=== PATIENT | female | born 1950 | race Caucasian/White ===

== ENCOUNTER 2016-10-23 14:55 | Outpatient (CLI) | payer MEDICARE, OTHER | END 2016-10-23 14:56 | disposition home or self-care (01) | LOC: LAB.F 14:55 | PROVIDERS: ATTEND Nurse Practitioner Psychiatric/Mental Health | DX: F31.81 Bipolar II disorder (principal) | CPT/HCPCS: 36415; 80164 ==

== ENCOUNTER 2017-12-13 14:19 | Emergency (ER) | payer MEDICARE, OTHER ==
--- NOTE | 2017-12-13 15:45 | XRAY Report ---
Procedure Date: 12/13/2017 Accession Number: [id number] / [id number] Procedure: XR - Chest 2 View X-Ray CPT Code: 00463 FULL RESULT: EXAM: CHEST RADIOGRAPHY EXAM DATE: 12/13/2017 03:14 PM. CLINICAL HISTORY: Shortness of breath. COMPARISON: 07/23/2014 TECHNIQUE: 2 views. FINDINGS: Lungs/Pleura: No focal opacities evident. No pleural effusion. No pneumothorax. Normal volumes. Mediastinum: Heart and mediastinal contours are unremarkable. Other: Mild degenerative change in the spine. IMPRESSION: Negative 2-view chest radiography for acute findings or significant change since 07/23/2014. RADIA
--- NOTE | 2017-12-13 17:07 | ED Physician Documentation ---
PD HPI DYSPNEA - Stated complaint Stated Complaint: SOA/TIGHTNESS OF CHEST - Chief complaint Chief Complaint: Resp - History obtained from History obtained from: Patient - History of Present Illness Timing - onset: How many days ago (has had dyspnea and worse asthma for months, but is worse the past week due to air quality.) Timing - onset during: Light activity Timing - duration: Days Timing - details: Gradual onset, Waxing and waning Inciting event(s): Exposure (ie smoke). No: Out of meds, URI Improved by: Inhaler/neb Associated symptoms: Cough, Wheezing. No: Fever, Palpitations, Bilateral edema , Anxiety Similar symptoms before: Diagnosis (asthma) Recently seen: Clinic (seen by Dental Laboratory Worker last week, who Rx Cromolyn for nebulizer but patient's insurance would not cover it.) Review of Systems Constitutional: reports: Myalgias. denies: Fever, Chills Nose: reports: Congestion. denies: Rhinorrhea / runny nose Throat: denies: Sore throat Cardiac: denies: Chest pain / pressure, Palpitations, Pedal edema, Calf pain Respiratory: reports: Dyspnea, Cough, Wheezing GI: reports: Nausea. denies: Abdominal Pain, Vomiting, Diarrhea, Bloody / black stool : denies: Dysuria, Frequency Musculoskeletal: denies: Extremity swelling Neurologic: reports: Generalized weakness. denies: Near syncope, Altered mental status PD PAST MEDICAL HISTORY - Past Medical History Cardiovascular: Hypertension Respiratory: Asthma Endocrine/Autoimmune: None, HyPOthyroidism GI: GERD HEATER TENDER: None : None HEENT: None Psych: Bipolar disorder Musculoskeletal: Osteoarthritis Derm: None - Past Surgical History Past Surgical History: Yes Ortho: Hip replacement, Knee replacement Derm: Skin cancer surgery - Present Medications Home Medications: Ambulatory Orders Medication Instructions Recorded Confirmed Diclofenac Sodium [Voltaren-Xr] 75 mg PO DAILY 01/15/13 05/01/14 Ipratropium [place] [Atrovent Hfa] 12.9 gm IH DAILY PRN 01/15/13 05/01/14 LORazepam [Ativan] 2 mg PO ONCE PRN 01/15/13 05/01/14 Losartan [Cozaar] 100 mg PO DAILY 01/15/13 05/01/14 Omeprazole [Prilosec] 40 mg PO DAILY 01/15/13 05/01/14 carBAMazepine [TEGretol] 200 mg PO QID 01/15/13 05/01/14 lamoTRIgine [LaMICtal] 200 mg PO DAILY 01/15/13 05/01/14 Albuterol Sulfate [Proair Hfa] 04/17/14 05/01/14 Fluticasone Propionate [Flovent 220 mcg IH DAILY 04/17/14 05/01/14 Diskus] Levothyroxine [Synthroid] 1 mcg PO DAILY 04/17/14 05/01/14 Tobramycin/Dexamethasone [Tobradex 1 drop OP DAILY 04/17/14 05/01/14 Eye Drops] Dexamethasone [Decadron] 4 mg PO DAILY #5 tablet 12/13/17 - Allergies Allergies/Adverse Reactions: Allergies Allergy/AdvReac Type Severity Reaction Status Date / Time codeine [Codeine] Allergy Emesis Verified 12/13/17 14:42 olanzapine [From Zyprexa] AdvReac weight gain Verified 12/13/17 14:42 sulfamethoxazole AdvReac Emesis Verified 12/13/17 14:42 [From Septra] trimethoprim [From Septra] AdvReac Emesis Verified 12/13/17 14:42 ziprasidone HCl * AdvReac dementia Verified 12/13/17 14:42 [From Geodon] ziprasidone mesylate * AdvReac dementia Verified 12/13/17 14:42 [From Geodon] - Social History Does the pt smoke?: No Smoking Status: Former smoker Does the pt drink ETOH?: Yes Does the pt have substance abuse?: No - Immunizations Immunizations are current?: Yes - POLST Patient has POLST: No PD ED PE NORMAL - Vitals Vital signs reviewed: Yes - General General: Alert and oriented X 3, No acute distress, Well developed/nourished - HEENT HEENT: Pharynx benign - Neck Neck: Supple, no meningeal sign, No adenopathy, No JVD - Cardiac Cardiac: RRR, No murmur - Respiratory Respiratory: No: Clear bilaterally (exp wheezing; no coarse sounds. ) - Abdomen Abdomen: Soft, Non tender - Female Female : Deferred - Rectal Rectal: Deferred - Back Back: No CVA TTP - Derm Derm: Normal color, Warm and dry, No rash - Extremities Extremities: No deformity, No tenderness to palpate, Normal ROM s pain, No edema , No calf tenderness / cord - Neuro Neuro: Alert and oriented X 3, No motor deficit, Normal speech Results - Vitals Vitals: Vital Signs - 24 hr 12/13/17 12/13/17 12/13/17 14:33 18:00 18:37 Temperature 36.4 C L Heart Rate 94 70 92 Respiratory 22 18 18 Rate Blood Pressure 180/96 H 163/108 H O2 Saturation 99 99 Oxygen O2 Source Room air - EKG (time done) 14:35 Rate: Rate (enter#) (91) Rhythm: NSR [place]: Normal Intervals: Normal AR QRS: Normal Ischemia: Normal ST segments. No: ST elevation c/w ischemia, ST depression - Rads (name of study) chest xray Radiology: Prelim report reviewed, EMP read contemporaneously (no infiltrates) PD MEDICAL DECISION MAKING - ED course Complexity details: reviewed results, re-evaluated patient, considered differential, d/w patient - Sepsis Event Vital Signs: Vital Signs - 24 hr 12/13/17 12/13/17 12/13/17 14:33 18:00 18:37 Temperature 36.4 C L Heart Rate 94 70 92 Respiratory 22 18 18 Rate Blood Pressure 180/96 H 163/108 H O2 Saturation 99 99 Oxygen O2 Source Room air Departure - Departure Disposition: 01 Home, Self Care Clinical Impression: Acute exacerbation of moderate persistent extrinsic asthma Condition: Stable Record reviewed to determine appropriate education?: Yes Follow-Up: Danyell Mayes MD [Primary Care Provider] - Prescriptions: Dexamethasone [Decadron] 4 mg PO DAILY #5 tablet Comments: Continue your current medications. Add Decadron steroid for the next 5 days. The hospital here does not stock the cromolyn so we could not do a nebulizer here. Follow-up with your primary care or Dental Laboratory Worker regarding preauthorization for the prescription you got from the dumper mold cleaner. Discharge Date/Time: 12/13/17 18:37
[2017-12-13] MEDS ORDERED: DEXAMETHASONE 10 MG/ML VIAL PO STA (17:48)
[2017-12-13] MEDS ORDERED: IPRATROPIUM/ALBUTEROL 3 ML NEB INH STA (17:48)
[2017-12-13] MEDS ORDERED: CHERRY SYRUP 10 ML UDC PO ONE (18:01)
[2017-12-13 18:38] VITALS: BP 163/108
== END 2017-12-13 18:37 | disposition home or self-care (01) ==
LOC: ED 14:19
DX: J45.31 Mild persistent asthma with (acute) exacerbation (principal); I10 Essential (primary) hypertension; E03.9 Hypothyroidism, unspecified
CPT/HCPCS: 71046; 93005; 94640; 99283; 99284; A9270

== ENCOUNTER 2018-03-15 19:07 | Outpatient (CLI) | payer MEDICARE, OTHER ==
--- NOTE | 2018-03-15 21:16 | Ultrasound Report ---
Reason: EDEMA Procedure Date: 03/15/2018 Accession Number: [id number] / [id number] Procedure: US - Duplex Ext Veins Right CPT Code: FULL RESULT: EXAM: RIGHT LOWER EXTREMITY VENOUS ULTRASOUND EXAM DATE: 03/15/2018 08:01 PM. CLINICAL HISTORY: EDEMA. COMPARISON: None. TECHNIQUE: Real-time sonographic vascular imaging was performed by the pharmacy assistant through the lower extremity utilizing both color-flow and Doppler spectral analysis. Multiple wireless sales representative static images were saved for review. FINDINGS: Common Femoral Vein (CFV): Normal. CFV-GSV Junction: Normal. Profunda Femoral Vein (PFV): Normal. Femoral Vein (FV) Prox: Normal. Femoral Vein (FV) Mid: Normal. Femoral Vein (FV) Dist: Normal. Popliteal Vein: Noncompressible clot. Posterior Tibial Veins: Normal. Peroneal Veins: Normal. Other: None. IMPRESSION: Positive for deep venous thrombosis in the right popliteal vein. RADIA The above findings were discussed with Danyell Mayes by Dr. Pablo Conway at 21:15 hrs on 03/15/18.
== END 2018-03-15 19:08 | disposition home or self-care (01) ==
LOC: DI 19:07
PROVIDERS: ATTEND Internal Medicine
DX: I82.431 Acute embolism and thrombosis of right popliteal vein (principal)

== ENCOUNTER 2018-03-15 23:10 | Emergency (ER) | payer MEDICARE, OTHER ==
[2018-03-15 23:15] VITALS: BP 150/108
--- NOTE | 2018-03-15 23:43 | ED Physician Documentation ---
History of Present Illness - Stated complaint Stated Complaint: R LEG PAIN - Chief complaint Chief Complaint: Ext Problem - History obtained from History obtained from: Patient - History of Present Illness Timing: How many days ago (3) - Additonal information Additional information: 67-year-old female with a history of allergic asthma has developed swelling in the right leg over the past 3 days. She states that her asthma has been under poor control this year and that she has spent more time sitting her chair than usual. She has noticed this swelling over the last 3 days and she is gone into see her doctor and was sent to the diagnostic imaging area for venous duplex. This demonstrated clot in the popliteal. The patient has come to the emergency department for treatment of DVT. She does not have any current risks for bleeding. Review of Systems Constitutional: reports: Chills. denies: Fever Eyes: denies: Decreased vision, Photophobia Ears: denies: Ear pain Nose: denies: Rhinorrhea / runny nose, Congestion Throat: denies: Sore throat Cardiac: denies: Chest pain / pressure, Palpitations Respiratory: reports: Wheezing. denies: Dyspnea, Cough GI: denies: Abdominal Pain, Nausea, Vomiting : denies: Dysuria, Frequency Skin: denies: Rash Musculoskeletal: reports: Extremity swelling. 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: None : None HEENT: None Psych: Bipolar disorder Musculoskeletal: Osteoarthritis Derm: None Other Past Medical History: CLL - Past Surgical History Past Surgical History: Yes Ortho: Hip replacement, Knee replacement Derm: Skin cancer surgery - Present Medications Home Medications: Ambulatory Orders Medication Instructions Recorded Confirmed Diclofenac Sodium [Voltaren-Xr] 75 mg PO DAILY 01/15/13 05/01/14 Ipratropium [place] [Atrovent Hfa] 12.9 gm IH DAILY PRN 01/15/13 05/01/14 LORazepam [Ativan] 2 mg PO ONCE PRN 01/15/13 05/01/14 Losartan [Cozaar] 100 mg PO DAILY 01/15/13 05/01/14 Omeprazole [Prilosec] 40 mg PO DAILY 01/15/13 05/01/14 carBAMazepine [TEGretol] 200 mg PO QID 01/15/13 05/01/14 lamoTRIgine [LaMICtal] 200 mg PO DAILY 01/15/13 05/01/14 Albuterol Sulfate [Proair Hfa] 04/17/14 05/01/14 Fluticasone Propionate [Flovent 220 mcg IH DAILY 04/17/14 05/01/14 Diskus] Levothyroxine [Synthroid] 1 mcg PO DAILY 04/17/14 05/01/14 Tobramycin/Dexamethasone [Tobradex 1 drop OP DAILY 04/17/14 05/01/14 Eye Drops] Dexamethasone [Decadron] 4 mg PO DAILY #5 tablet 12/13/17 Enoxaparin [Lovenox] 100 mg SUBQ Q12H #14 syringe 03/16/18 Warfarin [Coumadin] 5 mg PO DAILY #20 tablet 03/16/18 - Allergies Allergies/Adverse Reactions: Allergies Allergy/AdvReac Type Severity Reaction Status Date / Time codeine [Codeine] Allergy Emesis Verified 03/15/18 23:15 olanzapine [From Zyprexa] AdvReac weight gain Verified 03/15/18 23:15 sulfamethoxazole AdvReac Emesis Verified 03/15/18 23:15 [From Septra] trimethoprim [From Septra] AdvReac Emesis Verified 03/15/18 23:15 ziprasidone HCl * AdvReac dementia Verified 03/15/18 23:15 [From Geodon] ziprasidone mesylate * AdvReac dementia Verified 03/15/18 23:15 [From Geodon] - Social History Does the pt smoke?: No Smoking Status: Never smoker Does the pt drink ETOH?: Yes Does the pt have substance abuse?: No - Immunizations Immunizations are current?: Yes - POLST Patient has POLST: No PD ED PE NORMAL - Vitals Vital signs reviewed: Yes (hypertensive ) - General General: Alert and oriented X 3, No acute distress, Well developed/nourished - HEENT HEENT: Atraumatic, PERRL, EOMI - Neck Neck: Supple, no meningeal sign - Cardiac Cardiac: RRR, No murmur - Respiratory Respiratory: No respiratory distress, Clear bilaterally - Abdomen Abdomen: Soft, Non tender - Back Back: No CVA TTP, No spinal TTP - Derm Derm: Normal color, Warm and dry, No rash - Extremities Extremities: No deformity, Other (There is edema and swelling to the right lower calf without much tenderness or pain with dorsiflexion of the foot. ) - Neuro Neuro: Alert and oriented X 3, linux solaris administrator 2-12 intact, No motor deficit, No sensory deficit, Normal speech Eye Opening: Spontaneous Motor: Obeys Commands Verbal: Oriented GCS Score: 15 - Psych Psych: Normal mood, Normal affect Results - Vitals Vitals: Vital Signs - 24 hr 03/15/18 23:13 Temperature 36.6 C Heart Rate 96 Respiratory 18 Rate Blood Pressure 150/108 H O2 Saturation 100 Oxygen O2 Source Room air - Rads (name of study) duplex veins right Radiology: Prelim report reviewed (Impression: Positive for deep venous thrombosis in the right popliteal vein.), EMP read indepedently, See rad report PD MEDICAL DECISION MAKING - ED course Complexity details: reviewed results, considered differential, d/w patient ED course: 67-year-old female with a right popliteal DVT is administered Xarelto 15 mg orally. We will place her on 15 mg twice a day for 3 weeks and then onto 20 mg daily. I have asked her to follow-up with her primary care doctor Sugey for the prescription for after the 3-week period. Departure - Departure Disposition: 01 Home, Self Care Clinical Impression: DVT of axillary vein, acute Qualifiers: Laterality: right Qualified Code(s): I82.A11 - Acute embolism and thrombosis of right axillary vein Condition: Stable Instructions: ED DVT Follow-Up: Danyell Mayes MD [Primary Care Provider] - Prescriptions: Enoxaparin [Lovenox] 100 mg SUBQ Q12H #14 syringe Warfarin [Coumadin] 5 mg PO DAILY #20 tablet Comments: There is a drug interaction with your tegretol that precludes being able to use the xarelto. (it will be less effective). You will likely need to be on coumadin and this is a medication that requires close follow up with your primary care doctor and frequent blood draws. You will need to have your blood checked in 3 days and you will need to call Dr. Mayes tomorrow to arrange follow up. In addition while this medication is being adjusted you will need to take shots tw ice per day.
[2018-03-15] MEDS: RIVAROXABAN 15 MG TABLET PO STA (23:53)
[2018-03-16] MEDS: ENOXAPARIN 100 MG/ML SYRINGE SUBQ STA (00:23)
== END 2018-03-16 00:28 | disposition home or self-care (01) ==
LOC: ED 23:10
DX: I82.431 Acute embolism and thrombosis of right popliteal vein (principal); J45.909 Unspecified asthma, uncomplicated; I10 Essential (primary) hypertension
CPT/HCPCS: 96372; 99283; A9270; J1650

== ENCOUNTER 2018-03-21 14:27 | Outpatient (CLI) | payer MEDICARE, OTHER | END 2018-03-21 14:28 | disposition home or self-care (01) | LOC: LAB.F 14:27 | PROVIDERS: ATTEND Internal Medicine | DX: I82.401 Acute embolism and thrombosis of unspecified deep veins of right lower extremity (principal) | CPT/HCPCS: 85610 ==

== ENCOUNTER 2018-03-22 14:45 | Outpatient (CLI) | payer MEDICARE, OTHER | END 2018-03-22 14:46 | disposition EMS.NT | LOC: EMS 14:45 | PROVIDERS: ATTEND Surgery | DX: R20.2 Paresthesia of skin (principal); R00.0 Tachycardia, unspecified ==

== ENCOUNTER 2018-03-24 14:21 | Outpatient (CLI) | payer MEDICARE, OTHER | END 2018-03-24 14:22 | disposition home or self-care (01) | LOC: LAB.F 14:21 | PROVIDERS: ATTEND Internal Medicine | DX: I82.401 Acute embolism and thrombosis of unspecified deep veins of right lower extremity (principal) | CPT/HCPCS: 85610 ==

== ENCOUNTER 2018-03-28 14:52 | Outpatient (CLI) | payer MEDICARE, OTHER | END 2018-03-28 14:53 | disposition home or self-care (01) | LOC: LAB.F 14:52 | PROVIDERS: ATTEND Internal Medicine | DX: I82.401 Acute embolism and thrombosis of unspecified deep veins of right lower extremity (principal) | CPT/HCPCS: 85610 ==

== ENCOUNTER 2018-04-04 13:42 | Outpatient (CLI) | payer MEDICARE, OTHER | END 2018-04-04 13:43 | disposition home or self-care (01) | LOC: LAB.F 13:42 | PROVIDERS: ATTEND Internal Medicine | DX: I82.401 Acute embolism and thrombosis of unspecified deep veins of right lower extremity (principal) | CPT/HCPCS: 85610 ==

== ENCOUNTER 2018-04-11 14:23 | Outpatient (CLI) | payer MEDICARE, OTHER | END 2018-04-11 14:24 | disposition home or self-care (01) | LOC: LAB.F 14:23 | PROVIDERS: ATTEND Internal Medicine | DX: I82.401 Acute embolism and thrombosis of unspecified deep veins of right lower extremity (principal) | CPT/HCPCS: 85610 ==

== ENCOUNTER 2018-04-13 10:44 | Outpatient (CLI) | payer MEDICARE, OTHER | END 2018-04-13 10:45 | disposition home or self-care (01) | LOC: LAB.F 10:44 | PROVIDERS: ATTEND Internal Medicine | DX: I82.401 Acute embolism and thrombosis of unspecified deep veins of right lower extremity (principal) | CPT/HCPCS: 85610 ==

== ENCOUNTER 2018-04-20 11:26 | Outpatient (CLI) | payer MEDICARE, OTHER | END 2018-04-20 11:27 | disposition home or self-care (01) | LOC: LAB.F 11:26 | PROVIDERS: ATTEND Internal Medicine | DX: I82.401 Acute embolism and thrombosis of unspecified deep veins of right lower extremity (principal) | CPT/HCPCS: 85610 ==

== ENCOUNTER 2018-04-27 11:13 | Outpatient (CLI) | payer MEDICARE, OTHER | END 2018-04-27 11:14 | disposition home or self-care (01) | LOC: LAB.F 11:13 | PROVIDERS: ATTEND Internal Medicine | DX: I82.401 Acute embolism and thrombosis of unspecified deep veins of right lower extremity (principal) | CPT/HCPCS: 85610 ==

== ENCOUNTER 2018-05-02 14:17 | Outpatient (CLI) | payer MEDICARE, OTHER | END 2018-05-02 14:18 | disposition home or self-care (01) | LOC: LAB.F 14:17 | PROVIDERS: ATTEND Internal Medicine | DX: I82.401 Acute embolism and thrombosis of unspecified deep veins of right lower extremity (principal) | CPT/HCPCS: 85610 ==

== ENCOUNTER 2018-05-18 11:24 | Outpatient (CLI) | payer MEDICARE, OTHER | END 2018-05-18 11:25 | disposition home or self-care (01) | LOC: LAB.F 11:24 | PROVIDERS: ATTEND Internal Medicine | DX: I82.401 Acute embolism and thrombosis of unspecified deep veins of right lower extremity (principal) | CPT/HCPCS: 85610 ==

== ENCOUNTER 2018-05-25 14:43 | Outpatient (CLI) | payer MEDICARE, OTHER | END 2018-05-25 14:44 | disposition home or self-care (01) | LOC: LAB.F 14:43 | PROVIDERS: ATTEND Internal Medicine | DX: I82.401 Acute embolism and thrombosis of unspecified deep veins of right lower extremity (principal) | CPT/HCPCS: 85610 ==

== ENCOUNTER 2018-06-02 15:08 | Outpatient (CLI) | payer MEDICARE, OTHER | END 2018-06-02 15:09 | disposition home or self-care (01) | LOC: LAB.F 15:08 | PROVIDERS: ATTEND Internal Medicine | DX: I82.401 Acute embolism and thrombosis of unspecified deep veins of right lower extremity (principal) | CPT/HCPCS: 85610 ==

== ENCOUNTER 2018-06-10 11:40 | Outpatient (CLI) | payer MEDICARE, OTHER | END 2018-06-10 11:41 | disposition home or self-care (01) | LOC: LAB.F 11:40 | PROVIDERS: ATTEND Internal Medicine | DX: I82.401 Acute embolism and thrombosis of unspecified deep veins of right lower extremity (principal) | CPT/HCPCS: 85610 ==

== ENCOUNTER 2018-06-29 12:48 | Outpatient (CLI) | payer MEDICARE, OTHER | END 2018-06-29 12:49 | disposition home or self-care (01) | LOC: LAB.F 12:48 | PROVIDERS: ATTEND Internal Medicine | DX: E03.9 Hypothyroidism, unspecified (principal) | CPT/HCPCS: 36415; 84443 ==

== ENCOUNTER 2018-07-15 15:12 | Outpatient (CLI) | payer MEDICARE, OTHER ==
[2018-07-15 18:15] LABS: CREATININE 2.2 mg/dL (0.4-1.0)
[2018-07-15 18:27] LABS: THYROID STIMULATING HORMONE 5.63 uIU/mL (0.34-5.60)
== END 2018-07-15 15:13 | disposition home or self-care (01) ==
LOC: LAB.F 15:12
PROVIDERS: ATTEND Internal Medicine
DX: I82.401 Acute embolism and thrombosis of unspecified deep veins of right lower extremity (principal); E03.9 Hypothyroidism, unspecified; Z79.899 Other long term (current) drug therapy
CPT/HCPCS: 36415; 80048; 84439; 84443; 85610

== ENCOUNTER 2018-08-19 14:41 | Outpatient (CLI) | payer MEDICARE, OTHER | END 2018-08-19 14:42 | disposition home or self-care (01) | LOC: LAB.F 14:41 | PROVIDERS: ATTEND Internal Medicine | DX: Z00.00 Encounter for general adult medical examination without abnormal findings (principal); I82.401 Acute embolism and thrombosis of unspecified deep veins of right lower extremity; R53.83 Other fatigue | CPT/HCPCS: 36415; 84443; 85610 ==

== ENCOUNTER 2018-09-14 19:37 | Emergency (ER) | payer MEDICARE, OTHER ==
[2018-09-14 19:41] VITALS: BP 207/105
[2018-09-14] MEDS ORDERED: DEXAMETHASONE 10 MG/ML VIAL PO STA (20:03)
[2018-09-14] MEDS ORDERED: CHERRY SYRUP 10 ML UDC PO ONE (20:03)
--- NOTE | 2018-09-14 20:06 | ED Physician Documentation ---
PD HPI DYSPNEA - Stated complaint Stated Complaint: HX OF ASTHMA - Chief complaint Chief Complaint: Resp - History obtained from History obtained from: Patient - History of Present Illness Timing - onset: Other (67-year-old woman with history of asthma presents with an exacerbation due to environmental triggers. She was trying to fill a prescription for cromolyn inhaled but her insurance would not cover it it is prohibitively expensive. She denies productive cough, leg pain except for chronic arthritic pain, or chest pain. She does have a history of DVT and is on warfarin.) Review of Systems Constitutional: denies: Fever, Chills Cardiac: denies: Chest pain / pressure, Palpitations, Pedal edema, Calf pain Respiratory: denies: Hemoptysis, Wheezing PD PAST MEDICAL HISTORY - Past Medical History Cardiovascular: Hypertension Respiratory: Asthma Endocrine/Autoimmune: None, HyPOthyroidism GI: GERD QUAD STAYER: None : None HEENT: None Psych: Bipolar disorder Musculoskeletal: Osteoarthritis Derm: None - Past Surgical History Past Surgical History: Yes Ortho: Hip replacement, Knee replacement Derm: Skin cancer surgery - Present Medications Home Medications: Ambulatory Orders Medication Instructions Recorded Confirmed Diclofenac Sodium [Voltaren-Xr] 75 mg PO DAILY 01/15/13 05/01/14 Ipratropium [place] [Atrovent Hfa] 12.9 gm IH DAILY PRN 01/15/13 05/01/14 LORazepam [Ativan] 2 mg PO ONCE PRN 01/15/13 05/01/14 Losartan [Cozaar] 100 mg PO DAILY 01/15/13 05/01/14 Omeprazole [Prilosec] 40 mg PO DAILY 01/15/13 05/01/14 carBAMazepine [TEGretol] 200 mg PO QID 01/15/13 05/01/14 lamoTRIgine [LaMICtal] 200 mg PO DAILY 01/15/13 05/01/14 Albuterol Sulfate [Proair Hfa] 04/17/14 05/01/14 Fluticasone Propionate [Flovent 220 mcg IH DAILY 04/17/14 05/01/14 Diskus] Levothyroxine [Synthroid] 1 mcg PO DAILY 04/17/14 05/01/14 Tobramycin/Dexamethasone [Tobradex 1 drop OP DAILY 04/17/14 05/01/14 Eye Drops] dexAMETHasone [Decadron] 4 mg PO DAILY #5 tablet 12/13/17 Enoxaparin [Lovenox] 100 mg SUBQ Q12H #14 syringe 03/16/18 Warfarin [Coumadin] 5 mg PO DAILY #20 tablet 03/16/18 dexAMETHasone [Decadron] 4 mg PO DAILY #5 tablet 09/14/18 - Allergies Allergies/Adverse Reactions: Allergies Allergy/AdvReac Type Severity Reaction Status Date / Time codeine [Codeine] Allergy Emesis Verified 09/14/18 19:42 olanzapine [From Zyprexa] AdvReac weight gain Verified 09/14/18 19:42 sulfamethoxazole AdvReac Emesis Verified 09/14/18 19:42 [From Septra] trimethoprim [From Septra] AdvReac Emesis Verified 09/14/18 19:42 ziprasidone HCl * AdvReac dementia Verified 09/14/18 19:42 [From Geodon] ziprasidone mesylate * AdvReac dementia Verified 09/14/18 19:42 [From Geodon] - Social History Does the pt smoke?: No Smoking Status: Never smoker Does the pt drink ETOH?: Yes Does the pt have substance abuse?: No - Immunizations Immunizations are current?: Yes - POLST Patient has POLST: No PD ED PE NORMAL - Vitals Vital signs reviewed: Yes - General General: Alert and oriented X 3, No acute distress - Cardiac Cardiac: RRR, No murmur - Respiratory Respiratory: No respiratory distress, Other (Mildly wheezy and rhonchorous throughout, no focal findings) - Extremities Extremities: No edema, No calf tenderness / cord - Neuro Neuro: Alert and oriented X 3, Normal speech Results - Vitals Vitals: Vital Signs - 24 hr 09/14/18 19:40 Temperature 37.0 C Heart Rate 98 Respiratory 20 Rate Blood Pressure 207/105 H O2 Saturation 100 Oxygen O2 Source Room air PD MEDICAL DECISION MAKING - ED course ED course: She did not want any beta agonists, she says they do not work for her. We discussed may be montelukast, she is tried that without relief. She wants to do some steroids but had a low dose because of her glaucoma. Departure - Departure Disposition: 01 Home, Self Care Clinical Impression: Acute exacerbation of moderate persistent extrinsic asthma Condition: Good Record reviewed to determine appropriate education?: Yes Instructions: Asthma Dc Prescriptions: dexAMETHasone [Decadron] 4 mg PO DAILY #5 tablet Comments: Call your doctor to arrange a follow-up appointment, make the next available appointment. In the interim, return anytime if worse or if new symptoms develop.
== END 2018-09-14 20:12 | disposition home or self-care (01) ==
LOC: ED 19:37
DX: J45.41 Moderate persistent asthma with (acute) exacerbation (principal); I10 Essential (primary) hypertension; Z86.718 Personal history of other venous thrombosis and embolism; Z79.01 Long term (current) use of anticoagulants
CPT/HCPCS: 99283; A9270

== ENCOUNTER 2018-09-30 08:00 | Outpatient (CLI) | payer MEDICARE, OTHER | END 2018-09-30 23:59 | disposition home or self-care (01) | LOC: LAB.F 08:00 | PROVIDERS: ATTEND Internal Medicine | DX: I82.401 Acute embolism and thrombosis of unspecified deep veins of right lower extremity (principal) | CPT/HCPCS: 85610 ==

== ENCOUNTER 2018-12-13 16:18 | Outpatient (CLI) | payer MEDICARE, OTHER ==
--- NOTE | 2018-12-14 12:28 | Ultrasound Report ---
Reason: DVT R LE Procedure Date: 12/13/2018 Accession Number: [id number] / [id number] Procedure: US - Duplex Ext Veins Right CPT Code: FULL RESULT: EXAM: RIGHT LOWER EXTREMITY VENOUS ULTRASOUND EXAM DATE: 12/13/2018 05:15 PM. CLINICAL HISTORY: History of right lower extremity DVT. COMPARISON: 03/15/2018. TECHNIQUE: Real-time sonographic vascular imaging was performed by the centerless grinder through the lower extremity utilizing both color-flow and Doppler spectral analysis. Multiple district representative static images were saved for review. FINDINGS: Common Femoral Vein (CFV): Normal. CFV-GSV Junction: Normal. Profunda Femoral Vein (PFV): Normal. Femoral Vein (FV) Prox: Normal. Femoral Vein (FV) Mid: Normal. Femoral Vein (FV) Dist: Normal. Popliteal Vein: Incompletely compressible due to residual small amount nonocclusive thrombus. Posterior Tibial Veins: Normal. Peroneal Veins: Normal. Contralateral Side CFV: Normal. IMPRESSION: 1. Interval improvement, with small amount of residual nonocclusive thrombus in the popliteal vein. 2. No new DVT. RADIA
== END 2018-12-13 16:19 | disposition home or self-care (01) ==
LOC: DI 16:18
PROVIDERS: ATTEND Internal Medicine
DX: I82.431 Acute embolism and thrombosis of right popliteal vein (principal)

== ENCOUNTER 2018-12-13 17:11 | Emergency (ER) | payer MEDICARE, OTHER ==
[2018-12-13] MEDS ORDERED: BUFFERED LIDOCAINE 10 ML SYRINGE SUBQ STA (17:57)
[2018-12-13] MEDS ORDERED: TETANUS/DIPHTHERIA/PERTUSSIS 0.5 ML SYRINGE IM ONE (18:14)
--- NOTE | 2018-12-13 18:17 | ED Physician Documentation ---
PD HPI UPPER EXT INJURY - Stated complaint Stated Complaint: LT FING LAC - Chief complaint Chief Complaint: Laceration - History obtained from History obtained from: Patient - History of Present Illness Location: Left, Finger (index) Type of injury: Laceration Where injury occurred: Home Timing - onset: Today Timing - duration: Minutes Timing - details: Abrupt onset, Still present Improved by: Rest, Immobilization Worsened by: Moving, Palpating Associated symptoms: No: Weakness, Numbness, Tingling, Swelling Contributing factors: Anticoagulated Similar symptoms before: Diagnosis (laceration) Recently seen: Not recently seen - Additonal information Additional information: 67-year-old female with a history of asthma and DVT who is on Coumadin has lacerated her finger she has been able to control bleeding with direct pressure. 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: None : None HEENT: None Psych: Bipolar disorder Musculoskeletal: Osteoarthritis Derm: None - Past Surgical History Past Surgical History: Yes Ortho: Hip replacement, Knee replacement HEENT: Tonsil/Adenoidectomy Derm: Skin cancer surgery - Present Medications Home Medications: Ambulatory Orders Medication Instructions Recorded Confirmed Diclofenac Sodium [Voltaren-Xr] 75 mg PO DAILY 01/15/13 05/01/14 Ipratropium [place] [Atrovent Hfa] 12.9 gm IH DAILY PRN 01/15/13 05/01/14 LORazepam [Ativan] 2 mg PO ONCE PRN 01/15/13 05/01/14 Losartan [Cozaar] 100 mg PO DAILY 01/15/13 05/01/14 Omeprazole [Prilosec] 40 mg PO DAILY 01/15/13 05/01/14 carBAMazepine [TEGretol] 200 mg PO QID 01/15/13 05/01/14 lamoTRIgine [LaMICtal] 200 mg PO DAILY 01/15/13 05/01/14 Albuterol Sulfate [Proair Hfa] 04/17/14 05/01/14 Fluticasone Propionate [Flovent 220 mcg IH DAILY 04/17/14 05/01/14 Diskus] Levothyroxine [Synthroid] 1 mcg PO DAILY 12/23/14 01/06/15 Tobramycin/Dexamethasone [Tobradex 1 drop OP DAILY 04/17/14 05/01/14 Eye Drops] dexAMETHasone [Decadron] 4 mg PO DAILY #5 tablet 12/13/17 Enoxaparin [Lovenox] 100 mg SUBQ Q12H #14 syringe 03/16/18 Warfarin [Coumadin] 5 mg PO DAILY #20 tablet 03/16/18 dexAMETHasone [Decadron] 4 mg PO DAILY #5 tablet 09/14/18 - Allergies Allergies/Adverse Reactions: Allergies Allergy/AdvReac Type Severity Reaction Status Date / Time codeine [Codeine] Allergy Emesis Verified 09/14/18 19:42 olanzapine [From Zyprexa] AdvReac weight gain Verified 09/14/18 19:42 sulfamethoxazole AdvReac Emesis Verified 09/14/18 19:42 [From Septra] trimethoprim [From Septra] AdvReac Emesis Verified 09/14/18 19:42 ziprasidone HCl * AdvReac dementia Verified 09/14/18 19:42 [From Geodon] ziprasidone mesylate * AdvReac dementia Verified 09/14/18 19:42 [From Geodon] - Social History Does the pt smoke?: No Smoking Status: Never smoker Does the pt drink ETOH?: Yes Does the pt have substance abuse?: No - Immunizations Immunizations are current?: Yes - POLST Patient has POLST: No PD ED PE NORMAL - Vitals Vital signs reviewed: Yes (hypertensive ) - General General: Alert and oriented X 3, No acute distress, Well developed/nourished - HEENT HEENT: Atraumatic, PERRL, EOMI - Respiratory Respiratory: No respiratory distress - Derm Derm: Normal color, Warm and dry, No rash - Extremities Extremities: No deformity, No edema, Other (There is a 2cm laceration to the left index finger. There is no involvement of deeper structures. Distal n/v is intact. ) - Neuro Neuro: Alert and oriented X 3, institute scientist 2-12 intact, No motor deficit, No sensory deficit, Normal speech Eye Opening: Spontaneous Motor: Obeys Commands Verbal: Oriented GCS Score: 15 - Psych Psych: Normal mood, Normal affect Results - Vitals Vitals: Vital Signs - 24 hr 12/13/18 17:34 Temperature 36.5 C Heart Rate 92 Respiratory 14 Rate Blood Pressure 171/94 H O2 Saturation 98 Oxygen O2 Source Room air Procedures - Laceration (location) left index Length in cm: 2 Wound type: Linear, Clean Neurovascular status: Sensory intact, Motor intact, Vascular intact Anesthesia: Lidocaine 1%, With bicarb Wound Preparation: Hibiclens, Irrigated copiously NS, Wound explored, To the base Skin layer closure: Nylon, Interrupted, Size #-0 - enter number (4-0), Sutures - enter # (45) Other: Patient tolerated well, No complications, Dressing applied, Tetanus booster given Complexity: Simple PD MEDICAL DECISION MAKING - ED course Complexity details: considered differential, d/w patient, d/w family ED course: 67-year-old female with left index finger laceration has her finger sutured and tolerates this well. She does not have any excessive bleeding Departure - Departure Disposition: 01 Home, Self Care Clinical Impression: Finger laceration Qualifiers: Encounter type: initial encounter Finger: index finger Damage to nail status: without damage Foreign body presence: without foreign body Laterality: left Qualified Code(s): S61.211A - Laceration without foreign body of left index finger without damage to nail, initial encounter Condition: Stable Instructions: ED Laceration Hand Follow-Up: Danyell Mayes MD [Primary Care Provider] - Comments: Sutures should be removed in 7 to 10 days.
[2018-12-13 19:25] VITALS: BP 156/71
== END 2018-12-13 19:24 | disposition home or self-care (01) ==
LOC: ED 17:11
DX: S61.211A Laceration without foreign body of left index finger without damage to nail, initial encounter (principal); W26.0XXA Contact with knife, initial encounter; Y93.89 Activity, other specified; Y92.009 Unspecified place in unspecified non-institutional (private) residence as the place of occurrence of the external cause; I10 Essential (primary) hypertension; Z86.718 Personal history of other venous thrombosis and embolism; Z79.01 Long term (current) use of anticoagulants; I82.431 Acute embolism and thrombosis of right popliteal vein
CPT/HCPCS: 12001; 85610; 90471

== ENCOUNTER 2018-12-29 14:31 | Outpatient (CLI) | payer MEDICARE, OTHER ==
[2018-12-29 17:47] LABS: HGB - HEMOGLOBIN 11.9 g/dL (12.0-16.0); MEAN CORPUSCULAR HEMOGLOBIN 32.6 pg (27.0-31.0); MEAN CORPUSCULAR HGB CONC 31.2 g/dL (32.0-36.0); MEAN CORPUSCULAR VOLUME 104.7 fL (81.0-99.0); MEAN PLATELET VOLUME 10.6 fL (7.9-10.8); RED BLOOD COUNT 3.65 10^6/uL (4.20-5.40)
[2018-12-29 17:56] LABS: CALCIUM 9.4 mg/dL (8.5-10.3); CREATININE 2.3 mg/dL (0.4-1.0)
[2018-12-29 18:09] LABS: CREATININE,URINE 68.9 mg/dL; PROTEIN/CREATININE RATIO,URINE 0.2 (<=0.2)
== END 2018-12-29 14:32 | disposition home or self-care (01) ==
LOC: LAB.S 14:31
PROVIDERS: ATTEND Internal Medicine Nephrology
DX: N05.9 Unspecified nephritic syndrome with unspecified morphologic changes (principal); D70.9 Neutropenia, unspecified; D63.1 Anemia in chronic kidney disease; R80.9 Proteinuria, unspecified
CPT/HCPCS: 36415; 80048; 82570; 84156; 85027

== ENCOUNTER 2019-01-24 14:42 | Outpatient (CLI) | payer MEDICARE, OTHER ==
[2019-01-24 15:13] LABS: CALCIUM 8.9 mg/dL (8.5-10.3); CREATININE 2.4 mg/dL (0.4-1.0); PHOSPHORUS 3.1 mg/dL (2.5-4.6)
[2019-01-24 15:28] LABS: THYROID STIMULATING HORMONE 2.28 uIU/mL (0.34-5.60)
[2019-01-24 15:30] LABS: CREATININE,URINE 23.2 mg/dL; PROTEIN/CREATININE RATIO,URINE 0.3 (<=0.2)
== END 2019-01-24 14:43 | disposition home or self-care (01) ==
LOC: LAB 14:42
PROVIDERS: ATTEND Internal Medicine Nephrology
DX: I50.32 Chronic diastolic (congestive) heart failure (principal); E03.9 Hypothyroidism, unspecified; N05.9 Unspecified nephritic syndrome with unspecified morphologic changes; R80.9 Proteinuria, unspecified; E83.30 Disorder of phosphorus metabolism, unspecified; N25.81 Secondary hyperparathyroidism of renal origin
CPT/HCPCS: 36415; 80048; 82570; 83880; 83970; 84100; 84156; 84443

== ENCOUNTER 2019-01-26 14:39 | Outpatient (CLI) | payer MEDICARE, OTHER ==
--- NOTE | 2019-01-26 16:49 | Ultrasound Report ---
Reason: STAGE 4 KIDNEY DISEASE Procedure Date: 01/26/2019 Accession Number: [id number] / [id number] Procedure: US - Retroperitoneal CPT Code: FULL RESULT: EXAM: RENAL ULTRASOUND EXAM DATE: 01/26/2019 04:11 PM. CLINICAL HISTORY: Stage 4 kidney disease. COMPARISON: None. TECHNIQUE: Real-time scanning was performed with static images obtained. FINDINGS: Right Kidney: 10.8 x 5.7 x 6.2 cm. Diffusely echogenic renal parenchyma. No obvious mass or hydronephrosis on limited evaluation. Left Kidney: 11.0 x 5.5 x 5.7 cm. Diffusely echogenic renal parenchyma. No obvious mass or hydronephrosis on limited evaluation. Bladder: Bilateral jets seen. The prevoid bladder volume was 386 cc. The postvoid bladder volume was 39 cc. Other: None. IMPRESSION: 1. Diffusely echogenic renal parenchyma without significant atrophy. No obvious mass or ureteral obstruction. 2. Unremarkable bladder except for small postvoid residual urine volume. RADIA
== END 2019-01-26 14:40 | disposition home or self-care (01) ==
LOC: DI 14:39
PROVIDERS: ATTEND Internal Medicine Nephrology
DX: N18.4 Chronic kidney disease, stage 4 (severe) (principal)
CPT/HCPCS: 76770

== ENCOUNTER 2019-06-22 13:56 | Outpatient (CLI) | payer MEDICARE, OTHER ==
[2019-06-22 17:37] LABS: CALCIUM 9.3 mg/dL (8.5-10.3); CREATININE 2.2 mg/dL (0.4-1.0)
== END 2019-06-22 13:57 | disposition home or self-care (01) ==
LOC: LAB.S 13:56
PROVIDERS: ATTEND Internal Medicine Nephrology
DX: N05.9 Unspecified nephritic syndrome with unspecified morphologic changes (principal)
CPT/HCPCS: 36415; 80048

== ENCOUNTER 2019-12-29 15:25 | Outpatient (CLI) | payer MEDICARE, OTHER ==
[2019-12-29 19:49] LABS: HGB - HEMOGLOBIN 11.8 g/dL (12.0-16.0); MEAN CORPUSCULAR HEMOGLOBIN 32.3 pg (27.0-31.0); MEAN CORPUSCULAR HGB CONC 31.1 g/dL (32.0-36.0); MEAN CORPUSCULAR VOLUME 103.8 fL (81.0-99.0); RED BLOOD COUNT 3.65 10^6/uL (4.20-5.40); WHITE BLOOD COUNT 13.8 x10^3/uL (4.8-10.8)
[2019-12-29 19:55] LABS: CALCIUM 9.1 mg/dL (8.5-10.3); CREATININE 2.8 mg/dL (0.4-1.0)
== END 2019-12-29 15:26 | disposition home or self-care (01) ==
LOC: LAB.S 15:25
PROVIDERS: ATTEND Internal Medicine Nephrology
DX: N05.9 Unspecified nephritic syndrome with unspecified morphologic changes (principal); D70.9 Neutropenia, unspecified; D63.1 Anemia in chronic kidney disease; N18.9 Chronic kidney disease, unspecified
CPT/HCPCS: 36415; 80048; 85027

== ENCOUNTER 2020-01-26 08:00 | Outpatient (CLI) | payer MEDICARE, OTHER ==
--- NOTE | 2020-01-26 13:38 | XRAY Report ---
PROCEDURE: Ribs w/PA Chest LT INDICATIONS: FALL 2 DAYS AGO LEFT RIB PAIN TECHNIQUE: 3 views of the left ribs were acquired, along with a single view chest. COMPARISON: two-view chest 12/13/2017 FINDINGS: Surgical changes and devices: None. Bones and chest wall: No fractures or dislocations. No suspicious bony lesions. Overlying soft tis sues appear unremarkable. Lungs and pleura: No pleural effusions or pneumothorax. Lungs appear clear. Mediastinum: Mediastinal contours appear normal. Heart size is normal. IMPRESSION: No displaced rib fracture. No acute cardiopulmonary disease process. Reviewed by: Nancie Rodriguez MD, PhD on 01/26/2020 1:36 PM PDT Approved by: Nancie Rodriguez MD, PhD on 01/26/2020 1:36 PM PDT Station ID: [id number]
--- NOTE | 2020-01-26 13:39 | XRAY Report ---
PROCEDURE: Wrist 3 View LT INDICATIONS: FALL 2 WEEKS AGO, LEFT WRIST PAIN TECHNIQUE: 3 views of the wrist were acquired. COMPARISON: None FINDINGS: Bones: No fractures or dislocations. No suspicious bony lesions. Soft tissues: No suspicious soft tissue calcifications. IMPRESSION: No fracture. No osseous lesion. If there is continued clinical concern for pathology, then repeat angela in film radiographs (7-10 days) or advanced imaging (CT, MR, bone scan) should be considered for furt her evaluation. Reviewed by: Nancie Rodriguez MD, PhD on 01/26/2020 1:38 PM PDT Approved by: Nancie Rodriguez MD, PhD on 01/26/2020 1:38 PM PDT Station ID: [id number]
== END 2020-01-26 23:59 | disposition home or self-care (01) ==
LOC: DI.S 08:00
PROVIDERS: ATTEND Physician Assistant
DX: R07.81 Pleurodynia (principal); M25.532 Pain in left wrist

== ENCOUNTER 2020-01-29 08:00 | Outpatient (CLI) | payer MEDICARE, OTHER | END 2020-01-29 23:59 | disposition home or self-care (01) | LOC: LAB.R 08:00 | PROVIDERS: ATTEND Physician Assistant Medical | DX: B43.2 Subcutaneous pheomycotic abscess and cyst (principal) | CPT/HCPCS: 87070; 87205 ==

== ENCOUNTER 2020-02-02 07:00 | Outpatient (CLI) | payer MEDICARE, OTHER | END 2020-02-02 23:59 | disposition home or self-care (01) | LOC: LAB.R 07:00 | PROVIDERS: ATTEND Emergency Medicine | DX: L72.3 Sebaceous cyst (principal) | CPT/HCPCS: 87070; 87205 ==

== ENCOUNTER 2020-06-14 08:22 | Outpatient (CLI) | payer MEDICARE, OTHER ==
[2020-06-14 15:02] LABS: CALCIUM 9.1 mg/dL (8.5-10.3); CREATININE 2.9 mg/dL (0.4-1.0); PHOSPHORUS 4.1 mg/dL (2.5-4.6)
[2020-06-14 15:12] LABS: CREATININE,URINE 34.8 mg/dL; PROTEIN/CREATININE RATIO,URINE 0.5 (<=0.2)
== END 2020-06-14 08:23 | disposition home or self-care (01) ==
LOC: LAB.S 08:22
PROVIDERS: ATTEND Internal Medicine Nephrology
DX: N05.9 Unspecified nephritic syndrome with unspecified morphologic changes (principal); N25.81 Secondary hyperparathyroidism of renal origin; R80.9 Proteinuria, unspecified; E83.30 Disorder of phosphorus metabolism, unspecified
CPT/HCPCS: 36415; 80048; 82570; 83970; 84100; 84156

== ENCOUNTER 2020-06-30 07:01 | Emergency (ER) | payer MEDICARE, OTHER ==
--- NOTE | 2020-06-30 07:26 | ED Physician Documentation ---
PD HPI HEAD INJURY - Stated complaint Stated Complaint: HEAD INJ - Chief complaint Chief Complaint: General - History obtained from History obtained from: Patient - History of Present Illness Mechanism of head injury: Fell (2 days ago when getting up from commode, lost balance and struck head against a bolt/pin or such on the furniture.) Where head injury occurred: Home Timing - onset: How many days ago (2) Location of injury: Left, Back Quality of pain: Aching Associated symptoms: No: LOC, AMS, Nausea / vomiting Symptoms worsen with: Palpation, Movement Contributing factors: No: Anticoagulated Similar symptoms before: Has not had sx before Recently seen: Not recently seen Review of Systems Constitutional: denies: Fever, Chills Nose: denies: Rhinorrhea / runny nose, Congestion Throat: denies: Sore throat Respiratory: denies: Cough Neurologic: reports: Headache. 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 : None HEENT: None Psych: Bipolar disorder Musculoskeletal: Osteoarthritis Derm: None - Past Surgical History Past Surgical History: Yes Ortho: Hip replacement, Knee replacement HEENT: Tonsil/Adenoidectomy Derm: Skin cancer surgery - Present Medications Home Medications: Ambulatory Orders Medication Instructions Recorded Confirmed Ipratropium [place] [Atrovent Hfa] 12.9 gm IH DAILY PRN 01/15/13 06/30/20 LORazepam [Ativan] 2 mg PO ONCE PRN 01/15/13 06/30/20 carBAMazepine [TEGretol] 200 mg PO QID 01/15/13 06/30/20 lamoTRIgine [LaMICtal] 200 mg PO DAILY 01/15/13 06/30/20 Levothyroxine [Synthroid] 1 mcg PO DAILY 04/17/14 06/30/20 carvediloL [Coreg] 12.5 mg PO BID 06/30/20 06/30/20 - Allergies Allergies/Adverse Reactions: Allergies Allergy/AdvReac Type Severity Reaction Status Date / Time codeine [Codeine] Allergy Emesis Verified 06/30/20 07:12 olanzapine [From Zyprexa] AdvReac weight gain Verified 06/30/20 07:12 sulfamethoxazole AdvReac Emesis Verified 06/30/20 07:12 [From Septra] trimethoprim [From Decra] AdvReac Emesis Verified 06/30/20 07:12 ziprasidone HCl * AdvReac dementia Verified 06/30/20 07:12 [From [facility]] ziprasidone mesylate * AdvReac dementia Verified 06/30/20 07:12 [From [facility]] - Social History Does the pt smoke?: No Smoking Status: Never smoker Does the pt drink ETOH?: Yes Does the pt have substance abuse?: No - Immunizations Immunizations are current?: Yes - POLST Patient has POLST: No PD ED PE NORMAL - Vitals Vital signs reviewed: Yes - General General: Alert and oriented X 3, No acute distress, Well developed/nourished - HEENT HEENT: PERRL, EOMI, Other (left occipital scalp with local swelling, tenderness. No noted depression.) - Neck Neck: Supple, no meningeal sign, No bony TTP - Cardiac Cardiac: RRR, No murmur - Respiratory Respiratory: Clear bilaterally - Back Back: No spinal TTP - Derm Derm: Normal color, Warm and dry - Neuro Neuro: Alert and oriented X 3, No motor deficit, No sensory deficit, Normal speech Eye Opening: Spontaneous Motor: Obeys Commands Verbal: Oriented GCS Score: 15 - Psych Psych: Normal mood Results - Vitals Vitals: Vital Signs - 24 hr 06/30/20 06/30/20 06/30/20 07:05 07:25 08:45 Temperature 36.9 C 36.5 C Heart Rate 81 74 71 Respiratory 18 12 16 Rate Blood Pressure 137/83 H 149/83 H 156/84 H O2 Saturation 99 97 98 Oxygen O2 Source Room air - Rads (name of study) head CT Radiology: Prelim report reviewed (no ICH nor fractures), See rad report PD MEDICAL DECISION MAKING - ED course Complexity details: reviewed results (no fracture nor ICH. ), considered differential (scalp contusion. Not on blood thinners. But had point impact with local tenderness so will get CT to eval for fracture/bleeding. ), d/w patient Departure - Departure Disposition: 01 Home, Self Care Clinical Impression: Accidental fall Qualifiers: Encounter type: initial encounter Qualified Code(s): W19.XXXA - Unspecified fall, initial encounter Scalp contusion Qualifiers: Encounter type: initial encounter Qualified Code(s): S00.03XA - Contusion of scalp, initial encounter Condition: Stable Record reviewed to determine appropriate education?: Yes Instructions: ED Contusion Scalp Follow-Up: Danyell Mayes MD [Primary Care Provider] - Comments: Head CT is okay. Just soft tissue swelling. No fractures nor bleeding. Discharge Date/Time: 06/30/20 09:07
--- NOTE | 2020-06-30 08:17 | CT Report ---
PROCEDURE: HEAD WO INDICATIONS: fall struck head 2 days ago; NOLAN left side TECHNIQUE: Noncontrast 4.5 mm thick angled axial sections acquired from the foramen magnum to the vertex. For r adiation dose reduction, the following was used: automated exposure control, adjustment of mA and/or kV according to patient size. COMPARISON: None. FINDINGS: Image quality: Excellent. CSF spaces: Basal cisterns are patent. No extra-axial fluid collections. Ventricles are normal in size and shape. Brain: No midline shift. No intracranial masses or hemorrhage. Rivero-white matter interface is norm al. Age-related volume loss and mild small vessel ischemic change. Skull and face: Calvarium and visualized facial bones are intact, without suspicious lesions. Small high left parietal subgaleal hematoma. Sinuses: Visualized sinuses and mastoids are clear. IMPRESSION: 1. Age-related volume loss and mild small vessels ischemic change. 2. No evidence acute stroke, hemorrhage, or mass. 3. No evidence significant intracranial sequelae of acute trauma. Reviewed by: Willi Max MD on 06/30/2020 7:15 AM [facility] Approved by: Willi Max MD on 06/30/2020 7:15 AM [facility] Station ID: [id number]
[2020-06-30 08:46] VITALS: BP 156/84
== END 2020-06-30 09:07 | disposition home or self-care (01) ==
LOC: ED 07:01
DX: S00.03XA Contusion of scalp, initial encounter (principal); W18.12XA Fall from or off toilet with subsequent striking against object, initial encounter; Y92.002 Bathroom of unspecified non-institutional (private) residence as the place of occurrence of the external cause; I10 Essential (primary) hypertension
CPT/HCPCS: 99284

== ENCOUNTER 2020-08-02 12:31 | Outpatient (CLI) | payer MEDICARE, OTHER ==
[2020-08-02 15:18] LABS: CALCIUM 8.8 mg/dL (8.5-10.3); CREATININE 2.8 mg/dL (0.4-1.0); POTASSIUM 4.3 mmol/L (3.5-5.0)
[2020-08-02 15:22] LABS: BASOPHILS % (AUTO) 0.2 %; EOSINOPHILS % (AUTO) 1.5 %; HCT - HEMATOCRIT 35.9 % (37.0-47.0); HGB - HEMOGLOBIN 11.4 g/dL (12.0-16.0); LYMPHOCYTES % (AUTO) 59.8 %; MEAN CORPUSCULAR HEMOGLOBIN 32.8 pg (27.0-31.0); MEAN CORPUSCULAR HGB CONC 31.8 g/dL (32.0-36.0); MEAN CORPUSCULAR VOLUME 103.2 fL (81.0-99.0); MEAN PLATELET VOLUME 10.3 fL (7.9-10.8); MONOCYTES % (AUTO) 5.9 %; NEUTROPHILS % (AUTO) 32.3 %; PLT - PLATELET COUNT 225 10^3/uL (130-450); RED BLOOD COUNT 3.48 10^6/uL (4.20-5.40); RED CELL DISTRIBUTION WIDTH 13.4 % (12.0-15.0); WHITE BLOOD COUNT 12.8 x10^3/uL (4.8-10.8)
[2020-08-02 15:27] LABS: SLIDE REVIEW? Indicated
[2020-08-02 16:07] LABS: BAND NEUTROPHILS % (MANUAL) 0 %
[2020-08-02 16:08] LABS: ABNORMAL LYMPHS % (MANUAL) 12 %; DIFFERENTIAL COMMENT MANUAL DIFFERENTIAL; EOSINOPHILS # (MANUAL) 0.4 10^3/uL (0-0.7); LYMPHOCYTES % (MANUAL) 33 %; MONOCYTES # (MANUAL) 0.6 10^3/uL (0.0-1.0); NEUTROPHILS # (MANUAL) 5.8 10^3/uL (1.5-6.6); PLATELET ESTIMATE, MANUAL NORMAL (130-450,000) (NORMAL); PLATELET MORPHOLOGY NORMAL APPEARANCE (NORMAL); RBC MORPHOLOGY (MULTIPLE) NORMAL APPEARANCE (NORMAL); REACTIVE LYMPHS % (MANUAL) 2 %
== END 2020-08-02 12:32 | disposition home or self-care (01) ==
LOC: LAB.S 12:31
PROVIDERS: ATTEND Internal Medicine Nephrology
DX: N05.9 Unspecified nephritic syndrome with unspecified morphologic changes (principal); D70.9 Neutropenia, unspecified; D63.1 Anemia in chronic kidney disease
CPT/HCPCS: 36415; 80048; 85025

== ENCOUNTER 2020-08-20 17:45 | Outpatient (CLI) | payer MEDICARE, OTHER | END 2020-08-20 17:46 | disposition home or self-care (01) | LOC: LAB.S 17:45 | PROVIDERS: ATTEND Internal Medicine | DX: E07.9 Disorder of thyroid, unspecified (principal) | CPT/HCPCS: 36415; 84443 ==

== ENCOUNTER 2021-02-06 15:06 | Outpatient (CLI) | payer MEDICARE, OTHER ==
[2021-02-06 19:52] LABS: HCT - HEMATOCRIT 34.9 % (37.0-47.0); MEAN CORPUSCULAR HEMOGLOBIN 32.8 pg (27.0-31.0); MEAN CORPUSCULAR HGB CONC 31.5 g/dL (32.0-36.0); MEAN CORPUSCULAR VOLUME 104.2 fL (81.0-99.0); MEAN PLATELET VOLUME 10.6 fL (7.9-10.8); RED BLOOD COUNT 3.35 10^6/uL (4.20-5.40); RED CELL DISTRIBUTION WIDTH 12.9 % (12.0-15.0); WHITE BLOOD COUNT 11.4 x10^3/uL (4.8-10.8)
[2021-02-06 19:58] LABS: CALCIUM 8.9 mg/dL (8.5-10.3); CREATININE 3.2 mg/dL (0.4-1.0); PHOSPHORUS 4.1 mg/dL (2.5-4.6); POTASSIUM 5.1 mmol/L (3.5-5.0)
== END 2021-02-06 15:07 | disposition home or self-care (01) ==
LOC: LAB.S 15:06
PROVIDERS: ATTEND Internal Medicine Nephrology
DX: N05.9 Unspecified nephritic syndrome with unspecified morphologic changes (principal); D70.9 Neutropenia, unspecified; D63.1 Anemia in chronic kidney disease; E83.30 Disorder of phosphorus metabolism, unspecified; N25.81 Secondary hyperparathyroidism of renal origin
CPT/HCPCS: 36415; 80048; 83970; 84100; 85027

== ENCOUNTER 2021-04-03 14:56 | Outpatient (CLI) | payer MEDICARE, OTHER ==
[2021-04-03 19:57] LABS: CALCIUM 8.8 mg/dL (8.5-10.3)
[2021-04-03 21:53] LABS: HCT - HEMATOCRIT 35.5 % (37.0-47.0); HGB - HEMOGLOBIN 11.2 g/dL (12.0-16.0); MEAN CORPUSCULAR HEMOGLOBIN 32.9 pg (27.0-31.0); MEAN CORPUSCULAR HGB CONC 31.5 g/dL (32.0-36.0); MEAN CORPUSCULAR VOLUME 104.4 fL (81.0-99.0); MEAN PLATELET VOLUME 11.1 fL (7.9-10.8); RED BLOOD COUNT 3.4 10^6/uL (4.20-5.40); RED CELL DISTRIBUTION WIDTH 12.6 % (12.0-15.0)
== END 2021-04-03 14:57 | disposition home or self-care (01) ==
LOC: LAB.S 14:56
PROVIDERS: ATTEND Internal Medicine Nephrology
DX: N05.9 Unspecified nephritic syndrome with unspecified morphologic changes (principal); D70.9 Neutropenia, unspecified; D63.1 Anemia in chronic kidney disease
CPT/HCPCS: 36415; 80048; 85027

== ENCOUNTER 2021-06-13 15:21 | Outpatient (CLI) | payer MEDICARE, OTHER ==
[2021-06-13 19:43] LABS: HCT - HEMATOCRIT 35.4 % (37.0-47.0)
[2021-06-13 19:57] LABS: CALCIUM 8.4 mg/dL (8.5-10.3); CREATININE 2.8 mg/dL (0.4-1.0); POTASSIUM 4.6 mmol/L (3.5-5.0)
== END 2021-06-13 15:22 | disposition home or self-care (01) ==
LOC: LAB.S 15:21
PROVIDERS: ATTEND Internal Medicine Nephrology
DX: N05.9 Unspecified nephritic syndrome with unspecified morphologic changes (principal); D64.9 Anemia, unspecified
CPT/HCPCS: 36415; 80048; 85014; 85018

== ENCOUNTER 2021-07-10 08:00 | Outpatient (CLI) | payer MEDICARE, OTHER ==
[2021-07-10 16:20] LABS: BASOPHILS % (AUTO) 0.3 %; LYMPHOCYTES % (AUTO) 60.9 %; RED CELL DISTRIBUTION WIDTH 13.2 % (12.0-15.0)
[2021-07-10 16:33] LABS: ALBUMIN 4.1 g/dL (3.2-5.5); ALBUMIN/GLOBULIN RATIO 1.3 (1.0-2.2); ALKALINE PHOSPHATASE 104 IU/L (42-121); ALT ALANINE AMINOTRANSFERASE 16 IU/L (10-60); AST ASPARTATE AMINOTRANSFERASE 14 IU/L (10-42); BILIRUBIN,TOTAL 0.4 mg/dL (0.2-1.0); BUN - BLOOD UREA NITROGEN 50 mg/dL (6-20); CARBON DIOXIDE - CO2 23 mmol/L (21-32); CHLORIDE 107 mmol/L (101-111); CHOL/HDL RATIO 3.5 (<4.4); CHOLESTEROL 280 mg/dL; CREATININE 3.1 mg/dL (0.4-1.0); GFR - MDRD 15 (>89); GLUCOSE 98 mg/dL (70-100); HDL CHOLESTEROL 80 mg/dL; LDL CHOLESTEROL,CALCULATED 174 mg/dL; LDL/HDL RATIO 2.2 (<4.4); POTASSIUM 4.5 mmol/L (3.5-5.0); SODIUM 142 mmol/L (135-145); TOTAL PROTEIN 7.3 g/dL (6.7-8.2); TRIGLYCERIDES 128 mg/dL; VLDL CHOLESTEROL 26 mg/dL
[2021-07-10 16:38] LABS: EOSINOPHILS % (AUTO) 1.8 %; HCT - HEMATOCRIT 36.7 % (37.0-47.0); HGB - HEMOGLOBIN 11.3 g/dL (12.0-16.0); MEAN CORPUSCULAR HEMOGLOBIN 32.5 pg (27.0-31.0); MEAN CORPUSCULAR HGB CONC 30.8 g/dL (32.0-36.0); MEAN CORPUSCULAR VOLUME 105.5 fL (81.0-99.0); MONOCYTES % (AUTO) 5.2 %; NEUTROPHILS % (AUTO) 31.5 %; PLT - PLATELET COUNT 222 10^3/uL (130-450); RED BLOOD COUNT 3.48 10^6/uL (4.20-5.40); WHITE BLOOD COUNT 14.1 x10^3/uL (4.8-10.8)
[2021-07-10 16:47] LABS: SLIDE REVIEW? Indicated
[2021-07-10 16:48] LABS: BAND NEUTROPHILS % (MANUAL) 0 %
[2021-07-10 17:16] LABS: ABNORMAL LYMPHS % (MANUAL) 6 %; EOSINOPHILS # (MANUAL) 0.1 10^3/uL (0-0.7); LYMPHOCYTES # (MANUAL) 9.2 10^3/uL (1.5-3.5); LYMPHOCYTES % (MANUAL) 47 %; MONOCYTES # (MANUAL) 0.7 10^3/uL (0.0-1.0); NEUTROPHILS # (MANUAL) 4.1 10^3/uL (1.5-6.6); REACTIVE LYMPHS % (MANUAL) 12 %
[2021-07-10 17:17] LABS: DIFFERENTIAL COMMENT MANUAL DIFFERENTIAL; PLATELET ESTIMATE, MANUAL NORMAL (130-450,000) (NORMAL); PLATELET MORPHOLOGY NORMAL APPEARANCE (NORMAL); RBC MORPHOLOGY (MULTIPLE) 1+ MACROCYTOSIS (NORMAL)
== END 2021-07-10 23:59 ==
LOC: LAB.R 08:00
PROVIDERS: ATTEND Internal Medicine
DX: Z00.00 Encounter for general adult medical examination without abnormal findings (principal); C91.10 Chronic lymphocytic leukemia of B-cell type not having achieved remission; E03.9 Hypothyroidism, unspecified; F31.9 Bipolar disorder, unspecified; N18.9 Chronic kidney disease, unspecified; H40.9 Unspecified glaucoma; I12.9 Hypertensive chronic kidney disease with stage 1 through stage 4 chronic kidney disease, or unspecified chronic kidney disease; J45.909 Unspecified asthma, uncomplicated; M19.90 Unspecified osteoarthritis, unspecified site
CPT/HCPCS: 80053; 80061; 83721; 84443; 85025

== ENCOUNTER 2021-08-08 14:00 | Outpatient (CLI) | payer MEDICARE, OTHER ==
--- NOTE | 2021-08-08 14:39 | XRAY Report ---
PROCEDURE: Chest 2 View X-Ray INDICATIONS: DYSPNEA TECHNIQUE: 2 view(s) of the chest. COMPARISON: January 26, 2020 FINDINGS: SUPPORT DEVICES: None. LUNGS/PLEURA: Coarsened interstitial markings. No focal consolidation, pleural effusion or space-occu pying pneumothorax. 4.6 mm nodular density in the left lower lung zone, which is nonspecific. MEDIASTINUM: The cardiomediastinal silhouette is within normal limits. BONES/SOFT TISSUES: No acute abnormality. IMPRESSION: 1.No acute cardiopulmonary abnormality. 2.4.6 mm nodular density left lower lung zone, which is nonspecific. Consider CT imaging based on the patient's risk factors for further evaluation. Reviewed by: Jamie Camilo MD on 08/08/2021 2:37 PM PDT Approved by: Jamie Camilo MD on 08/08/2021 2:37 PM PDT Station ID: [id number]
== END 2021-08-08 14:01 | disposition home or self-care (01) ==
LOC: DI 14:00
PROVIDERS: ATTEND Internal Medicine
DX: R06.00 Dyspnea, unspecified (principal); R91.1 Solitary pulmonary nodule

== ENCOUNTER 2021-08-22 08:00 | Outpatient (CLI) | payer MEDICARE, OTHER ==
[2021-08-22 17:28] LABS: BASOPHILS % (AUTO) 0.3 %; HCT - HEMATOCRIT 32.6 % (37.0-47.0); HGB - HEMOGLOBIN 10.3 g/dL (12.0-16.0); LYMPHOCYTES % (AUTO) 58.8 %; MEAN CORPUSCULAR HEMOGLOBIN 33.1 pg (27.0-31.0); MEAN CORPUSCULAR HGB CONC 31.6 g/dL (32.0-36.0); MEAN CORPUSCULAR VOLUME 104.8 fL (81.0-99.0); MEAN PLATELET VOLUME 10.8 fL (7.9-10.8); MONOCYTES % (AUTO) 5.3 %; NEUTROPHILS % (AUTO) 33.1 %; PLT - PLATELET COUNT 193 10^3/uL (130-450); RED BLOOD COUNT 3.11 10^6/uL (4.20-5.40); RED CELL DISTRIBUTION WIDTH 13.3 % (12.0-15.0); WHITE BLOOD COUNT 13.2 x10^3/uL (4.8-10.8)
[2021-08-22 17:33] LABS: ABNORMAL LYMPHS % (MANUAL) 0 %
[2021-08-22 17:34] LABS: CALCIUM 8.5 mg/dL (8.5-10.3); CREATININE 3.2 mg/dL (0.4-1.0)
[2021-08-22 18:57] LABS: BAND NEUTROPHILS % (MANUAL) 1 %; DIFFERENTIAL COMMENT MANUAL DIFFERENTIAL; EOSINOPHILS # (MANUAL) 0.4 10^3/uL (0-0.7); LYMPHOCYTES # (MANUAL) 8.2 10^3/uL (1.5-3.5); LYMPHOCYTES % (MANUAL) 56 %; MONOCYTES # (MANUAL) 1.1 10^3/uL (0.0-1.0); NEUTROPHILS # (MANUAL) 3.6 10^3/uL (1.5-6.6); PLATELET ESTIMATE, MANUAL NORMAL (130-450,000) (NORMAL); PLATELET MORPHOLOGY NORMAL APPEARANCE (NORMAL); RBC MORPHOLOGY (MULTIPLE) NORMAL APPEARANCE (NORMAL); REACTIVE LYMPHS % (MANUAL) 6 %
== END 2021-08-22 08:01 | disposition home or self-care (01) ==
LOC: LAB.R 08:00
PROVIDERS: ATTEND Internal Medicine
DX: N05.9 Unspecified nephritic syndrome with unspecified morphologic changes (principal); D63.1 Anemia in chronic kidney disease; D70.9 Neutropenia, unspecified
CPT/HCPCS: 80048; 85025

== ENCOUNTER 2021-10-03 08:00 | Outpatient (CLI) | payer MEDICARE, OTHER ==
[2021-10-03 11:55] LABS: HCT - HEMATOCRIT 33.4 % (37.0-47.0); HGB - HEMOGLOBIN 10.7 g/dL (12.0-16.0); MEAN CORPUSCULAR HEMOGLOBIN 32.8 pg (27.0-31.0); MEAN CORPUSCULAR VOLUME 102.5 fL (81.0-99.0); MEAN PLATELET VOLUME 9.7 fL (7.9-10.8); RED BLOOD COUNT 3.26 10^6/uL (4.20-5.40); WHITE BLOOD COUNT 11.7 x10^3/uL (4.8-10.8)
[2021-10-03 12:04] LABS: CALCIUM 8.8 mg/dL (8.5-10.3); CREATININE 3.7 mg/dL (0.4-1.0); POTASSIUM 4.9 mmol/L (3.5-5.0)
== END 2021-10-03 23:59 | disposition home or self-care (01) ==
LOC: LAB 08:00
PROVIDERS: ATTEND Internal Medicine Nephrology
DX: N05.9 Unspecified nephritic syndrome with unspecified morphologic changes (principal); D70.9 Neutropenia, unspecified
CPT/HCPCS: 36415; 80048; 85027

== ENCOUNTER 2022-12-14 08:00 | Outpatient (CLI) | payer MEDICARE, OTHER ==
--- NOTE | 2022-12-14 16:43 | XRAY Report ---
PROCEDURE: Ankle 3 View RT INDICATIONS: RIGHT ANKLE PAIN TECHNIQUE: 3 views of the ankle were acquired. COMPARISON: None. FINDINGS: Bones: No fractures or dislocations. Ankle mortise is normally aligned. No suspicious bony lesions . Soft tissues: Soft tissue swelling about lateral malleolus. No tibiotalar joint effusion. Achilles tendon appears normal. IMPRESSION: Soft tissue swelling at the lateral malleolus without radiographic evidence of acute osseous abnormal ity. If there is high concern for internal derangement, further consider further evaluation with CT o r MRI. Reviewed by: Marissa Arce MD on 12/14/2022 4:42 PM PDT Approved by: Marissa Arce MD on 12/14/2022 4:42 PM PDT Station ID: [id number]
== END 2022-12-14 23:59 | disposition home or self-care (01) ==
LOC: DI.S 08:00
PROVIDERS: ATTEND Physician Assistant
DX: M25.571 Pain in right ankle and joints of right foot (principal); R93.6 Abnormal findings on diagnostic imaging of limbs; R93.89 Abnormal findings on diagnostic imaging of other specified body structures

== ENCOUNTER 2023-02-18 19:52 | Outpatient (CLI) | payer MEDICARE, OTHER | END 2023-02-18 23:59 | disposition short-term general hospital (02) | LOC: EMS 19:52 | DX: R94.31 Abnormal electrocardiogram [ECG] [EKG] (principal); R42 Dizziness and giddiness; R26.81 Unsteadiness on feet; R11.0 Nausea | CPT/HCPCS: A0425; A0427 ==

== ENCOUNTER 2023-05-14 12:31 | Outpatient (CLI) | payer MEDICARE, OTHER | END 2023-05-14 12:32 | disposition home or self-care (01) | LOC: DI 12:31 | PROVIDERS: ATTEND Internal Medicine | DX: R29.6 Repeated falls (principal); R42 Dizziness and giddiness; R01.1 Cardiac murmur, unspecified; N39.0 Urinary tract infection, site not specified; I35.0 Nonrheumatic aortic (valve) stenosis | CPT/HCPCS: 93307 ==

== ENCOUNTER 2023-05-24 11:07 | Outpatient (CLI) | payer MEDICARE, OTHER | END 2023-05-24 23:59 | disposition critical access hospital (66) | LOC: EMS 11:07 | DX: R06.02 Shortness of breath (principal); R42 Dizziness and giddiness; R53.1 Weakness | CPT/HCPCS: A0425; A0427 ==

== ENCOUNTER 2023-05-24 11:37 | Emergency (ER) | payer MEDICARE, OTHER ==
[2023-05-24 11:52] VITALS: O2SAT 100
--- NOTE | 2023-05-24 12:32 | ED Physician Documentation ---
History of Present Illness - Stated complaint Stated Complaint: SOA/WEAKNESS - Chief complaint Chief Complaint: Resp - History obtained from History obtained from: Patient - History of Present Illness Timing: How many days ago (4) Pain level max: 2 Pain level now: 1 - Additonal information Additional information: 72-year-old female presents to the emergency department with shortness of breath ongoing for the past 3 to 4 days. Has a history of asthma. Also has a history of moderate aortic stenosis on echocardiogram 10 days ago. She received a breathing treatment with EMS and states that she feels much better. She states she normally only uses 1 nebulizer treatment daily but has been using 3-4 over the past few days. No fevers. No cough. No congestion. She states she has very mild chest tightness. Nonradiating. No significant swelling in the legs. No headache. No nausea or vomiting. 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 : None HEENT: None Psych: Bipolar disorder Musculoskeletal: Osteoarthritis Derm: None - Past Surgical History Past Surgical History: Yes Ortho: Hip replacement, Knee replacement HEENT: Tonsil/Adenoidectomy Derm: Skin cancer surgery - Present Medications Home Medications: Ambulatory Orders Medication Instructions Recorded Confirmed LORazepam [Ativan] 2 mg PO ONCE PRN 01/15/13 05/24/23 carBAMazepine [TEGretol] 200 mg PO QID 01/15/13 05/24/23 lamoTRIgine [LaMICtal] 200 mg PO DAILY 01/15/13 05/24/23 Levothyroxine [Synthroid] 150 mcg PO DAILY 04/17/14 05/24/23 carvediloL [Coreg] 12.5 mg PO BID 06/30/20 05/24/23 Amlodipine Besylate [Norvasc] 1 tab PO DAILY 05/24/23 05/24/23 Azithromycin [Zithromax] 250 mg PO DAILY #4 tablet 05/24/23 Cefpodoxime Proxetil [Vantin] 100 mg PO DAILY #7 tablet 05/24/23 Ipratropium/Albuterol [Duoneb] 1 neb IH DAILY 05/24/23 05/24/23 - Allergies Allergies/Adverse Reactions: Allergies Allergy/AdvReac Type Severity Reaction Status Date / Time codeine [Codeine] Allergy Emesis Verified 05/24/23 11:51 olanzapine [From Zyprexa] AdvReac weight gain Verified 05/24/23 11:51 sulfamethoxazole AdvReac Emesis Verified 05/24/23 11:51 [From Septra] trimethoprim [From Septra] AdvReac Emesis Verified 05/24/23 11:51 ziprasidone HCl * AdvReac dementia Verified 05/24/23 11:51 [From Geodon] ziprasidone mesylate * AdvReac dementia Verified 05/24/23 11:51 [From Geodon] - Social History Does the pt smoke?: No Smoking Status: Never smoker Does the pt drink ETOH?: Yes Does the pt have substance abuse?: No - Immunizations Immunizations are current?: Yes - POLST Patient has POLST: No PD ED PE NORMAL - Vitals Vital signs reviewed: Yes - General General: Alert and oriented X 3, No acute distress - HEENT HEENT: PERRL, Moist mucous membranes - Neck Neck: Supple, no meningeal sign - Cardiac Cardiac: RRR, Strong equal pulses, Other (harsh systolic murmur) - Respiratory Respiratory: No respiratory distress, Clear bilaterally - Abdomen Abdomen: Soft, Non tender, Non distended - Derm Derm: Warm and dry, No rash - Extremities Extremities: No edema, No calf tenderness / cord - Neuro Neuro: Alert and oriented X 3 - Psych Psych: Normal mood, Normal affect Results - Vitals Vitals: Vital Signs - 24 hr 05/24/23 05/24/23 05/24/23 11:45 13:51 15:11 Temperature 36.9 C Heart Rate 67 69 72 Respiratory 24 18 18 Rate Blood Pressure 144/75 H 170/90 H 169/77 H O2 Saturation 100 99 100 Oxygen O2 Source Room air - EKG (time done) 1153 EKG releavant findings:: EKG personally interpreted by author of this note. Relevant findings are: Rate: Rate (enter#) (69) Rhythm: NSR [place]: Normal Intervals: Normal GA QRS: Normal Ischemia: Normal ST segments, Q waves (III, aVF) - Labs Labs: Laboratory Tests 05/24/23 05/24/23 05/24/23 12:38 12:38 13:22 WBC 11.3 H RBC 2.79 L Hgb 8.8 L Hct 28.7 L MCV 102.9 H MCH 31.5 H MCHC 30.7 L RDW 14.0 Plt Count 198 MPV 9.7 Neut # (Auto) 4.1 Lymph # (Auto) 6.2 H [place] # (Auto) 0.7 Eos # (Auto) 0.3 Baso # (Auto) 0.0 Absolute Nucleated RBC 0.00 Band Neuts % (Manual) Not Reportable Abnorm Lymph % (Manual) Not Reportable Nucleated RBC % 0.0 Neutrophils # (Manual) Not Reportable Lymphocytes # (Manual) Not Reportable Monocytes # (Manual) Not Reportable Eosinophils # (Manual) Not Reportable Basophils # (Manual) Not Reportable Differential Comment MANUAL=AUTO DIFF RBC Morph Micro Appear 1+ HYPOCHROMASIA Sodium 138 Potassium 5.3 H Chloride 110 Carbon Dioxide 20 L Anion Gap 8.0 BUN 69 H Creatinine 4.4 H Estimated GFR (MDRD) 10 L Glucose 109 H Calcium 9.1 Total Bilirubin 0.3 AST 11 ALT 14 Alkaline Phosphatase 130 H Troponin I High Sens 6.5 Total Protein 6.7 Albumin 3.9 Globulin 2.8 Albumin/Globulin Ratio 1.4 Lipase 77 Urine Color YELLOW Urine Clarity HAZY Urine pH 6.0 Ur Specific [place] <=1.005 Urine Protein NEGATIVE Urine Glucose (UA) NEGATIVE Urine Ketones NEGATIVE Urine Occult Blood NEGATIVE Urine Nitrite POSITIVE H Urine Bilirubin NEGATIVE Urine Urobilinogen 0.2 (NORMAL) Ur Leukocyte Esterase LARGE H Urine RBC 0-5 Urine WBC 11-25 H Ur Squamous Epith Cells RARE Squamous Urine Bacteria Moderate H Ur Microscopic Review INDICATED Urine Culture Comments INDICATED - Rads (name of study) cxr Relevant Findings:: Final report received, See rad report PD Medical Decision Making - ED course Complexity details: reviewed results, re-evaluated patient, considered differential, d/w patient ED course: 72-year-old female with what appears to be a possible mild early atypical pneumonia on chest x-ray, does have a UTI as well. Mildly elevated white blood cell count. Chronic anemia. Chronic kidney disease. Patient states she does not ever want to go onto dialysis. Was given Rocephin and azithromycin here. No evidence of sepsis. And abdomen is soft, nontender nondistended on serial exam. Lungs clear to auscultation bilaterally. No hypoxia. No respiratory distress. Ambulating without any difficulty with her cane in the emergency department. No exertional dyspnea here. No hypoxia with exertion. Patient counseled regarding signs and symptoms for which I believe and urgent re- evaluation would be necessary. Patient with good understanding of and agreement to plan and is comfortable going home at this time This document was made in part using voice recognition software. While efforts are made to proofread this document, sound alike and grammatical errors may occur. Departure - Departure Disposition: Home, Self Care Clinical Impression: Asthma Qualifiers: Asthma severity: unspecified severity Asthma persistence: unspecified Asthma complication type: unspecified Qualified Code(s): J45.909 - Unspecified asthma, uncomplicated Anemia Qualifiers: Anemia type: unspecified type Qualified Code(s): D64.9 - Anemia, unspecified Chronic kidney disease Qualifiers: Chronic kidney disease stage: unspecified stage Qualified Code(s): N18.9 - Chronic kidney disease, unspecified UTI (urinary tract infection) Qualifiers: Urinary tract infection type: site unspecified Hematuria presence: without hematuria Qualified Code(s): N39.0 - Urinary tract infection, site not specified Pneumonia Qualifiers: Pneumonia type: due to unspecified organism Laterality: unspecified laterality Lung location: unspecified part of lung Qualified Code(s): J18.9 - Pneumonia, unspecified organism Condition: Good Instructions: ED Reactive Airway Disease Follow-Up: your,doctor in 1 week [Other] Danyell Mayes MD [Provider Admit Priv/Credential] - Danyell Mayes MD [Provider Admit Priv/Credential] - Prescriptions: Cefpodoxime Proxetil [Vantin] 100 mg PO DAILY #7 tablet Azithromycin [Zithromax] 250 mg PO DAILY #4 tablet Comments: Please follow-up with your doctor for further care. Please return if you worsen. Your hemoglobin is 8.8 today. Unclear if this is chronic for you, but I suspect it is given your chronic kidney disease. Your doctor may want to discuss medications such as erythropoietin which can help to stimulate your red blood cell production. You should continue to use your inhaler at home as well. Your laboratory testing and markers of heart attacks are negative today. Your x-ray shows a possible mild early pneumonia. We have given you Rocephin and azithromycin today. You also have a bladder infection for which we have started you on the Rocephin. We will send antibiotics to the pharmacy for you Your prescriptions were sent to [facility] in [place]. Forms: PCP List Discharge Date/Time: 05/24/23 15:11
--- NOTE | 2023-05-24 12:41 | XRAY Report ---
PROCEDURE: Chest 1V INDICATIONS: Chest Pain TECHNIQUE: One view of the chest was acquired. COMPARISON: None. FINDINGS: Surgical changes and devices: None. Lungs and pleura: No pleural effusions or pneumothorax. Mild diffuse reticulonodular pulmonary opaci ty. Mediastinum: Mediastinal contours appear normal. Heart size is normal. Bones and chest wall: No suspicious bony lesions. Overlying soft tissues appear unremarkable. IMPRESSION: Mild atypical pneumonia. Reviewed by: Alondra Alonzo MD on 05/24/2023 12:40 PM [facility] Approved by: Alondra Alonzo MD on 05/24/2023 12:40 PM [facility] Station ID: [id number]
[2023-05-24 12:45] LABS: BASOPHILS % (AUTO) 0.4 %; EOSINOPHILS # (AUTO) 0.3 10^3/uL (0.0-0.7); EOSINOPHILS % (AUTO) 2.3 %; HCT - HEMATOCRIT 28.7 % (37.0-47.0); HGB - HEMOGLOBIN 8.8 g/dL (12.0-16.0); LYMPHOCYTES # (AUTO) 6.2 10^3/uL (1.5-3.5); LYMPHOCYTES % (AUTO) 54.9 %; MEAN CORPUSCULAR HEMOGLOBIN 31.5 pg (27.0-31.0); MEAN CORPUSCULAR HGB CONC 30.7 g/dL (32.0-36.0); MEAN CORPUSCULAR VOLUME 102.9 fL (81.0-99.0); MEAN PLATELET VOLUME 9.7 fL (7.9-10.8); MONOCYTES # (AUTO) 0.7 10^3/uL (0.0-1.0); MONOCYTES % (AUTO) 6.1 %; NEUTROPHILS # (AUTO) 4.1 10^3/uL (1.5-6.6); NEUTROPHILS % (AUTO) 35.9 %; PLT - PLATELET COUNT 198 10^3/uL (130-450); RED BLOOD COUNT 2.79 10^6/uL (4.20-5.40); WHITE BLOOD COUNT 11.3 x10^3/uL (4.8-10.8)
[2023-05-24 13:04] LABS: TROPONIN I HIGH SENSITIVITY 6.5 ng/L (2.3-14.8)
[2023-05-24 13:09] LABS: ALBUMIN 3.9 g/dL (3.2-5.5); ALBUMIN/GLOBULIN RATIO 1.4 (1.0-2.2); BILIRUBIN,TOTAL 0.3 mg/dL (0.2-1.0); CALCIUM 9.1 mg/dL (8.5-10.3); CREATININE 4.4 mg/dL (0.6-1.3); POTASSIUM 5.3 mmol/L (3.5-4.5); TOTAL PROTEIN 6.7 g/dL (6.4-8.9)
[2023-05-24 13:11] LABS: DIFFERENTIAL COMMENT MANUAL=AUTO DIFF
[2023-05-24 13:28] LABS: BILIRUBIN,URINE NEGATIVE (NEGATIVE); GLUCOSE, URINE (UA) NEGATIVE (NEGATIVE); KETONES,URINE (UA) NEGATIVE (NEGATIVE); LEUKOCYTE ESTERASE, URINE LARGE (NEGATIVE); NITRITE,URINE POSITIVE (NEGATIVE); OCCULT BLOOD,URINE NEGATIVE (NEGATIVE); PROTEIN,URINE NEGATIVE (NEGATIVE); UROBILINOGEN,URINE 0.2 (NORMAL) E.U./dL (NORMAL)
[2023-05-24 13:30] LABS: CLARITY,URINE HAZY (CLEAR)
[2023-05-24 13:32] LABS: BACTERIA,URINE Moderate /HPF (None Seen); RBC,URINE 0-5 /HPF (0-5); SQUAMOUS EPITHELIAL CELL,UR RARE Squamous (<= Few)
[2023-05-24] MEDS ORDERED: cefTRIAXone 1 GM VIAL IVP STA (13:34)
[2023-05-24] MEDS: IPRATROPIUM/ALBUTEROL 3 ML NEB INH STA ×2 (14:33→15:02)
[2023-05-24] MEDS ORDERED: AZITHROMYCIN 250 MG TABLET PO STA (14:46)
[2023-05-24 15:19] VITALS: BP 169/77
== END 2023-05-24 15:11 | disposition home or self-care (01) ==
LOC: EDUNIT# → ED 11:37
DX: J45.909 Unspecified asthma, uncomplicated (principal); J18.9 Pneumonia, unspecified organism; D64.9 Anemia, unspecified; I12.9 Hypertensive chronic kidney disease with stage 1 through stage 4 chronic kidney disease, or unspecified chronic kidney disease; N18.9 Chronic kidney disease, unspecified; N39.0 Urinary tract infection, site not specified
CPT/HCPCS: 36415; 71045; 80053; 81001; 83690; 84484; 85025; 87077; 87086; 87181; 93005; 96374; 99284; A9270; 81003

== ENCOUNTER 2023-06-11 07:00 | Outpatient (CLI) | payer MEDICARE, OTHER | END 2023-06-11 23:59 | disposition home or self-care (01) | LOC: LAB.S 07:00 | PROVIDERS: ATTEND Registered Nurse | DX: R30.0 Dysuria (principal) | CPT/HCPCS: 87077; 87086; 87181 ==

== ENCOUNTER 2023-06-29 14:18 | Outpatient (CLI) | payer MEDICARE, OTHER ==
[2023-06-29 14:43] LABS: ABSOLUTE RETICS # AUTO 0.057 10^6/uL (0.020-0.110); BASOPHILS % (AUTO) 0.2 %; EOSINOPHILS # (AUTO) 0.3 10^3/uL (0.0-0.7); EOSINOPHILS % (AUTO) 2.2 %; HCT - HEMATOCRIT 30.5 % (37.0-47.0); HGB - HEMOGLOBIN 9.3 g/dL (12.0-16.0); LYMPHOCYTES # (AUTO) 6.8 10^3/uL (1.5-3.5); LYMPHOCYTES % (AUTO) 58.5 %; MEAN CORPUSCULAR HEMOGLOBIN 31.7 pg (27.0-31.0); MEAN CORPUSCULAR HGB CONC 30.5 g/dL (32.0-36.0); MEAN CORPUSCULAR VOLUME 104.1 fL (81.0-99.0); MEAN PLATELET VOLUME 9.7 fL (7.9-10.8); MONOCYTES # (AUTO) 0.8 10^3/uL (0.0-1.0); MONOCYTES % (AUTO) 6.6 %; NEUTROPHILS # (AUTO) 3.8 10^3/uL (1.5-6.6); NEUTROPHILS % (AUTO) 32.2 %; PLT - PLATELET COUNT 215 10^3/uL (130-450); RED BLOOD COUNT 2.93 10^6/uL (4.20-5.40); RETICULOCYTE COUNT % (AUTO) 1.93 % (0.5-2.3); WHITE BLOOD COUNT 11.6 x10^3/uL (4.8-10.8)
[2023-06-29 14:47] LABS: SLIDE REVIEW? Indicated
[2023-06-29 15:51] LABS: PLATELET ESTIMATE, MANUAL NORMAL (130-450,000) (NORMAL); PLATELET MORPHOLOGY NORMAL APPEARANCE (NORMAL); RBC MORPHOLOGY (MULTIPLE) 1+ MACROCYTOSIS (NORMAL); WBC MORPHOLOGY (MULTIPLE) NORMAL APPEARANCE (NORMAL)
[2023-06-29 15:52] LABS: DIFFERENTIAL COMMENT MANUAL=AUTO DIFF
[2023-06-29 16:07] LABS: FERRITIN 45.9 ng/mL (11.0-306.8)
== END 2023-06-29 14:19 | disposition home or self-care (01) ==
LOC: LAB 14:18
PROVIDERS: ATTEND Internal Medicine
DX: N18.9 Chronic kidney disease, unspecified (principal); D64.9 Anemia, unspecified
CPT/HCPCS: 36415; 82607; 82668; 82728; 82746; 83540; 84466; 85025; 85045

== ENCOUNTER 2023-10-10 05:12 | Outpatient (CLI) | payer MEDICARE, OTHER | END 2023-10-10 23:59 | disposition critical access hospital (66) | LOC: EMS 05:12 | DX: R53.1 Weakness (principal) | CPT/HCPCS: A0425; A0429 ==

== ENCOUNTER 2023-10-10 05:41 | Inpatient (IN) | payer MEDICARE, OTHER ==
--- NOTE | 2023-10-10 05:52 | ED Physician Documentation ---
History of Present Illness - Stated complaint Stated Complaint: GEN WEAKNESS - Additonal information Additional information: 72-year-old female presents to the emergency department brought in via EMS with generalized weakness. Increased generalized weakness for the last few days. 2 days ago had a controlled fall which she lowered herself to the ground and found that she could not get up. She has been on the ground for the last 2 days. Reports that she crawled to an outlet and was able to charge her phone and call for help this morning. Review of Systems Constitutional: reports: Fatigue. denies: Fever Eyes: denies: Loss of vision Ears: denies: Loss of hearing Nose: denies: Rhinorrhea / runny nose Throat: denies: Dental pain / toothache Cardiac: denies: Chest pain / pressure Respiratory: denies: Dyspnea GI: denies: Abdominal Pain : denies: Dysuria Skin: denies: Rash Musculoskeletal: denies: Neck pain Neurologic: reports: Generalized weakness PD PAST MEDICAL HISTORY - Past Medical History Cardiovascular: Hypertension Respiratory: Asthma Neuro: None Endocrine/Autoimmune: None, HyPOthyroidism GI: GERD OPERATIONS LOGISTICS ANALYST: None : None HEENT: None Psych: Bipolar disorder Musculoskeletal: Osteoarthritis Derm: None - Past Surgical History Past Surgical History: Yes Ortho: Hip replacement, Knee replacement HEENT: Tonsil/Adenoidectomy Derm: Skin cancer surgery - Present Medications Home Medications: Ambulatory Orders Medication Instructions Recorded Confirmed LORazepam [Ativan] 2 mg PO ONCE PRN 01/15/13 10/10/23 carBAMazepine [TEGretol] 200 mg PO QID 01/15/13 10/10/23 lamoTRIgine [LaMICtal] 200 mg PO DAILY 01/15/13 05/24/23 Levothyroxine [Synthroid] 150 mcg PO DAILY 04/17/14 10/10/23 carvediloL [Coreg] 12.5 mg PO BID 06/30/20 10/10/23 Amlodipine Besylate [Norvasc] 1 tab PO DAILY 05/24/23 10/10/23 Ipratropium/Albuterol [Duoneb] 1 neb IH DAILY 05/24/23 10/10/23 - Allergies Allergies/Adverse Reactions: Allergies Allergy/AdvReac Type Severity Reaction Status Date / Time codeine [Codeine] Allergy Emesis Verified 05/24/23 11:51 olanzapine [From Zyprexa] AdvReac weight gain Verified 05/24/23 11:51 sulfamethoxazole AdvReac Emesis Verified 05/24/23 11:51 [From Decra] trimethoprim [From ] AdvReac Emesis Verified 05/24/23 11:51 ziprasidone HCl * AdvReac dementia Verified 05/24/23 11:51 [From [facility]] ziprasidone mesylate * AdvReac dementia Verified 05/24/23 11:51 [From [facility]] - Social History Does the pt smoke?: No Smoking Status: Never smoker Does the pt drink ETOH?: Yes Does the pt have substance abuse?: No - Immunizations Immunizations are current?: Yes - POLST Patient has POLST: No PD ED PE NORMAL - Vitals Vital signs reviewed: Yes - General General: Alert and oriented X 3, No acute distress - HEENT HEENT: Atraumatic, PERRL, EOMI, Ears normal, Moist mucous membranes, Pharynx benign, Dentition benign - Neck Neck: Supple, no meningeal sign, No bony TTP, No adenopathy, Thyroid normal, No JVD, No bruit, C-Spine cleared by NEXUS criteria - Cardiac Cardiac: RRR, No murmur, No gallop, No rub, Strong equal pulses - Respiratory Respiratory: No respiratory distress, Clear bilaterally - Abdomen Abdomen: Normal bowel sounds, Soft, Non tender, No organomegaly - Female Female : Deferred - Rectal Rectal: Deferred - Derm Derm: Normal color - Extremities Extremities: No deformity - Neuro Neuro: Alert and oriented X 3, sports reporter 2-12 intact, No motor deficit, No sensory deficit, Normal speech Results - Vitals Vitals: Vital Signs - 24 hr 10/10/23 10/10/23 10/10/23 06:40 07:44 08:55 Temperature 37 C Heart Rate 76 78 79 Respiratory 11 L 17 18 Rate Blood Pressure 151/80 H 165/76 H 169/71 H O2 Saturation 100 100 99 10/10/23 10/10/23 10:31 12:02 Temperature 36.6 C Heart Rate 79 79 Respiratory 20 17 Rate Blood Pressure 179/72 H 153/96 H O2 Saturation 98 100 Oxygen O2 Source Room air - EKG (time done) 0550 EKG releavant findings:: EKG personally interpreted by author of this note. Relevant findings are: Sinus rhythm with rate 70 bpm. Normal axis. MI interval shortened at 71 ms. Normal QRS and QTc intervals. No ST segment elevations or T wave inversions. - Labs Labs: Laboratory Tests 10/10/23 10/10/23 10/10/23 06:08 06:08 10:23 WBC 9.9 RBC 2.96 L Hgb 9.3 L Hct 29.9 L MCV 101.0 H MCH 31.4 H MCHC 31.1 L RDW 13.6 Plt Count 179 MPV 9.7 Neut # (Auto) 4.4 Lymph # (Auto) 4.3 H Bowie # (Auto) 1.1 H Eos # (Auto) 0.1 Baso # (Auto) 0.0 Absolute Nucleated RBC 0.00 Nucleated RBC % 0.0 Sodium 139 Potassium 5.0 H Chloride 108 Carbon Dioxide 18 L Anion Gap 13.0 BUN 79 H Creatinine 5.7 H Estimated GFR (MDRD) 7 L Glucose 110 H Calcium 8.4 L Total Bilirubin 0.4 AST 30 ALT 26 Alkaline Phosphatase 99 Total Creatine Kinase 742 H Total Protein 6.3 L Albumin 3.8 Globulin 2.5 Albumin/Globulin Ratio 1.5 Lipase 278 H Urine Color LIGHT YELLOW Urine Clarity HAZY Urine pH 6.0 Ur Specific [place] 1.010 Urine Protein TRACE Urine Glucose (UA) NEGATIVE Urine Ketones NEGATIVE Urine Occult Blood MODERATE H Urine Nitrite NEGATIVE Urine Bilirubin NEGATIVE Urine Urobilinogen 0.2 (NORMAL) Ur Leukocyte Esterase LARGE H Urine RBC 0-5 Urine WBC >25 H Ur Squamous Epith Cells FEW Squamous Urine Bacteria Moderate H Ur Microscopic Review INDICATED Urine Culture Comments INDICATED 10/10/23 10:47 WBC RBC Hgb Hct MCV MCH MCHC RDW Plt Count MPV Neut # (Auto) Lymph # (Auto) Bowie # (Auto) Eos # (Auto) Baso # (Auto) Absolute Nucleated RBC Nucleated RBC % Sodium 139 Potassium 4.7 H Chloride 111 Carbon Dioxide 18 L Anion Gap 10.0 BUN 75 H Creatinine 5.4 H Estimated GFR (MDRD) 8 L Glucose 177 H Calcium 7.6 L Total Bilirubin AST ALT Alkaline Phosphatase Total Creatine Kinase Total Protein Albumin Globulin Albumin/Globulin Ratio Lipase Urine Color Urine Clarity Urine pH Ur Specific [place] Urine Protein Urine Glucose (UA) Urine Ketones Urine Occult Blood Urine Nitrite Urine Bilirubin Urine Urobilinogen Ur Leukocyte Esterase Urine RBC Urine WBC Ur Squamous Epith Cells Urine Bacteria Ur Microscopic Review Urine Culture Comments PD Medical Decision Making - ED course ED course: 72-year-old female presents to the emergency department generalized weakness after being down on the ground for 2 days at home unable to ambulate. Afebrile, he medically stable on arrival to the emergency department. I have initiated this patient's workup but will be signing out to the oncoming physician, please see their documentation for further detail. Departure - Departure Disposition: ED Place in Observation Clinical Impression: Dehydration Acute on chronic kidney failure Qualifiers: Acute renal failure type: unspecified Chronic kidney disease stage: stage 5, not on chronic dialysis Qualified Code(s): N17.9 - Acute kidney failure, uns pecified UTI (urinary tract infection) Qualifiers: Urinary tract infection type: acute cystitis Hematuria presence: without hematuria Qualified Code(s): N30.00 - Acute cystitis without hematuria Condition: Serious Discharge Date/Time: 10/10/23 14:05
[2023-10-10] MEDS: SODIUM CHLORIDE 0.9% 1,000 ML IV STA ×3 (06:07→09:18)
[2023-10-10 06:22] LABS: BASOPHILS % (AUTO) 0.1 %; EOSINOPHILS # (AUTO) 0.1 10^3/uL (0.0-0.7); EOSINOPHILS % (AUTO) 0.5 %; HCT - HEMATOCRIT 29.9 % (37.0-47.0); HGB - HEMOGLOBIN 9.3 g/dL (12.0-16.0); LYMPHOCYTES # (AUTO) 4.3 10^3/uL (1.5-3.5); LYMPHOCYTES % (AUTO) 43.2 %; MEAN CORPUSCULAR HEMOGLOBIN 31.4 pg (27.0-31.0); MEAN CORPUSCULAR HGB CONC 31.1 g/dL (32.0-36.0); MEAN PLATELET VOLUME 9.7 fL (7.9-10.8); MONOCYTES # (AUTO) 1.1 10^3/uL (0.0-1.0); MONOCYTES % (AUTO) 11.1 %; NEUTROPHILS # (AUTO) 4.4 10^3/uL (1.5-6.6); NEUTROPHILS % (AUTO) 44.8 %; PLT - PLATELET COUNT 179 10^3/uL (130-450); RED BLOOD COUNT 2.96 10^6/uL (4.20-5.40); RED CELL DISTRIBUTION WIDTH 13.6 % (12.0-15.0); WHITE BLOOD COUNT 9.9 x10^3/uL (4.8-10.8)
--- NOTE | 2023-10-10 07:02 | CT Report ---
PROCEDURE: Head WO INDICATIONS: fall, gen weak TECHNIQUE: Noncontrast 4.5 mm thick angled axial sections acquired from the foramen magnum to the vertex. For r adiation dose reduction, the following was used: automated exposure control, adjustment of mA and/or kV according to patient size. COMPARISON: 06/30/2020 FINDINGS: Image quality: Excellent. CSF spaces: Basal cisterns are patent. No extra-axial fluid collections. Ventricles are normal in size and shape. Brain: No midline shift. No intracranial masses or hemorrhage. River[place]-white matter interface is norm al. Expected cerebral cortical volume loss, appropriate for age. Moderate intracranial vascular calc ification. Skull and face: Calvarium and visualized facial bones are intact, without suspicious lesions. Sinuses: Visualized sinuses and mastoids are clear. IMPRESSION: No CT evidence of acute intracranial trauma. Final interpretation concordant with preliminary report. Reviewed by: Leeann Anthony MD on 10/10/2023 7:01 AM PDT Approved by: Leeann Anthony MD on 10/10/2023 7:01 AM PDT Station ID: [id number]
[2023-10-10 07:53] LABS: ALBUMIN 3.8 g/dL (3.2-5.5); ALBUMIN/GLOBULIN RATIO 1.5 (1.0-2.2); BILIRUBIN,TOTAL 0.4 mg/dL (0.2-1.0); CALCIUM 8.4 mg/dL (8.5-10.3); CREATININE 5.7 mg/dL (0.6-1.3); TOTAL PROTEIN 6.3 g/dL (6.4-8.9)
--- NOTE | 2023-10-10 08:04 | XRAY Report ---
PROCEDURE: Chest 1V INDICATIONS: chest pain TECHNIQUE: One view of the chest was acquired. COMPARISON: 05/24/2023 FINDINGS: Surgical changes and devices: None. Lungs and pleura: Chronically prominent interstitial markings. Minor strandy opacity in the left lat eral mid and lower lung. No dense consolidations or pleural effusions. Mediastinum: Stable, mild cardiomegaly without significant central venous congestion. Normal aortic contour. Bones and chest wall: No suspicious bony lesions. Overlying soft tissues appear unremarkable. IMPRESSION: No radiographic evidence of acute chest trauma. Chronic interstitial prominence with minor superimposed subtle opacity in the left infrahilar region, most likely atelectasis given history of trauma. Stable mild cardiomegaly. Findings are concordant with preliminary interpretation provided by [facility]. Reviewed by: Leeann Anthony MD on 10/10/2023 8:02 AM PDT Approved by: Leeann Anthony MD on 10/10/2023 8:02 AM PDT Station ID: [id number]
[2023-10-10] MEDS: INSULIN REGULAR, HUMAN 300 UNIT/3 ML PEN IVP STA (10:34)
[2023-10-10] MEDS: SODIUM BICARBONATE ABBOJECT 50 MEQ/50 ML SYRINGE IVP STA (10:35)
[2023-10-10] MEDS: DEXTROSE 50% ABBOJECT 25 GM/50 ML SYRINGE IVP STA (10:35)
[2023-10-10 10:37] LABS: BILIRUBIN,URINE NEGATIVE (NEGATIVE); GLUCOSE, URINE (UA) NEGATIVE (NEGATIVE); KETONES,URINE (UA) NEGATIVE (NEGATIVE); LEUKOCYTE ESTERASE, URINE LARGE (NEGATIVE); NITRITE,URINE NEGATIVE (NEGATIVE); OCCULT BLOOD,URINE MODERATE (NEGATIVE); PROTEIN,URINE TRACE mg/dL (NEGATIVE); UROBILINOGEN,URINE 0.2 (NORMAL) E.U./dL (NORMAL)
[2023-10-10 10:38] LABS: CLARITY,URINE HAZY (CLEAR)
[2023-10-10 10:44] LABS: BACTERIA,URINE Moderate /HPF (None Seen); RBC,URINE 0-5 /HPF (0-5); SQUAMOUS EPITHELIAL CELL,UR FEW Squamous (<= Few); WBC,URINE >25 /HPF (0-5)
[2023-10-10] MEDS: cefTRIAXone 2 GM in SODIUM CHLORIDE 0.9% MINIBAG 100 ML IV STA (11:06)
[2023-10-10 11:10] LABS: CALCIUM 7.6 mg/dL (8.5-10.3); CREATININE 5.4 mg/dL (0.6-1.3); POTASSIUM 4.7 mmol/L (3.5-4.5)
--- NOTE | 2023-10-10 12:05 | ED Physician Documentation ---
ED Addendum - Addendum Addendum: 10/10/23 11:37 The patient was signed out to me by Dr. Diamond at change of shift, pending remainder of workup after presenting to the emergency department having fallen a day or 2 ago and been unable to get herself up. Please see Dr. Diamond's note for a full description of the patient's initial presentation. I did go and speak with the patient, who reported that she thought she had been on the floor couple of days but is hard to tell exactly. She reported that she had urinated quite a bit well down but was able to clean herself up and after charging her phone, finally called EMS to come and help her. She denied hitting her head or injuring herself in any other way. The patient stated that she just has these episodes of weakness from time to time where her legs feel weak and she just collapses. Patient denies syncopal episode. She states that she is just felt generally weak. She has a history of anemia for which she states she has not been given iron because she has been told it is not "an iron problem". She does take vitamins B12 and folate for her anemia. She denies being a drinker of alcohol, though she does have chronically elevated MCV's. Patient was found to have worsening renal function since her last comparison labs which were in April of this year, with a creatinine up to 5.7 today from 4.4 in April. Her GFR was down to 7 from 10 previously. The patient had received a liter of fluid prior to my assumption of care and I did order another one for her. Patient still had not urinated so 1/3 L was ordered. The patient shortly thereafter did urinate and was found to have a UTI. She was started on Rocephin from this. She was also found to have a potassium of 5.0 and was given insulin and glucose and bicarb for this. I discussed the case with Dr. Weaver who is on hospitalist call and he requested a repeat BMP just to see which direction the patient's renal failure was going. This did show slight improvement of both the GFR and the creatinine. I had already discussed with the patient her renal history and she had stated that she used to see Dr. López, but that she "fired him". When I asked why, the patient stated that he had told her she would probably need to go on dialysis at some point in the future and she stated she did not want to do this and would rather just "let things go their natural way". I clarified with the patient that should she need dialysis from the current worsening of her renal function, would she consider dialysis or if she adamant that she does not want it and the patient stated that she is adamant that she does not want it and would rather just go on hospice. I discussed all of these things with Dr. Meg ansari and ultimately, it was felt the patient could be admitted here for her acute on chronic renal failure, UTI, and dehydration. The patient is agreeable to this plan. Final impression 1. Dehydration 2. Acute on chronic kidney failure 3. Urinary tract infection 4. Generalized weakness Disposition: Admit for observation in serious condition.
[2023-10-10] MEDS ORDERED: oxyCODONE 5 MG TABLET PO PRN (12:30)
[2023-10-10] MEDS ORDERED: ACETAMINOPHEN 325 MG TABLET PO PRN (12:30)
[2023-10-10] MEDS ORDERED: SODIUM CHLORIDE FLUSH 0.9% 10 ML SYRINGE IVP PRN (12:30)
[2023-10-10] MEDS ORDERED: HYDROcod/ACETAM 5/325 MG TABLET PO PRN (12:30)
--- NOTE | 2023-10-10 13:05 | HISTORY & PHYSICAL EXAMINATION ---
Chief Complaint - Chief Complaint Chief Complaint: Fall, dehydration History of Present Illness - Admitted From Admitted From:: Emergency department - History Obtained From Records Reviewed: Emergency department History obtained from: Patient, ED attending Exam Limitations: None - History of Present Illness HPI Comment/Other: Patient is a 72-year-old female with a PMH of stage V CKD not on HD, bipolar disorder, Hypothyroid,HTN who presented to the ED after having sustained a fall at home on 10/08/2023, or 2 days prior to admission. Patient states that she had been in her usual state of health, but she had an episode of momentary weakness, which she states is a chronically intermittent problem for her, and she fell to the ground. She lives alone and was alone at the time. She was unable to contact help because the battery on her phone was . She was able to reach a single water bottle on the floor, but otherwise had no oral intake the entire time. Eventually after mobilizing on the ground she was able to get her phone back onto the winding inspector and tester and eventually called paramedics when she was brought to the ER in the senior maintenance machinist hours of 10/10/2023. She denies any major injury associated with the fall and denies any antecedent symptoms such as lightheadedness, or syncope.At the time of admission she reports feeling quite good, denies any chest pain, head pain, difficulty breathing, nausea and feels like her weakness is improving. Of note, she also had a skin cancer procedure on Wednesday prior to admission, 7 days ago, and has a large linear incision measuring approximately 4 cm that is clean, closed with sutures, and had recommendations for suture removal after 7 days. ED course In the ED she was assessed and found to have relatively normal vital signs, and CBC showing anemia of chronic disease labs consistent with her baseline. Metabolic panel however revealed a creatinine of 5.7, which is increased compared to the most recent one from April 2023 which was 4.4. She was given 2 L of normal saline at which point hospital admission was discussed with the ED attending, Dr. Hamilton. She was then given 1 more liter of IV fluids and BMP was repeated to ensure that the patient was not having worsening labs despite IV fluid hydration. This repeat blood test showed some improvement in the creatinine from 5.7-5.4. Of note, the patient has been offered dialysis by her public services librarian Dr. Pineda and she is adamant that she does not want dialysis under any circumstances. She has explicitly verbalized that she would rather go on hospice then start dialysis treatment. For this reason, Transfer to hospital with nephrology services was not felt to be necessary given that she would decline dialysis treatment. Patient is excepted for observation in [facility]. History - Past Medical History Cardiovascular: reports: Hypertension Respiratory: reports: Asthma Neuro: reports: None Endocrine/Autoimmune: reports: None, HyPOthyroidism GI: reports: GERD INSOLE DOUBLER: reports: None : reports: None HEENT: reports: None Psych: reports: Bipolar disorder Musculoskeletal: reports: Osteoarthritis Derm: reports: None MRSA Hx?: No - Past Surgical History Ortho: reports: Hip replacement, Knee replacement HEENT: reports: Tonsil/Adenoidectomy Derm: reports: Skin cancer surgery - Family & Social History Family History: Mother: , Father: Living arrangement: At home Living Situation: Alone - Substance History Use: Uses substance without health or social issues: NONE Abuse: Recurrent use of substance despite neg consequences: NONE Dependence: Experiences withdrawal or developed tolerances: NONE - POLST Patient has POLST: No Meds/Allgy - Home Medications Home Medications: Ambulatory Orders Medication Instructions Recorded Confirmed LORazepam [Ativan] 2 mg PO ONCE PRN 01/15/13 10/10/23 carBAMazepine [TEGretol] 200 mg PO QID 01/15/13 10/10/23 lamoTRIgine [LaMICtal] 200 mg PO DAILY 01/15/13 05/24/23 Levothyroxine [Synthroid] 150 mcg PO DAILY 04/17/14 10/10/23 carvediloL [Coreg] 12.5 mg PO BID 06/30/20 10/10/23 Amlodipine Besylate [Norvasc] 1 tab PO DAILY 05/24/23 10/10/23 Ipratropium/Albuterol [Duoneb] 1 neb IH DAILY 05/24/23 10/10/23 - Allergies Allergies/Adverse Reactions: Allergies Allergy/AdvReac Type Severity Reaction Status Date / Time codeine [Codeine] Allergy Emesis Verified 05/24/23 11:51 olanzapine [From Zyprexa] AdvReac weight gain Verified 05/24/23 11:51 sulfamethoxazole AdvReac Emesis Verified 05/24/23 11:51 [From Septra] trimethoprim [From Septra] AdvReac Emesis Verified 05/24/23 11:51 ziprasidone HCl * AdvReac dementia Verified 05/24/23 11:51 [From [facility]] ziprasidone mesylate * AdvReac dementia Verified 05/24/23 11:51 [From [facility]] Review of Systems - Constitutional Constitutional: reports: Malaise, Weakness. denies: Fever, Poor appetite - Cardiovascular Cariovascular: denies: Chest pain, Lightheadedness - Respiratory Respiratory: denies: SOB at rest - Gastrointestinal Gastrointestinal: denies: Abdominal pain, Diarrhea, Change in bowel habits - Genitourinary Genitourinary: denies: Dysuria - Neurological Neurological: reports: General weakness. denies: Focal weakness, Headache, Numbness - Hematologic/Lymphatic Hematologic/Lymphatic: reports: Anemia Prior Level of Functionality: She lives independently and is typically able to function quite well on her own and even goes to the local gym for her water aerobics classes.She does admit however that she does occasionally have moments of weakness similar to the one that led to her fall. Exam - Vital Signs Reviewed Vital Signs: Yes Vital Signs: Vital Signs x48h Temp Pulse Resp BP Pulse Ox 10/10/23 12:02 36.6 C 79 17 153/96 H 100 10/10/23 10:31 79 20 179/72 H 98 10/10/23 08:55 79 18 169/71 H 99 10/10/23 07:44 37 C 78 17 165/76 H 100 10/10/23 06:40 76 11 L 151/80 H 100 10/10/23 05:48 36.1 C L 81 18 154/90 H 97 - Physical Exam General Appearance: positive: No acute distress Eyes Bilateral: positive: Normal inspection ENT: positive: ENT inspection nml Neck: positive: Nml inspection Respiratory: positive: Chest non-tender, No respiratory distress, Breath sounds nml Cardiovascular: positive: Regular rate & rhythm, No murmur, No gallop Abdomen: positive: Non-tender, No organomegaly, Nml bowel sounds Skin: positive: Other (Patient has a closed vertical incision on the right lateral aspect of her face measuring approximately 4 cm closed with simple int errupted sutures, wound appears to be clean dry and intact.) Extremities: positive: Non-tender, Nml appearance, No pedal edema Neurologic/Psychiatric: positive: Oriented x3, CN's nml (2-12), Motor nml Sepsis Event Note (H) - Evaluation Current Stage of Sepsis: Ruled out Conclusion/Plan - Problem List (1) Acute on chronic kidney failure Conclusion/Plan: Patient with a known history of stage V CKD who has refused dialysis presented with creatinine level above last known baseline. Most recent labs in April 2023 show creatinine of4.4. Today creatinine level on arrival was 5.7 with a GFR of 7. Repeat labs after 2 L of IV fluids showed a creatinine of 5.4 This is likely secondary to the patient's fall and subsequent dehydration however without more recent labs 6 uncertain exactly how far from her baseline her current labs are. She apparently does still produce urine and as stated has refused dialysis in the past and states she would rather be on hospice then start dialysis. As such, we will avoid transfer for nephrology consultation at this point given that she is not acutely acidotic and her electrolytes are reasonably within normal limits. Will place patient in observation, IV hydration with normal saline, avoid nephrotoxic agents, and repeat labs in the morning. Qualifiers: Acute renal failure type: unspecified Chronic kidney disease stage: stage 5, not on chronic dialysis Qualified Code(s): N17.9 - Acute kidney failure, unspecified; N18.5 - Chronic kidney disease, stage 5 (2) Skin cancer of face Conclusion/Plan: Patient had a skin cancer, unknown categorization, possibly melanoma as it appears that she may have had a Mohs procedure on the right side of her face. She knows it was skin cancer but is not exactly sure which type. In any case, sutures will need to come out within the next 1 to 2 days. (3) Dehydration Conclusion/Plan: Secondary to ground-level fall and being on the ground for 2 days. As above, IV fluid hydration and repeat labs. (4) UTI (urinary tract infection) Conclusion/Plan: UA suggestive of UTI which is likely a consequence of being on the ground for 2 hours. Patient received Rocephin IV x 1 in the ED. Will continue IV Rocephin pending urine cultures and narrow antibiotics accordingly when able. Qualifiers: Urinary tract infection type: acute cystitis Hematuria presence: without hematuria Qualified Code(s): N30.00 - Acute cystitis without hematuria (5) Fall at home Conclusion/Plan: Patient fell for what sounds like transient focal weakness. Patient feels like it has improved however ambulation trial has not been done. As above, continue IV fluid hydration, have requested PT OT nury. Will trial patient up and out of bed shortly after admission when she is in the inpatient unit in her room. (6) Episode of generalized weakness Conclusion/Plan: As above Underlying etiology is likely combination of factors including her CKD with underlying anemia of chronic disease, and possibly UTI although the UTI today may have been subsequent to the fall rather than the cause of the fall. (7) Anemia in chronic kidney disease Conclusion/Plan: Patient with known history of anemia with CKD. Labs today are consistent with baseline. Will continue to monitor. Qualifiers: Chronic kidney disease stage: stage 5, not on chronic dialysis Qualified Code(s): N18.5 - Chronic kidney disease, stage 5; D63.1 - Anemia in chronic kidney disease - Lab Results Fish Bones: 10/10/23 06:08 10/10/23 10:47 - EKG Results EKG Interpreted Independently: Yes EKG Comparison: Unchanged from prior EKG Core Measures - Anticipated LOS I expect patient to be DC'd or transferred within 96 hours.: Yes - DVT/VTE - Prophylaxis VTE/DVT Device ordered at admit?: Yes
[2023-10-10] MEDS: SODIUM CHLORIDE 0.9% 1,000 ML IV SCH (15:30)
[2023-10-10] MEDS: carBAMazepine 200 MG TABLET PO SCH (15:54)
[2023-10-10] MEDS ORDERED: clonazePAM 0.5 MG TABLET PO PRN (16:44)
[2023-10-10] MEDS: SODIUM CHLORIDE FLUSH 0.9% 10 ML SYRINGE IVP SCH (20:25)
[2023-10-10] MEDS: LORATADINE 10 MG TABLET PO SCH (20:27)
[2023-10-10] MEDS: carvediloL 12.5 MG TABLET PO SCH (20:27)
[2023-10-10] MEDS: traZODone 50 MG TABLET PO SCH (22:51)
[2023-10-11 05:33] LABS: MEAN CORPUSCULAR HEMOGLOBIN 31.3 pg (27.0-31.0); MEAN CORPUSCULAR HGB CONC 30.4 g/dL (32.0-36.0); MEAN CORPUSCULAR VOLUME 102.7 fL (81.0-99.0); MEAN PLATELET VOLUME 10.1 fL (7.9-10.8); RED BLOOD COUNT 2.24 10^6/uL (4.20-5.40); RED CELL DISTRIBUTION WIDTH 13.8 % (12.0-15.0)
[2023-10-11 05:46] LABS: CALCIUM 7.2 mg/dL (8.5-10.3); CREATININE 5.1 mg/dL (0.6-1.3); POTASSIUM 4.2 mmol/L (3.5-4.5)
--- NOTE | 2023-10-11 06:09 | PROVIDER PROGRESS NOTE ---
Strip Deburrer Note - Strip Deburrer Note Strip Deburrer Note: Called by RN stating "Patient admitted for acute on chronic kidney failure. Patient has a Critical hemoglobin of 7.0 this am. Please input any new orders. by serviceuser , [email or web address] at Oct 11, 2023, 5:55:45 AM" Patient briefly discussed with MANINDER Thomas, no new intervention at this itme patietn admitted with CKD stage 4, had been dehdyrated on admission, getting fluids would recommend repeat hb will defer to am team also would recommend checking iron levels and possible need for erythropoetin, to be deferreed to primary team
[2023-10-11] MEDS: cefTRIAXone 1 GM in SODIUM CHLORIDE 0.9% MINIBAG 100 ML IV SCH (08:41)
[2023-10-11] MEDS: LEVOTHYROXINE 75 MCG TABLET PO SCH (08:42)
[2023-10-11] MEDS: amLODIPine 5 MG TABLET PO SCH (08:43)
[2023-10-11] MEDS: lamoTRIgine 100 MG TABLET PO SCH (08:43)
[2023-10-11 10:01] LABS: HCT - HEMATOCRIT 25.7 % (37.0-47.0); HGB - HEMOGLOBIN 7.7 g/dL (12.0-16.0)
[2023-10-11] MEDS: LACTOBACILLUS RHAMNOSUS GG CAPSULE PO SCH (11:32)
--- NOTE | 2023-10-11 15:24 | PHARMACY PROGRESS NOTE ---
- Best Possible Medication History Admit Date and Time: 10/10/23 1230 Processed by: Pharmacy Medications reviewed in ED?: Yes Medication History completed: Yes Patient Interview: Completed Secondary Source(s): Physician records, Insurance records Patient seemed slightly confused about some of her medications and their indications. Carbamazepine dispense amount does not match patient's reported dose or the last confirmed dose in She. As the person ultimately responsible for medication therapy, providers are able to order a medication from an existing home medication list in [facility] via the "Reconcile Routine" prior to Confirmation of that medication by operator command support systems. Such practice is discouraged except when the physician, in their clinical judgment, deems that a medical need exists for a medication without regard to previous use.
--- NOTE | 2023-10-11 15:30 | PROVIDER PROGRESS NOTE ---
Assessment/Plan - Problem List (1) Acute on chronic kidney failure Qualifiers: Acute renal failure type: unspecified Chronic kidney disease stage: stage 5, not on chronic dialysis Qualified Code(s): N17.9 - Acute kidney failure, unspecified; N18.5 - Chronic kidney disease, stage 5 Assessment/Plan: Patient with a known history of stage V CKD who has refused dialysis presented with creatinine level above last known baseline. Most recent labs in April 2023 show creatinine of4.4. Today creatinine level on arrival was 5.7 with a GFR of 7. Repeat labs after 2 L of IV fluids showed a creatinine of 5.4 This is likely secondary to the patient's fall and subsequent dehydration however without more recent labs 6 uncertain exactly how far from her baseline her current labs are. She does still produce urine and as stated has refused dialysis in the past and states she would rather be on hospice then start dialysis. As such, we will avoid transfer for nephrology consultation at this point given that she is not acutely acidotic and her electrolytes are reasonably within normal limits. Patient was initially placed in observation however she continues to have creatinine level significantly above baseline. Will continue IV fluid, decreasing NS from 125 to 100 mL/h. Monitor urine output. Pending clinical course, she may be able to discharge home tomorrow as it is unlikely if her renal function has not improved by then not able improve at all. (2) Skin cancer of face Assessment/Plan: Status post Mohs procedure postop day 7 Removed sutures, simple continuous Removed from right side of face (3) Dehydration Assessment/Plan: Secondary to ground-level fall and being on the ground for 2 days. As above, IV fluid hydration and repeat labs. (4) UTI (urinary tract infection) Qualifiers: Urinary tract infection type: acute cystitis Hematuria presence: without hematuria Qualified Code(s): N30.00 - Acute cystitis without hematuria Assessment/Plan: UA somewhat equivocal however patient started on antibiotics on admission. Will continue Rocephin x 3 days. (5) Fall at home Assessment/Plan: UA suggestive of UTI which is likely a consequence of being on the ground for 2 hours. Patient received Rocephin IV x 1 in the ED. Will continue IV Rocephin pending urine cultures and narrow antibiotics accordingly when able. Qualifiers: (6) Episode of generalized weakness Assessment/Plan: Underlying etiology is likely combination of factors including her CKD with underlying anemia of chronic disease, and possibly UTI although the UTI today may have been subsequent to the fall rather than the cause of the fall. (7) Anemia in chronic kidney disease Qualifiers: Chronic kidney disease stage: stage 5, not on chronic dialysis Qualified Code(s): N18.5 - Chronic kidney disease, stage 5; D63.1 - Anemia in chronic kidney disease Assessment/Plan: Patient with known history of anemia with CKD. Labs today are consistent with baseline. Will continue to monitor. (8) Megaloblastic anemia due to B12 deficiency Assessment/Plan: Stable MCV 102 Cont B12, Folate - Current Meds Current Meds: Current Medications Generic Name Dose Route Start Last Admin Trade Name Freq PRN Reason Stop Dose Admin Amlodipine Besylate 10 mg 10/11/23 09:00 10/11/23 08:43 Amlodipine 5 Mg Tablet PO 10 mg DAILY ROGER Administration Carbamazepine 200 mg 10/10/23 13:00 10/11/23 12:55 Carbamazepine 200 Mg Tablet PO 200 mg QID ROGER Administration Carvedilol 12.5 mg 10/10/23 21:00 10/11/23 08:43 Carvedilol 12.5 Mg Tablet PO 12.5 mg BID ROGER Administration Ceftriaxone Sodium 1 gm/ 100 mls @ 200 mls/hr 10/11/23 09:00 10/11/23 09:25 Sodium Chloride IV Infused DAILY ROGER Infusion Lactobacillus Rhamnosus 1 cap 10/11/23 11:00 10/11/23 11:32 Lactobacillus Rhamnosus Gg Capsule PO 1 cap DAILY ROGER Administration Lamotrigine 200 mg 10/11/23 09:00 10/11/23 08:43 Lamotrigine 100 Mg Tablet PO 200 mg DAILY ROGER Administration Levothyroxine Sodium 150 mcg 10/11/23 09:00 10/11/23 08:42 Levothyroxine 75 Mcg Tablet PO 150 mcg DAILY ROGER Administration Loratadine 10 mg 10/10/23 17:15 10/11/23 10:07 Loratadine 10 Mg Tablet PO Not Given DAILY ROGER Sodium Chloride 10 ml 10/10/23 17:00 10/11/23 08:43 Sodium Chloride Flush 0.9% 10 Ml Syringe IVP 10 ml 0100,0900,1700 ROGER Administration Trazodone HCl 50 mg 10/10/23 21:00 10/10/23 22:51 Trazodone 50 Mg Tablet PO Not Given QPM ROGER - Lab Result Fish Bone Diagrams: 10/11/23 09:55 10/11/23 05:11 - Additional Planning Condition/Complexity: Stable My Orders: My Active Orders 10/10/23 16:44 clonazePAM [KlonoPIN] 0.5 mg PO QPM PRN 10/10/23 17:00 Sodium Chloride Flush 0.9% [Normal Saline Flush 0.9%] 10 ml IVP 0100,0900,1700 10/10/23 17:15 Loratadine [Claritin] 10 mg PO DAILY 10/10/23 21:00 carvediloL [Coreg] 12.5 mg PO BID traZODone [Desyrel] 50 mg PO QPM 10/11/23 Breakfast Regular Diet [DIET] 10/11/23 09:00 Levothyroxine [Synthroid] 150 mcg PO DAILY amLODIPine [Norvasc] 10 mg PO DAILY cefTRIAXone [Rocephin] 1 gm Sodium Chloride 0.9% Minibag [Normal Saline 0.9% Minibag] 100 ml IV DAILY lamoTRIgine [LaMICtal] 200 mg PO DAILY 10/11/23 11:00 Lactobacillus Rhamnosus GG [Culturelle] 1 cap PO DAILY 10/11/23 16:00 Sodium Chloride 0.9% [Normal Saline 0.9%] 1,000 ml IV 100 mls/hr 10/12/23 05:00 BMP - BASIC METABOLIC PANEL [CHEM] DAILYLAB CBC W/O DIFF (HEMOGRAM) [HEME] DAILYLAB 10/13/23 05:00 BMP - BASIC METABOLIC PANEL [CHEM] DAILYLAB CBC W/O DIFF (HEMOGRAM) [HEME] DAILYLAB Subjective - Subjective Patient Reports: Diarrhea (Patient had 2 episodes of what she considers to be diarrhea this morning however it has since resolved as of 3:30 in the afternoon), Other Nursing Reports: No Complaints Objective Vital Signs: Vital Signs - 24 hr 10/10/23 10/10/23 10/11/23 15:36 20:22 00:16 Temperature 36.7 C 36.8 C 37.0 C Heart Rate [ 83 81 79 Brachial] Respiratory 18 18 18 Rate Blood Pressure 158/73 H 151/79 H 123/71 [Right Brachial artery] O2 Saturation 96 96 98 10/11/23 10/11/23 10/11/23 04:36 05:00 08:02 Temperature 38.2 C H 36.9 C 36.5 C Heart Rate [ 78 76 Brachial] Respiratory 18 20 Rate Blood Pressure 130/67 135/74 H [Right Brachial artery] O2 Saturation 94 95 10/11/23 12:56 Temperature 36.9 C Heart Rate [ 71 Brachial] Respiratory 16 Rate Blood Pressure 116/66 [Right Brachial artery] O2 Saturation 96 Oxygen O2 Source Room air I&O (Last 24 Hrs): Intake and Output Totals x24h 10/09/23 10/10/23 10/11/23 23:59 23:59 23:59 Intake Total 4898.75 2020 Output Total 451 Balance 4898.75 1569 General: Alert, Oriented x3 Cardiovascular: Regular rate, Normal S1, Normal S2 Respiratory: Chest non-tender, No respiratory distress, Breath sounds nml Abdomen: Normal bowel sounds, Soft Extremities: No edema Comments/Notes: Healing vertical surgical incisional wound on the right side of the face, sutures removed - Results Results: Laboratory Results WBC 7.0 x10^3/uL (4.8-10.8) 10/11/23 05:11 RBC 2.24 10^6/uL (4.20-5.40) L 10/11/23 05:11 Hgb 7.7 g/dL (12.0-16.0) L 10/11/23 09:55 Hct 25.7 % (37.0-47.0) L 10/11/23 09:55 MCV 102.7 fL (81.0-99.0) H 10/11/23 05:11 MCH 31.3 pg (27.0-31.0) H 10/11/23 05:11 MCHC 30.4 g/dL (32.0-36.0) L 10/11/23 05:11 RDW 13.8 % (12.0-15.0) 10/11/23 05:11 Plt Count 124 10^3/uL (130-450) L 10/11/23 05:11 MPV 10.1 fL (7.9-10.8) 10/11/23 05:11 Neut # (Auto) 4.4 10^3/uL (1.5-6.6) 10/10/23 06:08 Lymph # (Auto) 4.3 10^3/uL (1.5-3.5) H 10/10/23 06:08 [place]cock # (Auto) 1.1 10^3/uL (0.0-1.0) H 10/10/23 06:08 Eos # (Auto) 0.1 10^3/uL (0.0-0.7) 10/10/23 06:08 Baso # (Auto) 0.0 10^3/uL (0.0-0.1) 10/10/23 06:08 Absolute Nucleated RBC 0.00 x10^3/uL 10/10/23 06:08 Nucleated RBC % 0.0 /100WBC 10/10/23 06:08 Sodium 140 mmol/L (135-145) 10/11/23 05:11 Potassium 4.2 mmol/L (3.5-4.5) 10/11/23 05:11 Chloride 116 mmol/L (101-111) H 10/11/23 05:11 Carbon Dioxide 16 mmol/L (21-32) L 10/11/23 05:11 Anion Gap 8.0 (6-13) 10/11/23 05:11 BUN 67 mg/dL (6-20) H 10/11/23 05:11 Creatinine 5.1 mg/dL (0.6-1.3) H 10/11/23 05:11 Estimated GFR (MDRD) 8 (>89) L 10/11/23 05:11 Glucose 140 mg/dL (74-104) H 10/11/23 05:11 Calcium 7.2 mg/dL (8.5-10.3) L 10/11/23 05:11 Phosphorus 5.0 mg/dL (2.5-5.0) 10/11/23 05:11 Total Bilirubin 0.4 mg/dL (0.2-1.0) 10/10/23 06:08 AST 30 IU/L (10-42) 10/10/23 06:08 ALT 26 IU/L (10-60) 10/10/23 06:08 Alkaline Phosphatase 99 IU/L (42-121) 10/10/23 06:08 Total Creatine Kinase 742 IU/L (30-223) H 10/10/23 06:08 Total Protein 6.3 g/dL (6.4-8.9) L 10/10/23 06:08 Albumin 3.8 g/dL (3.2-5.5) 10/10/23 06:08 Globulin 2.5 g/dL (2.1-4.2) 10/10/23 06:08 Albumin/Globulin Ratio 1.5 (1.0-2.2) 10/10/23 06:08 Lipase 278 U/L (11-82) H 10/10/23 06:08 Urine Color LIGHT YELLOW 10/10/23 10:23 Urine Clarity HAZY (CLEAR) 10/10/23 10:23 Urine pH 6.0 PH (5.0-7.5) 10/10/23 10:23 Ur Specific [place] 1.010 (1.002-1.030) 10/10/23 10:23 Urine Protein TRACE mg/dL (NEGATIVE) 10/10/23 10:23 Urine Glucose (UA) NEGATIVE mg/dL (NEGATIVE) 10/10/23 10:23 Urine Ketones NEGATIVE mg/dL (NEGATIVE) 10/10/23 10:23 Urine Occult Blood MODERATE (NEGATIVE) H 10/10/23 10:23 Urine Nitrite NEGATIVE (NEGATIVE) 10/10/23 10:23 Urine Bilirubin NEGATIVE (NEGATIVE) 10/10/23 10:23 Urine Urobilinogen 0.2 (NORMAL) E.U./dL (NORMAL) 10/10/23 10:23 Ur Leukocyte Esterase LARGE (NEGATIVE) H 10/10/23 10:23 Urine RBC 0-5 /HPF (0-5) 10/10/23 10:23 Urine WBC >25 /HPF (0-5) H 10/10/23 10:23 Ur Squamous Epith Cells FEW Squamous (<= Few) 10/10/23 10:23 Urine Bacteria Moderate /HPF (None Seen) H 10/10/23 10:23 Ur Microscopic Review INDICATED 10/10/23 10:23 Urine Culture Comments INDICATED 10/10/23 10:23 - Procedures Procedures: Suture removal Sepsis Event Note (H) - Evaluation Current Stage of Sepsis: Ruled out ABX Reporting Has patient been on IV antibiotics over the past 48 hours?: No Current Medications - Current Medications Current Medications: Active Medications Acetaminophen (Acetaminophen 325 Mg Tablet) 650 mg PO Q4HR PRN PRN Reason: Pain 1 to 4, or Fever Hydrocodone Bitart/Acetaminophen (Hydrocod/Acetam 5/325 Mg Tablet) 1 tab PO Q4HR PRN PRN Reason: Pain 5 to 7 Amlodipine Besylate (Amlodipine 5 Mg Tablet) 10 mg PO DAILY COUNTS INCLUDE 234 BEDS AT THE [facility] Last Admin: 10/11/23 08:43 Dose: 10 mg Carbamazepine (Carbamazepine 200 Mg Tablet) 200 mg PO QID COUNTS INCLUDE 234 BEDS AT THE [facility] Last Admin: 10/11/23 12:55 Dose: 200 mg Carvedilol (Carvedilol 12.5 Mg Tablet) 12.5 mg PO BID COUNTS INCLUDE 234 BEDS AT THE [facility] Last Admin: 10/11/23 08:43 Dose: 12.5 mg Clonazepam (Clonazepam 0.5 Mg Tablet) 0.5 mg PO QPM PRN PRN Reason: Insomnia Ceftriaxone Sodium 1 gm/ (Sodium Chloride) 100 mls @ 200 mls/hr IV DAILY COUNTS INCLUDE 234 BEDS AT THE [facility] Last Infusion: 10/11/23 09:25 Dose: Infused Sodium Chloride (Normal Saline 0.9%) 1,000 mls @ 100 mls/hr IV .Q10H COUNTS INCLUDE 234 BEDS AT THE [facility] Lactobacillus Rhamnosus (Lactobacillus Rhamnosus Gg Capsule) 1 cap PO DAILY COUNTS INCLUDE 234 BEDS AT THE [facility] Last Admin: 10/11/23 11:32 Dose: 1 cap Lamotrigine (Lamotrigine 100 Mg Tablet) 200 mg PO DAILY COUNTS INCLUDE 234 BEDS AT THE [facility] Last Admin: 10/11/23 08:43 Dose: 200 mg Levothyroxine Sodium (Levothyroxine 75 Mcg Tablet) 150 mcg PO DAILY COUNTS INCLUDE 234 BEDS AT THE [facility] Last Admin: 10/11/23 08:42 Dose: 150 mcg Loratadine (Loratadine 10 Mg Tablet) 10 mg PO DAILY COUNTS INCLUDE 234 BEDS AT THE [facility] Last Admin: 10/11/23 10:07 Dose: Not Given Ondansetron HCl (Ondansetron Odt 4 Mg Tablet) 4 mg TL Q6HR PRN PRN Reason: Nausea / Vomiting Oxycodone HCl (Oxycodone 5 Mg Tablet) 10 mg PO Q4HR PRN PRN Reason: Pain 8 to 10 Sodium Chloride (Sodium Chloride Flush 0.9% 10 Ml Syringe) 10 ml IVP PRN PRN PRN Reason: NEEDED PER PROVIDER ORDERS Sodium Chloride (Sodium Chloride Flush 0.9% 10 Ml Syringe) 10 ml IVP 0100,0900,1700 COUNTS INCLUDE 234 BEDS AT THE [facility] Last Admin: 10/11/23 08:43 Dose: 10 ml Trazodone HCl (Trazodone 50 Mg Tablet) 50 mg PO QPM ROGER Last Admin: 10/10/23 22:51 Dose: Not Given lamoTRIgine [LaMICtal] 200 mg PO QPM 01/15/13 carvediloL [Coreg] 12.5 mg PO BIDWM 06/30/20 Amlodipine Besylate [Norvasc] 10 mg PO QPM 05/24/23 Ipratropium/Albuterol [Duoneb] 1 neb IH DAILY 05/24/23 Cbd Oil 1 applic TOP PRN PRN 10/11/23 Cyanocobalamin (Vitamin B-12) [Vitamin B-12] 1 cap PO DAILY 10/11/23 Fexofenadine HCl 180 mg PO DAILY 10/11/23 Fluticasone [Flonase] 2 spray HAKAN DAILY 10/11/23 Folic Acid 1 tab PO DAILY 10/11/23 LORazepam [Ativan] 2 mg PO QPM PRN 10/11/23 Levothyroxine Sodium [Synthroid] 150 mcg PO QDAC 10/11/23 Vitamin D3 Liquid 1,000 units PO DAILY 10/11/23 carBAMazepine [Carbamazepine ER] 200 mg PO BID 10/11/23 hydrOXYzine HCL [Hydroxyzine HCl] 100 mg PO QPM 10/11/23
[2023-10-11] MEDS: SODIUM CHLORIDE 0.9% 1,000 ML IV SCH (16:22)
[2023-10-11] MEDS: BENZOCAINE/MENTHOL LOZENGE MM PRN (21:32)
[2023-10-12 05:08] LABS: HCT - HEMATOCRIT 25.2 % (37.0-47.0); HGB - HEMOGLOBIN 7.3 g/dL (12.0-16.0); MEAN CORPUSCULAR HEMOGLOBIN 30.8 pg (27.0-31.0); MEAN CORPUSCULAR VOLUME 106.3 fL (81.0-99.0); MEAN PLATELET VOLUME 9.7 fL (7.9-10.8); RED BLOOD COUNT 2.37 10^6/uL (4.20-5.40); RED CELL DISTRIBUTION WIDTH 14.1 % (12.0-15.0); WHITE BLOOD COUNT 7.2 x10^3/uL (4.8-10.8)
[2023-10-12 05:23] LABS: CALCIUM 7.4 mg/dL (8.5-10.3); CREATININE 4.9 mg/dL (0.6-1.3); POTASSIUM 4.5 mmol/L (3.5-4.5)
[2023-10-12] MEDS: ONDANSETRON ODT 4 MG TABLET TL PRN (08:21)
[2023-10-12] MEDS: CYANOCOBALAMIN 500 MCG TABLET PO SCH (08:45)
[2023-10-12] MEDS: FOLIC ACID 1 MG TABLET PO SCH (08:45)
[2023-10-12 15:50] VITALS: BP 152/80; O2SAT 97
[2023-10-12] MEDS ORDERED: CALCIUM CARBONATE CHEW 500 MG TABLET PO PRN (15:51)
--- NOTE | 2023-10-12 15:53 | DISCHARGE SUMMARY ---
Discharge Summary Admit Date: 10/10/23 Discharge Date: 10/12/23 Discharging Provider: Fuentes Brock MD Primary Care Provider: Danyell Mayes MD Code Status: Do Not Attempt Resuscitation Condition at Discharge: Stable Discharge Disposition: 01 Home, Self Care Discharge Facility [facility]: [facility] - DIAGNOSES Admission Diagnoses: (1) Acute on chronic kidney failure (2) Skin cancer of face (3) Dehydration (4) UTI (urinary tract infection) (5) Fall at home (6) Episode of generalized weakness (7) Anemia in chronic kidney disease Discharge Diagnoses with Status of Each Condition: (1) Acute on chronic kidney failure (2) Skin cancer of face (3) Dehydration (4) UTI (urinary tract infection) (5) Fall at home (6) Episode of generalized weakness (7) Anemia in chronic kidney disease (8) Megaloblastic anemia due to B12 deficiency - HPI History of Present Illness: Patient is a 72-year-old female with a PMH of stage V CKD not on HD, bipolar disorder, Hypothyroid,HTN who presented to the ED after having sustained a fall at home on 10/08/2023, or 2 days prior to admission. Patient states that she had been in her usual state of health, but she had an episode of momentary weakness, which she states is a chronically intermittent problem for her, and she fell to the ground. She lives alone and was alone at the time. She was unable to contact help because the battery on her phone was . She was able to reach a single water bottle on the floor, but otherwise had no oral intake the entire time. 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 She denies any major injury associated with the fall and denies any antecedent symptoms such as lightheadedness, or syncope.At the time of admission she reports feeling quite good, denies any chest pain, head pain, difficulty breathing, nausea and feels like her weakness is improving. Of note, she also had a skin cancer procedure on Wednesday prior to admission, 7 days ago, and has a large linear incision measuring approximately 4 cm that is clean, closed with sutures, and had recommendations for suture removal after 7 days. ED course In the ED she was assessed and found to have relatively normal vital signs, and CBC showing anemia of chronic disease labs consistent with her baseline. Metabolic panel however revealed a creatinine of 5.7, which is increased compar ed to the most recent one from April 2023 which was 4.4. She was given 2 L of normal saline at which point hospital admission was discussed with the ED attending, Dr. Hamilton. She was then given 1 more liter of IV fluids and BMP was repeated to ensure that the patient was not having worsening labs despite IV fluid hydration. This repeat blood test showed some improvement in the creatinine from 5.7-5.4. Of note, the patient has been offered dialysis by her medical record assistant Dr. Pineda and she is adamant that she does not want dialysis under any circumstances. She has explicitly verbalized that she would rather go on hospice then start dialysis treatment. For this reason, Transfer to hospital with nephrology services was not felt to be necessary given that she would decline dialysis treatment. Patient is excepted for observation in [facility]. - HOSPITAL COURSE Hospital Course: Ciarra Ballard was admitted to the hospital under observation status. During her hospitalization she was treated with IV fluids and her creatinine improved to 4.9. Her baseline creatinine appears to be in the 4.4 range. She was evaluated by physical therapy/Occupational Therapy and it was their impression she can be discharged to home using a walker at all times. The above was discussed with the patient. Urinalysis performed during her hospitalization was consistent with a urinary tract infection and treatment was initiated with ceftriaxone 1 g intravenously daily. Urine culture grew out greater than 100,000 colony-forming units of Enterobacter Cloacae complex. Treatment continued as an outpatient with levofloxacin 250 mg every other day x 3 doses. Prior to discharge, patient completed a POLST form and she is DO NOT RESUSCITATE. Prior to discharge, we also discussed the option of initiating hospice care versus initiation of dialysis and patient would like to explore further the possibility of initiating dialysis. She was encouraged to discuss this with her primary care provider Dr. Mayes. We also discussed continuing care with her current medical record assistant versus seeking a second opinion. Patient will also discuss this with Dr. Mayes. - ALLERGIES Allergies/Adverse Reactions: Allergies Allergy/AdvReac Type Severity Reaction Status Date / Time codeine [Codeine] Allergy Emesis Verified 05/24/23 11:51 olanzapine [From Zyprexa] AdvReac weight gain Verified 05/24/23 11:51 sulfamethoxazole AdvReac Emesis Verified 05/24/23 11:51 [From Septra] trimethoprim [From Decra] AdvReac Emesis Verified 05/24/23 11:51 ziprasidone HCl * AdvReac dementia Verified 05/24/23 11:51 [From [facility] [place]] ziprasidone mesylate * AdvReac dementia Verified 05/24/23 11:51 [From [facility] [place]] - MEDICATIONS Home Medications: Ambulatory Orders Medication Instructions Recorded Confirmed lamoTRIgine [LaMICtal] 200 mg PO QPM 01/15/13 10/11/23 carvediloL [Coreg] 12.5 mg PO BIDWM 06/30/20 10/11/23 Amlodipine Besylate [Norvasc] 10 mg PO QPM 05/24/23 10/11/23 Ipratropium/Albuterol [Duoneb] 1 neb IH DAILY 05/24/23 10/10/23 Cbd Oil 1 applic TOP PRN PRN 10/11/23 10/11/23 Cyanocobalamin (Vitamin B-12) 1 cap PO DAILY 10/11/23 10/11/23 [Vitamin B-12] Fluticasone [Flonase] 2 spray HAKAN DAILY 10/11/23 10/11/23 Folic Acid 1 tab PO DAILY 10/11/23 10/11/23 LORazepam [Ativan] 2 mg PO QPM PRN 10/11/23 10/11/23 Levothyroxine Sodium [Synthroid] 150 mcg PO QDAC 10/11/23 10/11/23 Vitamin D3 Liquid 1,000 units PO DAILY 10/11/23 10/11/23 carBAMazepine [Carbamazepine ER] 200 mg PO BID 10/11/23 10/11/23 Cyanocobalamin [Vitamin B-12] 500 mcg PO DAILY #30 tab 10/12/23 Folic Acid 1 mg PO DAILY #30 tab 10/12/23 Loratadine [Claritin] 10 mg PO QOD PRN #30 tab 10/12/23 levoFLOXacin [Levaquin] 250 mg PO Q48H #3 tablet 10/12/23 - PHYSICAL EXAM AT DISCHARGE General Appearance: positive: No acute distress, Alert Eyes Bilateral: positive: No lid inflammation, Conjunctivae nml Neck: positive: Thyroid nml, No JVD, Trachea midline Respiratory: positive: Chest non-tender, No respiratory distress, Breath sounds nml Cardiovascular: positive: Regular rate & rhythm, No murmur, No gallop Abdomen: positive: Other (Soft nontender nondistended positive bowel sounds) Skin: positive: No rash Extremities: positive: Non-tender, Nml appearance Neurologic/Psychiatric: positive: Oriented x3, Motor nml - LABS Result Diagrams: 10/12/23 04:52 10/12/23 04:52 - SEPSIS Current Stage of Sepsis: Ruled out - QUALITY (Female Hip Fx Only) Was patient sent home on osteoporosis medication?: No - FOLLOW UP Follow Up: Follow-up with Dr. Danyell Mayes. - TIME SPENT Time Spent in Discharge (Minutes): 32 (Time spent on discharge included coorination of discharge and discussion of goals of care with regard to initiation of dialysis versus comfort care. POLST form also completed. )
--- NOTE | 2023-10-12 15:53 | Discharge Plan ---
Discharge Plan Problem Reviewed?: Yes Disposition: Home, Self Care Condition: Stable Prescriptions: Loratadine [Claritin] 10 mg PO QOD PRN #30 tab PRN Reason: Nasal Congestion Folic Acid 1 mg PO DAILY #30 tab levoFLOXacin [Levaquin] 250 mg PO Q48H #3 tablet Cyanocobalamin [Vitamin B-12] 500 mcg PO DAILY #30 tab Diet: Regular (Renal Diet) Activity Restrictions: Activity as Tolerated Shower Restrictions: No Driving Restrictions: No Assistance Devices: Walker Weight Bearing: Full Weight Instruction Topics: Kidney Disease Chronic Dc Health Concerns: History of Present Illness per Dr. Dr. Waever admission note: Patient is a 72-year-old female with a PMH of stage V CKD not on HD, bipolar disorder, Hypothyroid,HTN who presented to the ED after having sustained a fall at home on 10/08/2023, or 2 days prior to admission. Patient states that she had been in her usual state of health, but she had an episode of momentary weakness, which she states is a chronically intermittent problem for her, and she fell to the ground. She lives alone and was alone at the time. She was unable to contact help because the battery on her phone was . She was able to reach a single water bottle on the floor, but otherwise had no oral intake the entire time. Eventually after mobilizing on the ground she was able to get her phone back onto the mica paster and eventually called paramedics when she was brought to the ER in the sea captain hours of 10/10/2023. She denies any major injury associated with the fall and denies any antecedent symptoms such as lightheadedness, or syncope.At the time of admission she reports feeling quite good, denies any chest pain, head pain, difficulty breathing, nausea and feels like her weakness is improving. Of note, she also had a skin cancer procedure on Wednesday prior to admission, 7 days ago, and has a large linear incision measuring approximately 4 cm that is clean, closed with sutures, and had recommendations for suture removal after 7 days. ED course In the ED she was assessed and found to have relatively normal vital signs, and CBC showing anemia of chronic disease labs consistent with her baseline. Metabolic panel however revealed a creatinine of 5.7, which is increased compared to the most recent one from April 2023 which was 4.4. She was given 2 L of normal saline at which point hospital admission was discussed with the ED attending, Dr. Hamilton. She was then given 1 more liter of IV fluids and BMP was repeated to ensure that the patient was not having worsening labs despite IV fluid hydration. This repeat blood test showed some improvement in the creatinine from 5.7-5.4. Of note, the patient has been offered dialysis by her lift manager Dr. Pineda and she is adamant that she does not want dialysis under any circumstances. She has explicitly verbalized that she would rather go on hospice then start dialysis treatment. For this reason, Transfer to hospital with nephrology services was not felt to be necessary given that she would decline dialysis treatment. Patient is excepted for observation in [facility]. Hospital Course: Ciarra Ballard was admitted to the hospital under observation status. During her hospitalization she was treated with IV fluids and her creatinine improved to 4.9. Her baseline creatinine appears to be in the 4.4 range. She was evaluated by physical therapy/Occupational Therapy and it was their impression she can be discharged to home using a walker at all times. The above was discussed with the patient. Urinalysis performed during her hospitalization was consistent with a urinary tract infection and treatment was initiated with ceftriaxone 1 g intravenously daily. Urine culture grew out greater than 100,000 colony-forming units of Enterobacter Cloacae complex. Treatment continued as an outpatient with levofloxacin 250 mg every other day x 3 doses. Prior to discharge, patient completed a POLST form and she is DO NOT RESUSCITATE. Prior to discharge, we also discussed the option of initiating hospice care versus initiation of dialysis and patient would like to explore further the possibility of initiating dialysis. She was encouraged to discuss this with her primary care provider Dr. Mayes. We also discussed continuing care with her current lift manager versus seeking a second opinion. Patient will also discuss this with Dr. Mayes. Plan of Treatment: 1. Continue all medications as prescribed. 2. Please discuss the option of dialysis with Dr. Mayes and consider initiating dialysis versus considering initiating hospice if your condition worsens. Please also discuss a second opinion from a new lift manager. 3. Please follow with Dr. Danyell Mayes in 2 to 4 weeks. Care Goals: Goal of care is to improve overall quality of life with initiation of dialysis or if condition worsens consider initiation of hospice. Assessment: (1) Acute on chronic kidney failure Qualifiers: Acute renal failure type: unspecified Chronic kidney disease stage: stage 5, not on chronic dialysis Qualified Code(s): N17.9 - Acute kidney failure, unspecified; N18.5 - Chronic kidney disease, stage 5 Assessment/Plan: Patient with a known history of stage V CKD who has refused dialysis presented with creatinine level above last known baseline. BUN/creatinine has improved with IV fluids and feel patient is safe to discharge home at this time. Initially patient reported she did not want to initiate dialysis but now wishes to consider treatment with dialysis and wishes to discuss further with her primary care provider and lift manager. Patient is contemplating a second opinion from nephrology. Alternatively, if patient's clinical condition worsens, she could consider initiation of hospice if she decides on not initiating dialysis. (2) Skin cancer of face Assessment/Plan: Status post Mohs procedure postop day 7 Removed sutures, simple continuous Removed from right side of face (3) Dehydration Assessment/Plan: Secondary to ground-level fall and being on the ground for 2 days. Treated with IV fluids during her hospitalization (4) UTI (urinary tract infection) Qualifiers: Urinary tract infection type: acute cystitis Hematuria presence: without hematuria Qualified Code(s): N30.00 - Acute cystitis without hematuria Assessment/Plan: Urine culture grew out greater than 100,000 CFU of Enterobacter Cloacae Completx. Complete course of antibiotic treatment with levofloxacin. (5) Fall at home Assessment/Plan: UA consistent with UTI which may have contributed to fall. Complete course of antibiotics. (6) Episode of generalized weakness Assessment/Plan: Underlying etiology is likely combination of factors including her CKD with underlying anemia of chronic disease, and possibly UTI although the UTI today may have been subsequent to the fall rather than the cause of the fall. (7) Anemia in chronic kidney disease Qualifiers: Chronic kidney disease stage: stage 5, not on chronic dialysis Qualified Code(s): N18.5 - Chronic kidney disease, stage 5; D63.1 - Anemia in chronic kidney disease Assessment/Plan: Patient with known history of anemia with CKD. Continue to monitor as outpatient. (8) Megaloblastic anemia due to B12 deficiency Assessment/Plan: Stable MCV 102 Cont B12, Folate Additional Instructions or Follow Up instructions: Please follow-up with Dr. Cervantes in 2-4 weeks. No Smoking: If you smoke, Please STOP! Call for help. Follow-up with: Danyell Mayes MD [Primary Care Provider] -
[2023-10-13] MEDS ORDERED: LORATADINE 10 MG TABLET PO SCH (09:00)
== END 2023-10-12 17:20 | disposition home or self-care (01) | DRG 683 ==
LOC: EDUNIT# → ED 05:41 → MS2 12:30 → OBSVTOIN 10-11 15:28
PROVIDERS: ADMIT Family Medicine Sports Medicine; ATTEND Internal Medicine
DX: N17.9 Acute kidney failure, unspecified (principal); I12.0 Hypertensive chronic kidney disease with stage 5 chronic kidney disease or end stage renal disease; N30.00 Acute cystitis without hematuria; N18.5 Chronic kidney disease, stage 5; C44.300 Unspecified malignant neoplasm of skin of unspecified part of face; E86.0 Dehydration; R53.1 Weakness; C44.90 Unspecified malignant neoplasm of skin, unspecified; Z91.81 History of falling; D63.1 Anemia in chronic kidney disease; F31.9 Bipolar disorder, unspecified; D52.0 Dietary folate deficiency anemia; E03.9 Hypothyroidism, unspecified; Z60.2 Problems related to living alone; Z66 Do not resuscitate; Z98.890 Other specified postprocedural states
CPT/HCPCS: 36415; 70450; 71045; 80048; 80053; 81001; 82550; 83690; 84100; 85014; 85018; 85025; 85027; 87077; 87086; 87181; 93005; 96361; 96365; 96375; 97161; 97166; 97530; 99285; A9270; G0378; Q0162; 81003

== ENCOUNTER 2023-10-15 17:47 | Outpatient (CLI) | payer MEDICARE, OTHER | END 2023-10-15 23:59 | disposition critical access hospital (66) | LOC: EMS 17:47 | DX: R53.1 Weakness (principal); R06.02 Shortness of breath | CPT/HCPCS: A0425; A0427 ==

== ENCOUNTER 2023-10-15 18:14 | Inpatient (IN) | payer MEDICARE, OTHER ==
[2023-10-15 19:01] LABS: BASOPHILS % (AUTO) 0.1 %; EOSINOPHILS % (AUTO) 1.5 %; HCT - HEMATOCRIT 28.4 % (37.0-47.0); HGB - HEMOGLOBIN 8.1 g/dL (12.0-16.0); LYMPHOCYTES % (AUTO) 32.5 %; MEAN CORPUSCULAR HEMOGLOBIN 31.5 pg (27.0-31.0); MEAN CORPUSCULAR HGB CONC 28.5 g/dL (32.0-36.0); MEAN CORPUSCULAR VOLUME 110.5 fL (81.0-99.0); MEAN PLATELET VOLUME 10.5 fL (7.9-10.8); MONOCYTES % (AUTO) 7.1 %; NEUTROPHILS % (AUTO) 58.1 %; PLT - PLATELET COUNT 188 10^3/uL (130-450); RED BLOOD COUNT 2.57 10^6/uL (4.20-5.40); RED CELL DISTRIBUTION WIDTH 13.9 % (12.0-15.0); WHITE BLOOD COUNT 15.5 x10^3/uL (4.8-10.8)
[2023-10-15 19:05] LABS: ABNORMAL LYMPHS % (MANUAL) 0 %; BAND NEUTROPHILS % (MANUAL) 0 %
--- NOTE | 2023-10-15 19:05 | ED Physician Documentation ---
History of Present Illness - Stated complaint Stated Complaint: SOA, BLE WEAKNESS, UTI - Chief complaint Chief Complaint: Abd Pain - Additonal information Additional information: 72-year-old female with history of hypertension, asthma, hypothyroidism, GERD, bipolar disorder presents to the emergency department for increased generalized weakness. patient told medics originally that she was having some shortness of breath but after receiving DuoNebs she is no longer feeling any shortness of breath she also endorses an increased bilateral leg swelling which is new for her. Patient was recently hospitalized here she was discharged on 10/10 home she was admitted here for acute on chronic kidney failure. She was also found to have UTI with significant dehydration. She was started on Levaquin to go home and she said given the severity of her diarrhea since she has been home she has not been able to take any Levaquin she has not been able to eat or drink anything. 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 : None HEENT: None Psych: Bipolar disorder Musculoskeletal: Osteoarthritis Derm: None - Past Surgical History Past Surgical History: Yes Ortho: Hip replacement, Knee replacement HEENT: Tonsil/Adenoidectomy Derm: Skin cancer surgery - Present Medications Home Medications: Ambulatory Orders Medication Instructions Recorded Confirmed lamoTRIgine [LaMICtal] 200 mg PO QPM 01/15/13 10/11/23 carvediloL [Coreg] 12.5 mg PO BIDWM 06/30/20 10/11/23 Amlodipine Besylate [Norvasc] 10 mg PO QPM 05/24/23 10/11/23 Ipratropium/Albuterol [Duoneb] 1 neb IH DAILY 05/24/23 10/10/23 Cbd Oil 1 applic TOP PRN PRN 10/11/23 10/11/23 Cyanocobalamin (Vitamin B-12) 1 cap PO DAILY 10/11/23 10/11/23 [Vitamin B-12] Fluticasone [Flonase] 2 spray HAKAN DAILY 10/11/23 10/11/23 Folic Acid 1 tab PO DAILY 10/11/23 10/11/23 LORazepam [Ativan] 2 mg PO QPM PRN 10/11/23 10/11/23 Levothyroxine Sodium [Synthroid] 150 mcg PO QDAC 10/11/23 10/11/23 Vitamin D3 Liquid 1,000 units PO DAILY 10/11/23 10/11/23 carBAMazepine [Carbamazepine ER] 200 mg PO BID 10/11/23 10/11/23 Cyanocobalamin [Vitamin B-12] 500 mcg PO DAILY #30 tab 10/12/23 Folic Acid 1 mg PO DAILY #30 tab 10/12/23 Loratadine [Claritin] 10 mg PO QOD PRN #30 tab 10/12/23 levoFLOXacin [Levaquin] 250 mg PO Q48H #3 tablet 10/12/23 - Allergies Allergies/Adverse Reactions: Allergies Allergy/AdvReac Type Severity Reaction Status Date / Time codeine [Codeine] Allergy Emesis Verified 10/15/23 18:30 olanzapine [From Zyprexa] AdvReac weight gain Verified 10/15/23 18:30 sulfamethoxazole AdvReac Emesis Verified 10/15/23 18:30 [From Septra] trimethoprim [From Septra] AdvReac Emesis Verified 10/15/23 18:30 ziprasidone HCl * AdvReac dementia Verified 10/15/23 18:30 [From Geodon] ziprasidone mesylate * AdvReac dementia Verified 10/15/23 18:30 [From Geodon] - Social History Does the pt smoke?: No Smoking Status: Never smoker Does the pt drink ETOH?: Yes Does the pt have substance abuse?: No - Immunizations Immunizations are current?: Yes - POLST Patient has POLST: No PD ED PE NORMAL - Vitals Vital signs reviewed: Yes - General General: Alert and oriented X 3, No acute distress, Well developed/nourished, Other (Ill-appearing) - Cardiac Cardiac: RRR - Respiratory Respiratory: No respiratory distress, Clear bilaterally - Abdomen Abdomen: Normal bowel sounds, Soft, Other (Suprapubic tenderness) - Back Back: Other (Bilateral CVA tenderness) Results - Vitals Vitals: Vital Signs - 24 hr 10/15/23 10/15/23 18:27 20:29 Temperature 37.2 C Heart Rate 91 85 Respiratory 18 18 Rate Blood Pressure 132/75 H 154/83 H O2 Saturation 95 100 Oxygen O2 Source Room air - Labs Labs: Laboratory Tests 10/15/23 10/15/23 10/15/23 18:50 18:50 20:00 WBC 15.5 H RBC 2.57 L Hgb 8.1 L Hct 28.4 L MCV 110.5 H MCH 31.5 H MCHC 28.5 L RDW 13.9 Plt Count 188 MPV 10.5 Neut # (Auto) Not Reportable Lymph # (Auto) Not Reportable [place] # (Auto) Not Reportable Eos # (Auto) Not Reportable Baso # (Auto) Not Reportable Absolute Nucleated RBC Not Reportable Total Counted 100 Band Neuts % (Manual) 0 Abnorm Lymph % (Manual) 0 Nucleated RBC % Not Reportable Neutrophils # (Manual) 8.2 H Lymphocytes # (Manual) 5.9 H Monocytes # (Manual) 1.2 H Eosinophils # (Manual) 0.2 Basophils # (Manual) 0.0 Differential Comment MANUAL DIFFERENTIAL Platelet Estimate NORMAL (130-450,000) Platelet Morphology NORMAL APPEARANCE RBC Morph Micro Appear 1+ POLYCHROMASIA Sodium 140 Potassium 4.0 Chloride 113 H Carbon Dioxide 17 L Anion Gap 10.0 BUN 42 H Creatinine 4.0 H Estimated GFR (MDRD) 11 L Glucose 137 H Calcium 8.4 L Magnesium 1.5 L Total Bilirubin 0.3 AST 16 ALT 20 Alkaline Phosphatase 90 Total Protein 6.3 L Albumin 3.7 Globulin 2.6 Albumin/Globulin Ratio 1.4 Lipase 41 Urine Color YELLOW Urine Clarity CLEAR Urine pH 6.5 Ur Specific [place] <=1.005 Urine Protein TRACE Urine Glucose (UA) NEGATIVE Urine Ketones NEGATIVE Urine Occult Blood SMALL H Urine Nitrite NEGATIVE Urine Bilirubin NEGATIVE Urine Urobilinogen 0.2 (NORMAL) Ur Leukocyte Esterase SMALL H Urine RBC 0-5 Urine WBC 4-5 Ur Epithelial Cells FEW Transitional Ur Squamous Epith Cells MOD Squamous H Urine Bacteria Rare Ur Microscopic Review INDICATED Urine Culture Comments NOT INDICATED PD Medical Decision Making - ED course ED course: 72-year-old female presents emergency department for increased generalized weakness. Patient says that she is been having severe diarrhea since she has returned home from the hospital and has been unable to properly take her Levaquin and properly clean herself due to how ill and weak she has been feeling. Labs are complete for further evaluation white count is 15.5 which is up quite a bit since her last visit which was on 10/11 it was found to be 7.2. Mild anemia hemoglobin 8.1 and this appears to be patient's baseline. She has significant acute kidney injury on chronic kidney disease BUN 42, GFR 11 creatinine 4.0. Magnesium slightly suppressed at 1.5. Urinalysis shows a small amount of leukocytes but given the fact that she has previously been on antibiotics I do not trust these UA results. Urine sent for cultures of blood also sent for cultures she does complain of mild bilateral CVA tenderness. She is given a liter of IV fluids here in the ER and started on IV Rocephin I called telehospitalist to give report on the patient to see if they be willing to accept and they have graciously agreed to accept the patient for further hospitalization IV antibiotics and stool cultures are pending for possible C. difficile given how severe her diarrhea has been. Dr. Alfonso accepts the patient to hospitalist services. Patient is agreeable to stay and relieved. Departure - Departure Disposition: [facility] DC/[place] Clinical Impression: UTI (urinary tract infection), Diarrhea, Pyelonephritis, Leukocytosis, [id number] kidney injury Discharge Date/Time: 10/15/23 21:48
[2023-10-15 19:13] LABS: ALBUMIN 3.7 g/dL (3.2-5.5); ALBUMIN/GLOBULIN RATIO 1.4 (1.0-2.2); BILIRUBIN,TOTAL 0.3 mg/dL (0.2-1.0); CALCIUM 8.4 mg/dL (8.5-10.3); MAGNESIUM 1.5 mg/dL (1.7-2.3); TOTAL PROTEIN 6.3 g/dL (6.4-8.9)
[2023-10-15 19:41] LABS: EOSINOPHILS # (MANUAL) 0.2 10^3/uL (0-0.7); LYMPHOCYTES # (MANUAL) 5.9 10^3/uL (1.5-3.5); LYMPHOCYTES % (MANUAL) 38 %; MONOCYTES # (MANUAL) 1.2 10^3/uL (0.0-1.0); NEUTROPHILS # (MANUAL) 8.2 10^3/uL (1.5-6.6)
[2023-10-15 19:42] LABS: DIFFERENTIAL COMMENT MANUAL DIFFERENTIAL; PLATELET ESTIMATE, MANUAL NORMAL (130-450,000) (NORMAL); PLATELET MORPHOLOGY NORMAL APPEARANCE (NORMAL)
[2023-10-15] MEDS: SODIUM CHLORIDE 0.9% 1,000 ML IV ONE (20:03)
[2023-10-15 20:22] LABS: BILIRUBIN,URINE NEGATIVE (NEGATIVE); GLUCOSE, URINE (UA) NEGATIVE (NEGATIVE); KETONES,URINE (UA) NEGATIVE (NEGATIVE); LEUKOCYTE ESTERASE, URINE SMALL (NEGATIVE); NITRITE,URINE NEGATIVE (NEGATIVE); OCCULT BLOOD,URINE SMALL (NEGATIVE); PH,URINE 6.5 PH (5.0-7.5); PROTEIN,URINE TRACE mg/dL (NEGATIVE); UROBILINOGEN,URINE 0.2 (NORMAL) E.U./dL (NORMAL)
[2023-10-15 20:25] LABS: CLARITY,URINE CLEAR (CLEAR)
[2023-10-15 20:34] LABS: BACTERIA,URINE Rare /HPF (None Seen); EPITHELIAL CELLS,UR FEW Transitional /HPF (<= Few); RBC,URINE 0-5 /HPF (0-5); SQUAMOUS EPITHELIAL CELL,UR MOD Squamous (<= Few)
[2023-10-15] MEDS ORDERED: cefTRIAXone 1 GM VIAL ONE (20:57)
[2023-10-15] MEDS: cefTRIAXone 1 GM in SODIUM CHLORIDE 0.9% MINIBAG 100 ML IV STA (20:59)
[2023-10-15] MEDS ORDERED: ACETAMINOPHEN 325 MG TABLET PO PRN (21:04)
[2023-10-15] MEDS ORDERED: LORATADINE 10 MG TABLET PO PRN (21:17)
[2023-10-15] MEDS ORDERED: LORazepam 1 MG TABLET PO PRN (21:17)
--- NOTE | 2023-10-15 21:27 | HISTORY & PHYSICAL EXAMINATION ---
Chief Complaint - Chief Complaint Chief Complaint: Diarrhea and generalized weakness History of Present Illness - Admitted From Admitted From:: ED - History Obtained From Records Reviewed: EMR History obtained from: ED staff and Patient and EMR Exam Limitations: tele medicine - History of Present Illness HPI Comment/Other: 72YOF c CKD stage 5, bipolar disorder, hypothyroidism, HTN, insomnia who was recently hospitalized with pyelonephritis and discharged on Levofloxacin who returns to the ED reporting profuse diarrhea since discharge. Patient was treated with Rocephin 10/09-10/11 and transitioned to oral Levaquin on discharge 10/11. Patient profuse watery diarrhea. No bleed. No abdominal pain. Positive nausea. No vomiting. Sxs no better or worse with food. No fever. No dysuria. No bleed. She mentions allergy to ciprofloxacin of unclear sx. In the ED, patient noted for elevated WBC. No fever. No tachycardia. No tachypnea. ED staff concerned about patient's diarrhea and reached out to hospitalist team for medical management. 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 : reports: None HEENT: reports: None Psych: reports: Bipolar disorder Musculoskeletal: reports: Osteoarthritis Derm: reports: None MRSA Hx?: No - Past Surgical History Ortho: reports: Hip replacement, Knee replacement HEENT: reports: Tonsil/Adenoidectomy Derm: reports: Skin cancer surgery - Family & Social History Family History: Mother: , Father: Living Situation: Alone - Substance History Use: Uses substance without health or social issues: NONE - POLST Patient has POLST: No Meds/Allgy - Home Medications Home Medications: Ambulatory Orders Medication Instructions Recorded Confirmed lamoTRIgine [LaMICtal] 200 mg PO QPM 01/15/13 10/11/23 carvediloL [Coreg] 12.5 mg PO BIDWM 06/30/20 10/11/23 Amlodipine Besylate [Norvasc] 10 mg PO QPM 05/24/23 10/11/23 Ipratropium/Albuterol [Duoneb] 1 neb IH DAILY 05/24/23 10/10/23 Cbd Oil 1 applic TOP PRN PRN 10/11/23 10/11/23 Cyanocobalamin (Vitamin B-12) 1 cap PO DAILY 10/11/23 10/11/23 [Vitamin B-12] Fluticasone [Flonase] 2 spray HAKAN DAILY 10/11/23 10/11/23 Folic Acid 1 tab PO DAILY 10/11/23 10/11/23 LORazepam [Ativan] 2 mg PO QPM PRN 10/11/23 10/11/23 Levothyroxine Sodium [Synthroid] 150 mcg PO QDAC 10/11/23 10/11/23 Vitamin D3 Liquid 1,000 units PO DAILY 10/11/23 10/11/23 carBAMazepine [Carbamazepine ER] 200 mg PO BID 10/11/23 10/11/23 Cyanocobalamin [Vitamin B-12] 500 mcg PO DAILY #30 tab 10/12/23 Folic Acid 1 mg PO DAILY #30 tab 10/12/23 Loratadine [Claritin] 10 mg PO QOD PRN #30 tab 10/12/23 levoFLOXacin [Levaquin] 250 mg PO Q48H #3 tablet 10/12/23 - Allergies Allergies/Adverse Reactions: Allergies Allergy/AdvReac Type Severity Reaction Status Date / Time codeine [Codeine] Allergy Emesis Verified 10/15/23 18:30 olanzapine [From Zyprexa] AdvReac weight gain Verified 10/15/23 18:30 sulfamethoxazole AdvReac Emesis Verified 10/15/23 18:30 [From Septra] trimethoprim [From Septra] AdvReac Emesis Verified 10/15/23 18:30 ziprasidone HCl * AdvReac dementia Verified 10/15/23 18:30 [From Geodon] ziprasidone mesylate * AdvReac dementia Verified 10/15/23 18:30 [From Geodon] Review of Systems - Other Findings Other Findings: negative unless mentioned differently Exam - Vital Signs Reviewed Vital Signs: Yes Vital Signs: Vital Signs x48h Temp Pulse Resp BP Pulse Ox 10/15/23 18:27 37.2 C 91 18 132/75 H 95 - Physical Exam General Appearance: positive: No acute distress Eyes Bilateral: positive: Normal inspection ENT: positive: ENT inspection nml Neck: positive: Nml inspection Back: positive: Nml inspection Skin: positive: Color nml, No rash Extremities: positive: Full ROM, Nml appearance Neurologic/Psychiatric: positive: Oriented x3, CN's nml (2-12) Conclusion/Plan - Problem List (1) Diarrhea Conclusion/Plan: ominous in setting of levofloxacin. r/o c diff. empiric oral vancomycin. stop if c diff negative. followup stool cx. iv fluid support. (2) Bipolar 1 disorder Conclusion/Plan: stable. no exacerbation. continue home meds. (3) Hypothyroidism Conclusion/Plan: managed. continue levothyroxine. (4) HTN (hypertension) Conclusion/Plan: controlled. continue Coreg. Hold amlodipine 2/2 diarrhea. monitor blood pres sure with repeat vital checks. (5) UTI (urinary tract infection) Conclusion/Plan: recent hospitalization for pyelo. has had at least 5 days abx in setting of CKD stage 5. no longer need abx UTI however will consider starting abx for bacterial colitis/enteritis. - Lab Results Lab results reviewed: Yes Jose E Bones: 10/15/23 18:50 10/15/23 18:50 Core Measures - Issues Hospital Issues and Management Plan: The patient consented to receive this telemedicine service, which I performed via live two-way audiovisual equipment. The patient is at ([facility]) and I am physically in [facility]. A nurse assisted me in the visit. DNR/DNI Friend SCDs, Heparin Inpatient Colleen Alfonso DO Internal Medicine [facility] Tele Channel Development Manager - DVT/VTE - Prophylaxis VTE/DVT Device ordered at admit?: Yes Telemedicine Consult Details - Provider Location & Consult Time Telemedicine consultation conducted via videoconferencing?: Yes List names and roles of persons who participated in consult:: ED and patient Telemedicine provider location:: [facility] Time Telemedicine consult began:: 20:59 Time Telemedicine consult completed:: 21:49
[2023-10-15] MEDS ORDERED: SODIUM CHLORIDE 0.9% 1,000 ML IV SCH (22:00)
[2023-10-15] MEDS: VANCOMYCIN 125 MG CAPSULE PO SCH (22:29)
[2023-10-15] MEDS: metroNIDAZOLE 500 MG/100 ML 500 MG/100 ML BAG IV SCH (22:29)
[2023-10-15] MEDS: SODIUM CHLORIDE FLUSH 0.9% 10 ML SYRINGE IVP SCH (23:34)
[2023-10-16 05:06] LABS: BASOPHILS % (AUTO) 0.2 %; EOSINOPHILS # (AUTO) 0.2 10^3/uL (0.0-0.7); EOSINOPHILS % (AUTO) 1.5 %; HCT - HEMATOCRIT 22.6 % (37.0-47.0); LYMPHOCYTES # (AUTO) 4.4 10^3/uL (1.5-3.5); LYMPHOCYTES % (AUTO) 32.9 %; MEAN CORPUSCULAR HEMOGLOBIN 31.2 pg (27.0-31.0); MEAN CORPUSCULAR HGB CONC 30.1 g/dL (32.0-36.0); MEAN CORPUSCULAR VOLUME 103.7 fL (81.0-99.0); MEAN PLATELET VOLUME 9.8 fL (7.9-10.8); MONOCYTES # (AUTO) 1.3 10^3/uL (0.0-1.0); MONOCYTES % (AUTO) 9.6 %; NEUTROPHILS # (AUTO) 7.3 10^3/uL (1.5-6.6); NEUTROPHILS % (AUTO) 54.7 %; PLT - PLATELET COUNT 182 10^3/uL (130-450); RED BLOOD COUNT 2.18 10^6/uL (4.20-5.40); RED CELL DISTRIBUTION WIDTH 13.7 % (12.0-15.0); WHITE BLOOD COUNT 13.2 x10^3/uL (4.8-10.8)
[2023-10-16 05:22] LABS: CALCIUM 7.8 mg/dL (8.5-10.3); MAGNESIUM 1.4 mg/dL (1.7-2.3); PHOSPHORUS 2.8 mg/dL (2.5-5.0); POTASSIUM 3.9 mmol/L (3.5-4.5)
[2023-10-16 05:46] LABS: HGB - HEMOGLOBIN 6.8 g/dL (12.0-16.0)
[2023-10-16 05:50] LABS: PROCALCITONIN 0.3 ng/mL (<0.5)
[2023-10-16] MEDS: LEVOTHYROXINE 75 MCG TABLET PO SCH (06:29)
[2023-10-16] MEDS: SODIUM CHLORIDE FLUSH 0.9% 10 ML SYRINGE IVP PRN (06:29)
[2023-10-16] MEDS: carBAMazepine ER 200 MG TABLET PO SCH (08:23)
[2023-10-16] MEDS: FLUTICASONE NASAL SPRAY NAS SCH (08:23)
[2023-10-16] MEDS: carvediloL 12.5 MG TABLET PO SCH (08:23)
[2023-10-16] MEDS: FOLIC ACID 1 MG TABLET PO SCH (08:23)
[2023-10-16] MEDS: HEPARIN 5,000 UNIT/ML VIAL SUBQ SCH (08:26)
--- NOTE | 2023-10-16 08:44 | PROVIDER PROGRESS NOTE ---
Assessment/Plan - Problem List (1) CVA (cerebral vascular accident) Assessment/Plan: Patient with waxing and waning symptoms of right facial droop and right-sided paralysis that began at approximately 2 PM. She had a workup to include a CT scan of the head that was normal, EKG there revealed sinus rhythm with no ischemic changes, laboratory workup that revealed a chronic anemia with no significant change, and no significant change in her BMP. Coagulation panel is normal. Patient meets criteria for thrombolytic therapy. She was consented in the presence of her nurse. [facility] and he was in agreement with administering thrombolytics. Plan: Order written to initiate treatment with thrombolytics. Patient transferred to the intensive care unit for close hemodynamic monitoring. MRI/MRA status post administration of thrombolytics. (2) C. difficile colitis Assessment/Plan: Patient recently admitted for urinary tract infection and treated with ceftriaxone during her hospitalization. Upon discharge she was prescribed levofloxacin. 2 days after her return to home she developed frequent loose stools every presented to the emergency room. She has a moderate leukocytosis of 15.5 K upon presentation to the emergency room. C. difficile PCR was positive. Treatment has been initiated with vancomycin by mouth. Vancomycin p.o. has been discontinued given her recent stroke symptoms. Treatment will be and reinitiated with metronidazole 500 mg every 6 hours intravenously until patient able to take p.o. once again. (3) Diarrhea Assessment/Plan: Diarrhea is most likely related to her C. difficile colitis. Continue to monitor. (4) CKD (chronic kidney disease) stage 5, GFR less than 15 ml/min Assessment/Plan: Chronic kidney disease appears to be stable.Continue to monitor. Critical care time: 60 minutes of critical care time was spent examining the patient and interviewing her at the bedside, discussing her case with telemedicine neurology (Dr. Gerard Craig) and writing orders. - Current Meds Current Meds: Current Medications Generic Name Dose Route Start Last Admin Trade Name Freq PRN Reason Stop Dose Admin Carbamazepine 200 mg 10/16/23 09:00 10/16/23 08:23 Carbamazepine Er 200 Mg Tablet PO 200 mg BID ROGER Administration Carvedilol 12.5 mg 10/16/23 08:00 10/16/23 08:23 Carvedilol 12.5 Mg Tablet PO 12.5 mg BIDWM ROGER Administration Fluticasone Propionate 1 sprays 10/16/23 09:00 10/16/23 08:23 Fluticasone Nasal [place] HAKAN 1 sprays DAILY ROGER Administration Folic Acid 1 mg 10/16/23 09:00 10/16/23 08:23 Folic Acid 1 Mg Tablet PO 1 mg DAILY ROGER Administration Heparin Sodium (Porcine) 5,000 unit 10/16/23 09:00 10/16/23 08:26 Heparin 5,000 Unit/Ml Vial SUBQ 5,000 unit BID ROGER Administration Metronidazole 500 mg in 100 mls @ 100 mls/hr 10/15/23 22:00 10/16/23 06:27 Flagyl 500 Mg/100 Ml IV 100 mls/hr Q8H ROGER Administration Levothyroxine Sodium 150 mcg 10/16/23 07:00 10/16/23 06:29 Levothyroxine 75 Mcg Tablet PO 150 mcg QDAC ROGER Administration Sodium Chloride 10 ml 10/15/23 21:04 10/16/23 06:29 Sodium Chloride Flush 0.9% 10 Ml Syringe IVP 10 ml PRN PRN Administration NEEDED PER PROVIDER ORDERS Sodium Chloride 10 ml 10/16/23 01:00 10/15/23 23:34 Sodium Chloride Flush 0.9% 10 Ml Syringe IVP 10 ml 0100,0900,1700 ROGER Administration Vancomycin HCl 125 mg 10/15/23 22:00 10/16/23 08:23 Vancomycin 125 Mg Capsule PO 125 mg QID ROGER Administration - Lab Result Fish Bone Diagrams: 10/16/23 14:18 10/16/23 14:18 Subjective - Subjective Patient Reports: Other (Called to patient's bedside for acute onset of right- sided weakness. Upon arrival at patient's bedside, she is slurring her words and has right facial droop, she cannot raise her right arm or right leg against gravity. She cannot plantarflex/dorsiflex right facial droop her foot) Objective Vital Signs: Vital Signs - 24 hr 10/15/23 10/15/23 10/15/23 18:27 20:29 21:57 Temperature 37.2 C 37.2 C Heart Rate 91 85 Heart Rate [ 84 Brachial] Respiratory 18 18 20 Rate Blood Pressure 132/75 H 154/83 H Blood Pressure 139/88 H [Right Brachial artery] O2 Saturation 95 100 97 10/15/23 10/15/23 10/16/23 23:37 23:53 05:02 Temperature 37.0 C 37.1 C Heart Rate Heart Rate [ 88 92 Brachial] Respiratory 20 20 Rate Blood Pressure Blood Pressure 175/86 H 153/84 H 148/78 H [Right Brachial artery] O2 Saturation 97 95 10/16/23 07:47 Temperature 38.3 C H Heart Rate Heart Rate [ 89 Brachial] Respiratory 16 Rate Blood Pressure Blood Pressure 145/81 H [Right Brachial artery] O2 Saturation 96 Oxygen O2 Source Room air I&O (Last 24 Hrs): Intake and Output Totals x24h 10/14/23 10/15/23 10/16/23 23:59 23:59 23:59 Intake Total 1200 680 Output Total 800 Balance 1200 -120 General: Alert, Mild distress HEENT: Atraumatic, PERRLA Neck: No JVD Neuro: Other (Right facial droop. Muscle strength in right upper extremity 0/5, left upper extremity 5/5, left lower extremity 5/5 right lower extremity 0/5.) Cardiovascular: Other (Positive S1-S2 no extra heart sounds.) Respiratory: Other (Good air exchange in all lung wilson no wheezing or crackles.) Abdomen: Other (Soft nontender nondistended positive bowel sounds.) Extremities: No clubbing, No cyanosis Skin: No rashes - Results Results: Laboratory Results WBC 13.2 x10^3/uL (4.8-10.8) H 10/16/23 04:54 RBC 2.18 10^6/uL (4.20-5.40) L 10/16/23 04:54 Hgb 6.8 g/dL (12.0-16.0) L* 10/16/23 04:54 Hct 22.6 % (37.0-47.0) L 10/16/23 04:54 MCV 103.7 fL (81.0-99.0) H 10/16/23 04:54 MCH 31.2 pg (27.0-31.0) H 10/16/23 04:54 MCHC 30.1 g/dL (32.0-36.0) L 10/16/23 04:54 RDW 13.7 % (12.0-15.0) 10/16/23 04:54 Plt Count 182 10^3/uL (130-450) 10/16/23 04:54 MPV 9.8 fL (7.9-10.8) 10/16/23 04:54 Neut # (Auto) 7.3 10^3/uL (1.5-6.6) H 10/16/23 04:54 Lymph # (Auto) 4.4 10^3/uL (1.5-3.5) H 10/16/23 04:54 [place] # (Auto) 1.3 10^3/uL (0.0-1.0) H 10/16/23 04:54 Eos # (Auto) 0.2 10^3/uL (0.0-0.7) 10/16/23 04:54 Baso # (Auto) 0.0 10^3/uL (0.0-0.1) 10/16/23 04:54 Absolute Nucleated RBC 0.00 x10^3/uL 10/16/23 04:54 Total Counted 100 10/15/23 18:50 Band Neuts % (Manual) 0 % (0-10) 10/15/23 18:50 Abnorm Lymph % (Manual) 0 % 10/15/23 18:50 Nucleated RBC % 0.0 /100WBC 10/16/23 04:54 Neutrophils # (Manual) 8.2 10^3/uL (1.5-6.6) H 10/15/23 18:50 Lymphocytes # (Manual) 5.9 10^3/uL (1.5-3.5) H 10/15/23 18:50 Monocytes # (Manual) 1.2 10^3/uL (0.0-1.0) H 10/15/23 18:50 Eosinophils # (Manual) 0.2 10^3/uL (0-0.7) 10/15/23 18:50 Basophils # (Manual) 0.0 10^3/uL (0-0.1) 10/15/23 18:50 Differential Comment MANUAL DIFFERENTIAL 10/15/23 18:50 Platelet Estimate NORMAL (130-450,000) (NORMAL) 10/15/23 18:50 Platelet Morphology NORMAL APPEARANCE (NORMAL) 10/15/23 18:50 RBC Morph Micro Appear 3+ MACROCYTOSIS (NORMAL) 1+ POLYCHROMASIA (NORMAL) 10/15/23 18:50 RBC Morph Micro Appear 3+ MACROCYTOSIS (NORMAL) 1+ POLYCHROMASIA (NORMAL) 10/15/23 18:50 Sodium 139 mmol/L (135-145) 10/16/23 04:54 Potassium 3.9 mmol/L (3.5-4.5) 10/16/23 04:54 Chloride 114 mmol/L (101-111) H 10/16/23 04:54 Carbon Dioxide 17 mmol/L (21-32) L 10/16/23 04:54 Anion Gap 8.0 (6-13) 10/16/23 04:54 BUN 39 mg/dL (6-20) H 10/16/23 04:54 Creatinine 4.0 mg/dL (0.6-1.3) H 10/16/23 04:54 Estimated GFR (MDRD) 11 (>89) L 10/16/23 04:54 Glucose 143 mg/dL (74-104) H 10/16/23 04:54 Lactic Acid 1.6 mmol/L (0.5-2.2) 10/16/23 04:54 Calcium 7.8 mg/dL (8.5-10.3) L 10/16/23 04:54 Phosphorus 2.8 mg/dL (2.5-5.0) 10/16/23 04:54 Magnesium 1.4 mg/dL (1.7-2.3) L 10/16/23 04:54 Total Bilirubin 0.3 mg/dL (0.2-1.0) 10/15/23 18:50 AST 16 IU/L (10-42) 10/15/23 18:50 ALT 20 IU/L (10-60) 10/15/23 18:50 Alkaline Phosphatase 90 IU/L (42-121) 10/15/23 18:50 Total Protein 6.3 g/dL (6.4-8.9) L 10/15/23 18:50 Albumin 3.7 g/dL (3.2-5.5) 10/15/23 18:50 Globulin 2.6 g/dL (2.1-4.2) 10/15/23 18:50 Albumin/Globulin Ratio 1.4 (1.0-2.2) 10/15/23 18:50 Lipase 41 U/L (11-82) 10/15/23 18:50 Procalcitonin Immunoas 0.30 ng/mL (<0.5) 10/16/23 04:54 Urine Color YELLOW 10/15/23 20:00 Urine Clarity CLEAR (CLEAR) 10/15/23 20:00 Urine pH 6.5 PH (5.0-7.5) 10/15/23 20:00 Ur Specific [place] <=1.005 (1.002-1.030) 10/15/23 20:00 Urine Protein TRACE mg/dL (NEGATIVE) 10/15/23 20:00 Urine Glucose (UA) NEGATIVE mg/dL (NEGATIVE) 10/15/23 20:00 Urine Ketones NEGATIVE mg/dL (NEGATIVE) 10/15/23 20:00 Urine Occult Blood SMALL (NEGATIVE) H 10/15/23 20:00 Urine Nitrite NEGATIVE (NEGATIVE) 10/15/23 20:00 Urine Bilirubin NEGATIVE (NEGATIVE) 10/15/23 20:00 Urine Urobilinogen 0.2 (NORMAL) E.U./dL (NORMAL) 10/15/23 20:00 Ur Leukocyte Esterase SMALL (NEGATIVE) H 10/15/23 20:00 Urine RBC 0-5 /HPF (0-5) 10/15/23 20:00 Urine WBC 4-5 /HPF (0-5) 10/15/23 20:00 Ur Epithelial Cells FEW Transitional /HPF (<= Few) 10/15/23 20:00 Ur Squamous Epith Cells MOD Squamous (<= Few) H 10/15/23 20:00 Urine Bacteria Rare /HPF (None Seen) 10/15/23 20:00 Ur Microscopic Review INDICATED 10/15/23 20:00 Urine Culture Comments NOT INDICATED 10/15/23 20:00 Stl C. diff Tox B Gene POSITIVE (NEGATIVE) A* 10/16/23 01:15 Blood Type B NEGATIVE 10/16/23 06:27 Blood Type Recheck B NEGATIVE 10/16/23 04:54 Antibody Screen NEGATIVE 10/16/23 06:27 Crossmatch IS Only See Detail 10/16/23 06:27
--- NOTE | 2023-10-16 10:16 | PHARMACY PROGRESS NOTE ---
- Best Possible Medication History Admit Date and Time: 10/15/232103 Processed by: Pharmacy Medications reviewed in ED?: No Medication History completed: Yes Patient Interview: Pt unable to participate Secondary Source(s): Pharmacy records, Insurance records, Previous admit records As the person ultimately responsible for medication therapy, providers are able to order a medication from an existing home medication list in [facility] via the "Reconcile Routine" prior to Confirmation of that medication by academic support coordinator. Such practice is discouraged except when the physician, in their clinical judgment, deems that a medical need exists for a medication without regard to previous use.
[2023-10-16] MEDS: IPRATROPIUM/ALBUTEROL 3 ML NEB INH PRN (10:19)
[2023-10-16 14:32] LABS: HCT - HEMATOCRIT 24.1 % (37.0-47.0); HGB - HEMOGLOBIN 7.1 g/dL (12.0-16.0); MEAN CORPUSCULAR HEMOGLOBIN 30.5 pg (27.0-31.0); MEAN CORPUSCULAR HGB CONC 29.5 g/dL (32.0-36.0); MEAN CORPUSCULAR VOLUME 103.4 fL (81.0-99.0); MEAN PLATELET VOLUME 10.3 fL (7.9-10.8); RED BLOOD COUNT 2.33 10^6/uL (4.20-5.40); RED CELL DISTRIBUTION WIDTH 13.8 % (12.0-15.0); WHITE BLOOD COUNT 12.8 x10^3/uL (4.8-10.8)
[2023-10-16 14:44] LABS: CALCIUM 7.9 mg/dL (8.5-10.3); CREATININE 3.9 mg/dL (0.6-1.3); POTASSIUM 3.8 mmol/L (3.5-4.5)
[2023-10-16 14:45] LABS: PARTIAL THROMBOPLASTIN TIME 23.7 secs (24.9-33.3)
[2023-10-16 14:51] LABS: INR 1.3 (0.8-1.2); PT - PROTHROMBIN TIME 13.9 secs (9.9-12.6)
[2023-10-16 14:52] LABS: TROPONIN I HIGH SENSITIVITY 32.7 ng/L (2.3-14.8)
--- NOTE | 2023-10-16 15:13 | CT Report ---
PROCEDURE: Head W/O Stroke Protocol INDICATIONS: Acute right sided weakness TECHNIQUE: Noncontrast 4.5 mm thick angled axial sections acquired from the foramen magnum to the vertex, with c oronal reformats. For radiation dose reduction, the following was used: automated exposure control, adjustment of mA and/or kV according to patient size. COMPARISON: Noncontrast CT head 10/10/2023. FINDINGS: Image quality: Diagnostic. CSF spaces: Basal cisterns are patent. No extra-axial fluid collections. Ventricles are normal in size and shape. Brain: No midline shift. No intracranial masses or hemorrhage. Mild diffuse cerebral volume loss. Periventricular and subcortical white matter hypodensities are nonspecific, most consistent with epic beacon analyst pati microvascular ischemic change. [place]-white matter interface is normal. Skull and face: Calvarium and visualized facial bones are intact, without suspicious lesions. Sinuses: Visualized sinuses and mastoids are clear. IMPRESSION: No acute intracranial pathology Findings were discussed with ordering provider on 10/16/2023 at 3:05 PM PST. This study fulfills neurological imaging criteria for inclusion or exclusion of acute stroke therapie s based on available published neurological imaging guidelines. Reviewed by: Marissa Arce MD, PhD on 10/16/2023 2:12 PM AKDT Approved by: Marissa Arce MD, PhD on 10/16/2023 2:12 PM AKDT Station ID: [id number]
[2023-10-16] MEDS: MAGNESIUM OXIDE 400 MG TABLET PO SCH (15:30)
[2023-10-16] MEDS: ONDANSETRON 4 MG/2 ML VIAL IVP PRN (15:52)
[2023-10-16] MEDS: TENECTEPLASE 50 MG/10 ML VIAL IVP STA (17:04)
[2023-10-16] MEDS ORDERED: SODIUM CHLORIDE FLUSH 0.9% 10 ML SYRINGE IVP PRN (17:29)
[2023-10-16] MEDS: LORazepam 2 MG/ML VIAL IVP PRN (17:49)
--- NOTE | 2023-10-16 19:04 | MRI Report ---
PROCEDURE: Brain WO INDICATIONS: Acute Stroke TECHNIQUE: Noncontrast axial T1 spin echo, axial T2 fast spin echo, sagittal and axial FLAIR, coronal T2 fast sp in echo, axial gradient echo, axial diffusion and ADC through the brain. COMPARISON: CT head 10/16/2023, 10/10/2023, 06/30/2020 FINDINGS: Image quality: Patient motion artifact. CSF Spaces: Basal cisterns are patent. No extra-axial fluid collections. Ventricles are normal in size and shape. Brain: No intracranial masses or hemorrhage. [place]/white matter interface is normal. Brainstem appe ars normal. Diffusion-weighted images demonstrate no acute ischemic insult. Periventricular and sub acute FLAIR/T2 hyperintensities likely reflect chronic microvascular ischemic changes. Normal intrava scular flow voids are present. Skull and face: Calvarium has normal marrow signal. Orbits appear normal. Sinuses: Sinuses and mastoids are clear. IMPRESSION: No acute intracranial abnormality. Reviewed by: Marissa Arce MD, PhD on 10/16/2023 6:03 PM SARAH Approved by: Marissa Arce MD, PhD on 10/16/2023 6:03 PM SARAH Station ID: [id number]
--- NOTE | 2023-10-16 19:07 | MRI Report ---
PROCEDURE: Angio Head WO INDICATIONS: Acute Stroke TECHNIQUE: Noncontrast axial 3-D [id number] MR angiogram, with 3-dimensional maximum intensity projection (M IP) reformats of the internal carotid arteries and posterior circulation then performed. COMPARISON: Brain MRI 10/16/2023, CT head 10/16/2023, 10/10/2023, 06/30/2020. FINDINGS: Image quality: Diagnostic. Anterior circulation: Intracranial internal carotid arteries demonstrate normal size and intralumina l flow signal. The flow within the paired anterior cerebral arteries is normal and symmetric. The f low within the middle cerebral arteries is normal and symmetric. The anterior communicating artery i s seen. No stenoses, occlusions, or aneurysms. Posterior circulation: Visualized portions of the vertebral arteries demonstrate normal caliber, and join to form a normal appearing basilar artery. The flow within the posterior cerebral arteries is normal and symmetric. No stenoses, occlusions, or aneurysms. IMPRESSION: No significant intracranial arterial abnormality is seen. Reviewed by: Marissa Arce MD, PhD on 10/16/2023 6:06 PM SARAH Approved by: Marissa Arce MD, PhD on 10/16/2023 6:06 PM SARAH Station ID: [id number]
[2023-10-16] MEDS ORDERED: cefTRIAXone 1 GM in SODIUM CHLORIDE 0.9% MINIBAG 100 ML IV SCH (21:00)
[2023-10-16] MEDS ORDERED: lamoTRIgine 100 MG TABLET PO SCH (21:00)
[2023-10-16] MEDS: metroNIDAZOLE 500 MG/100 ML 500 MG/100 ML BAG IV SCH (21:13)
[2023-10-16] MEDS: LABETALOL 20 MG/4 ML SYRINGE IVP SCH (22:17)
[2023-10-16] MEDS ORDERED: LABETALOL 20 MG/4 ML SYRINGE IVP PRN (22:20)
[2023-10-17] MEDS: SODIUM CHLORIDE FLUSH 0.9% 10 ML SYRINGE IVP SCH (00:22)
[2023-10-17] MEDS ORDERED: MAGNESIUM SULFATE 1 GM/2 ML VIAL ONE (00:42)
[2023-10-17] MEDS: MAGNESIUM SULFATE 1 GM in SODIUM CHLORIDE 0.9% 50 ML IV ONE (00:56)
[2023-10-17 05:20] LABS: BASOPHILS % (AUTO) 0.2 %; EOSINOPHILS # (AUTO) 0.3 10^3/uL (0.0-0.7); HCT - HEMATOCRIT 26.1 % (37.0-47.0); HGB - HEMOGLOBIN 7.7 g/dL (12.0-16.0); LYMPHOCYTES # (AUTO) 4.5 10^3/uL (1.5-3.5); LYMPHOCYTES % (AUTO) 36.9 %; MEAN CORPUSCULAR HEMOGLOBIN 30.1 pg (27.0-31.0); MEAN CORPUSCULAR HGB CONC 29.5 g/dL (32.0-36.0); MEAN PLATELET VOLUME 10.1 fL (7.9-10.8); MONOCYTES # (AUTO) 1.3 10^3/uL (0.0-1.0); MONOCYTES % (AUTO) 10.7 %; NEUTROPHILS % (AUTO) 49.1 %; PLT - PLATELET COUNT 202 10^3/uL (130-450); RED BLOOD COUNT 2.56 10^6/uL (4.20-5.40); RED CELL DISTRIBUTION WIDTH 16.6 % (12.0-15.0); WHITE BLOOD COUNT 12.2 x10^3/uL (4.8-10.8)
[2023-10-17 05:35] LABS: CALCIUM, IONIZED 1.12 mmol/L (1.15-1.33); VBG PH 7.276 (7.31-7.41)
[2023-10-17 05:43] LABS: CALCIUM 8.1 mg/dL (8.5-10.3); CREATININE 4.1 mg/dL (0.6-1.3); MAGNESIUM 1.8 mg/dL (1.7-2.3); PHOSPHORUS 4.2 mg/dL (2.5-5.0)
[2023-10-17 07:07] LABS: ADENOVIRUS F 40/41 Not Detected (Not Detected); ASTROVIRUS Not Detected (Not Detected); C DIFFICILE TOXIN A/B Detected (Not Detected); CAMPYLOBACTER Not Detected (Not Detected); CRYPTOSPORIDIUM Not Detected (Not Detected); CYCLOSPORA CAYETANENSIS Not Detected (Not Detected); ENTAMOEBA HISTOLYTICA Not Detected (Not Detected); ENTEROAGGREGATIVE E COLI Not Detected (Not Detected); ENTEROPATHOGENIC E COLI Not Detected (Not Detected); ENTEROTOXIGENIC E COLI Not Detected (Not Detected); GIARDIA LAMBLIA Not Detected (Not Detected); NOROVIRUS GI/GII Not Detected (Not Detected); PLESIOMONAS SHIGELLOIDES Not Detected (Not Detected); ROTAVIRUS A Not Detected (Not Detected); SALMONELLA Not Detected (Not Detected); SAPOVIRUS Not Detected (Not Detected); SHIGA-TOXIN-PRODUCING E COLI Not Detected (Not Detected); SHIGELLA/ENTEROINVASIVE E COLI Not Detected (Not Detected); VIBRIO Not Detected (Not Detected); VIBRIO CHOLERAE Not Detected (Not Detected); YERSINIA ENTEROCOLITICA Not Detected (Not Detected)
[2023-10-17] MEDS ORDERED: LORATADINE 10 MG TABLET PO PRN (12:21)
[2023-10-17] MEDS: VANCOMYCIN 125 MG CAPSULE PO SCH (12:36)
--- NOTE | 2023-10-17 15:46 | PROVIDER PROGRESS NOTE ---
Assessment/Plan - Problem List (1) CVA (cerebral vascular accident) Assessment/Plan: Patient with waxing and waning symptoms of right facial droop and right-sided paralysis that began at approximately 2 PM. She had a workup to include a CT scan of the head that was normal, EKG there revealed sinus rhythm with no ischemic changes, laboratory workup that revealed a chronic anemia with no significant change, and no significant change in her BMP. Coagulation panel is normal. She received thrombolytic therapy yesterday and her stroke symptoms have mostly resolved. She continues to have some right facial droop and some dysarthria. Weakness in her right upper extremity and right lower extremity have completely resolved. MRI of the brain performed October 16, 2023 revealed no evidence of stroke. MRA revealed no significant intracranial arterial abnormality. CT scan of the head performed today to evaluate for possible hemorrhage is negative for hemorrhage. Plan: Start treatment with aspirin ant atorvastin (2) C. difficile colitis Assessment/Plan: Patient recently admitted for urinary tract infection and treated with ceftriaxone during her hospitalization. Upon discharge she was prescribed levofloxacin. 2 days after her return to home she developed frequent loose stools every presented to the emergency room. She has a moderate leukocytosis of 15.5 K upon presentation to the emergency room. C. difficile PCR was positive. Treatment has been initiated with vancomycin by mouth. Plan: Restart vancomyin 125 mg 4 times each day. (3) Diarrhea Assessment/Plan: Diarrhea is most likely related to her C. difficile colitis. Continue to monitor. (4) CKD (chronic kidney disease) stage 5, GFR less than 15 ml/min Assessment/Plan: Chronic kidney disease appears to be stable.Continue to monitor. - Current Meds Current Meds: Current Medications Generic Name Dose Route Start Last Admin Trade Name Freq PRN Reason Stop Dose Admin Albuterol/Ipratropium 3 ml 10/16/23 09:20 10/16/23 10:19 Ipratropium/Albuterol 3 Ml Neb INH 3 ml Q4HR PRN Administration Wheezing Fluticasone Propionate 1 sprays 10/16/23 09:00 10/17/23 08:21 Fluticasone Nasal Labelle HAKAN 1 sprays DAILY ROGER Administration Lorazepam 1 mg 10/16/23 17:41 10/16/23 17:49 Lorazepam 2 Mg/Ml Vial IVP 1 mg Q30M PRN Administration Anxiety Ondansetron HCl 4 mg 10/15/23 21:04 10/16/23 15:52 Ondansetron 4 Mg/2 Ml Vial IVP 4 mg Q6HR PRN Administration Nausea / Vomiting Sodium Chloride 10 ml 10/15/23 21:04 10/16/23 06:29 Sodium Chloride Flush 0.9% 10 Ml Syringe IVP 10 ml PRN PRN Administration NEEDED PER PROVIDER ORDERS Sodium Chloride 10 ml 10/16/23 01:00 10/17/23 08:21 Sodium Chloride Flush 0.9% 10 Ml Syringe IVP 10 ml 0100,0900,1700 ROGER Administration Sodium Chloride 10 ml 10/17/23 01:00 10/17/23 08:21 Sodium Chloride Flush 0.9% 10 Ml Syringe IVP 10 ml 0100,0900,1700 ROGER Administration Vancomycin HCl 125 mg 10/17/23 13:00 10/17/23 12:36 Vancomycin 125 Mg Capsule PO 125 mg QID ROGER Administration - Lab Result Fish Bone Diagrams: 10/17/23 04:50 10/17/23 04:50 - Additional Planning My Orders: My Active Orders 10/16/23 17:28 RN MRI Screening [RC] .ONCE 10/16/23 17:29 Activity Orders (ICU) [RC] Q2HR Daily Weight [RC] 0600 IO [RC] Q1HR Initiate Bowel Care Protocol [RC] QSHIFT Initiate ICU Electrolyte Prot. [RC] .protocol Initiate Line Care Protocol [RC] .protocol Initiate Personal Care Protoco [RC] .protocol Initiate Progressive Mobility Protocol [RC] 0800,2000 Vital Signs [RC] Q1H Sodium Chloride Flush 0.9% [Normal Saline Flush 0.9%] 10 ml IVP PRN PRN Code Status [OTHERS] Routine Condition of Patient [OTHERS] Routine DVT Prophylaxis [OTHERS] Routine 10/16/23 17:30 NPO [DIET] 10/16/23 17:40 Miscellaenous Nursing Order [RC] QSHIFT 10/16/23 17:41 LORazepam INJ [Ativan Inj (Vial)] 1 mg IVP Q30M PRN 10/16/23 18:24 Notify Provider - Specific Ins [RC] PRN 10/16/23 19:07 Neuro Check [RC] Q4HR 10/16/23 22:20 Labetalol Syringe [Trandate Syringe] 10 mg IVP Q10M PRN 10/17/23 Evaluate and Treat OT [OT] Routine Evaluate and Treat PT [PT] Routine 10/17/23 01:00 Sodium Chloride Flush 0.9% [Normal Saline Flush 0.9%] 10 ml IVP 0100,0900,1700 10/17/23 12:21 Loratadine [Claritin] 10 mg PO DAILY PRN 10/17/23 13:00 Vancomycin [Vancocin] 125 mg PO QID 10/17/23 Dinner Hepatic/Renal Diet [DIET] 10/17/23 21:00 carBAMazepine ER [TEGretol XR] 200 mg PO BID lamoTRIgine [LaMICtal] 200 mg PO QPM 10/18/23 09:00 Folic Acid 1 mg PO DAILY Subjective - Subjective Patient Reports: Other (Alert. Continues to have mild right facial droop and dysarthria. She denies chest pain, dyspnea and abdominal pain.) Objective Vital Signs: Vital Signs - 24 hr 10/16/23 10/16/23 10/16/23 15:59 16:35 16:55 Temperature 37.0 C 36.9 C 37.3 C Heart Rate [ 84 86 Brachial] Heart Rate [ 79 Monitoring electrodes] Respiratory 20 22 20 Rate Blood Pressure 135/74 H [Left Brachial artery] Blood Pressure 138/72 H 157/76 H [Right Brachial artery] O2 Saturation 95 95 96 If not protocol : Oxygen Flow, liters/minute 10/16/23 10/16/23 10/16/23 17:21 19:00 19:15 Temperature 36.7 C Heart Rate [ Brachial] Heart Rate [ 85 81 Monitoring electrodes] Respiratory 20 22 Rate Blood Pressure [Left Brachial artery] Blood Pressure 142/71 H 160/74 H [Right Brachial artery] O2 Saturation 94 98 If not protocol 3 : Oxygen Flow, liters/minute 10/16/23 10/16/23 10/16/23 19:30 19:45 20:00 Temperature 36.7 C Heart Rate [ Brachial] Heart Rate [ 85 83 82 Monitoring electrodes] Respiratory 22 22 23 Rate Blood Pressure [Left Brachial artery] Blood Pressure 135/80 H 157/80 H 159/76 H [Right Brachial artery] O2 Saturation 94 99 100 If not protocol 3 3 3 : Oxygen Flow, liters/minute 10/16/23 10/16/23 10/16/23 20:16 20:25 20:30 Temperature 36.7 C Heart Rate [ Brachial] Heart Rate [ 87 84 86 Monitoring electrodes] Respiratory 24 18 19 Rate Blood Pressure [Left Brachial artery] Blood Pressure 146/76 H 146/76 H 165/74 H [Right Brachial artery] O2 Saturation 100 98 98 If not protocol 3 3 3 : Oxygen Flow, liters/minute 10/16/23 10/16/23 10/16/23 20:45 21:00 21:16 Temperature Heart Rate [ Brachial] Heart Rate [ 85 84 86 Monitoring electrodes] Respiratory 20 23 20 Rate Blood Pressure [Left Brachial artery] Blood Pressure 155/82 H 162/79 H 152/79 H [Right Brachial artery] O2 Saturation 98 100 100 If not protocol 3 3 3 : Oxygen Flow, liters/minute 10/16/23 10/16/23 10/16/23 21:30 22:00 22:30 Temperature Heart Rate [ Brachial] Heart Rate [ 82 82 85 Monitoring electrodes] Respiratory 20 20 20 Rate Blood Pressure [Left Brachial artery] Blood Pressure 150/95 H 162/71 H 137/97 H [Right Brachial artery] O2 Saturation 100 98 98 If not protocol 3 3 3 : Oxygen Flow, liters/minute 10/16/23 10/16/23 10/17/23 23:00 23:30 00:00 Temperature 36.8 C Heart Rate [ Brachial] Heart Rate [ 86 86 86 Monitoring electrodes] Respiratory 17 18 29 H Rate Blood Pressure [Left Brachial artery] Blood Pressure 151/81 H 146/78 H 145/68 H [Right Brachial artery] O2 Saturation 97 98 97 If not protocol 3 3 3 : Oxygen Flow, liters/minute 10/17/23 10/17/23 10/17/23 00:30 01:00 01:30 Temperature Heart Rate [ Brachial] Heart Rate [ 86 86 84 Monitoring electrodes] Respiratory 18 21 21 Rate Blood Pressure [Left Brachial artery] Blood Pressure 135/72 H 150/73 H 154/82 H [Right Brachial artery] O2 Saturation 96 98 94 If not protocol 3 3 3 : Oxygen Flow, liters/minute 10/17/23 10/17/23 10/17/23 02:00 03:00 03:30 Temperature Heart Rate [ Brachial] Heart Rate [ 86 91 88 Monitoring electrodes] Respiratory 17 19 23 Rate Blood Pressure [Left Brachial artery] Blood Pressure 158/77 H 150/69 H 152/86 H [Right Brachial artery] O2 Saturation 87 L 96 97 If not protocol 3 3 3 : Oxygen Flow, liters/minute 10/17/23 10/17/23 10/17/23 04:00 05:00 06:00 Temperature 37.5 C 36.4 C L Heart Rate [ Brachial] Heart Rate [ 84 84 91 Monitoring electrodes] Respiratory 17 26 H 26 H Rate Blood Pressure [Left Brachial artery] Blood Pressure 156/76 H 146/79 H 156/72 H [Right Brachial artery] O2 Saturation 98 96 97 If not protocol 3 3 3 : Oxygen Flow, liters/minute 10/17/23 10/17/23 10/17/23 07:00 08:00 09:00 Temperature Heart Rate [ Brachial] Heart Rate [ 78 79 82 Monitoring electrodes] Respiratory 16 16 19 Rate Blood Pressure [Left Brachial artery] Blood Pressure 146/92 H 144/69 H 134/68 H [Right Brachial artery] O2 Saturation 98 97 97 If not protocol 3 3 2 : Oxygen Flow, liters/minute 10/17/23 10/17/23 10/17/23 10:00 11:00 12:00 Temperature 36.5 C Heart Rate [ Brachial] Heart Rate [ 80 79 85 Monitoring electrodes] Respiratory 19 15 18 Rate Blood Pressure [Left Brachial artery] Blood Pressure 151/73 H 149/92 H 167/79 H [Right Brachial artery] O2 Saturation 95 98 100 If not protocol 2 : Oxygen Flow, liters/minute 10/17/23 10/17/23 10/17/23 13:00 14:00 15:00 Temperature Heart Rate [ Brachial] Heart Rate [ 82 81 84 Monitoring electrodes] Respiratory 20 14 15 Rate Blood Pressure [Left Brachial artery] Blood Pressure 145/77 H 151/81 H 143/75 H [Right Brachial artery] O2 Saturation 99 98 98 If not protocol : Oxygen Flow, liters/minute Oxygen O2 Source Room air I&O (Last 24 Hrs): Intake and Output Totals x24h 10/15/23 10/16/23 10/17/23 23:59 23:59 23:59 Intake Total 1200 2520 1160 Output Total 1250 700 Balance 1200 1270 460 General: Alert, Oriented x3, No acute distress HEENT: Atraumatic Neck: No JVD Neuro: Alert, Non Focal Cardiovascular: Other Respiratory: Other Abdomen: Other Extremities: No cyanosis, No edema Skin: No rashes - Results Results: Laboratory Results WBC 12.2 x10^3/uL (4.8-10.8) H 10/17/23 04:50 RBC 2.56 10^6/uL (4.20-5.40) L 10/17/23 04:50 Hgb 7.7 g/dL (12.0-16.0) L 10/17/23 04:50 Hct 26.1 % (37.0-47.0) L 10/17/23 04:50 MCV 102.0 fL (81.0-99.0) H 10/17/23 04:50 MCH 30.1 pg (27.0-31.0) 10/17/23 04:50 MCHC 29.5 g/dL (32.0-36.0) L 10/17/23 04:50 RDW 16.6 % (12.0-15.0) H 10/17/23 04:50 Plt Count 202 10^3/uL (130-450) 10/17/23 04:50 MPV 10.1 fL (7.9-10.8) 10/17/23 04:50 Neut # (Auto) 6.0 10^3/uL (1.5-6.6) 10/17/23 04:50 Lymph # (Auto) 4.5 10^3/uL (1.5-3.5) H 10/17/23 04:50 Cotton # (Auto) 1.3 10^3/uL (0.0-1.0) H 10/17/23 04:50 Eos # (Auto) 0.3 10^3/uL (0.0-0.7) 10/17/23 04:50 Baso # (Auto) 0.0 10^3/uL (0.0-0.1) 10/17/23 04:50 Absolute Nucleated RBC 0.00 x10^3/uL 10/17/23 04:50 Total Counted 100 10/15/23 18:50 Band Neuts % (Manual) 0 % (0-10) 10/15/23 18:50 Abnorm Lymph % (Manual) 0 % 10/15/23 18:50 Nucleated RBC % 0.0 /100WBC 10/17/23 04:50 Neutrophils # (Manual) 8.2 10^3/uL (1.5-6.6) H 10/15/23 18:50 Lymphocytes # (Manual) 5.9 10^3/uL (1.5-3.5) H 10/15/23 18:50 Monocytes # (Manual) 1.2 10^3/uL (0.0-1.0) H 10/15/23 18:50 Eosinophils # (Manual) 0.2 10^3/uL (0-0.7) 10/15/23 18:50 Basophils # (Manual) 0.0 10^3/uL (0-0.1) 10/15/23 18:50 Differential Comment MANUAL DIFFERENTIAL 10/15/23 18:50 Platelet Estimate NORMAL (130-450,000) (NORMAL) 10/15/23 18:50 Platelet Morphology NORMAL APPEARANCE (NORMAL) 10/15/23 18:50 RBC Morph Micro Appear 3+ MACROCYTOSIS (NORMAL) 1+ POLYCHROMASIA (NORMAL) 10/15/23 18:50 RBC Morph Micro Appear 3+ MACROCYTOSIS (NORMAL) 1+ POLYCHROMASIA (NORMAL) 10/15/23 18:50 PT 13.9 secs (9.9-12.6) H 10/16/23 14:18 INR 1.3 (0.8-1.2) H 10/16/23 14:18 APTT 23.7 secs (24.9-33.3) L 10/16/23 14:18 VBG pH 7.276 (7.31-7.41) L 10/17/23 04:50 Ionized Calcium 1.12 mmol/L (1.15-1.33) L 10/17/23 04:50 Sodium 142 mmol/L (135-145) 10/17/23 04:50 Potassium 4.0 mmol/L (3.5-4.5) 10/17/23 04:50 Chloride 117 mmol/L (101-111) H 10/17/23 04:50 Carbon Dioxide 17 mmol/L (21-32) L 10/17/23 04:50 Anion Gap 8.0 (6-13) 10/17/23 04:50 BUN 36 mg/dL (6-20) H 10/17/23 04:50 Creatinine 4.1 mg/dL (0.6-1.3) H 10/17/23 04:50 Estimated GFR (MDRD) 11 (>89) L 10/17/23 04:50 Glucose 102 mg/dL (74-104) 10/17/23 04:50 POC Whole Bld Glucose 99 mg/dL (70 - 100) 10/17/23 06:10 Lactic Acid 1.6 mmol/L (0.5-2.2) 10/16/23 04:54 Calcium 8.1 mg/dL (8.5-10.3) L 10/17/23 04:50 Phosphorus 4.2 mg/dL (2.5-5.0) 10/17/23 04:50 Magnesium 1.8 mg/dL (1.7-2.3) 10/17/23 04:50 Total Bilirubin 0.3 mg/dL (0.2-1.0) 10/15/23 18:50 AST 16 IU/L (10-42) 10/15/23 18:50 ALT 20 IU/L (10-60) 10/15/23 18:50 Alkaline Phosphatase 90 IU/L (42-121) 10/15/23 18:50 Troponin I High Sens 35.6 ng/L (2.3-14.8) H* 10/16/23 18:55 Total Protein 6.3 g/dL (6.4-8.9) L 10/15/23 18:50 Albumin 3.7 g/dL (3.2-5.5) 10/15/23 18:50 Globulin 2.6 g/dL (2.1-4.2) 10/15/23 18:50 Albumin/Globulin Ratio 1.4 (1.0-2.2) 10/15/23 18:50 Lipase 41 U/L (11-82) 10/15/23 18:50 Procalcitonin Immunoas 0.30 ng/mL (<0.5) 10/16/23 04:54 Urine Color YELLOW 10/15/23 20:00 Urine Clarity CLEAR (CLEAR) 10/15/23 20:00 Urine pH 6.5 PH (5.0-7.5) 10/15/23 20:00 Ur Specific [place] <=1.005 (1.002-1.030) 10/15/23 20:00 Urine Protein TRACE mg/dL (NEGATIVE) 10/15/23 20:00 Urine Glucose (UA) NEGATIVE mg/dL (NEGATIVE) 10/15/23 20:00 Urine Ketones NEGATIVE mg/dL (NEGATIVE) 10/15/23 20:00 Urine Occult Blood SMALL (NEGATIVE) H 10/15/23 20:00 Urine Nitrite NEGATIVE (NEGATIVE) 10/15/23 20:00 Urine Bilirubin NEGATIVE (NEGATIVE) 10/15/23 20:00 Urine Urobilinogen 0.2 (NORMAL) E.U./dL (NORMAL) 10/15/23 20:00 Ur Leukocyte Esterase SMALL (NEGATIVE) H 10/15/23 20:00 Urine RBC 0-5 /HPF (0-5) 10/15/23 20:00 Urine WBC 4-5 /HPF (0-5) 10/15/23 20:00 Ur Epithelial Cells FEW Transitional /HPF (<= Few) 10/15/23 20:00 Ur Squamous Epith Cells MOD Squamous (<= Few) H 10/15/23 20:00 Urine Bacteria Rare /HPF (None Seen) 10/15/23 20:00 Ur Microscopic Review INDICATED 10/15/23 20:00 Urine Culture Comments NOT INDICATED 10/15/23 20:00 Nasal Screen MRSA (PCR) NEGATIVE (NEGATIVE) 10/16/23 17:05 Stl C. cayetanensis PCR Not Detected (Not Detected) 10/16/23 01:15 Stool Rotavirus A PCR Not Detected (Not Detected) 10/16/23 01:15 Stl Adenov F 40/41 PCR Not Detected (Not Detected) 10/16/23 01:15 Stool Astrovirus (PCR) Not Detected (Not Detected) 10/16/23 01:15 Stool Campylobacter PCR Not Detected (Not Detected) 10/16/23 01:15 Stl C. diff Tox B Gene POSITIVE (NEGATIVE) A* 10/16/23 01:15 Stl C. diff Tox A/B PCR Detected (Not Detected) A 10/16/23 01:15 Stool Cryptosporidium PCR Not Detected (Not Detected) 10/16/23 01:15 Stl Sh Tox Pr E STEC PCR Not Detected (Not Detected) 10/16/23 01:15 Stool E coli O157 PCR Not applicable (Not Detected) 10/16/23 01:15 Stl Enterotoxigenic E PCR Not Detected (Not Detected) 10/16/23 01:15 Stool EPEC (PCR) Not Detected (Not Detected) 10/16/23 01:15 Stl E. histolytica PCR Not Detected (Not Detected) 10/16/23 01:15 Stool Giardia Lamblia PCR Not Detected (Not Detected) 10/16/23 01:15 Stl P. shigelloides PCR Not Detected (Not Detected) 10/16/23 01:15 Stool Salmonella PCR Not Detected (Not Detected) 10/16/23 01:15 Stool Sapovirus (PCR) Not Detected (Not Detected) 10/16/23 01:15 Stl Shigella/EIEC PCR Not Detected (Not Detected) 10/16/23 01:15 St Y.enterocolitica PCR Not Detected (Not Detected) 10/16/23 01:15 Stool Vibrio (PCR) Not Detected (Not Detected) 10/16/23 01:15 Stl Vibrio cholerae PCR Not Detected (Not Detected) 10/16/23 01:15 Stl Enteroaggr Ecoli PCR Not Detected (Not Detected) 10/16/23 01:15 Stl Norovirus GI/GII PCR Not Detected (Not Detected) 10/16/23 01:15 Blood Type B NEGATIVE 10/16/23 06:27 Blood Type Recheck B NEGATIVE 10/16/23 04:54 Antibody Screen NEGATIVE 10/16/23 06:27 Crossmatch IS Only See Detail 10/16/23 06:27
[2023-10-17] MEDS: ASPIRIN 325 MG TABLET PO SCH (17:06)
--- NOTE | 2023-10-17 17:18 | CT Report ---
PROCEDURE: Head WO INDICATIONS: Stroke symptoms status post thromboysis. TECHNIQUE: Noncontrast 4.5 mm thick angled axial sections acquired from the foramen magnum to the vertex. For r adiation dose reduction, the following was used: automated exposure control, adjustment of mA and/or kV according to patient size. COMPARISON: None. FINDINGS: Image quality: Excellent. CSF spaces: Basal cisterns are patent. No extra-axial fluid collections. Ventricles are normal in size and shape. Brain: No midline shift. No intracranial masses or hemorrhage. [place]-white matter interface is norm al. Skull and face: Calvarium and visualized facial bones are intact, without suspicious lesions. Sinuses: Mucoperiosteal thickening is present in the bilateral sphenoid sinuses. Visualized sinuses and mastoids are otherwise clear. IMPRESSION: No acute intracranial pathology. Chronic sinusitis changes in the bilateral sphenoid sinuses. Reviewed by: Socorro Montilla MD on 10/17/2023 5:17 PM PDT Approved by: Socorro Montilla MD on 10/17/2023 5:17 PM PDT Station ID: [id number]
[2023-10-17] MEDS: lamoTRIgine 100 MG TABLET PO SCH (21:07)
[2023-10-17] MEDS: carBAMazepine ER 200 MG TABLET PO SCH (21:07)
[2023-10-17] MEDS: ATORVASTATIN 40 MG TABLET PO SCH (21:07)
[2023-10-17] MEDS: HEPARIN 5,000 UNIT/ML VIAL SUBQ SCH (21:07)
[2023-10-18] MEDS: carvediloL 3.125 MG TABLET PO SCH (09:20)
[2023-10-18] MEDS: FOLIC ACID 1 MG TABLET PO SCH (09:20)
[2023-10-18] MEDS: CYANOCOBALAMIN 500 MCG TABLET PO SCH (11:22)
[2023-10-18] MEDS: SACCHAROMYCES BOULARDII 250 MG CAPSULE PO SCH (11:22)
--- NOTE | 2023-10-18 12:34 | PROVIDER PROGRESS NOTE ---
Assessment/Plan - Problem List (1) TIA (transient ischemic attack) Assessment/Plan: Patient with waxing and waning symptoms of right facial droop and right-sided paralysis that began at approximately 2 PM on October 16, 2023. She had a workup to include a CT scan of the head that was normal, EKG there revealed sinus rhythm with no ischemic changes, laboratory workup that revealed a chronic anemia with no significant change, and no significant change in her BMP. Coagulation panel is normal. She received thrombolytic therapy October 16, 2023 and her stroke symptoms have mostly resolved. Using a tissue bassed definition of transient ischemic attack, patient had a transcient ischemic attack. She feels she is at her baseline from a neurologic standpoint. MRI of the brain performed October 16, 2023 revealed no evidence of stroke therefore patient most likely had a transient ischemic attack MRA revealed no significant intracranial arterial abnormality. CT scan of the head performed today to evaluate for possible hemorrhage is negative for hemorrhage. Plan: Start treatment with aspirin and atorvastatin. Patient to receive at least 21 days of treatment with plavix 75 mg daily. Plan: 1. Continue aspirin 81 mg daily. 2. Continue Plavix 75 mg daily for 21 days. 3. Patient to undergo carotid ultrasound today and echocardiogram. 4. Awaiting PT/OT evaluation. Once above completed she most likely will be ready for discharge. (2) C. difficile colitis Assessment/Plan: Patient recently admitted for urinary tract infection and treated with c eftriaxone during her hospitalization. Upon discharge she was prescribed levofloxacin. 2 days after her return to home she developed frequent loose stools every presented to the emergency room. She has a moderate leukocytosis of 15.5 K upon presentation to the emergency room. C. difficile PCR was positive. Treatment has been initiated with vancomycin by mouth. Plan: Restart vancomyin 125 mg 4 times each day and complete course of 10 days. (3) Diarrhea Assessment/Plan: Diarrhea is most likely related to her C. difficile colitis. It appears to be resolving. Continue to monitor. (4) CKD (chronic kidney disease) stage 5, GFR less than 15 ml/min Assessment/Plan: Chronic kidney disease appears to be stable.Continue to monitor. In the past, patient has expressed that she did not want to undergo dialysis, however, she has decided to seek a second opinion from another certified registered nurse anesthetist and is considering initiating dialysis. (5) Hypertension Assessment/Plan: Restart antihypertensives for BP control. Avoid low blood pressures due to recent stroke symptoms. Amlodipine withheld carvediol initiated at 6.25 mg twice daily. (6) Hypothyroidism Assessment/Plan: Continue levothyroxine 150 mg daily. (7) Bipolar Disorder Assessment/Plan: Continue Lamotrigine and carbamazepine - Current Meds Current Meds: Current Medications Generic Name Dose Route Start Last Admin Trade Name Freq PRN Reason Stop Dose Admin Albuterol/Ipratropium 3 ml 10/16/23 09:20 10/16/23 10:19 Ipratropium/Albuterol 3 Ml Neb INH 3 ml Q4HR PRN Administration Wheezing Atorvastatin Calcium 40 mg 10/17/23 21:00 10/17/23 21:07 Atorvastatin 40 Mg Tablet PO 40 mg QPM ROGER Administration Carbamazepine 200 mg 10/17/23 21:00 10/18/23 09:20 Carbamazepine Er 200 Mg Tablet PO 200 mg BID ROGER Administration Carvedilol 6.25 mg 10/18/23 09:00 10/18/23 09:20 Carvedilol 3.125 Mg Tablet PO 6.25 mg BID ROGER Administration Cyanocobalamin 500 mcg 10/18/23 11:00 10/18/23 11:22 Cyanocobalamin 500 Mcg Tablet PO 500 mcg DAILY ROGER Administration Fluticasone Propionate 1 sprays 10/16/23 09:00 10/18/23 09:19 Fluticasone Nasal Aragon HAKAN 1 sprays DAILY ROGER Administration Folic Acid 1 mg 10/18/23 09:00 10/18/23 09:20 Folic Acid 1 Mg Tablet PO 1 mg DAILY ROGER Administration Heparin Sodium (Porcine) 5,000 unit 10/17/23 21:00 10/18/23 09:21 Heparin 5,000 Unit/Ml Vial SUBQ 5,000 unit BID ROGER Administration Lamotrigine 200 mg 10/17/23 21:00 10/17/23 21:07 Lamotrigine 100 Mg Tablet PO 200 mg QPM ROGER Administration Lorazepam 1 mg 10/16/23 17:41 10/16/23 17:49 Lorazepam 2 Mg/Ml Vial IVP 1 mg Q30M PRN Administration Anxiety Ondansetron HCl 4 mg 10/15/23 21:04 10/16/23 15:52 Ondansetron 4 Mg/2 Ml Vial IVP 4 mg Q6HR PRN Administration Nausea / Vomiting Saccharomyces Boulardii 500 mg 10/18/23 09:30 10/18/23 11:22 Saccharomyces Boulardii 250 Mg Capsule PO 500 mg BIDWM ROGER Administration Sodium Chloride 10 ml 10/15/23 21:04 10/17/23 21:08 Sodium Chloride Flush 0.9% 10 Ml Syringe IVP 10 ml PRN PRN Administration NEEDED PER PROVIDER ORDERS Sodium Chloride 10 ml 10/16/23 01:00 10/18/23 09:20 Sodium Chloride Flush 0.9% 10 Ml Syringe IVP 10 ml 0100,0900,1700 ROGER Administration Sodium Chloride 10 ml 10/17/23 01:00 10/18/23 09:21 Sodium Chloride Flush 0.9% 10 Ml Syringe IVP 10 ml 0100,0900,1700 ROGER Administration Vancomycin HCl 125 mg 10/17/23 13:00 10/18/23 09:20 Vancomycin 125 Mg Capsule PO 125 mg QID ROGER Administration - Lab Result Fish Bone Diagrams: 10/17/23 04:50 10/17/23 04:50 - Additional Planning My Orders: My Active Orders 10/17/23 12:21 Loratadine [Claritin] 10 mg PO DAILY PRN 10/17/23 13:00 Vancomycin [Vancocin] 125 mg PO QID 10/17/23 16:37 Carotid Doppler Complete [US] Routine 10/17/23 21:00 Atorvastatin [Lipitor] 40 mg PO QPM Heparin [Heparin Sodium (Porcine)] 5,000 unit SUBQ BID carBAMazepine ER [TEGretol XR] 200 mg PO BID lamoTRIgine [LaMICtal] 200 mg PO QPM 10/18/23 09:00 Folic Acid 1 mg PO DAILY carvediloL [Coreg] 6.25 mg PO BID 10/18/23 09:30 Saccharomyces Boulardii [Florastor] 500 mg PO BIDWM 10/18/23 11:00 Cyanocobalamin [Vitamin B-12] 500 mcg PO DAILY 10/18/23 Lunch Hepatic/Renal Diet [DIET] 10/18/23 13:00 Clopidogrel [Plavix] 75 mg PO DAILY 10/19/23 09:00 Aspirin EC [Ecotrin] 81 mg PO DAILY Subjective - Subjective Patient Reports: Other (Alert. Denies chest pain, shortness of breath and abdominal pain. No other complaints at this time.) Objective Vital Signs: Vital Signs - 24 hr 10/17/23 10/17/23 10/17/23 13:00 14:00 15:00 Temperature Heart Rate [ 82 81 84 Monitoring electrodes] Respiratory 20 14 15 Rate Blood Pressure [Left Brachial artery] Blood Pressure 145/77 H 151/81 H 143/75 H [Right Brachial artery] O2 Saturation 99 98 98 10/17/23 10/17/23 10/17/23 16:00 17:00 18:00 Temperature 37.1 C Heart Rate [ 81 82 80 Monitoring electrodes] Respiratory 20 14 17 Rate Blood Pressure [Left Brachial artery] Blood Pressure 142/77 H 133/72 H 144/68 H [Right Brachial artery] O2 Saturation 100 99 100 10/17/23 10/17/23 10/17/23 19:00 20:00 21:00 Temperature 37.1 C Heart Rate [ 84 84 80 Monitoring electrodes] Respiratory 18 23 17 Rate Blood Pressure 141/77 H [Left Brachial artery] Blood Pressure 135/82 H 155/82 H [Right Brachial artery] O2 Saturation 99 99 98 10/18/23 10/18/23 10/18/23 01:00 05:00 06:39 Temperature 37.2 C Heart Rate [ 81 76 Monitoring electrodes] Respiratory 17 27 H Rate Blood Pressure [Left Brachial artery] Blood Pressure 146/70 H 134/74 H [Right Brachial artery] O2 Saturation 96 10/18/23 08:08 Temperature 36.6 C Heart Rate [ 67 Monitoring electrodes] Respiratory 18 Rate Blood Pressure [Left Brachial artery] Blood Pressure 158/88 H [Right Brachial artery] O2 Saturation 97 Oxygen O2 Source Room air I&O (Last 24 Hrs): Intake and Output Totals x24h 10/16/23 10/17/23 10/18/23 23:59 23:59 23:59 Intake Total 2520 1690 1460 Output Total 1250 700 Balance 4366 726 0341 General: Alert, No acute distress HEENT: Atraumatic Neck: No JVD, No thyromegaly Lymphatic: no adenopathy Neuro: Alert, Non Focal Cardiovascular: Other (Positive S1-S2 no extra heart sounds.) Respiratory: Other (Good air exchange in all lung wilson no wheezing or crackles.) Abdomen: Other (Soft nontender nondistended positive bowel sounds) Extremities: No cyanosis, No edema Skin: No rashes - Results Results: Laboratory Results WBC 12.2 x10^3/uL (4.8-10.8) H 10/17/23 04:50 RBC 2.56 10^6/uL (4.20-5.40) L 10/17/23 04:50 Hgb 7.7 g/dL (12.0-16.0) L 10/17/23 04:50 Hct 26.1 % (37.0-47.0) L 10/17/23 04:50 MCV 102.0 fL (81.0-99.0) H 10/17/23 04:50 MCH 30.1 pg (27.0-31.0) 10/17/23 04:50 MCHC 29.5 g/dL (32.0-36.0) L 10/17/23 04:50 RDW 16.6 % (12.0-15.0) H 10/17/23 04:50 Plt Count 202 10^3/uL (130-450) 10/17/23 04:50 MPV 10.1 fL (7.9-10.8) 10/17/23 04:50 Neut # (Auto) 6.0 10^3/uL (1.5-6.6) 10/17/23 04:50 Lymph # (Auto) 4.5 10^3/uL (1.5-3.5) H 10/17/23 04:50 [place] # (Auto) 1.3 10^3/uL (0.0-1.0) H 10/17/23 04:50 Eos # (Auto) 0.3 10^3/uL (0.0-0.7) 10/17/23 04:50 Baso # (Auto) 0.0 10^3/uL (0.0-0.1) 10/17/23 04:50 Absolute Nucleated RBC 0.00 x10^3/uL 10/17/23 04:50 Total Counted 100 10/15/23 18:50 Band Neuts % (Manual) 0 % (0-10) 10/15/23 18:50 Abnorm Lymph % (Manual) 0 % 10/15/23 18:50 Nucleated RBC % 0.0 /100WBC 10/17/23 04:50 Neutrophils # (Manual) 8.2 10^3/uL (1.5-6.6) H 10/15/23 18:50 Lymphocytes # (Manual) 5.9 10^3/uL (1.5-3.5) H 10/15/23 18:50 Monocytes # (Manual) 1.2 10^3/uL (0.0-1.0) H 10/15/23 18:50 Eosinophils # (Manual) 0.2 10^3/uL (0-0.7) 10/15/23 18:50 Basophils # (Manual) 0.0 10^3/uL (0-0.1) 10/15/23 18:50 Differential Comment MANUAL DIFFERENTIAL 10/15/23 18:50 Platelet Estimate NORMAL (130-450,000) (NORMAL) 10/15/23 18:50 Platelet Morphology NORMAL APPEARANCE (NORMAL) 10/15/23 18:50 RBC Morph Micro Appear 3+ MACROCYTOSIS (NORMAL) 1+ POLYCHROMASIA (NORMAL) 10/15/23 18:50 RBC Morph Micro Appear 3+ MACROCYTOSIS (NORMAL) 1+ POLYCHROMASIA (NORMAL) 10/15/23 18:50 PT 13.9 secs (9.9-12.6) H 10/16/23 14:18 INR 1.3 (0.8-1.2) H 10/16/23 14:18 APTT 23.7 secs (24.9-33.3) L 10/16/23 14:18 VBG pH 7.276 (7.31-7.41) L 10/17/23 04:50 Ionized Calcium 1.12 mmol/L (1.15-1.33) L 10/17/23 04:50 Sodium 142 mmol/L (135-145) 10/17/23 04:50 Potassium 4.0 mmol/L (3.5-4.5) 10/17/23 04:50 Chloride 117 mmol/L (101-111) H 10/17/23 04:50 Carbon Dioxide 17 mmol/L (21-32) L 10/17/23 04:50 Anion Gap 8.0 (6-13) 10/17/23 04:50 BUN 36 mg/dL (6-20) H 10/17/23 04:50 Creatinine 4.1 mg/dL (0.6-1.3) H 10/17/23 04:50 Estimated GFR (MDRD) 11 (>89) L 10/17/23 04:50 Glucose 102 mg/dL (74-104) 10/17/23 04:50 POC Whole Bld Glucose 99 mg/dL (70 - 100) 10/17/23 06:10 Lactic Acid 1.6 mmol/L (0.5-2.2) 10/16/23 04:54 Calcium 8.1 mg/dL (8.5-10.3) L 10/17/23 04:50 Phosphorus 4.2 mg/dL (2.5-5.0) 10/17/23 04:50 Magnesium 1.8 mg/dL (1.7-2.3) 10/17/23 04:50 Total Bilirubin 0.3 mg/dL (0.2-1.0) 10/15/23 18:50 AST 16 IU/L (10-42) 10/15/23 18:50 ALT 20 IU/L (10-60) 10/15/23 18:50 Alkaline Phosphatase 90 IU/L (42-121) 10/15/23 18:50 Troponin I High Sens 35.6 ng/L (2.3-14.8) H* 10/16/23 18:55 Total Protein 6.3 g/dL (6.4-8.9) L 10/15/23 18:50 Albumin 3.7 g/dL (3.2-5.5) 10/15/23 18:50 Globulin 2.6 g/dL (2.1-4.2) 10/15/23 18:50 Albumin/Globulin Ratio 1.4 (1.0-2.2) 10/15/23 18:50 Lipase 41 U/L (11-82) 10/15/23 18:50 Procalcitonin Immunoas 0.30 ng/mL (<0.5) 10/16/23 04:54 Urine Color YELLOW 10/15/23 20:00 Urine Clarity CLEAR (CLEAR) 10/15/23 20:00 Urine pH 6.5 PH (5.0-7.5) 10/15/23 20:00 Ur Specific [place] <=1.005 (1.002-1.030) 10/15/23 20:00 Urine Protein TRACE mg/dL (NEGATIVE) 10/15/23 20:00 Urine Glucose (UA) NEGATIVE mg/dL (NEGATIVE) 10/15/23 20:00 Urine Ketones NEGATIVE mg/dL (NEGATIVE) 10/15/23 20:00 Urine Occult Blood SMALL (NEGATIVE) H 10/15/23 20:00 Urine Nitrite NEGATIVE (NEGATIVE) 10/15/23 20:00 Urine Bilirubin NEGATIVE (NEGATIVE) 10/15/23 20:00 Urine Urobilinogen 0.2 (NORMAL) E.U./dL (NORMAL) 10/15/23 20:00 Ur Leukocyte Esterase SMALL (NEGATIVE) H 10/15/23 20:00 Urine RBC 0-5 /HPF (0-5) 10/15/23 20:00 Urine WBC 4-5 /HPF (0-5) 10/15/23 20:00 Ur Epithelial Cells FEW Transitional /HPF (<= Few) 10/15/23 20:00 Ur Squamous Epith Cells MOD Squamous (<= Few) H 10/15/23 20:00 Urine Bacteria Rare /HPF (None Seen) 10/15/23 20:00 Ur Microscopic Review INDICATED 10/15/23 20:00 Urine Culture Comments NOT INDICATED 10/15/23 20:00 Nasal Screen MRSA (PCR) NEGATIVE (NEGATIVE) 10/16/23 17:05 Stl C. cayetanensis PCR Not Detected (Not Detected) 10/16/23 01:15 Stool Rotavirus A PCR Not Detected (Not Detected) 10/16/23 01:15 Stl Adenov F 40/41 PCR Not Detected (Not Detected) 10/16/23 01:15 Stool Astrovirus (PCR) Not Detected (Not Detected) 10/16/23 01:15 Stool Campylobacter PCR Not Detected (Not Detected) 10/16/23 01:15 Stl C. diff Tox B Gene POSITIVE (NEGATIVE) A* 10/16/23 01:15 Stl C. diff Tox A/B PCR Detected (Not Detected) A 10/16/23 01:15 Stool Cryptosporidium PCR Not Detected (Not Detected) 10/16/23 01:15 Stl Sh Tox Pr E STEC PCR Not Detected (Not Detected) 10/16/23 01:15 Stool E coli O157 PCR Not applicable (Not Detected) 10/16/23 01:15 Stl Enterotoxigenic E PCR Not Detected (Not Detected) 10/16/23 01:15 Stool EPEC (PCR) Not Detected (Not Detected) 10/16/23 01:15 Stl E. histolytica PCR Not Detected (Not Detected) 10/16/23 01:15 Stool Giardia Lamblia PCR Not Detected (Not Detected) 10/16/23 01:15 Stl P. shigelloides PCR Not Detected (Not Detected) 10/16/23 01:15 Stool Salmonella PCR Not Detected (Not Detected) 10/16/23 01:15 Stool Sapovirus (PCR) Not Detected (Not Detected) 10/16/23 01:15 Stl Shigella/EIEC PCR Not Detected (Not Detected) 10/16/23 01:15 St Y.enterocolitica PCR Not Detected (Not Detected) 10/16/23 01:15 Stool Vibrio (PCR) Not Detected (Not Detected) 10/16/23 01:15 Stl Vibrio cholerae PCR Not Detected (Not Detected) 10/16/23 01:15 Stl Enteroaggr Ecoli PCR Not Detected (Not Detected) 10/16/23 01:15 Stl Norovirus GI/GII PCR Not Detected (Not Detected) 10/16/23 01:15 Blood Type B NEGATIVE 10/16/23 06:27 Blood Type Recheck B NEGATIVE 10/16/23 04:54 Antibody Screen NEGATIVE 10/16/23 06:27 Crossmatch IS Only See Detail 10/16/23 06:27
[2023-10-18] MEDS: CLOPIDOGREL 75 MG TABLET PO SCH (13:24)
[2023-10-18] MEDS: TEMAZEPAM 15 MG CAPSULE PO PRN (21:08)
--- NOTE | 2023-10-19 00:53 | Ultrasound Report ---
PROCEDURE: Carotid Doppler Complete INDICATIONS: s/p stroke TECHNIQUE: Color and pulse Doppler interrogation was performed of both carotid systems, with image documentation and velocity measurements. COMPARISON: None. FINDINGS: Right side: Brachial blood pressure: 157/83 mm Hg. Common carotid artery peak systolic velocity: 81.2 cm/sec. Internal carotid artery peak systolic velocity: 86.5 cm/sec. Internal carotid artery end diastolic velocity: 32.2 cm/sec. External carotid artery peak systolic velocity: 102.0 cm/sec. ICA/CCA peak systolic ratio: 1.1 . Rivero scale imaging description: Mild atherosclerotic plaque. Percent internal carotid artery stenosis: Less than 50 percent stenosis. Vertebral artery: Flow direction is antegrade. Left side: Brachial blood pressure: 152/88 mm Hg. Common carotid artery peak systolic velocity: 69.9 cm/sec. Internal carotid artery peak systolic velocity: 105.4 cm/sec. Internal carotid artery end diastolic velocity: 25.5 cm/sec. External carotid artery peak systolic velocity: 74.2 cm/sec. ICA/CCA peak systolic ratio: 1.5 . Rivero scale imaging description: Mild to moderate atherosclerotic plaque. Percent internal carotid artery stenosis: Less than 50 percent stenosis. Vertebral artery: Flow direction is antegrade. IMPRESSION: 1. In the right internal carotid artery, there is less than 50 percent stenosis based on peak systoli c velocity criteria. 2. In the left internal carotid artery, there is less than 50 percent stenosis based on peak systolic velocity criteria. 3. Antegrade blood flow within the right vertebral artery. 4. Antegrade blood flow within the left vertebral artery. The estimate of stenosis included in the report of the imaging study was calculated using the [facility]-end orsed standards of carotid artery stenosis. Reviewed by: Trey Chapman MD on 10/19/2023 12:52 AM PDT Approved by: Trey Chapman MD on 10/19/2023 12:52 AM PDT Station ID: [id number]
[2023-10-19 05:49] LABS: CALCIUM 8.3 mg/dL (8.5-10.3); CREATININE 4.1 mg/dL (0.6-1.3); MAGNESIUM 1.7 mg/dL (1.7-2.3); PHOSPHORUS 4.3 mg/dL (2.5-5.0)
[2023-10-19] MEDS: ASPIRIN EC 81 MG TABLET PO SCH (08:12)
--- NOTE | 2023-10-19 11:07 | PROVIDER PROGRESS NOTE ---
Assessment/Plan - Problem List (1) CVA (cerebral vascular accident) Assessment/Plan: (1) TIA (transient ischemic attack) Assessment/Plan: Patient with waxing and waning symptoms of right facial droop and right-sided paralysis that began at approximately 2 PM on October 16, 2023. She had a workup to include a CT scan of the head that was normal, EKG there revealed sinus rhythm with no ischemic changes, laboratory workup that revealed a chronic anemia with no significant change, and no significant change in her BMP. Coagulation panel is normal. She received thrombolytic therapy October 16, 2023 and her stroke symptoms have mostly resolved. Using a tissue bassed definition of transient ischemic attack, patient had a transcient ischemic attack. She feels she is at her baseline from a neurologic standpoint. MRI of the brain performed October 16, 2023 revealed no evidence of stroke therefore patient most likely had a transient ischemic attack MRA revealed no significant intracranial arterial abnormality. CT scan of the head performed today to evaluate for possible hemorrhage is negative for hemorrhage. Plan: Start treatment with aspirin and atorvastatin. Patient to receive at least 21 days of treatment with plavix 75 mg daily. Plan: 1. Continue aspirin 81 mg daily. 2. Continue Plavix 75 mg daily for 21 days. 3. Carotid US and TTE complete. 4. Awaiting PT/OT evaluation. (2) C. difficile colitis Assessment/Plan: Patient recently admitted for urinary tract infection and treated with ceftriaxone during her hospitalization. Upon discharge she was prescribed levofloxacin. 2 days after her return to home she developed frequent loose stools every presented to the emergency room. She has a moderate leukocytosis of 15.5 K upon presentation to the emergency room. C. difficile PCR was positive. Treatment has been initiated with vancomycin by mouth. Plan: Restart vancomyin 125 mg 4 times each day and complete course of 10 days. (3) Diarrhea Assessment/Plan: Diarrhea is most likely related to her C. difficile colitis. It appears to be resolving. Continue to monitor. (4) CKD (chronic kidney disease) stage 5, GFR less than 15 ml/min Assessment/Plan: Chronic kidney disease appears to be stable.Continue to monitor. In the past, patient has expressed that she did not want to undergo dialysis, however, she has decided to seek a second opinion from another button sewer hand and is considering initiating dialysis. (5) Hypertension Assessment/Plan: Restart antihypertensives for BP control. Avoid low blood pressures due to recent stroke symptoms. Amlodipine withheld carvediol initiated at 6.25 mg twice daily. (6) Hypothyroidism Assessment/Plan: Continue levothyroxine 150 mg daily. (7) Bipolar Disorder Assessment/Plan: Continue Lamotrigine and carbamazepine Dispo: Anticipate discharge to SNF in next 24-48 hours. - Current Meds Current Meds: Current Medications Generic Name Dose Route Start Last Admin Trade Name Freq PRN Reason Stop Dose Admin Albuterol/Ipratropium 3 ml 10/16/23 09:20 10/16/23 10:19 Ipratropium/Albuterol 3 Ml Neb INH 3 ml Q4HR PRN Administration Wheezing Aspirin 81 mg 10/19/23 09:00 10/19/23 08:12 Aspirin Ec 81 Mg Tablet PO 81 mg DAILY ROGER Administration Atorvastatin Calcium 40 mg 10/17/23 21:00 10/18/23 21:09 Atorvastatin 40 Mg Tablet PO 40 mg QPM ROGER Administration Carbamazepine 200 mg 10/17/23 21:00 10/19/23 08:13 Carbamazepine Er 200 Mg Tablet PO 200 mg BID ROGER Administration Carvedilol 6.25 mg 10/18/23 09:00 10/19/23 08:13 Carvedilol 3.125 Mg Tablet PO 6.25 mg BID ROGER Administration Clopidogrel Bisulfate 75 mg 10/18/23 13:00 10/19/23 08:12 Clopidogrel 75 Mg Tablet PO 75 mg DAILY ROGER Administration Cyanocobalamin 500 mcg 10/18/23 11:00 10/19/23 08:13 Cyanocobalamin 500 Mcg Tablet PO 500 mcg DAILY ROGER Administration Fluticasone Propionate 1 sprays 10/16/23 09:00 10/19/23 08:12 Fluticasone Nasal [place] HAKAN 1 sprays DAILY ROGER Administration Folic Acid 1 mg 10/18/23 09:00 10/19/23 08:13 Folic Acid 1 Mg Tablet PO 1 mg DAILY ROGER Administration Heparin Sodium (Porcine) 5,000 unit 10/17/23 21:00 10/19/23 08:01 Heparin 5,000 Unit/Ml Vial SUBQ 5,000 unit BID ROGER Administration Lamotrigine 200 mg 10/17/23 21:00 10/18/23 21:09 Lamotrigine 100 Mg Tablet PO 200 mg QPM ROGER Administration Lorazepam 1 mg 10/16/23 17:41 10/16/23 17:49 Lorazepam 2 Mg/Ml Vial IVP 1 mg Q30M PRN Administration Anxiety Ondansetron HCl 4 mg 10/15/23 21:04 10/16/23 15:52 Ondansetron 4 Mg/2 Ml Vial IVP 4 mg Q6HR PRN Administration Nausea / Vomiting Saccharomyces Boulardii 500 mg 10/18/23 09:30 10/19/23 08:00 Saccharomyces Boulardii 250 Mg Capsule PO 500 mg BIDWM ROGER Administration Sodium Chloride 10 ml 10/15/23 21:04 10/17/23 21:08 Sodium Chloride Flush 0.9% 10 Ml Syringe IVP 10 ml PRN PRN Administration NEEDED PER PROVIDER ORDERS Sodium Chloride 10 ml 10/16/23 01:00 10/19/23 08:05 Sodium Chloride Flush 0.9% 10 Ml Syringe IVP 10 ml 0100,[id number],1700 ROGER Administration Sodium Chloride 10 ml 10/17/23 01:00 10/19/23 09:00 Sodium Chloride Flush 0.9% 10 Ml Syringe IVP 10 ml 0100,0900,1700 ROGER Administration Temazepam 15 mg 10/18/23 19:48 10/18/23 21:08 Temazepam 15 Mg Capsule PO 15 mg QPM PRN Administration Insomnia Vancomycin HCl 125 mg 10/17/23 13:00 10/19/23 08:13 Vancomycin 125 Mg Capsule PO 125 mg QID ROGER Administration - Lab Result Fish Bone Diagrams: 10/17/23 04:50 10/19/23 05:04 - Additional Planning My Orders: My Active Orders 10/19/23 21:00 amLODIPine [Norvasc] 10 mg PO HS 10/20/23 05:00 CBC [CBC - COMP BLD CT W/AUTO DIFF] [HEME] DAILYLAB 10/21/23 05:00 CBC [CBC - COMP BLD CT W/AUTO DIFF] [HEME] DAILYLAB 10/22/23 05:00 CBC [CBC - COMP BLD CT W/AUTO DIFF] [HEME] DAILYLAB 10/23/23 05:00 CBC [CBC - COMP BLD CT W/AUTO DIFF] [HEME] DAILYLAB 10/24/23 05:00 CBC [CBC - COMP BLD CT W/AUTO DIFF] [HEME] DAILYLAB Subjective - Subjective Patient Reports: Feeling Better, Resting Comfortably, No Complaints Objective Vital Signs: Vital Signs - 24 hr 10/18/23 10/18/23 10/19/23 14:29 22:12 05:17 Temperature 36.8 C 36.5 C Heart Rate [ 82 Activity] Heart Rate [ 84 82 Brachial] Heart Rate [ 83 Sitting] Heart Rate [ 85 Standing] Heart Rate [ 83 Supine] Respiratory 16 16 Rate Blood Pressure 144/86 H [Activity] Blood Pressure 165/89 H 167/87 H [Right Brachial artery] Blood Pressure 171/89 H [Sitting] Blood Pressure 159/83 H [Standing] Blood Pressure 153/85 H [Supine] O2 Saturation 98 98 10/19/23 08:19 Temperature 36.3 C L Heart Rate [ Activity] Heart Rate [ 87 Brachial] Heart Rate [ Sitting] Heart Rate [ Standing] Heart Rate [ Supine] Respiratory 18 Rate Blood Pressure [Activity] Blood Pressure 164/93 H [Right Brachial artery] Blood Pressure [Sitting] Blood Pressure [Standing] Blood Pressure [Supine] O2 Saturation 99 Oxygen O2 Source Room air I&O (Last 24 Hrs): Intake and Output Totals x24h 10/17/23 10/18/23 10/19/23 23:59 23:59 23:59 Intake Total 1690 2180 1200 Output Total 700 840 Balance 990 2180 360 General: Alert, Oriented x3 Cardiovascular: Regular rate, Normal S1, Normal S2 Respiratory: Chest non-tender, No respiratory distress, Breath sounds nml Abdomen: Normal bowel sounds, Soft, No tenderness, No hepatospenomegaly, No masses - Results Results: Laboratory Results WBC 12.2 x10^3/uL (4.8-10.8) H 10/17/23 04:50 RBC 2.56 10^6/uL (4.20-5.40) L 10/17/23 04:50 Hgb 7.7 g/dL (12.0-16.0) L 10/17/23 04:50 Hct 26.1 % (37.0-47.0) L 10/17/23 04:50 MCV 102.0 fL (81.0-99.0) H 10/17/23 04:50 MCH 30.1 pg (27.0-31.0) 10/17/23 04:50 MCHC 29.5 g/dL (32.0-36.0) L 10/17/23 04:50 RDW 16.6 % (12.0-15.0) H 10/17/23 04:50 Plt Count 202 10^3/uL (130-450) 10/17/23 04:50 MPV 10.1 fL (7.9-10.8) 10/17/23 04:50 Neut # (Auto) 6.0 10^3/uL (1.5-6.6) 10/17/23 04:50 Lymph # (Auto) 4.5 10^3/uL (1.5-3.5) H 10/17/23 04:50 [place] # (Auto) 1.3 10^3/uL (0.0-1.0) H 10/17/23 04:50 Eos # (Auto) 0.3 10^3/uL (0.0-0.7) 10/17/23 04:50 Baso # (Auto) 0.0 10^3/uL (0.0-0.1) 10/17/23 04:50 Absolute Nucleated RBC 0.00 x10^3/uL 10/17/23 04:50 Total Counted 100 10/15/23 18:50 Band Neuts % (Manual) 0 % (0-10) 10/15/23 18:50 Abnorm Lymph % (Manual) 0 % 10/15/23 18:50 Nucleated RBC % 0.0 /100WBC 10/17/23 04:50 Neutrophils # (Manual) 8.2 10^3/uL (1.5-6.6) H 10/15/23 18:50 Lymphocytes # (Manual) 5.9 10^3/uL (1.5-3.5) H 10/15/23 18:50 Monocytes # (Manual) 1.2 10^3/uL (0.0-1.0) H 10/15/23 18:50 Eosinophils # (Manual) 0.2 10^3/uL (0-0.7) 10/15/23 18:50 Basophils # (Manual) 0.0 10^3/uL (0-0.1) 10/15/23 18:50 Differential Comment MANUAL DIFFERENTIAL 10/15/23 18:50 Platelet Estimate NORMAL (130-450,000) (NORMAL) 10/15/23 18:50 Platelet Morphology NORMAL APPEARANCE (NORMAL) 10/15/23 18:50 RBC Morph Micro Appear 3+ MACROCYTOSIS (NORMAL) 1+ POLYCHROMASIA (NORMAL) 0 10/15/23 18:50 RBC Morph Micro Appear 3+ MACROCYTOSIS (NORMAL) 1+ POLYCHROMASIA (NORMAL) 10/15/23 18:50 PT 13.9 secs (9.9-12.6) H 10/16/23 14:18 INR 1.3 (0.8-1.2) H 10/16/23 14:18 APTT 23.7 secs (24.9-33.3) L 10/16/23 14:18 VBG pH 7.276 (7.31-7.41) L 10/17/23 04:50 Ionized Calcium 1.12 mmol/L (1.15-1.33) L 10/17/23 04:50 Sodium 138 mmol/L (135-145) 10/19/23 05:04 Potassium 4.0 mmol/L (3.5-4.5) 10/19/23 05:04 Chloride 113 mmol/L (101-111) H 10/19/23 05:04 Carbon Dioxide 17 mmol/L (21-32) L 10/19/23 05:04 Anion Gap 8.0 (6-13) 10/19/23 05:04 BUN 42 mg/dL (6-20) H 10/19/23 05:04 Creatinine 4.1 mg/dL (0.6-1.3) H 10/19/23 05:04 Estimated GFR (MDRD) 11 (>89) L 10/19/23 05:04 Glucose 97 mg/dL (74-104) 10/19/23 05:04 POC Whole Bld Glucose 99 mg/dL (70 - 100) 10/17/23 06:10 Lactic Acid 1.6 mmol/L (0.5-2.2) 10/16/23 04:54 Calcium 8.3 mg/dL (8.5-10.3) L 10/19/23 05:04 Phosphorus 4.3 mg/dL (2.5-5.0) 10/19/23 05:04 Magnesium 1.7 mg/dL (1.7-2.3) 10/19/23 05:04 Total Bilirubin 0.3 mg/dL (0.2-1.0) 10/15/23 18:50 AST 16 IU/L (10-42) 10/15/23 18:50 ALT 20 IU/L (10-60) 10/15/23 18:50 Alkaline Phosphatase 90 IU/L (42-121) 10/15/23 18:50 Troponin I High Sens 35.6 ng/L (2.3-14.8) H* 10/16/23 18:55 Total Protein 6.3 g/dL (6.4-8.9) L 10/15/23 18:50 Albumin 3.7 g/dL (3.2-5.5) 10/15/23 18:50 Globulin 2.6 g/dL (2.1-4.2) 10/15/23 18:50 Albumin/Globulin Ratio 1.4 (1.0-2.2) 10/15/23 18:50 Lipase 41 U/L (11-82) 10/15/23 18:50 Procalcitonin Immunoas 0.30 ng/mL (<0.5) 10/16/23 04:54 Urine Color YELLOW 10/15/23 20:00 Urine Clarity CLEAR (CLEAR) 10/15/23 20:00 Urine pH 6.5 PH (5.0-7.5) 10/15/23 20:00 Ur Specific [place] <=1.005 (1.002-1.030) 10/15/23 20:00 Urine Protein TRACE mg/dL (NEGATIVE) 10/15/23 20:00 Urine Glucose (UA) NEGATIVE mg/dL (NEGATIVE) 10/15/23 20:00 Urine Ketones NEGATIVE mg/dL (NEGATIVE) 10/15/23 20:00 Urine Occult Blood SMALL (NEGATIVE) H 10/15/23 20:00 Urine Nitrite NEGATIVE (NEGATIVE) 10/15/23 20:00 Urine Bilirubin NEGATIVE (NEGATIVE) 10/15/23 20:00 Urine Urobilinogen 0.2 (NORMAL) E.U./dL (NORMAL) 10/15/23 20:00 Ur Leukocyte Esterase SMALL (NEGATIVE) H 10/15/23 20:00 Urine RBC 0-5 /HPF (0-5) 10/15/23 20:00 Urine WBC 4-5 /HPF (0-5) 10/15/23 20:00 Ur Epithelial Cells FEW Transitional /HPF (<= Few) 10/15/23 20:00 Ur Squamous Epith Cells MOD Squamous (<= Few) H 10/15/23 20:00 Urine Bacteria Rare /HPF (None Seen) 10/15/23 20:00 Ur Microscopic Review INDICATED 10/15/23 20:00 Urine Culture Comments NOT INDICATED 10/15/23 20:00 Nasal Screen MRSA (PCR) NEGATIVE (NEGATIVE) 10/16/23 17:05 Stl C. cayetanensis PCR Not Detected (Not Detected) 10/16/23 01:15 Stool Rotavirus A PCR Not Detected (Not Detected) 10/16/23 01:15 Stl Adenov F 40/41 PCR Not Detected (Not Detected) 10/16/23 01:15 Stool Astrovirus (PCR) Not Detected (Not Detected) 10/16/23 01:15 Stool Campylobacter PCR Not Detected (Not Detected) 10/16/23 01:15 Stl C. diff Tox B Gene POSITIVE (NEGATIVE) A* 10/16/23 01:15 Stl C. diff Tox A/B PCR Detected (Not Detected) A 10/16/23 01:15 Stool Cryptosporidium PCR Not Detected (Not Detected) 10/16/23 01:15 Stl Sh Tox Pr E STEC PCR Not Detected (Not Detected) 10/16/23 01:15 Stool E coli O157 PCR Not applicable (Not Detected) 10/16/23 01:15 Stl Enterotoxigenic E PCR Not Detected (Not Detected) 10/16/23 01:15 Stool EPEC (PCR) Not Detected (Not Detected) 10/16/23 01:15 Stl E. histolytica PCR Not Detected (Not Detected) 10/16/23 01:15 Stool Giardia Lamblia PCR Not Detected (Not Detected) 10/16/23 01:15 Stl P. shigelloides PCR Not Detected (Not Detected) 10/16/23 01:15 Stool Salmonella PCR Not Detected (Not Detected) 10/16/23 01:15 Stool Sapovirus (PCR) Not Detected (Not Detected) 10/16/23 01:15 Stl Shigella/EIEC PCR Not Detected (Not Detected) 10/16/23 01:15 St Y.enterocolitica PCR Not Detected (Not Detected) 10/16/23 01:15 Stool Vibrio (PCR) Not Detected (Not Detected) 10/16/23 01:15 Stl Vibrio cholerae PCR Not Detected (Not Detected) 10/16/23 01:15 Stl Enteroaggr Ecoli PCR Not Detected (Not Detected) 10/16/23 01:15 Stl Norovirus GI/GII PCR Not Detected (Not Detected) 10/16/23 01:15 Blood Type B NEGATIVE 10/16/23 06:27 Blood Type Recheck B NEGATIVE 10/16/23 04:54 Antibody Screen NEGATIVE 10/16/23 06:27 Crossmatch IS Only See Detail 10/16/23 06:27
[2023-10-19] MEDS ORDERED: NON FORMULARY MED (Amlodipine Besylate [Norvasc] 10 MG Tablet) PO SCH (21:00)
[2023-10-19] MEDS: amLODIPine 5 MG TABLET PO SCH (22:10)
[2023-10-20 00:30] VITALS: O2SAT 98
[2023-10-20 06:11] LABS: BASOPHILS % (AUTO) 0.2 %; EOSINOPHILS # (AUTO) 0.2 10^3/uL (0.0-0.7); EOSINOPHILS % (AUTO) 2.4 %; HCT - HEMATOCRIT 27.2 % (37.0-47.0); LYMPHOCYTES # (AUTO) 4.5 10^3/uL (1.5-3.5); LYMPHOCYTES % (AUTO) 54.2 %; MEAN CORPUSCULAR HEMOGLOBIN 30.2 pg (27.0-31.0); MEAN CORPUSCULAR HGB CONC 29.4 g/dL (32.0-36.0); MEAN CORPUSCULAR VOLUME 102.6 fL (81.0-99.0); MEAN PLATELET VOLUME 9.3 fL (7.9-10.8); MONOCYTES # (AUTO) 0.7 10^3/uL (0.0-1.0); MONOCYTES % (AUTO) 8.1 %; NEUTROPHILS # (AUTO) 2.8 10^3/uL (1.5-6.6); NEUTROPHILS % (AUTO) 33.9 %; PLT - PLATELET COUNT 208 10^3/uL (130-450); RED BLOOD COUNT 2.65 10^6/uL (4.20-5.40); RED CELL DISTRIBUTION WIDTH 15.9 % (12.0-15.0); WHITE BLOOD COUNT 8.4 x10^3/uL (4.8-10.8)
[2023-10-20 09:05] VITALS: BP 149/78
--- NOTE | 2023-10-20 13:01 | Discharge Plan ---
"Discharge Plan for SNF / SANDIP - Discharge Plan And Transition Orders Problem Reviewed?: Yes Disposition: 03 SNF DC/Xfer Condition: Good Allergies and Adverse Reactions: Allergies Allergy/AdvReac Type Severity Reaction Status Date / Time codeine [Codeine] Allergy Emesis Verified 10/15/23 18:30 olanzapine [From Zyprexa] AdvReac weight gain Verified 10/15/23 18:30 sulfamethoxazole AdvReac Emesis Verified 10/15/23 18:30 [From Septra] trimethoprim [From Septra] AdvReac Emesis Verified 10/15/23 18:30 ziprasidone HCl * AdvReac dementia Verified 10/15/23 18:30 [From Geodon] ziprasidone mesylate * AdvReac dementia Verified 10/15/23 18:30 [From Geodon] - SNF / SANDIP Transition Orders Admit to (Facility): [facility] Medicare Certification Statement: I certify that [facility] is medically necessary on a continuing basis for any of the conditions for which she/he is receiving care during hospitalization. Notify PCP of admission and forward orders to primary provider for signature. Weight on admission and: Weekly Call PCP immediately if weight increases by: 5 kg Other Notification Orders: Call PCP immediately if patient develops dyspnea, chest pain/tightness or edema. House Bowel Program: Yes Additional Bowel Program Orders: If no BM after 2 days, nurse may give M.O.M. 30ml PO PRN and/or ducolax Supp 1 ID and/or EDWARD 250mg P.O., and/or senna 1-2 tabs PO. On day 3 nurse may give r epeat above order until residents constipation is resolved. Annual Influenza Vaccine (between Dec 25 and July 24): Yes Medication Orders: PLEASE REFER TO THE DISCHARGE MEDICATION LIST. - Medications New Prescriptions: Aspirin EC [Ecotrin] 81 mg PO DAILY #30 tab Atorvastatin [Lipitor] 40 mg PO QPM #30 tab Clopidogrel [Plavix] 75 mg PO DAILY #21 tab Vancomycin [Vancocin] 125 mg PO QID 5 Days #20 cap - Diet Type: Geriatric Texture: Regular Liquids: Thin - Therapies | Activity Therapy: Evaluation | Treat if indicated: PT, OT Rehabilitation Potential: Maximize functional status Activity: Activity as Tolerated Weight Bearing: Full Weight Follow Up: Please follow up with your PCP. You will need a referral to Neurology."
--- NOTE | 2023-10-20 13:27 | DISCHARGE SUMMARY ---
Discharge Summary Admit Date: 10/15/23 Discharge Date: 10/20/23 Discharging Provider: Caden Tovar Code Status: Do Not Attempt Resuscitation Condition at Discharge: Good Discharge Disposition: SNF DC/Xfer Discharge Facility Name: [facility] - DIAGNOSES Discharge Diagnoses with Status of Each Condition: (1) TIA (transient ischemic attack) Assessment/Plan: On aspirin. Will need plavix for 21 days. Referral to Neurology. Received tPA on 10/15. No evidence of CVA on MRI. (2) C. difficile colitis Assessment/Plan: On Vancomycin 125 mg QID for 10 total days. (3) Diarrhea Assessment/Plan: Resolved (4) CKD (chronic kidney disease) stage 5, GFR less than 15 ml/min Assessment/Plan: Chronic kidney disease appears to be stable.Continue to monitor. In the past, patient has expressed that she did not want to undergo dialysis, however, she has decided to seek a second opinion from another chute greaser and is considering initiating dialysis. - HPI History of Present Illness: 72YOF c CKD stage 5, bipolar disorder, hypothyroidism, HTN, insomnia who was recently hospitalized with pyelonephritis and discharged on Levofloxacin who returns to the ED reporting profuse diarrhea since discharge. Patient was treated with Rocephin 10/09-10/11 and transitioned to oral Levaquin on discharge 10/11. Patient profuse watery diarrhea. No bleed. No abdominal pain. Positive nausea. No vomiting. Sxs no better or worse with food. No fever. No dysuria. No bleed. She mentions allergy to ciprofloxacin of unclear sx. In the ED, patient noted for elevated WBC. No fever. No tachycardia. No tachypnea. ED staff concerned about patient's diarrhea and reached out to hospitalist team for medical management. - HOSPITAL COURSE Hospital Course: Patient is a 72-year-old female who presented to the ED due to profuse diarrhea after a previous admission for pyelonephritis on levofloxacin and ceftriaxone. She was given a diagnosis of C. difficile and admitted for treatment with oral vancomycin. On 10/15 patient developed waxing waning symptoms of a right facial droop and right-sided paralysis. This was discussed with teleneurology and she was given thrombolytic therapy. An MRI/MRI was performed which was negative. A CT scan of her brain was also performed postthrombolytic therapy administration which d id not show any evidence of a hemorrhage. Patient was placed on oral aspirin and Plavix. I TTE was performed which was unremarkable for a PFO or intracardiac thrombus. She also underwent bilateral carotid artery ultrasound which was negative for any stenosis. She was subsequently discharged on oral vancomycin as well as aspirin, Plavix, atorvastatin. She will need outpatient follow-up with neurology regarding her stroke which was aborted with thrombolytic therapy. - ALLERGIES Allergies/Adverse Reactions: Allergies Allergy/AdvReac Type Severity Reaction Status Date / Time codeine [Codeine] Allergy Emesis Verified 10/15/23 18:30 olanzapine [From Zyprexa] AdvReac weight gain Verified 10/15/23 18:30 sulfamethoxazole AdvReac Emesis Verified 10/15/23 18:30 [From Septra] trimethoprim [From Septra] AdvReac Emesis Verified 10/15/23 18:30 ziprasidone HCl * AdvReac dementia Verified 10/15/23 18:30 [From Geodon] ziprasidone mesylate * AdvReac dementia Verified 10/15/23 18:30 [From Geodon] - MEDICATIONS Home Medications: Ambulatory Orders Medication Instructions Recorded Confirmed lamoTRIgine [LaMICtal] 200 mg PO QPM 01/15/13 10/16/23 carvediloL [Coreg] 12.5 mg PO BIDWM 06/30/20 10/16/23 Amlodipine Besylate [Norvasc] 10 mg PO QPM 05/24/23 10/16/23 Ipratropium/Albuterol [Duoneb] 1 neb IH DAILY 05/24/23 10/16/23 Cbd Oil 1 applic TOP PRN PRN 10/11/23 10/16/23 Fluticasone [Flonase] 2 spray HAKAN DAILY 10/11/23 10/16/23 LORazepam [Ativan] 2 mg PO QPM PRN 10/11/23 10/16/23 Levothyroxine Sodium [Synthroid] 150 mcg PO QDAC 10/11/23 10/16/23 Vitamin D3 Liquid 1,000 units PO DAILY 10/11/23 10/16/23 carBAMazepine [Carbamazepine ER] 200 mg PO BID 10/11/23 10/16/23 Cyanocobalamin [Vitamin B-12] 500 mcg PO DAILY #30 tab 10/12/23 10/16/23 Folic Acid 1 mg PO DAILY #30 tab 10/12/23 10/16/23 Loratadine [Claritin] 10 mg PO QOD PRN #30 tab 10/12/23 10/16/23 levoFLOXacin [Levaquin] 250 mg PO Q48H #3 tablet 10/12/23 10/16/23 Aspirin EC [Ecotrin] 81 mg PO DAILY #30 tab 10/20/23 Atorvastatin [Lipitor] 40 mg PO QPM #30 tab 10/20/23 Clopidogrel [Plavix] 75 mg PO DAILY #21 tab 10/20/23 Vancomycin [Vancocin] 125 mg PO QID 5 Days #20 cap 10/20/23 - PHYSICAL EXAM AT DISCHARGE General Appearance: positive: No acute distress, Alert Respiratory: positive: Chest non-tender, No respiratory distress, Breath sounds nml Cardiovascular: positive: Regular rate & rhythm, No murmur, No gallop Abdomen: positive: Non-tender, No organomegaly, Nml bowel sounds Neurologic/Psychiatric: positive: Oriented x3 - LABS Result Diagrams: 10/20/23 06:04 10/19/23 05:04 - DIAGNOSTIC IMAGING Diagnostic Imaging Results: Final report reviewed - FOLLOW UP Follow Up: Patient to follow up with her PCP Danyell Mayes, she will need a referral to Neurology. She has a follow up with Nephrology, patient will likely need dialysis in the future. - TIME SPENT Time Spent in Discharge (Minutes): 35
== END 2023-10-20 14:30 | DRG 372 ==
LOC: EDUNIT# → ED 18:14 → MS2 21:04 → ICU 10-16 17:08 → MS2 10-18 07:33
PROVIDERS: ADMIT Internal Medicine; ATTEND Family Medicine
PROC: 30233N1 Transfusion of Nonautologous Red Blood Cells into Peripheral Vein, Percutaneous Approach (ICD-10-PCS; principal; 2023-10-16)
DX: N39.0 Urinary tract infection, site not specified (principal); M79.89 Other specified soft tissue disorders; I12.9 Hypertensive chronic kidney disease with stage 1 through stage 4 chronic kidney disease, or unspecified chronic kidney disease; N18.9 Chronic kidney disease, unspecified; A04.72 Enterocolitis due to Clostridium difficile, not specified as recurrent; N17.9 Acute kidney failure, unspecified; E83.42 Hypomagnesemia; R19.7 Diarrhea, unspecified; G45.9 Transient cerebral ischemic attack, unspecified; N18.5 Chronic kidney disease, stage 5; I12.0 Hypertensive chronic kidney disease with stage 5 chronic kidney disease or end stage renal disease; G81.91 Hemiplegia, unspecified affecting right dominant side; F31.9 Bipolar disorder, unspecified; E03.9 Hypothyroidism, unspecified; G47.00 Insomnia, unspecified; D72.829 Elevated white blood cell count, unspecified; R29.810 Facial weakness; D63.1 Anemia in chronic kidney disease; Z66 Do not resuscitate; Z79.890 Hormone replacement therapy; Z79.899 Other long term (current) drug therapy; Z88.1 Allergy status to other antibiotic agents; Z88.2 Allergy status to sulfonamides; Z88.5 Allergy status to narcotic agent; Z88.8 Allergy status to other drugs, medicaments and biological substances
CPT/HCPCS: 36415; 70450; 70544; 70551; 80048; 80053; 81001; 82330; 83605; 83690; 83735; 84100; 84145; 84484; 85025; 85027; 85610; 85730; 86850; 86900; 86901; 86920; 87040; 87045; 87046; 87086; 87150; 87427; 87493; 87507; 93005; 93307; 93880; 94640; 96374; 97162; 97166; 97530; 99285; A9270; J2060; J3101; J7040; J8499; P9040; 81003

== ENCOUNTER 2023-10-26 15:36 | Outpatient (CLI) | payer MEDICARE, OTHER ==
[2023-10-26 15:48] LABS: BASOPHILS % (AUTO) 0.4 %; EOSINOPHILS # (AUTO) 0.2 10^3/uL (0.0-0.7); EOSINOPHILS % (AUTO) 2.5 %; HGB - HEMOGLOBIN 7.9 g/dL (12.0-16.0); LYMPHOCYTES # (AUTO) 4.2 10^3/uL (1.5-3.5); LYMPHOCYTES % (AUTO) 45.3 %; MEAN CORPUSCULAR HEMOGLOBIN 30.2 pg (27.0-31.0); MEAN CORPUSCULAR HGB CONC 29.3 g/dL (32.0-36.0); MEAN CORPUSCULAR VOLUME 103.1 fL (81.0-99.0); MEAN PLATELET VOLUME 9.6 fL (7.9-10.8); MONOCYTES # (AUTO) 0.6 10^3/uL (0.0-1.0); MONOCYTES % (AUTO) 6.5 %; NEUTROPHILS # (AUTO) 4.2 10^3/uL (1.5-6.6); NEUTROPHILS % (AUTO) 44.9 %; PLT - PLATELET COUNT 244 10^3/uL (130-450); RED BLOOD COUNT 2.62 10^6/uL (4.20-5.40); RED CELL DISTRIBUTION WIDTH 15.2 % (12.0-15.0); WHITE BLOOD COUNT 9.3 x10^3/uL (4.8-10.8)
[2023-10-26 16:10] LABS: BUN - BLOOD UREA NITROGEN 42 mg/dL (6-20); CALCIUM 8.4 mg/dL (8.5-10.3); CARBAMAZEPINE (TEGRETOL) 5.8 ug/mL; CARBON DIOXIDE - CO2 17 mmol/L (21-32); CHLORIDE 115 mmol/L (101-111); CREATININE 4.4 mg/dL (0.6-1.3); GFR - MDRD 10 (>89); GLUCOSE 104 mg/dL (74-104); POTASSIUM 4.5 mmol/L (3.5-4.5); SODIUM 139 mmol/L (135-145)
[2023-10-26 17:42] LABS: THYROID STIMULATING HORMONE 4.56 uIU/mL (0.34-5.60)
== END 2023-10-26 15:37 | disposition home or self-care (01) ==
LOC: LAB.R 15:36
PROVIDERS: ATTEND Registered Nurse
DX: I10 Essential (primary) hypertension (principal); E03.9 Hypothyroidism, unspecified; I48.20 Chronic atrial fibrillation, unspecified; F31.9 Bipolar disorder, unspecified; D52.9 Folate deficiency anemia, unspecified
CPT/HCPCS: 80048; 80156; 80175; 82607; 82746; 84439; 84443; 85025

== ENCOUNTER 2023-10-30 12:15 | Outpatient (CLI) | payer MEDICARE, OTHER | END 2023-10-30 23:59 | disposition critical access hospital (66) | LOC: EMS 12:15 | DX: R11.2 Nausea with vomiting, unspecified (principal); R19.7 Diarrhea, unspecified; R10.9 Unspecified abdominal pain | CPT/HCPCS: A0425; A0429 ==

== ENCOUNTER 2023-10-30 12:21 | Inpatient (IN) | payer MEDICARE, OTHER ==
[2023-10-30 13:54] LABS: BASOPHILS % (AUTO) 0.2 %; EOSINOPHILS # (AUTO) 0.2 10^3/uL (0.0-0.7); EOSINOPHILS % (AUTO) 0.9 %; HCT - HEMATOCRIT 34.5 % (37.0-47.0); LYMPHOCYTES # (AUTO) 5.3 10^3/uL (1.5-3.5); MEAN CORPUSCULAR HEMOGLOBIN 30.6 pg (27.0-31.0); MEAN CORPUSCULAR VOLUME 105.5 fL (81.0-99.0); MEAN PLATELET VOLUME 9.7 fL (7.9-10.8); MONOCYTES # (AUTO) 1.2 10^3/uL (0.0-1.0); MONOCYTES % (AUTO) 7.2 %; NEUTROPHILS # (AUTO) 9.8 10^3/uL (1.5-6.6); NEUTROPHILS % (AUTO) 59.4 %; PLT - PLATELET COUNT 267 10^3/uL (130-450); RED BLOOD COUNT 3.27 10^6/uL (4.20-5.40); RED CELL DISTRIBUTION WIDTH 14.9 % (12.0-15.0); WHITE BLOOD COUNT 16.5 x10^3/uL (4.8-10.8)
[2023-10-30 13:55] LABS: SLIDE REVIEW? Indicated
[2023-10-30] MEDS: SODIUM CHLORIDE 0.9% 1,000 ML IV ONE (14:03)
[2023-10-30 14:14] LABS: PLATELET MORPHOLOGY NORMAL APPEARANCE (NORMAL); RBC MORPHOLOGY (MULTIPLE) NORMAL APPEARANCE (NORMAL)
[2023-10-30 14:15] LABS: ALBUMIN 3.8 g/dL (3.2-5.5); ALBUMIN/GLOBULIN RATIO 1.3 (1.0-2.2); BILIRUBIN,TOTAL 0.4 mg/dL (0.2-1.0); CALCIUM 8.8 mg/dL (8.5-10.3); CREATININE 4.7 mg/dL (0.6-1.3); DIFFERENTIAL COMMENT MANUAL=AUTO DIFF; MAGNESIUM 1.8 mg/dL (1.7-2.3); PLATELET ESTIMATE, MANUAL NORMAL (130-450,000) (NORMAL); POTASSIUM 4.3 mmol/L (3.5-4.5); TOTAL PROTEIN 6.7 g/dL (6.4-8.9); WBC MORPHOLOGY (MULTIPLE) NORMAL APPEARANCE (NORMAL)
[2023-10-30 15:33] LABS: BILIRUBIN,URINE NEGATIVE (NEGATIVE); GLUCOSE, URINE (UA) NEGATIVE (NEGATIVE); KETONES,URINE (UA) NEGATIVE (NEGATIVE); LEUKOCYTE ESTERASE, URINE NEGATIVE (NEGATIVE); NITRITE,URINE NEGATIVE (NEGATIVE); OCCULT BLOOD,URINE SMALL (NEGATIVE); PROTEIN,URINE TRACE mg/dL (NEGATIVE); UROBILINOGEN,URINE 0.2 (NORMAL) E.U./dL (NORMAL)
[2023-10-30 15:43] LABS: CLARITY,URINE CLOUDY (CLEAR)
[2023-10-30 15:44] LABS: AMORPHOUS SEDIMENT,UR Marked /LPF; BACTERIA,URINE Few /HPF (None Seen); SQUAMOUS EPITHELIAL CELL,UR MANY Squamous (<= Few); WBC,URINE 0-3 /HPF (0-5)
--- NOTE | 2023-10-30 16:05 | ED Physician Documentation ---
History of Present Illness - Stated complaint Stated Complaint: N/V/D - Chief complaint Chief Complaint: General - Additonal information Additional information: 72-year-old female with history of hypertension, asthma, hypothyroidism, GERD, osteoarthritis, bipolar disorder was recently admitted and discharged 10/14 for diarrhea, UTI, C. difficile. Since she has been home she has been having persistent ongoing diarrhea 3-4 episodes a day and now newly having nausea with vomiting up to 3-4 times a day. She is unsure if she has had any fevers or chills. She denies any abdominal pain or head pain. PD PAST MEDICAL HISTORY - Past Medical History Cardiovascular: Hypertension Respiratory: Asthma Neuro: None Endocrine/Autoimmune: HyPOthyroidism GI: GERD GENERAL SURGERY PHYSICIAN ASSISTANT: None : None HEENT: None Psych: Bipolar disorder Musculoskeletal: Osteoarthritis Derm: None - Past Surgical History Past Surgical History: Yes Ortho: Hip replacement, Knee replacement HEENT: Tonsil/Adenoidectomy Derm: Skin cancer surgery - Present Medications Home Medications: Ambulatory Orders Medication Instructions Recorded Confirmed lamoTRIgine [LaMICtal] 200 mg PO QPM 01/15/13 10/16/23 carvediloL [Coreg] 12.5 mg PO BIDWM 06/30/20 10/16/23 Amlodipine Besylate [Norvasc] 10 mg PO QPM 05/24/23 10/16/23 Ipratropium/Albuterol [Duoneb] 1 neb IH DAILY 05/24/23 10/16/23 Cbd Oil 1 applic TOP PRN PRN 10/11/23 10/16/23 Fluticasone [Flonase] 2 spray HAKAN DAILY 10/11/23 10/16/23 LORazepam [Ativan] 2 mg PO QPM PRN 10/11/23 10/16/23 Levothyroxine Sodium [Synthroid] 150 mcg PO QDAC 10/11/23 10/16/23 Vitamin D3 Liquid 1,000 units PO DAILY 10/11/23 10/16/23 carBAMazepine [Carbamazepine ER] 200 mg PO BID 10/11/23 10/16/23 Cyanocobalamin [Vitamin B-12] 500 mcg PO DAILY #30 tab 10/12/23 10/16/23 Folic Acid 1 mg PO DAILY #30 tab 10/12/23 10/16/23 Loratadine [Claritin] 10 mg PO QOD PRN #30 tab 10/12/23 10/16/23 levoFLOXacin [Levaquin] 250 mg PO Q48H #3 tablet 10/12/23 10/16/23 Aspirin EC [Ecotrin] 81 mg PO DAILY #30 tab 10/20/23 Atorvastatin [Lipitor] 40 mg PO QPM #30 tab 10/20/23 Clopidogrel [Plavix] 75 mg PO DAILY #21 tab 10/20/23 Vancomycin [Vancocin] 125 mg PO QID 5 Days #20 cap 10/20/23 - Allergies Allergies/Adverse Reactions: Allergies Allergy/AdvReac Type Severity Reaction Status Date / Time codeine [Codeine] Allergy Emesis Verified 10/30/23 12:38 olanzapine [From Zyprexa] AdvReac weight gain Verified 10/30/23 12:38 sulfamethoxazole AdvReac Emesis Verified 10/30/23 12:38 [From Septra] trimethoprim [From Septra] AdvReac Emesis Verified 10/30/23 12:38 ziprasidone HCl * AdvReac dementia Verified 10/30/23 12:38 [From Geodon] ziprasidone mesylate * AdvReac dementia Verified 10/30/23 12:38 [From Geodon] - Social History Does the pt smoke?: No Smoking Status: Never smoker Does the pt drink ETOH?: Yes Does the pt have substance abuse?: No - Immunizations Immunizations are current?: Yes - POLST Patient has POLST: No PD ED PE NORMAL - Vitals Vital signs reviewed: Yes - General General: Alert and oriented X 3, No acute distress, Well developed/nourished - Cardiac Cardiac: RRR - Respiratory Respiratory: No respiratory distress, Clear bilaterally - Abdomen Abdomen: Other (hyperactive bowel sounds) - Back Back: No CVA TTP - Derm Derm: Normal color, Warm and dry, No rash - Extremities Extremities: No deformity, No edema, No calf tenderness / cord - Psych Psych: Normal mood, Normal affect Results - Vitals Vitals: Vital Signs - 24 hr 10/30/23 10/30/23 12:31 14:37 Temperature 37.2 C Heart Rate 88 85 Respiratory 18 16 Rate Blood Pressure 143/73 H 114/94 H O2 Saturation 95 98 Oxygen O2 Source Room air - Labs Labs: Laboratory Tests 10/30/23 10/30/23 10/30/23 13:49 13:49 15:03 WBC 16.5 H RBC 3.27 L Hgb 10.0 L Hct 34.5 L MCV 105.5 H MCH 30.6 MCHC 29.0 L RDW 14.9 Plt Count 267 MPV 9.7 Neut # (Auto) 9.8 H Lymph # (Auto) 5.3 H [place] # (Auto) 1.2 H Eos # (Auto) 0.2 Baso # (Auto) 0.0 Absolute Nucleated RBC 0.00 Band Neuts % (Manual) Not Reportable Abnorm Lymph % (Manual) Not Reportable Nucleated RBC % 0.0 Neutrophils # (Manual) Not Reportable Lymphocytes # (Manual) Not Reportable Monocytes # (Manual) Not Reportable Eosinophils # (Manual) Not Reportable Basophils # (Manual) Not Reportable Differential Comment MANUAL=AUTO DIFF Manual Slide Review Indicated WBC Morphology NORMAL APPEARANCE Platelet Estimate NORMAL (130-450,000) Platelet Morphology NORMAL APPEARANCE RBC Morph Micro Appear NORMAL APPEARANCE Sodium 134 L Potassium 4.3 Chloride 108 Carbon Dioxide 14 L Anion Gap 12.0 BUN 54 H Creatinine 4.7 H Estimated GFR (MDRD) 9 L Glucose 121 H Calcium 8.8 Magnesium 1.8 Total Bilirubin 0.4 AST 11 ALT 13 Alkaline Phosphatase 124 H Total Protein 6.7 Albumin 3.8 Globulin 2.9 Albumin/Globulin Ratio 1.3 Lipase 70 Urine Color Urine Clarity Urine pH Ur Specific [place] Urine Protein Urine Glucose (UA) Urine Ketones Urine Occult Blood Urine Nitrite Urine Bilirubin Urine Urobilinogen Ur Leukocyte Esterase Urine RBC Urine WBC Ur Squamous Epith Cells Amorphous Sediment Urine Bacteria Ur Microscopic Review Urine Culture Comments Stl C. diff Tox B Gene POSITIVE A* 10/30/23 15:20 WBC RBC Hgb Hct MCV MCH MCHC RDW Plt Count MPV Neut # (Auto) Lymph # (Auto) [place] # (Auto) Eos # (Auto) Baso # (Auto) Absolute Nucleated RBC Band Neuts % (Manual) Abnorm Lymph % (Manual) Nucleated RBC % Neutrophils # (Manual) Lymphocytes # (Manual) Monocytes # (Manual) Eosinophils # (Manual) Basophils # (Manual) Differential Comment Manual Slide Review WBC Morphology Platelet Estimate Platelet Morphology RBC Morph Micro Appear Sodium Potassium Chloride Carbon Dioxide Anion Gap BUN Creatinine Estimated GFR (MDRD) Glucose Calcium Magnesium Total Bilirubin AST ALT Alkaline Phosphatase Total Protein Albumin Globulin Albumin/Globulin Ratio Lipase Urine Color LIGHT YELLOW Urine Clarity CLOUDY Urine pH 6.0 Ur Specific [place] 1.010 Urine Protein TRACE Urine Glucose (UA) NEGATIVE Urine Ketones NEGATIVE Urine Occult Blood SMALL H Urine Nitrite NEGATIVE Urine Bilirubin NEGATIVE Urine Urobilinogen 0.2 (NORMAL) Ur Leukocyte Esterase NEGATIVE Urine RBC 6-10 H Urine WBC 0-3 Ur Squamous Epith Cells MANY Squamous H Amorphous Sediment Marked Urine Bacteria Few Ur Microscopic Review INDICATED Urine Culture Comments NOT INDICATED Stl C. diff Tox B Gene PD Medical Decision Making - ED course ED course: 72 yo female with worsening diarrhea and nausea/vomiting. She has had diarrhea and nausea since she has been here, stool sent to the lab for c-diff but unfortunately our c-diff machine broke. Pts white count has increased significantly to 16.5. Unsure what is causing the leukocytosis she also has some mild anemia hemoglobin 10.0 she does have what appears to be chronic kidney disease, GFR 9 this appears to be similar to patient's last GFR draw, creatinine 4.7 and BUN elevated at 54 which is significantly elevated at last time it was 42 on 10/25, 4 days ago. Urinalysis does not have any leukocytes or nitrites I do not believe that she has urinary tract infection. Given that patient has already been on antibiotics for C. difficile outpatient I believe that she would greatly benefit from inpatient hospitalization for her generalized malaise, diarrhea nausea vomiting and chronic kidney disease. Patient has agreed to be admitted I gave report to Dr. Renee who has put in admit orders. Departure - Departure Disposition: [facility] DC/[facility] Clinical Impression: C. difficile diarrhea, Leukocytosis, CKD (chronic kidney disease) Discharge Date/Time: 10/30/23 20:15
[2023-10-30] MEDS ORDERED: CBD OIL TOP PRN (18:45)
--- NOTE | 2023-10-30 19:30 | HISTORY & PHYSICAL EXAMINATION ---
Chief Complaint - Chief Complaint Chief Complaint: Diarrhea History of Present Illness - Admitted From Admitted From:: Emergency Room - History Obtained From Records Reviewed: Yes History obtained from: Patient and nurse practicioner Femi Montoya - History of Present Illness HPI Comment/Other: Ciarra Ballard is a 72 year old woman who was recently discharged on October 20, 2023 after being admitted with C. difficile colitis. Her hospital course during this admission was complicated by a transient ischemic attack. The patient completed a 10-day course of vancomycin by mouth. She reports that she did well after transfer to the longterm for approximately 7 days and then yesterday had approximately 4-5 loose bowel movements. She denies abdominal discomfort, fever, chills. She denies chest pain and shortness of breath. Laboratory studies drawn in the emergency room revealed that her BUNs/creatinine is near her baseline at 54/4.7. Patient has chronic kidney disease stage V and will likely need dialysis in the near future. Patient reports she has made an appointment to see a asphalt plant operator with regards to dialysis. CBC drawn in the emergency room today revealed a white blood cell count of 16.5 K. Upon discharge from the hospital on October 20, 2023 her white blood cell count was 8.4K. History - Past Medical History Cardiovascular: reports: Hypertension Respiratory: reports: Asthma Neuro: reports: None Endocrine/Autoimmune: reports: HyPOthyroidism GI: reports: GERD VENTILATION MECHANIC: reports: None : reports: None, Other (Chronic kidney disease stage V.) HEENT: reports: None Psych: reports: Bipolar disorder Musculoskeletal: reports: Osteoarthritis Derm: reports: None MRSA Hx?: No - Past Surgical History Ortho: reports: Hip replacement, Knee replacement HEENT: reports: Tonsil/Adenoidectomy Derm: reports: Skin cancer surgery - Family & Social History Family History: Mother: , Father: Living Situation: Alone - Substance History Use: Uses substance without health or social issues: NONE - POLST Patient has POLST: No Meds/Allgy - Home Medications Home Medications: Ambulatory Orders Medication Instructions Recorded Confirmed lamoTRIgine [LaMICtal] 200 mg PO QPM 01/15/13 10/16/23 carvediloL [Coreg] 12.5 mg PO BIDWM 06/30/20 10/16/23 Amlodipine Besylate [Norvasc] 10 mg PO QPM 05/24/23 10/16/23 Ipratropium/Albuterol [Duoneb] 1 neb IH DAILY 05/24/23 10/16/23 Cbd Oil 1 applic TOP PRN PRN 10/11/23 10/16/23 Fluticasone [Flonase] 2 spray HAKAN DAILY 10/11/23 10/16/23 LORazepam [Ativan] 2 mg PO QPM PRN 10/11/23 10/16/23 Levothyroxine Sodium [Synthroid] 150 mcg PO QDAC 10/11/23 10/16/23 Vitamin D3 Liquid 1,000 units PO DAILY 10/11/23 10/16/23 carBAMazepine [Carbamazepine ER] 200 mg PO BID 10/11/23 10/16/23 Cyanocobalamin [Vitamin B-12] 500 mcg PO DAILY #30 tab 10/12/23 10/16/23 Folic Acid 1 mg PO DAILY #30 tab 10/12/23 10/16/23 Loratadine [Claritin] 10 mg PO QOD PRN #30 tab 10/12/23 10/16/23 levoFLOXacin [Levaquin] 250 mg PO Q48H #3 tablet 10/12/23 10/16/23 Aspirin EC [Ecotrin] 81 mg PO DAILY #30 tab 10/20/23 Atorvastatin [Lipitor] 40 mg PO QPM #30 tab 10/20/23 Clopidogrel [Plavix] 75 mg PO DAILY #21 tab 10/20/23 Vancomycin [Vancocin] 125 mg PO QID 5 Days #20 cap 10/20/23 - Allergies Allergies/Adverse Reactions: Allergies Allergy/AdvReac Type Severity Reaction Status Date / Time codeine [Codeine] Allergy Emesis Verified 10/30/23 12:38 olanzapine [From Zyprexa] AdvReac weight gain Verified 10/30/23 12:38 sulfamethoxazole AdvReac Emesis Verified 10/30/23 12:38 [From Septra] trimethoprim [From Septra] AdvReac Emesis Verified 10/30/23 12:38 ziprasidone HCl * AdvReac dementia Verified 10/30/23 12:38 [From Geodon] ziprasidone mesylate * AdvReac dementia Verified 10/30/23 12:38 [From Geodon] Review of Systems - Constitutional Constitutional: reports: Fever, Chills - Eyes Eyes: reports: Vision loss - Respiratory Respiratory: reports: Cough, Wheezing - Gastrointestinal Gastrointestinal: reports: Other (See HPI) - Genitourinary Genitourinary: reports: Dysuria, Frequency - Musculoskeletal Musculoskeletal: reports: Other (Positive for muscle weakness.) Exam - Vital Signs Vital Signs: Vital Signs x48h Temp Pulse Resp BP Pulse Ox 10/30/23 18:36 91 17 150/67 H 96 10/30/23 14:37 85 16 114/94 H 98 10/30/23 12:31 37.2 C 88 18 143/73 H 95 - Physical Exam General Appearance: positive: No acute distress Eyes Bilateral: positive: Conjunctivae nml, No scleral icterus Neck: positive: Trachea midline Respiratory: positive: Other (Good air exchange in all lung wilson no wheezing or crackles.) Cardiovascular: positive: Other (Positive S1-S2 no extra heart sounds.) Skin: positive: No rash, Other Extremities: positive: Other (Mild pedal edema) Neurologic/Psychiatric: positive: Oriented x3, Motor nml Conclusion/Plan - Problem List (1) C. difficile colitis Conclusion/Plan: Ciarra Pérez is a 72-year-old woman who presents to the emergency room with complaints of weakness and multiple episodes of diarrhea. She has a leukocytosis of 16.5 K. This most likely represents another episode of C. difficile colitis and this will be the first recurring episode. Plan: 1. Initiate treatment with Fidaxomicin 200 mg bid and treat for 5 days and then give Fidaxomicin 200 mg once daily every other day for 20 days. 2. Consider obtaining Bezlotoxumab and giving one dose while she is being treated with the Fidaxomicin. (3) CKD (chronic kidney disease) Conclusion/Plan: Chronic kidney disease appears to be stable. Continue to monitor. Avoid nephrotoxic agents. (4) HTN (hypertension) Conclusion/Plan: Continue carvedilol 12.5 mg twice daily (5) Hypothyroidism Conclusion/Plan: Continue levothyroxine 150 mcg daily (6) Bipolar 1 disorder Conclusion/Plan: Continue lamotrigine and carbamazepine - Lab Results Fish Bones: 10/30/23 13:49 10/30/23 13:49
[2023-10-30] MEDS: ONDANSETRON ODT 4 MG TABLET TL PRN (20:06)
[2023-10-30] MEDS: SODIUM CHLORIDE 0.9% 1,000 ML IV SCH (20:06)
[2023-10-30] MEDS: ATORVASTATIN 40 MG TABLET PO SCH (20:06)
[2023-10-30] MEDS: carBAMazepine ER 200 MG TABLET PO SCH (20:06)
[2023-10-30] MEDS: lamoTRIgine 100 MG TABLET PO SCH (20:07)
[2023-10-30] MEDS: amLODIPine 5 MG TABLET PO SCH (20:07)
[2023-10-30] MEDS: HEPARIN 5,000 UNIT/ML VIAL SUBQ SCH (20:20)
[2023-10-30] MEDS: FIDAXOMICIN 200 MG TABLET PO SCH (21:34)
[2023-10-31] MEDS: SODIUM CHLORIDE FLUSH 0.9% 10 ML SYRINGE IVP SCH (00:56)
[2023-10-31] MEDS: MIN OIL/DIMETHICON/COCONUT OIL 92 GM TUBE TOP PRN (01:04)
[2023-10-31] MEDS: LEVOTHYROXINE 75 MCG TABLET PO SCH (06:23)
--- NOTE | 2023-10-31 07:04 | PROVIDER PROGRESS NOTE ---
Assessment/Plan - Problem List (1) C. difficile colitis Assessment/Plan: Ciarra Pérez is a 72-year-old woman who presents to the emergency room with complaints of weakness and multiple episodes of diarrhea. She has a leukocytosis of 16.5 K. This most likely represents another episode of C. difficile colitis and this will be the first recurring episode. Plan: 1. Continue treatment with Fidaxomicin 200 mg bid and treat for 5 days and then give Fidaxomicin 200 mg once daily every other day for 20 days. 2. Consider obtaining Bezlotoxumab and giving one dose while she is being treated with the Fidaxomicin. 3. Metronidazole 500 mg IV q8h (3) CKD (chronic kidney disease) Conclusion/Plan: Chronic kidney disease appears to be stable. Continue to monitor. Avoid nephrotoxic agents. (4) HTN (hypertension) Conclusion/Plan: Continue carvedilol 12.5 mg twice daily (5) Hypothyroidism Conclusion/Plan: Continue levothyroxine 150 mcg daily (6) Bipolar 1 disorder Conclusion/Plan: Continue lamotrigine and carbamazepine - Current Meds Current Meds: Current Medications Generic Name Dose Route Start Last Admin Trade Name Freq PRN Reason Stop Dose Admin Amlodipine Besylate 10 mg 10/30/23 21:00 10/30/23 20:07 Amlodipine 5 Mg Tablet PO 10 mg QPM ROGER Administration Atorvastatin Calcium 40 mg 10/30/23 21:00 10/30/23 20:06 Atorvastatin 40 Mg Tablet PO 40 mg QPM ROGER Administration Carbamazepine 200 mg 10/30/23 21:00 10/30/23 20:06 Carbamazepine Er 200 Mg Tablet PO 200 mg BID ROGER Administration Fidaxomicin 200 mg 10/30/23 21:00 10/30/23 21:34 Fidaxomicin 200 Mg Tablet PO Not Given BID ROGER Heparin Sodium (Porcine) 5,000 unit 10/30/23 21:00 10/30/23 20:20 Heparin 5,000 Unit/Ml Vial SUBQ 5,000 unit BID ROGER Administration Lamotrigine 200 mg 10/30/23 21:00 10/30/23 20:07 Lamotrigine 100 Mg Tablet PO 200 mg QPM ROGER Administration Levothyroxine Sodium 150 mcg 10/31/23 07:00 10/31/23 06:23 Levothyroxine 75 Mcg Tablet PO 150 mcg QDAC ROGER Administration Mineral Oil 1 applic 10/30/23 20:21 10/31/23 01:04 Min Oil/Dimethicon/Coconut Oil 92 Gm Tube TOP 1 applic PRN PRN Administration Skin Care Ondansetron HCl 4 mg 10/30/23 18:31 10/30/23 20:06 Ondansetron Odt 4 Mg Tablet TL 4 mg Q6HR PRN Administration Nausea / Vomiting Sodium Chloride 10 ml 10/31/23 01:00 10/31/23 00:56 Sodium Chloride Flush 0.9% 10 Ml Syringe IVP 10 ml 0100,0900,1700 ROGER Administration - Lab Result Fish Bone Diagrams: 10/30/23 13:49 10/31/23 08:32 - Additional Planning My Orders: My Active Orders 10/30/23 18:31 Activity Orders [RC] Q2HR IO [RC] IOSHIFT IV Insert [RC] PRN Incentive Spirometry - RT [RC] TID Initiate Bowel Care Protocol [RC] .protocol Initiate Line Care Protocol [RC] .protocol Initiate Line Care Protocol [RC] QSHIFT Initiate Personal Care Protoco [RC] .protocol Oxygen Therapy [RC] .PRN Vital Signs [RC] Q4HR Ondansetron Odt [Zofran Odt] 4 mg TL Q6HR PRN Sodium Chloride Flush 0.9% [Normal Saline Flush 0.9%] 10 ml IVP PRN PRN Code Status [OTHERS] Routine Condition of Patient [OTHERS] Routine DVT Prophylaxis [OTHERS] Routine 10/30/23 18:40 Social Work Consult [CONS] Routine Evaluate and Treat OT [OT] Routine Evaluate and Treat PT [PT] Routine 10/30/23 18:45 Ipratropium/Albuterol [Duoneb] 3 ml INH Q4H PRN LORazepam [Ativan] 2 mg PO QPM PRN Loratadine [Claritin] 10 mg PO QOD PRN 10/30/23 20:21 Min Oil/Dimeth/Coconut Oil Crm [Cavilon] 1 applic TOP PRN PRN 10/30/23 21:00 Atorvastatin [Lipitor] 40 mg PO QPM Fidaxomicin [Dificid] 200 mg PO BID Heparin [Heparin Sodium (Porcine)] 5,000 unit SUBQ BID amLODIPine [Norvasc] 10 mg PO QPM carBAMazepine ER [TEGretol XR] 200 mg PO BID lamoTRIgine [LaMICtal] 200 mg PO QPM 10/31/23 01:00 Sodium Chloride Flush 0.9% [Normal Saline Flush 0.9%] 10 ml IVP 0100,0900,1700 10/31/23 Breakfast Hepatic/Renal Diet [DIET] 10/31/23 05:00 BMP - BASIC METABOLIC PANEL [CHEM] Routine CBC W/O DIFF (HEMOGRAM) [HEME] Routine MAGNESIUM [CHEM] Routine PHOSPHORUS [CHEM] Routine 10/31/23 07:00 Levothyroxine [Synthroid] 150 mcg PO QDAC 10/31/23 08:00 carvediloL [Coreg] 12.5 mg PO BIDWM 10/31/23 09:00 Aspirin EC [Ecotrin] 81 mg PO DAILY Cholecalciferol [Vitamin D3] 25 mcg PO DAILY Clopidogrel [Plavix] 75 mg PO DAILY Cyanocobalamin [Vitamin B-12] 500 mcg PO DAILY Fluticasone [Flonase] 1 sprays HAKAN DAILY Folic Acid 1 mg PO DAILY Subjective - Subjective Patient Reports: Other (Alert. Continues to complain of diarrhea and weakness. Denies chest pain, shortness of breath.) Objective Vital Signs: Vital Signs - 24 hr 10/30/23 10/30/23 10/30/23 12:31 14:37 18:36 Temperature 37.2 C Heart Rate 88 85 91 Heart Rate [ Brachial] Respiratory 18 16 17 Rate Blood Pressure 143/73 H 114/94 H 150/67 H Blood Pressure [Right Brachial artery] O2 Saturation 95 98 96 10/30/23 10/31/23 10/31/23 19:46 00:45 04:46 Temperature 37.2 C 36.5 C 36.7 C Heart Rate Heart Rate [ 96 98 103 H Brachial] Respiratory 20 17 16 Rate Blood Pressure Blood Pressure 149/82 H 137/79 H 144/77 H [Right Brachial artery] O2 Saturation 97 96 96 Oxygen O2 Source Room air I&O (Last 24 Hrs): Intake and Output Totals x24h 10/29/23 10/30/23 10/31/23 23:59 23:59 23:59 Intake Total 1100 Balance 1100 General: Alert, Mild distress HEENT: Atraumatic Neck: No JVD Neuro: Alert, Non Focal Cardiovascular: Other (Positive S1-S2 no extra heart) Respiratory: Other (Good air exchange in all lung wilson no wheezing no crackles) Abdomen: Other (Soft nontender nondistended positive bowel sounds) Extremities: No cyanosis, No edema Skin: No rashes - Results Results: Laboratory Results WBC 16.5 x10^3/uL (4.8-10.8) H 10/30/23 13:49 RBC 3.27 10^6/uL (4.20-5.40) L 10/30/23 13:49 Hgb 10.0 g/dL (12.0-16.0) L 10/30/23 13:49 Hct 34.5 % (37.0-47.0) L 10/30/23 13:49 MCV 105.5 fL (81.0-99.0) H 10/30/23 13:49 MCH 30.6 pg (27.0-31.0) 10/30/23 13:49 MCHC 29.0 g/dL (32.0-36.0) L 10/30/23 13:49 RDW 14.9 % (12.0-15.0) 10/30/23 13:49 Plt Count 267 10^3/uL (130-450) 10/30/23 13:49 MPV 9.7 fL (7.9-10.8) 10/30/23 13:49 Neut # (Auto) 9.8 10^3/uL (1.5-6.6) H 10/30/23 13:49 Lymph # (Auto) 5.3 10^3/uL (1.5-3.5) H 10/30/23 13:49 [place] # (Auto) 1.2 10^3/uL (0.0-1.0) H 10/30/23 13:49 Eos # (Auto) 0.2 10^3/uL (0.0-0.7) 10/30/23 13:49 Baso # (Auto) 0.0 10^3/uL (0.0-0.1) 10/30/23 13:49 Absolute Nucleated RBC 0.00 x10^3/uL 10/30/23 13:49 Band Neuts % (Manual) Not Reportable 10/30/23 13:49 Abnorm Lymph % (Manual) Not Reportable 10/30/23 13:49 Nucleated RBC % 0.0 /100WBC 10/30/23 13:49 Neutrophils # (Manual) Not Reportable 10/30/23 13:49 Lymphocytes # (Manual) Not Reportable 10/30/23 13:49 Monocytes # (Manual) Not Reportable 10/30/23 13:49 Eosinophils # (Manual) Not Reportable 10/30/23 13:49 Basophils # (Manual) Not Reportable 10/30/23 13:49 Differential Comment MANUAL=AUTO DIFF 10/30/23 13:49 Manual Slide Review Indicated 10/30/23 13:49 WBC Morphology NORMAL APPEARANCE (NORMAL) 10/30/23 13:49 Platelet Estimate NORMAL (130-450,000) (NORMAL) 10/30/23 13:49 Platelet Morphology NORMAL APPEARANCE (NORMAL) 10/30/23 13:49 RBC Morph Micro Appear NORMAL APPEARANCE (NORMAL) 10/30/23 13:49 Sodium 134 mmol/L (135-145) L 10/30/23 13:49 Potassium 4.3 mmol/L (3.5-4.5) 10/30/23 13:49 Chloride 108 mmol/L (101-111) 10/30/23 13:49 Carbon Dioxide 14 mmol/L (21-32) L 10/30/23 13:49 Anion Gap 12.0 (6-13) 10/30/23 13:49 BUN 54 mg/dL (6-20) H 10/30/23 13:49 Creatinine 4.7 mg/dL (0.6-1.3) H 10/30/23 13:49 Estimated GFR (MDRD) 9 (>89) L 10/30/23 13:49 Glucose 121 mg/dL (74-104) H 10/30/23 13:49 Calcium 8.8 mg/dL (8.5-10.3) 10/30/23 13:49 Magnesium 1.8 mg/dL (1.7-2.3) 10/30/23 13:49 Total Bilirubin 0.4 mg/dL (0.2-1.0) 10/30/23 13:49 AST 11 IU/L (10-42) 10/30/23 13:49 ALT 13 IU/L (10-60) 10/30/23 13:49 Alkaline Phosphatase 124 IU/L (42-121) H 10/30/23 13:49 Total Protein 6.7 g/dL (6.4-8.9) 10/30/23 13:49 Albumin 3.8 g/dL (3.2-5.5) 10/30/23 13:49 Globulin 2.9 g/dL (2.1-4.2) 10/30/23 13:49 Albumin/Globulin Ratio 1.3 (1.0-2.2) 10/30/23 13:49 Lipase 70 U/L (11-82) 10/30/23 13:49 Urine Color LIGHT YELLOW 10/30/23 15:20 Urine Clarity CLOUDY (CLEAR) 10/30/23 15:20 Urine pH 6.0 PH (5.0-7.5) 10/30/23 15:20 Ur Specific [place] 1.010 (1.002-1.030) 10/30/23 15:20 Urine Protein TRACE mg/dL (NEGATIVE) 10/30/23 15:20 Urine Glucose (UA) NEGATIVE mg/dL (NEGATIVE) 10/30/23 15:20 Urine Ketones NEGATIVE mg/dL (NEGATIVE) 10/30/23 15:20 Urine Occult Blood SMALL (NEGATIVE) H 10/30/23 15:20 Urine Nitrite NEGATIVE (NEGATIVE) 10/30/23 15:20 Urine Bilirubin NEGATIVE (NEGATIVE) 10/30/23 15:20 Urine Urobilinogen 0.2 (NORMAL) E.U./dL (NORMAL) 10/30/23 15:20 Ur Leukocyte Esterase NEGATIVE (NEGATIVE) 10/30/23 15:20 Urine RBC 6-10 /HPF (0-5) H 10/30/23 15:20 Urine WBC 0-3 /HPF (0-5) 10/30/23 15:20 Ur Squamous Epith Cells MANY Squamous (<= Few) H 10/30/23 15:20 Amorphous Sediment Marked /LPF 10/30/23 15:20 Urine Bacteria Few /HPF (None Seen) 10/30/23 15:20 Ur Microscopic Review INDICATED 10/30/23 15:20 Urine Culture Comments NOT INDICATED 10/30/23 15:20 Stl C. diff Tox B Gene POSITIVE (NEGATIVE) A* 10/30/23 15:03 - Procedures Procedures: Procedures TRANSFUSE NONAUT RED BLOOD CELLS IN PERIPH VEIN, PERC (10/15/23)
[2023-10-31] MEDS: FLUTICASONE NASAL SPRAY NAS SCH (08:35)
[2023-10-31] MEDS: carvediloL 12.5 MG TABLET PO SCH (08:36)
[2023-10-31] MEDS: CYANOCOBALAMIN 500 MCG TABLET PO SCH (08:36)
[2023-10-31] MEDS: CLOPIDOGREL 75 MG TABLET PO SCH (08:37)
[2023-10-31] MEDS: FOLIC ACID 1 MG TABLET PO SCH (08:37)
[2023-10-31] MEDS: ASPIRIN EC 81 MG TABLET PO SCH (08:37)
[2023-10-31] MEDS: CHOLECALCIFEROL 25 MCG TABLET PO SCH (08:37)
[2023-10-31 08:56] LABS: MAGNESIUM 1.7 mg/dL (1.7-2.3); PHOSPHORUS 5.9 mg/dL (2.5-5.0)
[2023-10-31 08:59] LABS: CALCIUM 8.5 mg/dL (8.5-10.3); CREATININE 5.2 mg/dL (0.6-1.3); POTASSIUM 4.3 mmol/L (3.5-4.5)
--- NOTE | 2023-10-31 11:05 | PHARMACY PROGRESS NOTE ---
- Best Possible Medication History Admit Date and Time: 10/31/23 1001 Processed by: Pharmacy Medications reviewed in ED?: No Medication History completed: Yes Secondary Source(s): Facility MAR as ONLY source As the person ultimately responsible for medication therapy, providers are able to order a medication from an existing home medication list in [facility] via the "Reconcile Routine" prior to Confirmation of that medication by client support analyst. Such practice is discouraged except when the physician, in their clinical judgment, deems that a medical need exists for a medication without regard to previous use.
[2023-10-31] MEDS: metroNIDAZOLE 500 MG/100 ML 500 MG/100 ML BAG IV SCH (15:19)
[2023-10-31] MEDS: SODIUM CHLORIDE 0.9% 1,000 ML IV SCH (21:29)
[2023-10-31] MEDS: LORazepam 1 MG TABLET PO PRN (21:30)
[2023-10-31 22:37] LABS: POTASSIUM,URINE 19.2 mmol/L; SODIUM, URINE 34.3 mmol/L
[2023-11-01 05:52] LABS: HCT - HEMATOCRIT 26.3 % (37.0-47.0); MEAN CORPUSCULAR HEMOGLOBIN 31.6 pg (27.0-31.0); MEAN CORPUSCULAR HGB CONC 30.4 g/dL (32.0-36.0); MEAN PLATELET VOLUME 9.9 fL (7.9-10.8); RED BLOOD COUNT 2.53 10^6/uL (4.20-5.40); RED CELL DISTRIBUTION WIDTH 14.9 % (12.0-15.0); WHITE BLOOD COUNT 11.7 x10^3/uL (4.8-10.8)
[2023-11-01 06:08] LABS: CALCIUM 8.1 mg/dL (8.5-10.3); CREATININE 5.6 mg/dL (0.6-1.3); MAGNESIUM 1.6 mg/dL (1.7-2.3); PHOSPHORUS 5.7 mg/dL (2.5-5.0); POTASSIUM 3.6 mmol/L (3.5-4.5)
[2023-11-01] MEDS: IPRATROPIUM/ALBUTEROL 3 ML NEB INH PRN (08:01)
[2023-11-01] MEDS: CALCIUM ACETATE 667 MG CAPSULE PO SCH (08:40)
[2023-11-01] MEDS: LORATADINE 10 MG TABLET PO PRN (08:40)
[2023-11-01] MEDS: SACCHAROMYCES BOULARDII 250 MG CAPSULE PO SCH (17:04)
--- NOTE | 2023-11-01 23:15 | PROVIDER PROGRESS NOTE ---
Assessment/Plan - Problem List (1) C. difficile colitis Assessment/Plan: Ciarra Pérez is a 72-year-old woman who presents to the emergency room with complaints of weakness and multiple episodes of diarrhea. She has a leukocytosis of 16.5 K. This most likely represents another episode of C. difficile colitis and this will be the first recurring episode. Fidaxomicin was ordered on admission to the hospital. Unfortunately no one communicated with me that the medication was not available at that time. The medication is available today and will be initiated. Plan: 1. Continue treatment with Fidaxomicin 200 mg bid and treat for 5 days and then give Fidaxomicin 200 mg once daily every other day for 20 days. 2. Continue Metronidazole 500 mg IV q8h (3) CKD (chronic kidney disease) Conclusion/Plan: Liver function has worsened mildly over the last 24 hours. And her creatinine has gone from 4.7 on admission to 5.6. Continue to follow BUNs/creatinine. Avoid nephrotoxic agents. (4) HTN (hypertension) Conclusion/Plan: Continue carvedilol 12.5 mg twice daily (5) Hypothyroidism Conclusion/Plan: Continue levothyroxine 150 mcg daily (6) Bipolar 1 disorder Conclusion/Plan: Continue lamotrigine and carbamazepine - Current Meds Current Meds: Current Medications Generic Name Dose Route Start Last Admin Trade Name Freq PRN Reason Stop Dose Admin Albuterol/Ipratropium 3 ml 10/30/23 18:45 11/01/23 08:01 Ipratropium/Albuterol 3 Ml Neb INH 3 ml Q4H PRN Administration dyspnea/wheezing Amlodipine Besylate 10 mg 10/30/23 21:00 11/01/23 21:31 Amlodipine 5 Mg Tablet PO 10 mg QPM ROGER Administration Aspirin 81 mg 10/31/23 09:00 11/01/23 10:01 Aspirin Ec 81 Mg Tablet PO 81 mg DAILY ROGER Administration Atorvastatin Calcium 40 mg 10/30/23 21:00 11/01/23 21:32 Atorvastatin 40 Mg Tablet PO 40 mg QPM ROGER Administration Calcium Acetate 667 mg 11/01/23 08:00 11/01/23 17:05 Calcium Acetate 667 Mg Capsule PO 667 mg TIDWM ROGER Administration Carbamazepine 200 mg 10/30/23 21:00 11/01/23 21:32 Carbamazepine Er 200 Mg Tablet PO 200 mg BID ROGER Administration Carvedilol 12.5 mg 10/31/23 08:00 11/01/23 17:04 Carvedilol 12.5 Mg Tablet PO 12.5 mg BIDWM ROGER Administration Cholecalciferol 25 mcg 10/31/23 09:00 11/01/23 10:01 Cholecalciferol 25 Mcg Tablet PO 25 mcg DAILY ROGER Administration Clopidogrel Bisulfate 75 mg 10/31/23 09:00 11/01/23 10:01 Clopidogrel 75 Mg Tablet PO 75 mg DAILY ROGER Administration Cyanocobalamin 500 mcg 10/31/23 09:00 11/01/23 10:01 Cyanocobalamin 500 Mcg Tablet PO 500 mcg DAILY ROGER Administration Fidaxomicin 200 mg 10/30/23 21:00 11/01/23 21:32 Fidaxomicin 200 Mg Tablet PO 200 mg BID ROGER Administration Fluticasone Propionate 1 sprays 10/31/23 09:00 11/01/23 09:38 Fluticasone Nasal [place] HAKAN 1 spr DAILY ROGER Administration Folic Acid 1 mg 10/31/23 09:00 11/01/23 10:01 Folic Acid 1 Mg Tablet PO 1 mg DAILY ROGER Administration Heparin Sodium (Porcine) 5,000 unit 10/30/23 21:00 11/01/23 21:34 Heparin 5,000 Unit/Ml Vial SUBQ 5,000 unit BID ROGER Administration Metronidazole 500 mg in 100 mls @ 100 mls/hr 10/31/23 15:00 11/01/23 15:24 Flagyl 500 Mg/100 Ml IV Infused Q8H ROGER Infusion Sodium Chloride 1,000 mls @ 83.333 mls/hr 10/31/23 21:00 11/01/23 21:37 Normal Saline 0.9% IV 83.333 mls/hr .Q12H ROGER Infusion Lamotrigine 200 mg 10/30/23 21:00 11/01/23 21:32 Lamotrigine 100 Mg Tablet PO 200 mg QPM ROGER Administration Levothyroxine Sodium 150 mcg 10/31/23 07:00 11/01/23 07:02 Levothyroxine 75 Mcg Tablet PO 150 mcg QDAC ROGER Administration Loratadine 10 mg 10/30/23 18:45 11/01/23 08:40 Loratadine 10 Mg Tablet PO 10 mg QOD PRN Administration Nasal Congestion Lorazepam 2 mg 10/30/23 18:45 11/01/23 21:32 Lorazepam 1 Mg Tablet PO 2 mg QPM PRN Administration Insomnia Mineral Oil 1 applic 10/30/23 20:21 10/31/23 01:04 Min Oil/Dimethicon/Coconut Oil 92 Gm Tube TOP 1 applic PRN PRN Administration Skin Care Ondansetron HCl 4 mg 10/30/23 18:31 11/01/23 08:40 Ondansetron Odt 4 Mg Tablet TL 4 mg Q6HR PRN Administration Nausea / Vomiting Saccharomyces Boulardii 500 mg 11/01/23 17:00 11/01/23 17:04 Saccharomyces Boulardii 250 Mg Capsule PO 500 mg BIDWM ROGER Administration Sodium Chloride 10 ml 10/31/23 01:00 11/01/23 17:05 Sodium Chloride Flush 0.9% 10 Ml Syringe IVP 10 ml 0100,0900,1700 ROGER Administration - Lab Result Fish Bone Diagrams: 11/01/23 05:29 11/01/23 05:29 - Additional Planning My Orders: My Active Orders 11/01/23 08:00 Calcium Acetate [Phoslo] 667 mg PO TIDWM 11/01/23 Dinner Hepatic/Renal Diet [DIET] 11/01/23 17:00 Saccharomyces Boulardii [Florastor] 500 mg PO BIDWM Subjective - Subjective Patient Reports: Other (Alert. Continues to have diarrhea. Continues to complain of weakness. No other complaints at this time.) Objective Vital Signs: Vital Signs - 24 hr 11/01/23 11/01/23 11/01/23 00:57 07:41 08:02 Temperature 36.8 C 36.4 C L Heart Rate 85 Heart Rate [ 84 85 Brachial] Respiratory 16 18 16 Rate Blood Pressure 126/67 142/65 H [Right Brachial artery] O2 Saturation 97 97 11/01/23 11/01/23 14:27 16:58 Temperature 36.6 C 36.6 C Heart Rate Heart Rate [ 77 81 Brachial] Respiratory 16 18 Rate Blood Pressure 116/62 125/63 [Right Brachial artery] O2 Saturation 97 97 Oxygen O2 Source Room air I&O (Last 24 Hrs): Intake and Output Totals x24h 10/30/23 10/31/23 11/01/23 23:59 23:59 23:59 Intake Total 1100 1900 1690.363 Output Total 0 Balance 1100 1900 1690.363 General: Alert, Oriented x3 Neck: No JVD Neuro: Alert, Non Focal Cardiovascular: Other (Positive S1-S2 no extra heart sounds.) Respiratory: Other (Good air exchange in all lung wilson no wheezing no crackle s) Abdomen: Other (Positive bowel sounds soft nontender nondistended) Extremities: No cyanosis, No edema Skin: No rashes - Results Results: Laboratory Results WBC 11.7 x10^3/uL (4.8-10.8) H 11/01/23 05:29 RBC 2.53 10^6/uL (4.20-5.40) L 11/01/23 05:29 Hgb 8.0 g/dL (12.0-16.0) L 11/01/23 05:29 Hct 26.3 % (37.0-47.0) L 11/01/23 05:29 MCV 104.0 fL (81.0-99.0) H 11/01/23 05:29 MCH 31.6 pg (27.0-31.0) H 11/01/23 05:29 MCHC 30.4 g/dL (32.0-36.0) L 11/01/23 05:29 RDW 14.9 % (12.0-15.0) 11/01/23 05:29 Plt Count 207 10^3/uL (130-450) 11/01/23 05:29 MPV 9.9 fL (7.9-10.8) 11/01/23 05:29 Neut # (Auto) 9.8 10^3/uL (1.5-6.6) H 10/30/23 13:49 Lymph # (Auto) 5.3 10^3/uL (1.5-3.5) H 10/30/23 13:49 [place] # (Auto) 1.2 10^3/uL (0.0-1.0) H 10/30/23 13:49 Eos # (Auto) 0.2 10^3/uL (0.0-0.7) 10/30/23 13:49 Baso # (Auto) 0.0 10^3/uL (0.0-0.1) 10/30/23 13:49 Absolute Nucleated RBC 0.00 x10^3/uL 10/30/23 13:49 Band Neuts % (Manual) Not Reportable 10/30/23 13:49 Abnorm Lymph % (Manual) Not Reportable 10/30/23 13:49 Nucleated RBC % 0.0 /100WBC 10/30/23 13:49 Neutrophils # (Manual) Not Reportable 10/30/23 13:49 Lymphocytes # (Manual) Not Reportable 10/30/23 13:49 Monocytes # (Manual) Not Reportable 10/30/23 13:49 Eosinophils # (Manual) Not Reportable 10/30/23 13:49 Basophils # (Manual) Not Reportable 10/30/23 13:49 Differential Comment MANUAL=AUTO DIFF 10/30/23 13:49 Manual Slide Review Indicated 10/30/23 13:49 WBC Morphology NORMAL APPEARANCE (NORMAL) 10/30/23 13:49 Platelet Estimate NORMAL (130-450,000) (NORMAL) 10/30/23 13:49 Platelet Morphology NORMAL APPEARANCE (NORMAL) 10/30/23 13:49 RBC Morph Micro Appear NORMAL APPEARANCE (NORMAL) 10/30/23 13:49 Sodium 133 mmol/L (135-145) L 11/01/23 05:29 Potassium 3.6 mmol/L (3.5-4.5) 11/01/23 05:29 Chloride 110 mmol/L (101-111) 11/01/23 05:29 Carbon Dioxide 13 mmol/L (21-32) L 11/01/23 05:29 Anion Gap 10.0 (6-13) 11/01/23 05:29 BUN 51 mg/dL (6-20) H 11/01/23 05:29 Creatinine 5.6 mg/dL (0.6-1.3) H 11/01/23 05:29 Estimated GFR (MDRD) 7 (>89) L 11/01/23 05:29 Glucose 110 mg/dL (74-104) H 11/01/23 05:29 Calcium 8.1 mg/dL (8.5-10.3) L 11/01/23 05:29 Phosphorus 5.7 mg/dL (2.5-5.0) H 11/01/23 05:29 Magnesium 1.6 mg/dL (1.7-2.3) L 11/01/23 05:29 Total Bilirubin 0.4 mg/dL (0.2-1.0) 10/30/23 13:49 AST 11 IU/L (10-42) 10/30/23 13:49 ALT 13 IU/L (10-60) 10/30/23 13:49 Alkaline Phosphatase 124 IU/L (42-121) H 10/30/23 13:49 Total Protein 6.7 g/dL (6.4-8.9) 10/30/23 13:49 Albumin 3.8 g/dL (3.2-5.5) 10/30/23 13:49 Globulin 2.9 g/dL (2.1-4.2) 10/30/23 13:49 Albumin/Globulin Ratio 1.3 (1.0-2.2) 10/30/23 13:49 Lipase 70 U/L (11-82) 10/30/23 13:49 Urine Color LIGHT YELLOW 10/30/23 15:20 Urine Clarity CLOUDY (CLEAR) 10/30/23 15:20 Urine pH 6.0 PH (5.0-7.5) 10/30/23 15:20 Ur Specific [place] 1.010 (1.002-1.030) 10/30/23 15:20 Urine Protein TRACE mg/dL (NEGATIVE) 10/30/23 15:20 Urine Glucose (UA) NEGATIVE mg/dL (NEGATIVE) 10/30/23 15:20 Urine Ketones NEGATIVE mg/dL (NEGATIVE) 10/30/23 15:20 Urine Occult Blood SMALL (NEGATIVE) H 10/30/23 15:20 Urine Nitrite NEGATIVE (NEGATIVE) 10/30/23 15:20 Urine Bilirubin NEGATIVE (NEGATIVE) 10/30/23 15:20 Urine Urobilinogen 0.2 (NORMAL) E.U./dL (NORMAL) 10/30/23 15:20 Ur Leukocyte Esterase NEGATIVE (NEGATIVE) 10/30/23 15:20 Urine RBC 6-10 /HPF (0-5) H 10/30/23 15:20 Urine WBC 0-3 /HPF (0-5) 10/30/23 15:20 Ur Squamous Epith Cells MANY Squamous (<= Few) H 10/30/23 15:20 Amorphous Sediment Marked /LPF 10/30/23 15:20 Urine Bacteria Few /HPF (None Seen) 10/30/23 15:20 Ur Microscopic Review INDICATED 10/30/23 15:20 Urine Culture Comments NOT INDICATED 10/30/23 15:20 Ur Random Chloride 33 mmol/L 10/31/23 22:30 Urine Sodium 34.3 mmol/L 10/31/23 22:30 Urine Potassium 19.2 mmol/L 10/31/23 22:30 Stl C. diff Tox B Gene POSITIVE (NEGATIVE) A* 10/30/23 15:03 - Procedures Procedures: Procedures TRANSFUSE NONAUT RED BLOOD CELLS IN PERIPH VEIN, PERC (10/15/23)
[2023-11-02 06:04] LABS: BASOPHILS % (AUTO) 0.3 %; EOSINOPHILS # (AUTO) 0.3 10^3/uL (0.0-0.7); EOSINOPHILS % (AUTO) 2.7 %; HCT - HEMATOCRIT 24.9 % (37.0-47.0); HGB - HEMOGLOBIN 7.3 g/dL (12.0-16.0); LYMPHOCYTES # (AUTO) 4.2 10^3/uL (1.5-3.5); LYMPHOCYTES % (AUTO) 35.6 %; MEAN CORPUSCULAR HEMOGLOBIN 30.7 pg (27.0-31.0); MEAN CORPUSCULAR HGB CONC 29.3 g/dL (32.0-36.0); MEAN CORPUSCULAR VOLUME 104.6 fL (81.0-99.0); MEAN PLATELET VOLUME 10.3 fL (7.9-10.8); MONOCYTES # (AUTO) 0.9 10^3/uL (0.0-1.0); MONOCYTES % (AUTO) 7.6 %; NEUTROPHILS # (AUTO) 6.2 10^3/uL (1.5-6.6); NEUTROPHILS % (AUTO) 52.4 %; PLT - PLATELET COUNT 197 10^3/uL (130-450); RED BLOOD COUNT 2.38 10^6/uL (4.20-5.40); RED CELL DISTRIBUTION WIDTH 15.1 % (12.0-15.0); WHITE BLOOD COUNT 11.7 x10^3/uL (4.8-10.8)
[2023-11-02 06:18] LABS: ALKALINE PHOSPHATASE 108 IU/L (42-121); ALT ALANINE AMINOTRANSFERASE 10 IU/L (10-60); AST ASPARTATE AMINOTRANSFERASE 9 IU/L (10-42); BILIRUBIN,DIRECT < 0.10 mg/dL (0.03-0.18); BILIRUBIN,TOTAL 0.2 mg/dL (0.2-1.0); BUN - BLOOD UREA NITROGEN 50 mg/dL (6-20); CALCIUM 7.9 mg/dL (8.5-10.3); CARBON DIOXIDE - CO2 13 mmol/L (21-32); CHLORIDE 111 mmol/L (101-111); CREATININE 5.9 mg/dL (0.6-1.3); GFR - MDRD 7 (>89); GLUCOSE 102 mg/dL (74-104); POTASSIUM 3.6 mmol/L (3.5-4.5); SODIUM 133 mmol/L (135-145); TOTAL PROTEIN 5.5 g/dL (6.4-8.9)
[2023-11-02] MEDS ORDERED: DEXTROSE 5% 0 ML IV ONE (09:14)
[2023-11-02] MEDS: SODIUM BICARBONATE 150 MEQ in DEXTROSE 5% 1,000 ML IV SCH (09:45)
[2023-11-02] MEDS: SACCHAROMYCES BOULARDII 250 MG CAPSULE PO SCH (09:45)
--- NOTE | 2023-11-02 12:11 | PROVIDER PROGRESS NOTE ---
Assessment/Plan - Problem List (1) C. difficile diarrhea Assessment/Plan: (1) C. difficile colitis Assessment/Plan: --Currently on Fidaxomicin 200 mg BID for 5 days then 200 mg once daily for 20 days. --Continue IV metronidazole. --Does not endorse diarrhea today. (3) CKD (chronic kidney disease) Conclusion/Plan: --Renal function appears to be worsening. She continues to produce urine. Will trial her on isotonic bicarbonate over the next 24 hours. 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 (4) HTN (hypertension) Conclusion/Plan: --Continue carvedilol 12.5 mg twice daily (5) Hypothyroidism Conclusion/Plan: --Continue levothyroxine 150 mcg daily (6) Bipolar 1 disorder Conclusion/Plan: --Continue lamotrigine and carbamazepine (2) CVA (cerebral vascular accident) Assessment/Plan: --Continue aspirin and plavix. --Continue high intensity atorvastatin. Dispo: Continue current antibiotic course for recurrent C. diff infection. Inpatient. - Current Meds Current Meds: Current Medications Generic Name Dose Route Start Last Admin Trade Name Freq PRN Reason Stop Dose Admin Albuterol/Ipratropium 3 ml 10/30/23 18:45 11/01/23 08:01 Ipratropium/Albuterol 3 Ml Neb INH 3 ml Q4H PRN Administration dyspnea/wheezing Amlodipine Besylate 10 mg 10/30/23 21:00 11/01/23 21:31 Amlodipine 5 Mg Tablet PO 10 mg QPM ROGER Administration Aspirin 81 mg 10/31/23 09:00 11/02/23 08:17 Aspirin Ec 81 Mg Tablet PO 81 mg DAILY ROGER Administration Atorvastatin Calcium 40 mg 10/30/23 21:00 11/01/23 21:32 Atorvastatin 40 Mg Tablet PO 40 mg QPM ROGER Administration Calcium Acetate 667 mg 11/01/23 08:00 11/02/23 08:18 Calcium Acetate 667 Mg Capsule PO 667 mg TIDWM ROGER Administration Carbamazepine 200 mg 10/30/23 21:00 11/02/23 08:18 Carbamazepine Er 200 Mg Tablet PO 200 mg BID ROGER Administration Carvedilol 12.5 mg 10/31/23 08:00 11/02/23 08:17 Carvedilol 12.5 Mg Tablet PO 12.5 mg BIDWM ROGER Administration Cholecalciferol 25 mcg 10/31/23 09:00 11/02/23 08:18 Cholecalciferol 25 Mcg Tablet PO 25 mcg DAILY ROGER Administration Clopidogrel Bisulfate 75 mg 10/31/23 09:00 11/02/23 08:17 Clopidogrel 75 Mg Tablet PO 75 mg DAILY ROGER Administration Cyanocobalamin 500 mcg 10/31/23 09:00 11/02/23 08:17 Cyanocobalamin 500 Mcg Tablet PO 500 mcg DAILY ROGER Administration Fidaxomicin 200 mg 10/30/23 21:00 11/02/23 08:18 Fidaxomicin 200 Mg Tablet PO 200 mg BID ROGER Administration Fluticasone Propionate 1 sprays 10/31/23 09:00 11/02/23 08:19 Fluticasone Nasal [place] HAKAN 1 spr DAILY ROGER Administration Folic Acid 1 mg 10/31/23 09:00 11/02/23 08:17 Folic Acid 1 Mg Tablet PO 1 mg DAILY ROGER Administration Heparin Sodium (Porcine) 5,000 unit 10/30/23 21:00 11/02/23 08:19 Heparin 5,000 Unit/Ml Vial SUBQ 5,000 unit BID ROGER Administration Metronidazole 500 mg in 100 mls @ 100 mls/hr 10/31/23 15:00 11/02/23 08:15 Flagyl 500 Mg/100 Ml IV Infused Q8H ROGER Infusion Sodium Bicarbonate 150 meq/ 1,150 mls @ 100 mls/hr 11/02/23 09:00 11/02/23 09:45 Dextrose IV 100 mls/hr .[id number] ROGER Administration Lamotrigine 200 mg 10/30/23 21:00 11/01/23 21:32 Lamotrigine 100 Mg Tablet PO 200 mg QPM ROGER Administration Levothyroxine Sodium 150 mcg 10/31/23 07:00 11/02/23 07:11 Levothyroxine 75 Mcg Tablet PO 150 mcg QDAC ROGER Administration Loratadine 10 mg 10/30/23 18:45 11/01/23 08:40 Loratadine 10 Mg Tablet PO 10 mg QOD PRN Administration Nasal Congestion Lorazepam 2 mg 10/30/23 18:45 11/01/23 21:32 Lorazepam 1 Mg Tablet PO 2 mg QPM PRN Administration Insomnia Mineral Oil 1 applic 10/30/23 20:21 10/31/23 01:04 Min Oil/Dimethicon/Coconut Oil 92 Gm Tube TOP 1 applic PRN PRN Administration Skin Care Ondansetron HCl 4 mg 10/30/23 18:31 11/01/23 08:40 Ondansetron Odt 4 Mg Tablet TL 4 mg Q6HR PRN Administration Nausea / Vomiting Saccharomyces Boulardii 250 mg 11/02/23 09:00 11/02/23 09:45 Saccharomyces Boulardii 250 Mg Capsule PO Not Given BID ROGER Sodium Chloride 10 ml 10/31/23 01:00 11/02/23 08:19 Sodium Chloride Flush 0.9% 10 Ml Syringe IVP 10 ml 0100,0900,1700 ROGER Administration - Lab Result Fish Bone Diagrams: 11/02/23 05:46 11/02/23 05:46 - Additional Planning My Orders: My Active Orders 11/02/23 09:00 Dextrose 5% [D5w] 1,000 ml Sodium Bicarbonate 150 meq IV 100 mls/hr Saccharomyces Boulardii [Florastor] 250 mg PO BID 11/03/23 05:00 BMP - BASIC METABOLIC PANEL [CHEM] DAILYLAB CBC [CBC - COMP BLD CT W/AUTO DIFF] [HEME] DAILYLAB LIVER PANEL [CHEM] DAILYLAB 11/04/23 05:00 BMP - BASIC METABOLIC PANEL [CHEM] DAILYLAB CBC [CBC - COMP BLD CT W/AUTO DIFF] [HEME] DAILYLAB LIVER PANEL [CHEM] DAILYLAB 11/05/23 05:00 BMP - BASIC METABOLIC PANEL [CHEM] DAILYLAB CBC [CBC - COMP BLD CT W/AUTO DIFF] [HEME] DAILYLAB LIVER PANEL [CHEM] DAILYLAB 11/06/23 05:00 BMP - BASIC METABOLIC PANEL [CHEM] DAILYLAB CBC [CBC - COMP BLD CT W/AUTO DIFF] [HEME] DAILYLAB LIVER PANEL [CHEM] DAILYLAB Subjective - Subjective Patient Reports: Feeling Better, Resting Comfortably, No Complaints Objective Vital Signs: Vital Signs - 24 hr 11/01/23 11/01/23 11/01/23 14:27 16:58 23:24 Temperature 36.6 C 36.6 C 36.6 C Heart Rate [ 77 81 77 Brachial] Respiratory 16 18 18 Rate Blood Pressure 116/62 125/63 132/66 H [Right Brachial artery] O2 Saturation 97 97 96 11/02/23 11/02/23 03:40 08:09 Temperature 36.7 C 36.7 C Heart Rate [ 82 84 Brachial] Respiratory 16 18 Rate Blood Pressure 132/65 H 146/69 H [Right Brachial artery] O2 Saturation 98 95 Oxygen O2 Source Room air I&O (Last 24 Hrs): Intake and Output Totals x24h 10/31/23 11/01/23 11/02/23 23:59 23:59 23:59 Intake Total 1900 1834.807 586 Output Total 0 Balance 1900 1834.807 586 General: Alert, Oriented x3, Cooperative, No acute distress Neuro: Alert, CN 2-12 Grossly Intact, Oriented Times 3 Cardiovascular: Regular rate, Normal S1, Normal S2, No murmurs Respiratory: Chest non-tender, No respiratory distress, Breath sounds nml Abdomen: Normal bowel sounds, Soft, No tenderness, No hepatospenomegaly, No masses - Results Results: Laboratory Results WBC 11.7 x10^3/uL (4.8-10.8) H 11/02/23 05:46 RBC 2.38 10^6/uL (4.20-5.40) L 11/02/23 05:46 Hgb 7.3 g/dL (12.0-16.0) L 11/02/23 05:46 Hct 24.9 % (37.0-47.0) L 11/02/23 05:46 MCV 104.6 fL (81.0-99.0) H 11/02/23 05:46 MCH 30.7 pg (27.0-31.0) 11/02/23 05:46 MCHC 29.3 g/dL (32.0-36.0) L 11/02/23 05:46 RDW 15.1 % (12.0-15.0) H 11/02/23 05:46 Plt Count 197 10^3/uL (130-450) 11/02/23 05:46 MPV 10.3 fL (7.9-10.8) 11/02/23 05:46 Neut # (Auto) 6.2 10^3/uL (1.5-6.6) 11/02/23 05:46 Lymph # (Auto) 4.2 10^3/uL (1.5-3.5) H 11/02/23 05:46 [place] # (Auto) 0.9 10^3/uL (0.0-1.0) 11/02/23 05:46 Eos # (Auto) 0.3 10^3/uL (0.0-0.7) 11/02/23 05:46 Baso # (Auto) 0.0 10^3/uL (0.0-0.1) 11/02/23 05:46 Absolute Nucleated RBC 0.00 x10^3/uL 11/02/23 05:46 Band Neuts % (Manual) Not Reportable 10/30/23 13:49 Abnorm Lymph % (Manual) Not Reportable 10/30/23 13:49 Nucleated RBC % 0.0 /100WBC 11/02/23 05:46 Neutrophils # (Manual) Not Reportable 10/30/23 13:49 Lymphocytes # (Manual) Not Reportable 10/30/23 13:49 Monocytes # (Manual) Not Reportable 10/30/23 13:49 Eosinophils # (Manual) Not Reportable 10/30/23 13:49 Basophils # (Manual) Not Reportable 10/30/23 13:49 Differential Comment MANUAL=AUTO DIFF 10/30/23 13:49 Manual Slide Review Indicated 10/30/23 13:49 WBC Morphology NORMAL APPEARANCE (NORMAL) 10/30/23 13:49 Platelet Estimate NORMAL (130-450,000) (NORMAL) 10/30/23 13:49 Platelet Morphology NORMAL APPEARANCE (NORMAL) 10/30/23 13:49 RBC Morph Micro Appear NORMAL APPEARANCE (NORMAL) 10/30/23 13:49 Sodium 133 mmol/L (135-145) L 11/02/23 05:46 Potassium 3.6 mmol/L (3.5-4.5) 11/02/23 05:46 Chloride 111 mmol/L (101-111) 11/02/23 05:46 Carbon Dioxide 13 mmol/L (21-32) L 11/02/23 05:46 Anion Gap 9.0 (6-13) 11/02/23 05:46 BUN 50 mg/dL (6-20) H 11/02/23 05:46 Creatinine 5.9 mg/dL (0.6-1.3) H 11/02/23 05:46 Estimated GFR (MDRD) 7 (>89) L 11/02/23 05:46 Glucose 102 mg/dL (74-104) 11/02/23 05:46 Calcium 7.9 mg/dL (8.5-10.3) L 11/02/23 05:46 Phosphorus 5.7 mg/dL (2.5-5.0) H 11/01/23 05:29 Magnesium 1.6 mg/dL (1.7-2.3) L 11/01/23 05:29 Total Bilirubin 0.2 mg/dL (0.2-1.0) 11/02/23 05:46 Direct Bilirubin < 0.10 mg/dL (0.03-0.18) 11/02/23 05:46 AST 9 IU/L (10-42) L 11/02/23 05:46 ALT 10 IU/L (10-60) 11/02/23 05:46 Alkaline Phosphatase 108 IU/L (42-121) 11/02/23 05:46 Total Protein 5.5 g/dL (6.4-8.9) L 11/02/23 05:46 Albumin 3.0 g/dL (3.2-5.5) L 11/02/23 05:46 Globulin 2.5 g/dL (2.1-4.2) 11/02/23 05:46 Albumin/Globulin Ratio 1.3 (1.0-2.2) 10/30/23 13:49 Lipase 70 U/L (11-82) 10/30/23 13:49 Urine Color LIGHT YELLOW 10/30/23 15:20 Urine Clarity CLOUDY (CLEAR) 10/30/23 15:20 Urine pH 6.0 PH (5.0-7.5) 10/30/23 15:20 Ur Specific [place] 1.010 (1.002-1.030) 10/30/23 15:20 Urine Protein TRACE mg/dL (NEGATIVE) 10/30/23 15:20 Urine Glucose (UA) NEGATIVE mg/dL (NEGATIVE) 10/30/23 15:20 Urine Ketones NEGATIVE mg/dL (NEGATIVE) 10/30/23 15:20 Urine Occult Blood SMALL (NEGATIVE) H 10/30/23 15:20 Urine Nitrite NEGATIVE (NEGATIVE) 10/30/23 15:20 Urine Bilirubin NEGATIVE (NEGATIVE) 10/30/23 15:20 Urine Urobilinogen 0.2 (NORMAL) E.U./dL (NORMAL) 10/30/23 15:20 Ur Leukocyte Esterase NEGATIVE (NEGATIVE) 10/30/23 15:20 Urine RBC 6-10 /HPF (0-5) H 10/30/23 15:20 Urine WBC 0-3 /HPF (0-5) 10/30/23 15:20 Ur Squamous Epith Cells MANY Squamous (<= Few) H 10/30/23 15:20 Amorphous Sediment Marked /LPF 10/30/23 15:20 Urine Bacteria Few /HPF (None Seen) 10/30/23 15:20 Ur Microscopic Review INDICATED 10/30/23 15:20 Urine Culture Comments NOT INDICATED 10/30/23 15:20 Ur Random Chloride 33 mmol/L 10/31/23 22:30 Urine Sodium 34.3 mmol/L 10/31/23 22:30 Urine Potassium 19.2 mmol/L 10/31/23 22:30 Stl C. diff Tox B Gene POSITIVE (NEGATIVE) A* 10/30/23 15:03 - Procedures Procedures: Procedures TRANSFUSE NONAUT RED BLOOD CELLS IN PERIPH VEIN, PERC (10/15/23)
[2023-11-02] MEDS: SODIUM CHLORIDE FLUSH 0.9% 10 ML SYRINGE IVP PRN (18:17)
[2023-11-03 05:57] LABS: BASOPHILS % (AUTO) 0.2 %; EOSINOPHILS # (AUTO) 0.3 10^3/uL (0.0-0.7); EOSINOPHILS % (AUTO) 2.8 %; HCT - HEMATOCRIT 24.4 % (37.0-47.0); HGB - HEMOGLOBIN 7.6 g/dL (12.0-16.0); LYMPHOCYTES # (AUTO) 3.9 10^3/uL (1.5-3.5); MEAN CORPUSCULAR HEMOGLOBIN 31.5 pg (27.0-31.0); MEAN CORPUSCULAR HGB CONC 31.1 g/dL (32.0-36.0); MEAN CORPUSCULAR VOLUME 101.2 fL (81.0-99.0); MEAN PLATELET VOLUME 10.4 fL (7.9-10.8); MONOCYTES # (AUTO) 0.9 10^3/uL (0.0-1.0); NEUTROPHILS # (AUTO) 5.9 10^3/uL (1.5-6.6); PLT - PLATELET COUNT 213 10^3/uL (130-450); RED BLOOD COUNT 2.41 10^6/uL (4.20-5.40); RED CELL DISTRIBUTION WIDTH 15.1 % (12.0-15.0); WHITE BLOOD COUNT 11.3 x10^3/uL (4.8-10.8)
[2023-11-03 06:15] LABS: ALKALINE PHOSPHATASE 106 IU/L (42-121); ALT ALANINE AMINOTRANSFERASE 8 IU/L (10-60); AST ASPARTATE AMINOTRANSFERASE 8 IU/L (10-42); BILIRUBIN,DIRECT < 0.10 mg/dL (0.03-0.18); BILIRUBIN,TOTAL 0.3 mg/dL (0.2-1.0); BUN - BLOOD UREA NITROGEN 51 mg/dL (6-20); CARBON DIOXIDE - CO2 18 mmol/L (21-32); CHLORIDE 109 mmol/L (101-111); CREATININE 5.7 mg/dL (0.6-1.3); GFR - MDRD 7 (>89); GLUCOSE 111 mg/dL (74-104); POTASSIUM 3.1 mmol/L (3.5-4.5); SODIUM 136 mmol/L (135-145); TOTAL PROTEIN 5.3 g/dL (6.4-8.9)
[2023-11-03] MEDS: POTASSIUM CHLORIDE 20 MEQ TABLET PO SCH (08:15)
--- NOTE | 2023-11-03 08:31 | PROVIDER PROGRESS NOTE ---
Assessment/Plan - Problem List (1) C. difficile diarrhea Assessment/Plan: (1) C. difficile colitis Assessment/Plan: --Currently on Fidaxomicin 200 mg BID for 5 days then 200 mg once daily for 20 days. --Continue IV metronidazole. --Does not endorse diarrhea today. (3) CKD (chronic kidney disease) Conclusion/Plan: --Renal function slightly better today. NAGMA improved. Continue IV NaHCO3 for another day. 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 (4) HTN (hypertension) Conclusion/Plan: --Continue carvedilol 12.5 mg twice daily (5) Hypothyroidism Conclusion/Plan: --Continue levothyroxine 150 mcg daily (6) Bipolar 1 disorder Conclusion/Plan: --Continue lamotrigine and carbamazepine (2) CVA (cerebral vascular accident) Assessment/Plan: --Continue aspirin and plavix. --Continue high intensity atorvastatin. Dispo: Continue current antibiotic course for recurrent C. diff infection. Pending improvement in renal function. Anticipate return to [facility] in next 24- 48 hours. Inpatient. - Current Meds Current Meds: Current Medications Generic Name Dose Route Start Last Admin Trade Name Freq PRN Reason Stop Dose Admin Albuterol/Ipratropium 3 ml 10/30/23 18:45 11/01/23 08:01 Ipratropium/Albuterol 3 Ml Neb INH 3 ml Q4H PRN Administration dyspnea/wheezing Amlodipine Besylate 10 mg 10/30/23 21:00 11/02/23 20:53 Amlodipine 5 Mg Tablet PO 10 mg QPM ROGER Administration Aspirin 81 mg 10/31/23 09:00 11/03/23 08:16 Aspirin Ec 81 Mg Tablet PO 81 mg DAILY ROGER Administration Atorvastatin Calcium 40 mg 10/30/23 21:00 11/02/23 20:53 Atorvastatin 40 Mg Tablet PO 40 mg QPM ROGER Administration Calcium Acetate 667 mg 11/01/23 08:00 11/03/23 08:16 Calcium Acetate 667 Mg Capsule PO 667 mg TIDWM ROGER Administration Carbamazepine 200 mg 10/30/23 21:00 11/03/23 08:16 Carbamazepine Er 200 Mg Tablet PO 200 mg BID ROGER Administration Carvedilol 12.5 mg 10/31/23 08:00 11/03/23 08:16 Carvedilol 12.5 Mg Tablet PO 12.5 mg BIDWM ROGER Administration Cholecalciferol 25 mcg 10/31/23 09:00 11/03/23 08:15 Cholecalciferol 25 Mcg Tablet PO 25 mcg DAILY ROGER Administration Clopidogrel Bisulfate 75 mg 10/31/23 09:00 11/03/23 08:16 Clopidogrel 75 Mg Tablet PO 75 mg DAILY ROGER Administration Cyanocobalamin 500 mcg 10/31/23 09:00 11/03/23 08:15 Cyanocobalamin 500 Mcg Tablet PO 500 mcg DAILY ROGER Administration Fidaxomicin 200 mg 10/30/23 21:00 11/03/23 08:16 Fidaxomicin 200 Mg Tablet PO 200 mg BID ROGER Administration Fluticasone Propionate 1 sprays 10/31/23 09:00 11/03/23 08:17 Fluticasone Nasal [place] HAKAN 1 spr DAILY ROGER Administration Folic Acid 1 mg 10/31/23 09:00 11/03/23 08:16 Folic Acid 1 Mg Tablet PO 1 mg DAILY ROGER Administration Heparin Sodium (Porcine) 5,000 unit 10/30/23 21:00 11/03/23 08:17 Heparin 5,000 Unit/Ml Vial SUBQ 5,000 unit BID ROGER Administration Lamotrigine 200 mg 10/30/23 21:00 11/02/23 20:52 Lamotrigine 100 Mg Tablet PO 200 mg QPM ROGER Administration Levothyroxine Sodium 150 mcg 10/31/23 07:00 11/03/23 06:32 Levothyroxine 75 Mcg Tablet PO 150 mcg QDAC ROGER Administration Loratadine 10 mg 10/30/23 18:45 11/01/23 08:40 Loratadine 10 Mg Tablet PO 10 mg QOD PRN Administration Nasal Congestion Lorazepam 2 mg 10/30/23 18:45 11/02/23 23:56 Lorazepam 1 Mg Tablet PO 2 mg QPM PRN Administration Insomnia Mineral Oil 1 applic 10/30/23 20:21 10/31/23 01:04 Min Oil/Dimethicon/Coconut Oil 92 Gm Tube TOP 1 applic PRN PRN Administration Skin Care Ondansetron HCl 4 mg 10/30/23 18:31 11/01/23 08:40 Ondansetron Odt 4 Mg Tablet TL 4 mg Q6HR PRN Administration Nausea / Vomiting Potassium Chloride 40 meq 11/03/23 09:00 11/03/23 08:15 Potassium Chloride 20 Meq Tablet PO 11/05/23 08:59 40 meq BID ROGER Administration Saccharomyces Boulardii 250 mg 11/02/23 09:00 11/03/23 08:16 Saccharomyces Boulardii 250 Mg Capsule PO 250 mg BID ROGER Administration Sodium Chloride 10 ml 10/30/23 18:31 11/02/23 18:17 Sodium Chloride Flush 0.9% 10 Ml Syringe IVP 10 ml PRN PRN Administration NEEDED PER PROVIDER ORDERS Sodium Chloride 10 ml 10/31/23 01:00 11/03/23 08:17 Sodium Chloride Flush 0.9% 10 Ml Syringe IVP 10 ml 0100,0900,1700 ROGER Administration - Lab Result Fish Bone Diagrams: 11/03/23 05:28 11/03/23 05:28 - Additional Planning My Orders: My Active Orders 11/02/23 09:00 Saccharomyces Boulardii [Florastor] 250 mg PO BID 11/03/23 07:17 Dextrose 5% [D5w] 1,000 ml Sodium Bicarbonate 150 meq IV 75 mls/hr 11/03/23 09:00 Potassium Chloride [K-Dur] 40 meq PO BID 11/04/23 05:00 BMP - BASIC METABOLIC PANEL [CHEM] DAILYLAB CBC [CBC - COMP BLD CT W/AUTO DIFF] [HEME] DAILYLAB LIVER PANEL [CHEM] DAILYLAB 11/05/23 05:00 BMP - BASIC METABOLIC PANEL [CHEM] DAILYLAB CBC [CBC - COMP BLD CT W/AUTO DIFF] [HEME] DAILYLAB LIVER PANEL [CHEM] DAILYLAB 11/06/23 05:00 BMP - BASIC METABOLIC PANEL [CHEM] DAILYLAB CBC [CBC - COMP BLD CT W/AUTO DIFF] [HEME] DAILYLAB LIVER PANEL [CHEM] DAILYLAB Subjective - Subjective Patient Reports: Feeling Better, Resting Comfortably, No Complaints Objective Vital Signs: Vital Signs - 24 hr 11/02/23 11/02/23 11/02/23 13:48 15:00 15:08 Temperature 36.7 C Heart Rate [ 75 Brachial] Heart Rate [ 85 85 Standing] Heart Rate [ 84 84 Supine] Respiratory 20 Rate Blood Pressure 122/62 [Right Brachial artery] Blood Pressure 145/70 H 145/70 H [Standing] Blood Pressure 144/72 H 144/72 H [Supine] O2 Saturation 97 11/02/23 11/02/23 11/03/23 18:09 23:54 07:47 Temperature 36.6 C 36.7 C 36.8 C Heart Rate [ 75 72 83 Brachial] Heart Rate [ Standing] Heart Rate [ Supine] Respiratory 20 16 18 Rate Blood Pressure 150/74 H 138/72 H 144/71 H [Right Brachial artery] Blood Pressure [Standing] Blood Pressure [Supine] O2 Saturation 97 98 95 Oxygen O2 Source Room air I&O (Last 24 Hrs): Intake and Output Totals x24h 11/01/23 11/02/23 11/03/23 23:59 23:59 23:59 Intake Total 0643.120 8158.000 733 Output Total 0 625 550 Balance 5658.687 0854.000 183 Neuro: Alert, CN 2-12 Grossly Intact, Oriented Times 3 Cardiovascular: Regular rate, Normal S1, Normal S2, No murmurs Respiratory: Chest non-tender, No respiratory distress, Breath sounds nml Abdomen: Normal bowel sounds, Soft, No tenderness, No hepatospenomegaly, No masses - Results Results: Laboratory Results WBC 11.3 x10^3/uL (4.8-10.8) H 11/03/23 05:28 RBC 2.41 10^6/uL (4.20-5.40) L 11/03/23 05:28 Hgb 7.6 g/dL (12.0-16.0) L 11/03/23 05:28 Hct 24.4 % (37.0-47.0) L 11/03/23 05:28 MCV 101.2 fL (81.0-99.0) H 11/03/23 05:28 MCH 31.5 pg (27.0-31.0) H 11/03/23 05:28 MCHC 31.1 g/dL (32.0-36.0) L 11/03/23 05:28 RDW 15.1 % (12.0-15.0) H 11/03/23 05:28 Plt Count 213 10^3/uL (130-450) 11/03/23 05:28 MPV 10.4 fL (7.9-10.8) 11/03/23 05:28 Neut # (Auto) 5.9 10^3/uL (1.5-6.6) 11/03/23 05:28 Lymph # (Auto) 3.9 10^3/uL (1.5-3.5) H 11/03/23 05:28 [place] # (Auto) 0.9 10^3/uL (0.0-1.0) 11/03/23 05:28 Eos # (Auto) 0.3 10^3/uL (0.0-0.7) 11/03/23 05:28 Baso # (Auto) 0.0 10^3/uL (0.0-0.1) 11/03/23 05:28 Absolute Nucleated RBC 0.00 x10^3/uL 11/03/23 05:28 Band Neuts % (Manual) Not Reportable 10/30/23 13:49 Abnorm Lymph % (Manual) Not Reportable 10/30/23 13:49 Nucleated RBC % 0.0 /100WBC 11/03/23 05:28 Neutrophils # (Manual) Not Reportable 10/30/23 13:49 Lymphocytes # (Manual) Not Reportable 10/30/23 13:49 Monocytes # (Manual) Not Reportable 10/30/23 13:49 Eosinophils # (Manual) Not Reportable 10/30/23 13:49 Basophils # (Manual) Not Reportable 10/30/23 13:49 Differential Comment MANUAL=AUTO DIFF 10/30/23 13:49 Manual Slide Review Indicated 10/30/23 13:49 WBC Morphology NORMAL APPEARANCE (NORMAL) 10/30/23 13:49 Platelet Estimate NORMAL (130-450,000) (NORMAL) 10/30/23 13:49 Platelet Morphology NORMAL APPEARANCE (NORMAL) 10/30/23 13:49 RBC Morph Micro Appear NORMAL APPEARANCE (NORMAL) 10/30/23 13:49 Sodium 136 mmol/L (135-145) 11/03/23 05:28 Potassium 3.1 mmol/L (3.5-4.5) L 11/03/23 05:28 Chloride 109 mmol/L (101-111) 11/03/23 05:28 Carbon Dioxide 18 mmol/L (21-32) L 11/03/23 05:28 Anion Gap 9.0 (6-13) 11/03/23 05:28 BUN 51 mg/dL (6-20) H 11/03/23 05:28 Creatinine 5.7 mg/dL (0.6-1.3) H 11/03/23 05:28 Estimated GFR (MDRD) 7 (>89) L 11/03/23 05:28 Glucose 111 mg/dL (74-104) H 11/03/23 05:28 Calcium 8.0 mg/dL (8.5-10.3) L 11/03/23 05:28 Phosphorus 5.7 mg/dL (2.5-5.0) H 11/01/23 05:29 Magnesium 1.6 mg/dL (1.7-2.3) L 11/01/23 05:29 Total Bilirubin 0.3 mg/dL (0.2-1.0) 11/03/23 05:28 Direct Bilirubin < 0.10 mg/dL (0.03-0.18) 11/03/23 05:28 AST 8 IU/L (10-42) L 11/03/23 05:28 ALT 8 IU/L (10-60) L 11/03/23 05:28 Alkaline Phosphatase 106 IU/L (42-121) 11/03/23 05:28 Total Protein 5.3 g/dL (6.4-8.9) L 11/03/23 05:28 Albumin 3.0 g/dL (3.2-5.5) L 11/03/23 05:28 Globulin 2.3 g/dL (2.1-4.2) 11/03/23 05:28 Albumin/Globulin Ratio 1.3 (1.0-2.2) 10/30/23 13:49 Lipase 70 U/L (11-82) 10/30/23 13:49 Urine Color LIGHT YELLOW 10/30/23 15:20 Urine Clarity CLOUDY (CLEAR) 10/30/23 15:20 Urine pH 6.0 PH (5.0-7.5) 10/30/23 15:20 Ur Specific [place] 1.010 (1.002-1.030) 10/30/23 15:20 Urine Protein TRACE mg/dL (NEGATIVE) 10/30/23 15:20 Urine Glucose (UA) NEGATIVE mg/dL (NEGATIVE) 10/30/23 15:20 Urine Ketones NEGATIVE mg/dL (NEGATIVE) 10/30/23 15:20 Urine Occult Blood SMALL (NEGATIVE) H 10/30/23 15:20 Urine Nitrite NEGATIVE (NEGATIVE) 10/30/23 15:20 Urine Bilirubin NEGATIVE (NEGATIVE) 10/30/23 15:20 Urine Urobilinogen 0.2 (NORMAL) E.U./dL (NORMAL) 10/30/23 15:20 Ur Leukocyte Esterase NEGATIVE (NEGATIVE) 10/30/23 15:20 Urine RBC 6-10 /HPF (0-5) H 10/30/23 15:20 Urine WBC 0-3 /HPF (0-5) 10/30/23 15:20 Ur Squamous Epith Cells MANY Squamous (<= Few) H 10/30/23 15:20 Amorphous Sediment Marked /LPF 10/30/23 15:20 Urine Bacteria Few /HPF (None Seen) 10/30/23 15:20 Ur Microscopic Review INDICATED 10/30/23 15:20 Urine Culture Comments NOT INDICATED 10/30/23 15:20 Ur Random Chloride 33 mmol/L 10/31/23 22:30 Urine Sodium 34.3 mmol/L 10/31/23 22:30 Urine Potassium 19.2 mmol/L 10/31/23 22:30 Stl C. diff Tox B Gene POSITIVE (NEGATIVE) A* 10/30/23 15:03 - Procedures Procedures: Procedures TRANSFUSE NONAUT RED BLOOD CELLS IN PERIPH VEIN, PERC (10/15/23)
[2023-11-03] MEDS: SODIUM BICARBONATE 150 MEQ in DEXTROSE 5% 1,000 ML IV SCH (12:30)
[2023-11-04 05:21] LABS: BASOPHILS % (AUTO) 0.2 %; EOSINOPHILS % (AUTO) 3.5 %; HCT - HEMATOCRIT 25.2 % (37.0-47.0); HGB - HEMOGLOBIN 7.9 g/dL (12.0-16.0); LYMPHOCYTES % (AUTO) 41.3 %; MEAN CORPUSCULAR HEMOGLOBIN 31.6 pg (27.0-31.0); MEAN CORPUSCULAR HGB CONC 31.3 g/dL (32.0-36.0); MEAN CORPUSCULAR VOLUME 100.8 fL (81.0-99.0); MEAN PLATELET VOLUME 9.9 fL (7.9-10.8); MONOCYTES % (AUTO) 6.7 %; NEUTROPHILS % (AUTO) 44.3 %; PLT - PLATELET COUNT 218 10^3/uL (130-450); RED CELL DISTRIBUTION WIDTH 15.5 % (12.0-15.0); WHITE BLOOD COUNT 12.5 x10^3/uL (4.8-10.8)
[2023-11-04 05:23] LABS: ABNORMAL LYMPHS % (MANUAL) 0 %
[2023-11-04 05:38] LABS: % IRON SATURATION 48 % (20-50); ALBUMIN 3.2 g/dL (3.2-5.5); ALKALINE PHOSPHATASE 117 IU/L (42-121); ALT ALANINE AMINOTRANSFERASE 11 IU/L (10-60); AST ASPARTATE AMINOTRANSFERASE 12 IU/L (10-42); BILIRUBIN,DIRECT < 0.10 mg/dL (0.03-0.18); BILIRUBIN,TOTAL 0.3 mg/dL (0.2-1.0); BUN - BLOOD UREA NITROGEN 49 mg/dL (6-20); CALCIUM 8.2 mg/dL (8.5-10.3); CARBON DIOXIDE - CO2 21 mmol/L (21-32); CHLORIDE 108 mmol/L (101-111); CREATININE 5.4 mg/dL (0.6-1.3); GFR - MDRD 8 (>89); GLUCOSE 121 mg/dL (74-104); IRON 75 ug/dL (50-212); POTASSIUM 3.8 mmol/L (3.5-4.5); SODIUM 138 mmol/L (135-145); TOTAL IRON BINDING CAPACITY 157 ug/dL (250-450); TOTAL PROTEIN 5.8 g/dL (6.4-8.9); TRANSFERRIN 112 mg/dL (203-362)
[2023-11-04 06:35] LABS: BAND NEUTROPHILS % (MANUAL) 5 %; DIFFERENTIAL COMMENT MANUAL DIFFERENTIAL; EOSINOPHILS # (MANUAL) 0.9 10^3/uL (0-0.7); LYMPHOCYTES # (MANUAL) 3.6 10^3/uL (1.5-3.5); LYMPHOCYTES % (MANUAL) 29 %; METAMYELOCYTES % (MANUAL) 2 %; MONOCYTES # (MANUAL) 0.4 10^3/uL (0.0-1.0); MYELOCYTES % (MANUAL) 3 %; PLATELET ESTIMATE, MANUAL NORMAL (130-450,000) (NORMAL); RBC MORPHOLOGY (MULTIPLE) NORMAL APPEARANCE (NORMAL)
--- NOTE | 2023-11-04 07:58 | PROVIDER PROGRESS NOTE ---
Assessment/Plan - Problem List (1) C. difficile diarrhea Assessment/Plan: (1) C. difficile colitis Assessment/Plan: --Currently on Fidaxomicin 200 mg BID for 5 days then 200 mg once daily for 20 days. --Does not endorse diarrhea today. (3) CKD (chronic kidney disease) Conclusion/Plan: --Renal function slightly better today. NAGMA resolved. 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 --Continues to produce urine. (4) HTN (hypertension) Conclusion/Plan: --Continue carvedilol 12.5 mg twice daily (5) Hypothyroidism Conclusion/Plan: --Continue levothyroxine 150 mcg daily (6) Bipolar 1 disorder Conclusion/Plan: --Continue lamotrigine and carbamazepine (2) CVA (cerebral vascular accident) Assessment/Plan: --Continue aspirin and plavix. --Continue high intensity atorvastatin. Dispo: Continue current antibiotic course for recurrent C. diff infection. Pending improvement in renal function. Return to [facility] tomorrow. - Current Meds Current Meds: Current Medications Generic Name Dose Route Start Last Admin Trade Name Freq PRN Reason Stop Dose Admin Albuterol/Ipratropium 3 ml 10/30/23 18:45 11/03/23 08:34 Ipratropium/Albuterol 3 Ml Neb INH 3 ml Q4H PRN Administration dyspnea/wheezing Amlodipine Besylate 10 mg 10/30/23 21:00 11/03/23 21:00 Amlodipine 5 Mg Tablet PO 10 mg QPM ROGER Administration Aspirin 81 mg 10/31/23 09:00 11/03/23 08:16 Aspirin Ec 81 Mg Tablet PO 81 mg DAILY ROGER Administration Atorvastatin Calcium 40 mg 10/30/23 21:00 11/03/23 21:15 Atorvastatin 40 Mg Tablet PO 40 mg QPM ROGER Administration Calcium Acetate 667 mg 11/01/23 08:00 11/03/23 17:08 Calcium Acetate 667 Mg Capsule PO 667 mg TIDWM ROGER Administration Carbamazepine 200 mg 10/30/23 21:00 11/03/23 21:15 Carbamazepine Er 200 Mg Tablet PO 200 mg BID ROGER Administration Carvedilol 12.5 mg 10/31/23 08:00 11/03/23 17:08 Carvedilol 12.5 Mg Tablet PO 12.5 mg BIDWM ROGER Administration Cholecalciferol 25 mcg 10/31/23 09:00 11/03/23 08:15 Cholecalciferol 25 Mcg Tablet PO 25 mcg DAILY ROGER Administration Clopidogrel Bisulfate 75 mg 10/31/23 09:00 11/03/23 08:16 Clopidogrel 75 Mg Tablet PO 75 mg DAILY ROGER Administration Cyanocobalamin 500 mcg 10/31/23 09:00 11/03/23 08:15 Cyanocobalamin 500 Mcg Tablet PO 500 mcg DAILY ROGER Administration Fidaxomicin 200 mg 10/30/23 21:00 11/03/23 21:12 Fidaxomicin 200 Mg Tablet PO 200 mg BID ROGER Administration Fluticasone Propionate 1 sprays 10/31/23 09:00 11/03/23 08:17 Fluticasone Nasal [place] HAKAN 1 spr DAILY ROGER Administration Folic Acid 1 mg 10/31/23 09:00 11/03/23 08:16 Folic Acid 1 Mg Tablet PO 1 mg DAILY ROGER Administration Heparin Sodium (Porcine) 5,000 unit 10/30/23 21:00 11/03/23 21:16 Heparin 5,000 Unit/Ml Vial SUBQ 5,000 unit BID ROGER Administration Lamotrigine 200 mg 10/30/23 21:00 11/03/23 21:15 Lamotrigine 100 Mg Tablet PO 200 mg QPM ROGER Administration Levothyroxine Sodium 150 mcg 10/31/23 07:00 11/04/23 04:55 Levothyroxine 75 Mcg Tablet PO 150 mcg QDAC ROGER Administration Loratadine 10 mg 10/30/23 18:45 11/01/23 08:40 Loratadine 10 Mg Tablet PO 10 mg QOD PRN Administration Nasal Congestion Lorazepam 2 mg 10/30/23 18:45 11/03/23 21:12 Lorazepam 1 Mg Tablet PO 2 mg QPM PRN Administration Insomnia Mineral Oil 1 applic 10/30/23 20:21 10/31/23 01:04 Min Oil/Dimethicon/Coconut Oil 92 Gm Tube TOP 1 applic PRN PRN Administration Skin Care Ondansetron HCl 4 mg 10/30/23 18:31 11/01/23 08:40 Ondansetron Odt 4 Mg Tablet TL 4 mg Q6HR PRN Administration Nausea / Vomiting Saccharomyces Boulardii 250 mg 11/02/23 09:00 11/03/23 21:16 Toney Tesfayei 250 Mg Capsule PO 250 mg BID ROGER Administration Sodium Chloride 10 ml 10/30/23 18:31 11/02/23 18:17 Sodium Chloride Flush 0.9% 10 Ml Syringe IVP 10 ml PRN PRN Administration NEEDED PER PROVIDER ORDERS Sodium Chloride 10 ml 10/31/23 01:00 11/04/23 01:13 Sodium Chloride Flush 0.9% 10 Ml Syringe IVP 10 ml 0100,0900,1700 ROGER Administration - Lab Result Fish Bone Diagrams: 11/04/23 05:15 11/04/23 05:15 - Additional Planning My Orders: My Active Orders 11/05/23 05:00 BMP - BASIC METABOLIC PANEL [CHEM] DAILYLAB CBC [CBC - COMP BLD CT W/AUTO DIFF] [HEME] DAILYLAB FOLATE [CHEM] DAILYLAB LIVER PANEL [CHEM] DAILYLAB VITAMIN B12 [CHEM] DAILYLAB 11/06/23 05:00 BMP - BASIC METABOLIC PANEL [CHEM] DAILYLAB CBC [CBC - COMP BLD CT W/AUTO DIFF] [HEME] DAILYLAB LIVER PANEL [CHEM] DAILYLAB Subjective - Subjective Patient Reports: Feeling Better, Resting Comfortably, No Complaints Objective Vital Signs: Vital Signs - 24 hr 11/03/23 11/03/23 11/03/23 08:35 15:42 23:50 Temperature 37.0 C 36.6 C Heart Rate 85 Heart Rate [ 82 80 Brachial] Respiratory 18 16 24 Rate Blood Pressure 151/79 H 162/83 H [Right Brachial artery] O2 Saturation 98 97 11/04/23 07:52 Temperature 36.7 C Heart Rate Heart Rate [ 90 Brachial] Respiratory 18 Rate Blood Pressure 174/86 H [Right Brachial artery] O2 Saturation 98 Oxygen O2 Source Room air I&O (Last 24 Hrs): Intake and Output Totals x24h 11/02/23 11/03/23 11/04/23 23:59 23:59 23:59 Intake Total 2756.000 1623 Output Total 625 0145 950 Balance 2131.000 -852 -950 General: Alert, Oriented x3, Cooperative, No acute distress Cardiovascular: Regular rate, Normal S1, Normal S2, No murmurs Respiratory: Chest non-tender, No respiratory distress, Breath sounds nml Abdomen: Normal bowel sounds, Soft, No tenderness, No hepatospenomegaly, No masses - Results Results: Laboratory Results WBC 12.5 x10^3/uL (4.8-10.8) H 11/04/23 05:15 RBC 2.50 10^6/uL (4.20-5.40) L 11/04/23 05:15 Hgb 7.9 g/dL (12.0-16.0) L 11/04/23 05:15 Hct 25.2 % (37.0-47.0) L 11/04/23 05:15 MCV 100.8 fL (81.0-99.0) H 11/04/23 05:15 MCH 31.6 pg (27.0-31.0) H 11/04/23 05:15 MCHC 31.3 g/dL (32.0-36.0) L 11/04/23 05:15 RDW 15.5 % (12.0-15.0) H 11/04/23 05:15 Plt Count 218 10^3/uL (130-450) 11/04/23 05:15 MPV 9.9 fL (7.9-10.8) 11/04/23 05:15 Neut # (Auto) Not Reportable 11/04/23 05:15 Lymph # (Auto) Not Reportable 11/04/23 05:15 [place] # (Auto) Not Reportable 11/04/23 05:15 Eos # (Auto) Not Reportable 11/04/23 05:15 Baso # (Auto) Not Reportable 11/04/23 05:15 Absolute Nucleated RBC Not Reportable 11/04/23 05:15 Total Counted 100 11/04/23 05:15 Band Neuts % (Manual) 5 % (0-10) 11/04/23 05:15 Abnorm Lymph % (Manual) 0 % 11/04/23 05:15 Metamyelocytes % 2 % (-0) H 11/04/23 05:15 Myelocytes % 3 % (-0) H 11/04/23 05:15 Nucleated RBC % Not Reportable 11/04/23 05:15 Neutrophils # (Manual) 7.0 10^3/uL (1.5-6.6) H 11/04/23 05:15 Lymphocytes # (Manual) 3.6 10^3/uL (1.5-3.5) H 11/04/23 05:15 Monocytes # (Manual) 0.4 10^3/uL (0.0-1.0) 11/04/23 05:15 Eosinophils # (Manual) 0.9 10^3/uL (0-0.7) H 11/04/23 05:15 Basophils # (Manual) 0.0 10^3/uL (0-0.1) 11/04/23 05:15 Differential Comment MANUAL DIFFERENTIAL 11/04/23 05:15 Manual Slide Review Indicated 10/30/23 13:49 WBC Morphology NORMAL APPEARANCE (NORMAL) 10/30/23 13:49 Platelet Estimate NORMAL (130-450,000) (NORMAL) 11/04/23 05:15 Platelet Morphology NORMAL APPEARANCE (NORMAL) 10/30/23 13:49 RBC Morph Micro Appear NORMAL APPEARANCE (NORMAL) 11/04/23 05:15 Sodium 138 mmol/L (135-145) 11/04/23 05:15 Potassium 3.8 mmol/L (3.5-4.5) 11/04/23 05:15 Chloride 108 mmol/L (101-111) 11/04/23 05:15 Carbon Dioxide 21 mmol/L (21-32) 11/04/23 05:15 Anion Gap 9.0 (6-13) 11/04/23 05:15 BUN 49 mg/dL (6-20) H 11/04/23 05:15 Creatinine 5.4 mg/dL (0.6-1.3) H 11/04/23 05:15 Estimated GFR (MDRD) 8 (>89) L 11/04/23 05:15 Glucose 121 mg/dL (74-104) H 11/04/23 05:15 Calcium 8.2 mg/dL (8.5-10.3) L 11/04/23 05:15 Phosphorus 5.7 mg/dL (2.5-5.0) H 11/01/23 05:29 Magnesium 1.6 mg/dL (1.7-2.3) L 11/01/23 05:29 Iron 75 ug/dL (50-212) 11/04/23 05:15 TIBC 157 ug/dL (250-450) L 11/04/23 05:15 % Saturation 48 % (20-50) 11/04/23 05:15 Transferrin 112 mg/dL (203-362) L 11/04/23 05:15 Ferritin 85.0 ng/mL (11.0-306.8) 11/04/23 05:15 Total Bilirubin 0.3 mg/dL (0.2-1.0) 11/04/23 05:15 Direct Bilirubin < 0.10 mg/dL (0.03-0.18) 11/04/23 05:15 AST 12 IU/L (10-42) 11/04/23 05:15 ALT 11 IU/L (10-60) 11/04/23 05:15 Alkaline Phosphatase 117 IU/L (42-121) 11/04/23 05:15 Total Protein 5.8 g/dL (6.4-8.9) L 11/04/23 05:15 Albumin 3.2 g/dL (3.2-5.5) 11/04/23 05:15 Globulin 2.6 g/dL (2.1-4.2) 11/04/23 05:15 Albumin/Globulin Ratio 1.3 (1.0-2.2) 10/30/23 13:49 Lipase 70 U/L (11-82) 10/30/23 13:49 Urine Color LIGHT YELLOW 10/30/23 15:20 Urine Clarity CLOUDY (CLEAR) 10/30/23 15:20 Urine pH 6.0 PH (5.0-7.5) 10/30/23 15:20 Ur Specific [place] 1.010 (1.002-1.030) 10/30/23 15:20 Urine Protein TRACE mg/dL (NEGATIVE) 10/30/23 15:20 Urine Glucose (UA) NEGATIVE mg/dL (NEGATIVE) 10/30/23 15:20 Urine Ketones NEGATIVE mg/dL (NEGATIVE) 10/30/23 15:20 Urine Occult Blood SMALL (NEGATIVE) H 10/30/23 15:20 Urine Nitrite NEGATIVE (NEGATIVE) 10/30/23 15:20 Urine Bilirubin NEGATIVE (NEGATIVE) 10/30/23 15:20 Urine Urobilinogen 0.2 (NORMAL) E.U./dL (NORMAL) 10/30/23 15:20 Ur Leukocyte Esterase NEGATIVE (NEGATIVE) 10/30/23 15:20 Urine RBC 6-10 /HPF (0-5) H 10/30/23 15:20 Urine WBC 0-3 /HPF (0-5) 10/30/23 15:20 Ur Squamous Epith Cells MANY Squamous (<= Few) H 10/30/23 15:20 Amorphous Sediment Marked /LPF 10/30/23 15:20 Urine Bacteria Few /HPF (None Seen) 10/30/23 15:20 Ur Microscopic Review INDICATED 10/30/23 15:20 Urine Culture Comments NOT INDICATED 10/30/23 15:20 Ur Random Chloride 33 mmol/L 10/31/23 22:30 Urine Sodium 34.3 mmol/L 10/31/23 22:30 Urine Potassium 19.2 mmol/L 10/31/23 22:30 Stl C. diff Tox B Gene POSITIVE (NEGATIVE) A* 10/30/23 15:03 - Procedures Procedures: Procedures TRANSFUSE NONAUT RED BLOOD CELLS IN PERIPH VEIN, PERC (10/15/23)
[2023-11-05 05:49] LABS: BASOPHILS % (AUTO) 0.3 %; EOSINOPHILS % (AUTO) 3.6 %; HCT - HEMATOCRIT 24.9 % (37.0-47.0); HGB - HEMOGLOBIN 7.4 g/dL (12.0-16.0); LYMPHOCYTES % (AUTO) 41.9 %; MEAN CORPUSCULAR HEMOGLOBIN 30.5 pg (27.0-31.0); MEAN CORPUSCULAR HGB CONC 29.7 g/dL (32.0-36.0); MEAN CORPUSCULAR VOLUME 102.5 fL (81.0-99.0); MONOCYTES % (AUTO) 8.3 %; NEUTROPHILS % (AUTO) 40.3 %; PLT - PLATELET COUNT 220 10^3/uL (130-450); RED BLOOD COUNT 2.43 10^6/uL (4.20-5.40); RED CELL DISTRIBUTION WIDTH 15.3 % (12.0-15.0); WHITE BLOOD COUNT 11.6 x10^3/uL (4.8-10.8)
[2023-11-05 05:59] LABS: ABNORMAL LYMPHS % (MANUAL) 0 %
[2023-11-05 06:07] LABS: ALBUMIN 3.1 g/dL (3.2-5.5); ALKALINE PHOSPHATASE 118 IU/L (42-121); ALT ALANINE AMINOTRANSFERASE 16 IU/L (10-60); AST ASPARTATE AMINOTRANSFERASE 21 IU/L (10-42); BILIRUBIN,DIRECT < 0.10 mg/dL (0.03-0.18); BILIRUBIN,TOTAL 0.3 mg/dL (0.2-1.0); BUN - BLOOD UREA NITROGEN 49 mg/dL (6-20); CALCIUM 8.4 mg/dL (8.5-10.3); CARBON DIOXIDE - CO2 23 mmol/L (21-32); CHLORIDE 110 mmol/L (101-111); CREATININE 5.2 mg/dL (0.6-1.3); GFR - MDRD 8 (>89); GLUCOSE 100 mg/dL (74-104); SODIUM 140 mmol/L (135-145); TOTAL PROTEIN 5.4 g/dL (6.4-8.9)
[2023-11-05 06:37] LABS: BAND NEUTROPHILS % (MANUAL) 3 %; DIFFERENTIAL COMMENT MANUAL DIFFERENTIAL; EOSINOPHILS # (MANUAL) 0.2 10^3/uL (0-0.7); LYMPHOCYTES % (MANUAL) 43 %; MONOCYTES # (MANUAL) 0.7 10^3/uL (0.0-1.0); NEUTROPHILS # (MANUAL) 5.7 10^3/uL (1.5-6.6); PLATELET ESTIMATE, MANUAL NORMAL (130-450,000) (NORMAL); RBC MORPHOLOGY (MULTIPLE) NORMAL APPEARANCE (NORMAL)
--- NOTE | 2023-11-05 13:07 | PROVIDER PROGRESS NOTE ---
Assessment/Plan - Problem List (1) C. difficile diarrhea Assessment/Plan: (1) C. difficile colitis Assessment/Plan: --Currently on Fidaxomicin 200 mg BID for 5 days then 200 mg once daily for 20 days. (3) CKD (chronic kidney disease) Conclusion/Plan: --Renal function slightly better today. NAGMA resolved. 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 --Continues to produce urine. 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 Will transfuse her 1 unit of pRBC today. Discharge tomorrow. (4) HTN (hypertension) Conclusion/Plan: --Continue carvedilol 12.5 mg twice daily (5) Hypothyroidism Conclusion/Plan: --Continue levothyroxine 150 mcg daily (6) Bipolar 1 disorder Conclusion/Plan: --Continue lamotrigine and carbamazepine (2) CVA (cerebral vascular accident) Assessment/Plan: --Continue aspirin and plavix. --Continue high intensity atorvastatin. Dispo: Continue current antibiotic course for recurrent C. diff infection. Pending improvement in renal function. Return to [facility] tomorrow. - Current Meds Current Meds: Current Medications Generic Name Dose Route Start Last Admin Trade Name Freq PRN Reason Stop Dose Admin Albuterol/Ipratropium 3 ml 10/30/23 18:45 11/04/23 21:03 Ipratropium/Albuterol 3 Ml Neb INH 3 ml Q4H PRN Administration dyspnea/wheezing Amlodipine Besylate 10 mg 10/30/23 21:00 11/04/23 20:55 Amlodipine 5 Mg Tablet PO 10 mg QPM ROGER Administration Aspirin 81 mg 10/31/23 09:00 11/05/23 08:17 Aspirin Ec 81 Mg Tablet PO 81 mg DAILY ROGER Administration Atorvastatin Calcium 40 mg 10/30/23 21:00 11/04/23 20:56 Atorvastatin 40 Mg Tablet PO 40 mg QPM ROGER Administration Calcium Acetate 667 mg 11/01/23 08:00 11/05/23 11:44 Calcium Acetate 667 Mg Capsule PO 667 mg TIDWM ROGER Administration Carbamazepine 200 mg 10/30/23 21:00 11/05/23 08:17 Carbamazepine Er 200 Mg Tablet PO 200 mg BID ROGER Administration Carvedilol 12.5 mg 10/31/23 08:00 11/05/23 08:17 Carvedilol 12.5 Mg Tablet PO 12.5 mg BIDWM ROGER Administration Cholecalciferol 25 mcg 10/31/23 09:00 11/05/23 08:16 Cholecalciferol 25 Mcg Tablet PO 25 mcg DAILY ROGER Administration Clopidogrel Bisulfate 75 mg 10/31/23 09:00 11/05/23 08:17 Clopidogrel 75 Mg Tablet PO 75 mg DAILY ROGER Administration Cyanocobalamin 500 mcg 10/31/23 09:00 11/05/23 08:17 Cyanocobalamin 500 Mcg Tablet PO 500 mcg DAILY ROGER Administration Fidaxomicin 200 mg 10/30/23 21:00 11/05/23 08:16 Fidaxomicin 200 Mg Tablet PO 200 mg BID ROGER Administration Fluticasone Propionate 1 sprays 10/31/23 09:00 11/05/23 08:16 Fluticasone Nasal [place] HAKAN 1 spr DAILY ROGER Administration Folic Acid 1 mg 10/31/23 09:00 11/05/23 08:17 Folic Acid 1 Mg Tablet PO 1 mg DAILY ROGER Administration Heparin Sodium (Porcine) 5,000 unit 10/30/23 21:00 11/05/23 08:17 Heparin 5,000 Unit/Ml Vial SUBQ 5,000 unit BID ROGER Administration Lamotrigine 200 mg 10/30/23 21:00 11/04/23 20:55 Lamotrigine 100 Mg Tablet PO 200 mg QPM ROGER Administration Levothyroxine Sodium 150 mcg 10/31/23 07:00 11/05/23 06:27 Levothyroxine 75 Mcg Tablet PO 150 mcg QDAC ROGER Administration Loratadine 10 mg 10/30/23 18:45 11/01/23 08:40 Loratadine 10 Mg Tablet PO 10 mg QOD PRN Administration Nasal Congestion Lorazepam 2 mg 10/30/23 18:45 11/04/23 20:56 Lorazepam 1 Mg Tablet PO 2 mg QPM PRN Administration Insomnia Mineral Oil 1 applic 10/30/23 20:21 10/31/23 01:04 Min Oil/Dimethicon/Coconut Oil 92 Gm Tube TOP 1 applic PRN PRN Administration Skin Care Ondansetron HCl 4 mg 10/30/23 18:31 11/01/23 08:40 Ondansetron Odt 4 Mg Tablet TL 4 mg Q6HR PRN Administration Nausea / Vomiting Saccharomyces Boulardii 250 mg 11/02/23 09:00 11/05/23 08:16 Saccharomyces Boulardii 250 Mg Capsule PO 250 mg BID ROGER Administration Sodium Chloride 10 ml 10/30/23 18:31 11/02/23 18:17 Sodium Chloride Flush 0.9% 10 Ml Syringe IVP 10 ml PRN PRN Administration NEEDED PER PROVIDER ORDERS Sodium Chloride 10 ml 10/31/23 01:00 11/05/23 08:16 Sodium Chloride Flush 0.9% 10 Ml Syringe IVP 10 ml 0100,0900,1700 ROGER Administration - Lab Result Fish Bone Diagrams: 11/05/23 05:29 11/05/23 05:29 - Additional Planning My Orders: My Active Orders 11/05/23 11:13 Transfuse RBCs Leukoreduced [RC] .ONCE 11/05/23 11:33 RBC, LEUKOREDUCED Routine TYPE AND SCREEN Routine 11/06/23 05:00 BMP - BASIC METABOLIC PANEL [CHEM] DAILYLAB CBC [CBC - COMP BLD CT W/AUTO DIFF] [HEME] DAILYLAB LIVER PANEL [CHEM] DAILYLAB Subjective - Subjective Patient Reports: Feeling Better, Resting Comfortably, No Complaints Objective Vital Signs: Vital Signs - 24 hr 11/04/23 11/04/23 11/04/23 15:36 21:04 21:05 Temperature 36.6 C Heart Rate 81 82 Heart Rate [ 79 Brachial] Respiratory 16 20 20 Rate Blood Pressure [Left Brachial artery] Blood Pressure 123/86 H [Right Brachial artery] O2 Saturation 97 11/05/23 11/05/23 00:39 09:41 Temperature 36.6 C 36.7 C Heart Rate Heart Rate [ 81 81 Brachial] Respiratory 20 20 Rate Blood Pressure 142/84 H 151/83 H [Left Brachial artery] Blood Pressure [Right Brachial artery] O2 Saturation 97 99 Oxygen O2 Source Room air I&O (Last 24 Hrs): Intake and Output Totals x24h 11/03/23 11/04/23 11/05/23 23:59 23:59 23:59 Intake Total 1623 3960 940 Output Total 6795 6435 1200 Balance -852 485 -260 General: Alert, Oriented x3, Cooperative, No acute distress - Results Results: Laboratory Results WBC 11.6 x10^3/uL (4.8-10.8) H 11/05/23 05:29 RBC 2.43 10^6/uL (4.20-5.40) L 11/05/23 05:29 Hgb 7.4 g/dL (12.0-16.0) L 11/05/23 05:29 Hct 24.9 % (37.0-47.0) L 11/05/23 05:29 MCV 102.5 fL (81.0-99.0) H 11/05/23 05:29 MCH 30.5 pg (27.0-31.0) 11/05/23 05:29 MCHC 29.7 g/dL (32.0-36.0) L 11/05/23 05:29 RDW 15.3 % (12.0-15.0) H 11/05/23 05:29 Plt Count 220 10^3/uL (130-450) 11/05/23 05:29 MPV 10.0 fL (7.9-10.8) 11/05/23 05:29 Neut # (Auto) Not Reportable 11/05/23 05:29 Lymph # (Auto) Not Reportable 11/05/23 05:29 Christian # (Auto) Not Reportable 11/05/23 05:29 Eos # (Auto) Not Reportable 11/05/23 05:29 Baso # (Auto) Not Reportable 11/05/23 05:29 Absolute Nucleated RBC Not Reportable 11/05/23 05:29 Total Counted 100 11/05/23 05:29 Band Neuts % (Manual) 3 % (0-10) 11/05/23 05:29 Abnorm Lymph % (Manual) 0 % 11/05/23 05:29 Metamyelocytes % 2 % (-0) H 11/04/23 05:15 Myelocytes % 3 % (-0) H 11/04/23 05:15 Nucleated RBC % Not Reportable 11/05/23 05:29 Neutrophils # (Manual) 5.7 10^3/uL (1.5-6.6) 11/05/23 05:29 Lymphocytes # (Manual) 5.0 10^3/uL (1.5-3.5) H 11/05/23 05:29 Monocytes # (Manual) 0.7 10^3/uL (0.0-1.0) 11/05/23 05:29 Eosinophils # (Manual) 0.2 10^3/uL (0-0.7) 11/05/23 05:29 Basophils # (Manual) 0.0 10^3/uL (0-0.1) 11/05/23 05:29 Differential Comment MANUAL DIFFERENTIAL 11/05/23 05:29 Manual Slide Review Indicated 10/30/23 13:49 WBC Morphology NORMAL APPEARANCE (NORMAL) 10/30/23 13:49 Platelet Estimate NORMAL (130-450,000) (NORMAL) 11/05/23 05:29 Platelet Morphology NORMAL APPEARANCE (NORMAL) 10/30/23 13:49 RBC Morph Micro Appear NORMAL APPEARANCE (NORMAL) 11/05/23 05:29 Sodium 140 mmol/L (135-145) 11/05/23 05:29 Potassium 4.0 mmol/L (3.5-4.5) 11/05/23 05:29 Chloride 110 mmol/L (101-111) 11/05/23 05:29 Carbon Dioxide 23 mmol/L (21-32) 11/05/23 05:29 Anion Gap 7.0 (6-13) 11/05/23 05:29 BUN 49 mg/dL (6-20) H 11/05/23 05:29 Creatinine 5.2 mg/dL (0.6-1.3) H 11/05/23 05:29 Estimated GFR (MDRD) 8 (>89) L 11/05/23 05:29 Glucose 100 mg/dL (74-104) 11/05/23 05:29 Calcium 8.4 mg/dL (8.5-10.3) L 11/05/23 05:29 Phosphorus 3.8 mg/dL (2.5-5.0) 11/04/23 05:15 Magnesium 1.6 mg/dL (1.7-2.3) L 11/01/23 05:29 Iron 75 ug/dL (50-212) 11/04/23 05:15 TIBC 157 ug/dL (250-450) L 11/04/23 05:15 % Saturation 48 % (20-50) 11/04/23 05:15 Transferrin 112 mg/dL (203-362) L 11/04/23 05:15 Ferritin 85.0 ng/mL (11.0-306.8) 11/04/23 05:15 Total Bilirubin 0.3 mg/dL (0.2-1.0) 11/05/23 05:29 Direct Bilirubin < 0.10 mg/dL (0.03-0.18) 11/05/23 05:29 AST 21 IU/L (10-42) 11/05/23 05:29 ALT 16 IU/L (10-60) 11/05/23 05:29 Alkaline Phosphatase 118 IU/L (42-121) 11/05/23 05:29 Total Protein 5.4 g/dL (6.4-8.9) L 11/05/23 05:29 Albumin 3.1 g/dL (3.2-5.5) L 11/05/23 05:29 Globulin 2.3 g/dL (2.1-4.2) 11/05/23 05:29 Albumin/Globulin Ratio 1.3 (1.0-2.2) 10/30/23 13:49 Lipase 70 U/L (11-82) 10/30/23 13:49 Vitamin B12 1602 pg/mL (180-914) H 11/05/23 05:29 Folate 22.0 ng/mL (5.90 - >24.8) 11/05/23 05:29 Urine Color LIGHT YELLOW 10/30/23 15:20 Urine Clarity CLOUDY (CLEAR) 10/30/23 15:20 Urine pH 6.0 PH (5.0-7.5) 10/30/23 15:20 Ur Specific [place] 1.010 (1.002-1.030) 10/30/23 15:20 Urine Protein TRACE mg/dL (NEGATIVE) 10/30/23 15:20 Urine Glucose (UA) NEGATIVE mg/dL (NEGATIVE) 10/30/23 15:20 Urine Ketones NEGATIVE mg/dL (NEGATIVE) 10/30/23 15:20 Urine Occult Blood SMALL (NEGATIVE) H 10/30/23 15:20 Urine Nitrite NEGATIVE (NEGATIVE) 10/30/23 15:20 Urine Bilirubin NEGATIVE (NEGATIVE) 10/30/23 15:20 Urine Urobilinogen 0.2 (NORMAL) E.U./dL (NORMAL) 10/30/23 15:20 Ur Leukocyte Esterase NEGATIVE (NEGATIVE) 10/30/23 15:20 Urine RBC 6-10 /HPF (0-5) H 10/30/23 15:20 Urine WBC 0-3 /HPF (0-5) 10/30/23 15:20 Ur Squamous Epith Cells MANY Squamous (<= Few) H 10/30/23 15:20 Amorphous Sediment Marked /LPF 10/30/23 15:20 Urine Bacteria Few /HPF (None Seen) 10/30/23 15:20 Ur Microscopic Review INDICATED 10/30/23 15:20 Urine Culture Comments NOT INDICATED 10/30/23 15:20 Ur Random Chloride 33 mmol/L 10/31/23 22:30 Urine Sodium 34.3 mmol/L 10/31/23 22:30 Urine Potassium 19.2 mmol/L 10/31/23 22:30 Stl C. diff Tox B Gene POSITIVE (NEGATIVE) A* 10/30/23 15:03 Blood Type B NEGATIVE 11/05/23 11:33 Antibody Screen NEGATIVE 11/05/23 11:33 Crossmatch IS Only See Detail 11/05/23 11:33 - Procedures Procedures: Procedures TRANSFUSE NONAUT RED BLOOD CELLS IN PERIPH VEIN, PERC (10/15/23)
--- NOTE | 2023-11-05 14:32 | Discharge Plan ---
"Discharge Plan for SNF / SANDIP - Discharge Plan And Transition Orders Problem Reviewed?: Yes Disposition: 03 SNF DC/Xfer Condition: Good Allergies and Adverse Reactions: Allergies Allergy/AdvReac Type Severity Reaction Status Date / Time codeine [Codeine] Allergy Emesis Verified 10/30/23 12:38 olanzapine [From Zyprexa] AdvReac weight gain Verified 10/30/23 12:38 sulfamethoxazole AdvReac Emesis Verified 10/30/23 12:38 [From Septra] trimethoprim [From Septra] AdvReac Emesis Verified 10/30/23 12:38 ziprasidone HCl * AdvReac dementia Verified 10/30/23 12:38 [From Geodon] ziprasidone mesylate * AdvReac dementia Verified 10/30/23 12:38 [From Geodon] - SNF / SANDIP Transition Orders Admit to (Facility): [facility] Medicare Certification Statement: I certify that Post Hospital intermediate care is medically necessary on a continuing basis for any of the conditions for which she/he is receiving care during hospitalization. Notify PCP of admission and forward orders to primary provider for signature. Weight on admission and: Weekly Call PCP immediately if weight increases by: 5 kg Other Notification Orders: Call PCP immediately if patient develops dyspnea, chest pain/tightness or edema. House Bowel Program: Yes Additional Bowel Program Orders: If no BM after 2 days, nurse may give M.O.M. 30ml PO PRN and/or ducolax Supp 1 MN and/or EDWARD 250mg P.O., and/or senna 1-2 tabs PO. On day 3 nurse may give r epeat above order until residents constipation is resolved. Annual Influenza Vaccine (between Dec 25 and July 24): Yes Two-step PPD per [facility] [phone] or approved exception documents: Yes Medication Orders: PLEASE REFER TO THE DISCHARGE MEDICATION LIST. Insulin Orders?: No - Medications New Prescriptions: Fidaxomicin [Dificid] 200 mg PO BID #36 tab - Diet Type: Geriatric Texture: Regular Liquids: Thin - Therapies | Activity Therapy: Evaluation | Treat if indicated: PT, OT Rehabilitation Potential: Maximize functional status Activity: Activity as Tolerated Assistance Devices: Walker"
--- NOTE | 2023-11-05 15:47 | DISCHARGE SUMMARY ---
Discharge Summary Admit Date: 10/30/23 Discharge Date: 11/05/23 Discharging Provider: Caden Tovar Code Status: Do Not Attempt Resuscitation Condition at Discharge: Good Discharge Disposition: 03 [facility] DC/Xfer - DIAGNOSES Discharge Diagnoses with Status of Each Condition: (1) C. difficile colitis Assessment/Plan: --Currently on Fidaxomicin 200 mg BID for 5 days then 200 mg once daily for 20 days. 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 --Continues to produce urine. 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 Will transfuse her 1 unit of pRBC today. (4) HTN (hypertension) Conclusion/Plan: --Continue carvedilol 12.5 mg twice daily (5) Hypothyroidism Conclusion/Plan: --Continue levothyroxine 150 mcg daily (6) Bipolar 1 disorder Conclusion/Plan: --Continue lamotrigine and carbamazepine (2) CVA (cerebral vascular accident) Assessment/Plan: --Continue aspirin and plavix. --Continue high intensity atorvastatin. - HPI History of Present Illness: Ciarra Ballard is a 72 year old woman who was recently discharged on October 20, 2023 after being admitted with C. difficile colitis. Her hospital course during this admission was complicated by a transient ischemic attack. The patient completed a 10-day course of vancomycin by mouth. She reports that she [facility] and then yesterday had approximately 4-5 loose bowel movements. She denies abdominal discomfort, fever, chills. She denies chest pain and shortness of breath. Laboratory studies drawn in the emergency room revealed that her BUNs/creatinine is near her baseline at 54/4.7. Patient has chronic kidney disease stage V and will likely need dialysis in the near future. Patient reports she has made an appointment to see a fuel cell designer with regards to dialysis. CBC drawn in the emergency room today revealed a white blood cell count of 16.5 K. Upon discharge from the hospital on October 20, 2023 her white blood cell count was 8.4K. - HOSPITAL COURSE Hospital Course: Patient is a 72-year-old female who presented to the ED with a recurrent bout of C. difficile colitis after being treated with oral vancomycin for 10 days. Upon admission patient was started on IV metronidazole and later on fidaxomicin on 11/01. Her diarrhea subsided she was continued on oral fidaxomicin with a dose of 200 mg twice daily for 7 days followed by 200 mg for 30 days. During hospital course she was noted to have an YOSSI on CKD 4. We had an extensive discussion regarding the need to follow-up with her fuel cell designer for the initiation of dialysis. Prior to her discharge back to her long term facility, patient was given a unit of packed red blood cells for anemia which is believed to be secondary to her chronic kidney disease. Patient not show any evidence of any bleeding. On day of discharge, patient's diarrhea had subsided and she was instructed to complete her oral fidaxomicin regimen. - ALLERGIES Allergies/Adverse Reactions: Allergies Allergy/AdvReac Type Severity Reaction Status Date / Time codeine [Codeine] Allergy Emesis Verified 10/30/23 12:38 olanzapine [From Zyprexa] AdvReac weight gain Verified 10/30/23 12:38 sulfamethoxazole AdvReac Emesis Verified 10/30/23 12:38 [From Septra] trimethoprim [From Septra] AdvReac Emesis Verified 10/30/23 12:38 ziprasidone HCl * AdvReac dementia Verified 10/30/23 12:38 [From Geodon] ziprasidone mesylate * AdvReac dementia Verified 10/30/23 12:38 [From Geodon] - MEDICATIONS Home Medications: Ambulatory Orders Medication Instructions Recorded Confirmed lamoTRIgine [LaMICtal] 200 mg PO QPM 01/15/13 10/31/23 carvediloL [Coreg] 12.5 mg PO BIDWM 06/30/20 10/31/23 Amlodipine Besylate [Norvasc] 10 mg PO QPM 05/24/23 10/31/23 Ipratropium/Albuterol [Duoneb] 3 ml INH DAILY 05/24/23 10/31/23 Fluticasone [Flonase] 2 spray HAKAN DAILY 10/11/23 10/31/23 LORazepam [Ativan] 2 mg PO QPM PRN 10/11/23 10/31/23 Levothyroxine Sodium [Synthroid] 150 mcg PO QDAC 10/11/23 10/31/23 carBAMazepine [Carbamazepine ER] 200 mg PO BID 10/11/23 10/31/23 Cyanocobalamin [Vitamin B-12] 500 mcg PO DAILY #30 tab 10/12/23 10/31/23 Folic Acid 1 mg PO DAILY #30 tab 10/12/23 10/31/23 Loratadine [Claritin] 10 mg PO QOD PRN #30 tab 10/12/23 10/31/23 Aspirin EC [Ecotrin] 81 mg PO DAILY #30 tab 10/20/23 10/31/23 Atorvastatin [Lipitor] 40 mg PO QPM #30 tab 10/20/23 10/31/23 Clopidogrel [Plavix] 75 mg PO DAILY #21 tab 10/20/23 10/31/23 Bisacodyl Supp [Dulcolax Supp] 10 mg AR DAILY PRN 10/31/23 10/31/23 Cholecalciferol [Vitamin D3] 25 mcg PO DAILY 10/31/23 10/31/23 Mineral Oil [Mineral Oil Enema] 1 unit AR DAILY PRN 10/31/23 10/31/23 Saccharomyces Boulardii [Florastor] 250 mg PO BID 10/31/23 10/31/23 polyethylene glycoL 3350 17 g PO DAILY PRN 10/31/23 10/31/23 [Polyethylene Glycol 3350] Fidaxomicin [Dificid] 200 mg PO BID #36 tab 11/05/23 - PHYSICAL EXAM AT DISCHARGE General Appearance: positive: No acute distress, Alert Respiratory: positive: Chest non-tender, No respiratory distress, Breath sounds nml Cardiovascular: positive: Regular rate & rhythm, No murmur, No gallop Abdomen: positive: Non-tender, No organomegaly, Nml bowel sounds - LABS Result Diagrams: 11/05/23 05:29 11/05/23 05:29 - FOLLOW UP Follow Up: Follow up with PCP and nephrology. Patient will need a repeat BMP and CBC at next outpatient visit. - TIME SPENT Time Spent in Discharge (Minutes): 30
[2023-11-05 16:16] VITALS: BP 182/98; O2SAT 97
== END 2023-11-05 16:20 | DRG 372 ==
LOC: EDUNIT# → ED 12:21 → MS2 18:31 → OBSVTOIN 10-31 10:01
PROVIDERS: ADMIT Internal Medicine; ATTEND Family Medicine
PROC: 30233N1 Transfusion of Nonautologous Red Blood Cells into Peripheral Vein, Percutaneous Approach (ICD-10-PCS; principal; 2023-11-05)
DX: A04.72 Enterocolitis due to Clostridium difficile, not specified as recurrent (principal); N17.9 Acute kidney failure, unspecified; N18.9 Chronic kidney disease, unspecified; N18.4 Chronic kidney disease, stage 4 (severe); I12.9 Hypertensive chronic kidney disease with stage 1 through stage 4 chronic kidney disease, or unspecified chronic kidney disease; D63.1 Anemia in chronic kidney disease; E03.9 Hypothyroidism, unspecified; F31.9 Bipolar disorder, unspecified; J45.909 Unspecified asthma, uncomplicated; Z79.02 Long term (current) use of antithrombotics/antiplatelets; Z79.82 Long term (current) use of aspirin; Z79.890 Hormone replacement therapy; Z79.899 Other long term (current) drug therapy; Z86.73 Personal history of transient ischemic attack (TIA), and cerebral infarction without residual deficits
CPT/HCPCS: 36415; 51701; 80048; 80053; 80076; 81001; 82436; 82607; 82728; 82746; 83540; 83690; 83735; 84100; 84133; 84300; 84466; 85025; 85027; 86850; 86900; 86901; 86920; 87040; 87493; 94640; 96360; 96361; 97161; 97165; 97530; 99284; 99285; A6250; A9270; G0378; J8499; P9016; Q0162; 81003; 87086

== ENCOUNTER 2023-11-29 17:35 | Outpatient (CLI) | payer MEDICARE, OTHER | END 2023-11-29 17:36 | disposition critical access hospital (66) | LOC: EMS 17:35 | DX: R41.82 Altered mental status, unspecified (principal); S01.112A Laceration without foreign body of left eyelid and periocular area, initial encounter; S40.012A Contusion of left shoulder, initial encounter; W19.XXXA Unspecified fall, initial encounter; Y92.122 Bedroom in nursing home as the place of occurrence of the external cause | CPT/HCPCS: A0425; A0429 ==

== ENCOUNTER 2023-11-29 17:39 | Observation (INO) | payer MEDICARE, OTHER ==
--- NOTE | 2023-11-29 17:52 | ED Physician Documentation ---
History of Present Illness - Stated complaint Stated Complaint: GLF - Chief complaint Chief Complaint: Trauma Hd/Nk - History obtained from History obtained from: EMS - Additonal information Additional information: 72-year-old female lives at [facility], unclear why she is at [facility]. She reportedly was found on the ground today in her room. Has a laceration to the left forehead. EMS states that she is usually alert and oriented x 3, able to walk on her own. They states that she is alert and oriented x 1. She is drowsy, but arousable. They do not know if she lost consciousness or not. She was not placed in a cervical collar by EMS. EMS states they did not find any other injuries besides the laceration to the forehead. She is reportedly on Plavix. 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 COATER: None : None, Other (Chronic kidney disease stage V.) HEENT: None Psych: Bipolar disorder Musculoskeletal: Osteoarthritis Derm: None - Past Surgical History Past Surgical History: Yes Ortho: Hip replacement, Knee replacement HEENT: Tonsil/Adenoidectomy Derm: Skin cancer surgery - Present Medications Home Medications: Ambulatory Orders Medication Instructions Recorded Confirmed lamoTRIgine [LaMICtal] 200 mg PO QPM 01/15/13 10/31/23 carvediloL [Coreg] 12.5 mg PO BIDWM 06/30/20 10/31/23 Amlodipine Besylate [Norvasc] 10 mg PO QPM 05/24/23 10/31/23 Ipratropium/Albuterol [Duoneb] 3 ml INH DAILY 05/24/23 10/31/23 Fluticasone [Flonase] 2 spray HAKAN DAILY 10/11/23 10/31/23 LORazepam [Ativan] 2 mg PO QPM PRN 10/11/23 10/31/23 Levothyroxine Sodium [Synthroid] 150 mcg PO QDAC 10/11/23 10/31/23 carBAMazepine [Carbamazepine ER] 200 mg PO BID 10/11/23 10/31/23 Cyanocobalamin [Vitamin B-12] 500 mcg PO DAILY #30 tab 10/12/23 10/31/23 Folic Acid 1 mg PO DAILY #30 tab 10/12/23 10/31/23 Loratadine [Claritin] 10 mg PO QOD PRN #30 tab 10/12/23 10/31/23 Aspirin EC [Ecotrin] 81 mg PO DAILY #30 tab 10/20/23 10/31/23 Atorvastatin [Lipitor] 40 mg PO QPM #30 tab 10/20/23 10/31/23 Clopidogrel [Plavix] 75 mg PO DAILY #21 tab 10/20/23 10/31/23 Bisacodyl Supp [Dulcolax Supp] 10 mg AK DAILY PRN 10/31/23 10/31/23 Cholecalciferol [Vitamin D3] 25 mcg PO DAILY 10/31/23 10/31/23 Mineral Oil [Mineral Oil Enema] 1 unit AK DAILY PRN 10/31/23 10/31/23 Saccharomyces Boulardii [Florastor] 250 mg PO BID 10/31/23 10/31/23 polyethylene glycoL 3350 17 g PO DAILY PRN 10/31/23 10/31/23 [Polyethylene Glycol 3350] Fidaxomicin [Dificid] 200 mg PO BID #36 tab 11/05/23 - Allergies Allergies/Adverse Reactions: Allergies Allergy/AdvReac Type Severity Reaction Status Date / Time codeine [Codeine] Allergy Emesis Verified 10/30/23 12:38 olanzapine [From Zyprexa] AdvReac weight gain Verified 10/30/23 12:38 sulfamethoxazole AdvReac Emesis Verified 10/30/23 12:38 [From Septra] trimethoprim [From Septra] AdvReac Emesis Verified 10/30/23 12:38 ziprasidone HCl * AdvReac dementia Verified 10/30/23 12:38 [From Geodon] ziprasidone mesylate * AdvReac dementia Verified 10/30/23 12:38 [From Geodon] - Living Situation Living Arrangement: reports: alf - Social History Does the pt smoke?: No Smoking Status: Never smoker Does the pt drink ETOH?: Yes Does the pt have substance abuse?: No - Family History Family history: reports: Non contributory - Immunizations Immunizations are current?: Yes - POLST Patient has POLST: No PD ED PE NORMAL - Vitals Vital signs reviewed: Yes - General General: No acute distress, Other (drowsy, arousable) - HEENT HEENT: PERRL, Moist mucous membranes, Other (2cm laceration to the L forehead, no palpable facial or skull fractures) - Neck Neck: No bony TTP - Cardiac Cardiac: RRR - Respiratory Respiratory: No respiratory distress, Clear bilaterally - Abdomen Abdomen: Soft, Non tender, Non distended - Derm Derm: Warm and dry - Extremities Extremities: No deformity, Other (Full range of motion of all major joints without pain. No deformity) - Neuro Neuro: Other (Drowsy but easily arousable, oriented to person only) Eye Opening: Spontaneous Motor: Obeys Commands Verbal: Confused GCS Score: 14 Results - Vitals Vitals: Vital Signs - 24 hr 11/29/23 11/29/23 11/29/23 18:00 18:05 18:30 Temperature 36.1 C L Heart Rate 75 77 77 Respiratory 12 11 L 10 L Rate Blood Pressure 146/76 H 147/76 H 144/71 H O2 Saturation 94 100 95 11/29/23 11/29/23 11/29/23 18:35 19:05 19:30 Temperature Heart Rate 77 76 79 Respiratory 11 L 14 18 Rate Blood Pressure 150/85 H 145/86 H 152/84 H O2 Saturation 100 99 100 11/29/23 11/29/23 11/29/23 20:00 20:30 21:00 Temperature Heart Rate 71 71 73 Respiratory 16 14 12 Rate Blood Pressure 145/87 H 153/62 H 148/61 H O2 Saturation 97 91 L 94 Oxygen O2 Source Room air - EKG (time done) 1756 EKG releavant findings:: EKG personally interpreted by author of this note. Relevant findings are: Rate: Rate (enter#) (76) Rhythm: NSR [place]: Normal Intervals: Normal AK QRS: Normal Ischemia: Normal ST segments - Labs Labs: Laboratory Tests 11/29/23 11/29/23 11/29/23 18:16 18:49 18:49 WBC 8.0 RBC 3.05 L Hgb 9.5 L Hct 30.2 L MCV 99.0 MCH 31.1 H MCHC 31.5 L RDW 14.8 Plt Count 213 MPV 10.4 Neut # (Auto) 3.3 Lymph # (Auto) 3.2 [place] # (Auto) 1.2 H Eos # (Auto) 0.2 Baso # (Auto) 0.0 Absolute Nucleated RBC 0.00 Nucleated RBC % 0.0 PT 11.9 INR 1.1 APTT 24.3 L Sodium 136 Potassium 3.8 Chloride 108 Carbon Dioxide 17 L Anion Gap 11.0 BUN 83 H* Creatinine 5.5 H Estimated GFR (MDRD) 8 L Glucose 131 H Calcium 8.9 Total Bilirubin 0.3 AST 13 ALT 19 Alkaline Phosphatase 144 H Total Protein 6.5 Albumin 3.7 Globulin 2.8 Albumin/Globulin Ratio 1.3 Lipase 51 Urine Color Urine Clarity Urine pH Ur Specific [place] Urine Protein Urine Glucose (UA) Urine Ketones Urine Occult Blood Urine Nitrite Urine Bilirubin Urine Urobilinogen Ur Leukocyte Esterase Urine RBC Urine WBC Ur Squamous Epith Cells Urine Bacteria Ur Microscopic Review Urine Culture Comments Salicylates < 1.5 Urine Opiates Screen Ur Buprenorphine Scrn Ur Oxycodone Screen Urine Methadone Screen Acetaminophen 0.8 Ur Barbiturates Screen Ur Tricyclics Screen Ur Phencyclidine Scrn Ur Amphetamine Screen U Methamphetamines Scrn U Benzodiazepines Scrn Urine Cocaine Screen U Cannabinoids Screen Ur Drug Screen Comment Ethyl Alcohol < 10.0 11/29/23 11/29/23 19:13 19:13 WBC RBC Hgb Hct MCV MCH MCHC RDW Plt Count MPV Neut # (Auto) Lymph # (Auto) [place] # (Auto) Eos # (Auto) Baso # (Auto) Absolute Nucleated RBC Nucleated RBC % PT INR APTT Sodium Potassium Chloride Carbon Dioxide Anion Gap BUN Creatinine Estimated GFR (MDRD) Glucose Calcium Total Bilirubin AST ALT Alkaline Phosphatase Total Protein Albumin Globulin Albumin/Globulin Ratio Lipase Urine Color YELLOW Urine Clarity CLOUDY Urine pH 6.0 Ur Specific [place] 1.010 Urine Protein NEGATIVE Urine Glucose (UA) NEGATIVE Urine Ketones NEGATIVE Urine Occult Blood TRACE-LYSE Urine Nitrite POSITIVE H Urine Bilirubin NEGATIVE Urine Urobilinogen 0.2 (NORMAL) Ur Leukocyte Esterase MODERATE H Urine RBC 0-5 Urine WBC 11-25 H Ur Squamous Epith Cells FEW Squamous Urine Bacteria Many H Ur Microscopic Review INDICATED Urine Culture Comments INDICATED Salicylates Urine Opiates Screen NEGATIVE Ur Buprenorphine Scrn NEGATIVE Ur Oxycodone Screen NEGATIVE Urine Methadone Screen NEGATIVE Acetaminophen Ur Barbiturates Screen NEGATIVE Ur Tricyclics Screen NEGATIVE Ur Phencyclidine Scrn NEGATIVE Ur Amphetamine Screen NEGATIVE U Methamphetamines Scrn NEGATIVE U Benzodiazepines Scrn POSITIVE H Urine Cocaine Screen NEGATIVE U Cannabinoids Screen NEGATIVE Ur Drug Screen Comment CUTOFF CONC BELOW: Ethyl Alcohol - Rads (name of study) Head CT Relevant Findings:: Final report received, See rad report Cervical spine CT Relevant Findings:: Final report received, See rad report Procedures - Laceration (location) Left forehead Length in cm: 2 Wound type: Linear, Clean Neurovascular status: Sensory intact, Motor intact, Vascular intact Anesthesia: Lidocaine 1% Wound preparation: Irrigated copiously NS, Wound explored, To the base Skin layer closure: Nylon, Interrupted, Size #-0 - enter number (5) Other: Patient tolerated well, No complications, Neurovascular intact, Dressing applied, Tetanus UTD PD Medical Decision Making - ED course Complexity details: reviewed results, re-evaluated patient, considered differential, d/w patient, d/w behavioral consultant ED course: No acute findings on head CT or cervical spine CT. No hypoxia. No respiratory distress. Does have altered mental status, she is easily arousable, but answers most questions with her name. Unclear if this is secondary to concussion or to her uremia. She has chronic renal failure which is unchanged from prior. She does appear dehydrated with dry lips and tongue. Given IV fluids. She does appear to have a UTI, but given her history of C. difficile, will await the urine culture. Normal white blood cell count. No fevers. Discussed the case of the nighttime hospitalist who accepts. This document was made in part using voice recognition software. While efforts are made to proofread this document, sound alike and grammatical errors may occur. Departure - Departure Disposition: ED Place in Observation Clinical Impression: Uremia Altered mental status Qualifiers: Altered mental status type: unspecified Qualified Code(s): R41.82 - Altered mental status, unspecified Laceration of head Qualifiers: Encounter type: initial encounter Location of open wound of head: unspecified part of head Foreign body presence: without foreign body Qualified Code(s): S01.91XA - Laceration without foreign body of unspecified part of head, initial encounter CKD (chronic kidney disease) Qualifiers: Chronic kidney disease stage: unspecified stage Qualified Code(s): N18.9 - Chronic kidney disease, unspecified Condition: Stable Discharge Date/Time: 11/29/23 21:52
--- NOTE | 2023-11-29 18:05 | CT Report ---
PROCEDURE: Head WO INDICATIONS: fall, altered, head injury TECHNIQUE: Noncontrast 4.5 mm thick angled axial sections acquired from the foramen magnum to the vertex. For r adiation dose reduction, the following was used: automated exposure control, adjustment of mA and/or kV according to patient size. COMPARISON: 10/17/2023. Correlation is also made with brain MRI, 10/16/2023. Please correlate with int raoperative findings. FINDINGS: Image quality: Motion artifact is noted. There is artifact associated with the metallic hardware. CSF spaces: Basal cisterns are patent. No extra-axial fluid collections. Ventricles are normal in size and shape. Brain: No midline shift. No intracranial masses or hemorrhage. Rivero-white matter interface is norm al. Skull and face: There is a left forehead soft tissue hematoma seen, as on series 2 image 18. No asso ciated calvarial fracture is seen. Calvarium and visualized facial bones are intact, without suspicio us lesions. Correlation is made with the accompanying imaging. Sinuses: No significant paranasal sinus disease is seen. There is mild to moderate bilateral mastoid air cell fluid seen. IMPRESSION: Left forehead scalp hematoma, without an associated fracture seen. No intracranial hemorrhage is seen. No significant intracranial abnormality is seen. Mastoid air cell fluid noted, which is new compared to the prior. Reviewed by: Davin Contreras MD on 11/29/2023 5:03 PM SARAH Approved by: Davin Conrteras MD on 11/29/2023 5:03 PM SARAH Station ID: [id number]
--- NOTE | 2023-11-29 18:08 | CT Report ---
PROCEDURE: Cervical Spine WO INDICATIONS: fall, altered, head injury TECHNIQUE: Noncontrast 3 mm thick sections acquired from the skull base to the T4 level. Sagittal and coronal r eformats were then constructed. For radiation dose reduction, the following was used: automated exp osure control, adjustment of mA and/or kV according to patient size. COMPARISON: Correlation is made with the accompanying imaging. FINDINGS: Image quality: Motion artifact is noted. Bones: No fractures or dislocations. Visualized superior ribs are intact. Focal degenerative change can be seen involving the C1-C2 interface anteriorly. There is at least mod erate disc space narrowing seen at C5-C6 and C6-C7, with bridging anterior osteophytes and posterior directed endplate osteophytes. Multilevel levels of significant facet hypertrophy can be seen, left w orse than right. Soft tissues: Prevertebral soft tissues are normal in thickness. No paravertebral hematomas. No ap ical pneumothoraces. Atherosclerotic calcification is seen. IMPRESSION: Motion limited study, yet without acute fracture seen. Multiple levels of cervical spine degenerative change can be seen, which are worst inferiorly. Reviewed by: Davin Contreras MD on 11/29/2023 5:06 PM SARAH Approved by: Davin Contreras MD on 11/29/2023 5:06 PM AKARCHANA Station ID: [id number]
[2023-11-29 18:44] LABS: PARTIAL THROMBOPLASTIN TIME 24.3 secs (24.9-33.3)
[2023-11-29 18:48] LABS: INR 1.1 (0.8-1.2); PT - PROTHROMBIN TIME 11.9 secs (9.9-12.6)
[2023-11-29 18:55] LABS: BASOPHILS % (AUTO) 0.4 %; EOSINOPHILS # (AUTO) 0.2 10^3/uL (0.0-0.7); HCT - HEMATOCRIT 30.2 % (37.0-47.0); HGB - HEMOGLOBIN 9.5 g/dL (12.0-16.0); LYMPHOCYTES # (AUTO) 3.2 10^3/uL (1.5-3.5); LYMPHOCYTES % (AUTO) 39.6 %; MEAN CORPUSCULAR HEMOGLOBIN 31.1 pg (27.0-31.0); MEAN CORPUSCULAR HGB CONC 31.5 g/dL (32.0-36.0); MEAN PLATELET VOLUME 10.4 fL (7.9-10.8); MONOCYTES # (AUTO) 1.2 10^3/uL (0.0-1.0); MONOCYTES % (AUTO) 14.8 %; NEUTROPHILS # (AUTO) 3.3 10^3/uL (1.5-6.6); NEUTROPHILS % (AUTO) 41.4 %; PLT - PLATELET COUNT 213 10^3/uL (130-450); RED BLOOD COUNT 3.05 10^6/uL (4.20-5.40); RED CELL DISTRIBUTION WIDTH 14.8 % (12.0-15.0)
[2023-11-29 19:10] LABS: ACETAMINOPHEN 0.8 ug/mL; ETOH - ETHANOL < 10.0 mg/dL; LIPASE 51 U/L (11-82)
[2023-11-29 19:19] LABS: ALBUMIN 3.7 g/dL (3.2-5.5); ALBUMIN/GLOBULIN RATIO 1.3 (1.0-2.2); ALKALINE PHOSPHATASE 144 IU/L (42-121); ALT ALANINE AMINOTRANSFERASE 19 IU/L (10-60); AST ASPARTATE AMINOTRANSFERASE 13 IU/L (10-42); BILIRUBIN,TOTAL 0.3 mg/dL (0.2-1.0); BUN - BLOOD UREA NITROGEN 83 mg/dL (6-20); CALCIUM 8.9 mg/dL (8.5-10.3); CARBON DIOXIDE - CO2 17 mmol/L (21-32); CHLORIDE 108 mmol/L (101-111); CREATININE 5.5 mg/dL (0.6-1.3); GFR - MDRD 8 (>89); GLUCOSE 131 mg/dL (74-104); POTASSIUM 3.8 mmol/L (3.5-4.5); SALICYLATE < 1.5 mg/dL; SODIUM 136 mmol/L (135-145); TOTAL PROTEIN 6.5 g/dL (6.4-8.9)
[2023-11-29] MEDS: SODIUM CHLORIDE 0.9% 1,000 ML IV STA ×2 (19:26)
[2023-11-29 19:32] LABS: AMPHETAMINE SCREEN,URINE NEGATIVE (NEGATIVE); BARBITURATE SCREEN,UR NEGATIVE (NEGATIVE); BENZODIAZEPINES SCREEN, URINE POSITIVE (NEGATIVE); COCAINE SCREEN URINE NEGATIVE (NEGATIVE); METHADONE SCREEN, URINE NEGATIVE (NEGATIVE); METHAMPHETAMINES SCREEN, URINE NEGATIVE (NEGATIVE); OPIATE SCREEN, URINE NEGATIVE (NEGATIVE); OXYCODONE SCREEN, URINE NEGATIVE (NEGATIVE); THC CANNABINOID SCREEN, URINE NEGATIVE (NEGATIVE); TRICYCLIC ANTIDEPRESSANT,URINE NEGATIVE (NEGATIVE)
[2023-11-29 19:33] LABS: BUPRENORPHINE SCREEN, URINE NEGATIVE (NEGATIVE)
[2023-11-29 19:53] LABS: BILIRUBIN,URINE NEGATIVE (NEGATIVE); GLUCOSE, URINE (UA) NEGATIVE (NEGATIVE); KETONES,URINE (UA) NEGATIVE (NEGATIVE); LEUKOCYTE ESTERASE, URINE MODERATE (NEGATIVE); NITRITE,URINE POSITIVE (NEGATIVE); OCCULT BLOOD,URINE TRACE-LYSE (NEGATIVE); PROTEIN,URINE NEGATIVE (NEGATIVE); UROBILINOGEN,URINE 0.2 (NORMAL) E.U./dL (NORMAL)
[2023-11-29 19:54] LABS: CLARITY,URINE CLOUDY (CLEAR)
[2023-11-29 20:05] LABS: BACTERIA,URINE Many /HPF (None Seen); RBC,URINE 0-5 /HPF (0-5); SQUAMOUS EPITHELIAL CELL,UR FEW Squamous (<= Few)
--- NOTE | 2023-11-29 20:34 | HISTORY & PHYSICAL EXAMINATION ---
Chief Complaint - Chief Complaint Chief Complaint: GLF History of Present Illness - Admitted From Admitted From:: ER - History Obtained From Records Reviewed: Yes History obtained from: Pt, staff, chart Exam Limitations: Virtual exam, pt condition - History of Present Illness HPI Comment/Other: H&P was conducted via video remotely, using Access Cart. Patient is in [place]. Physician is in [place]. C++ QUANT DEVELOPER at bedside. Unable to obtain history from pt d/t pt's clinical condition. History obtained from staff, chart. 72 yo F with PMH of CKD stage 5, HTN, Hypothyroidism, Bipolar D/o, Insomnia, Asthma, CVA, recent 2 admissions for CDiff after tx with LVQ for UTI presented from SNF to the ER s/p GLF today. Pt was hospitalized last from 10/30/23-11/05/23 for recurrent CDiff and was discharged to SNF. At baseline, she is A+Ox3 and can ambulate independently; notes say that she does use a walker. SNF staff last checked on pt at 2PM and she was fine. They later checked on her at 5P and found lying her on the floor after an unwitnessed fall. Not known if she had LOC. Since fall, she has been confused, drowsy, not answering questions or following commands, not oriented. No other known complaints. In the ER, +L Forehead laceration; ER Provider sutured with 5 stitches Last Td 2020/UTD Hgb 9.5, MCH 31.1, BUN 83, CR 5.5, Glc 131, UDS: +benzos, U/A: WBC Nitrites LE, UC pending Head CT: L forehead scalp hematoma, +mastoid air cell fluid, no intracranial abnormality CSpine CT: DJD, NAD EKG: NSR at 76, no STTw changes Pt was given IVF in the ER. History - Past Medical History Cardiovascular: reports: Hypertension Respiratory: reports: Asthma Neuro: reports: None Endocrine/Autoimmune: reports: HyPOthyroidism GI: reports: GERD CASH REGISTER OPERATOR: reports: None : reports: None, Other (Chronic kidney disease stage V.) HEENT: reports: None Psych: reports: Bipolar disorder Musculoskeletal: reports: Osteoarthritis Derm: reports: None MRSA Hx?: No - Past Surgical History Ortho: reports: Hip replacement, Knee replacement HEENT: reports: Tonsil/Adenoidectomy Derm: reports: Skin cancer surgery - Family & Social History Family History: Mother: , Father: Living arrangement: senior care Living Situation: Alone - Substance History Use: Uses substance without health or social issues: NONE - POLST Patient has POLST: No Meds/Allgy - Home Medications Home Medications: Ambulatory Orders Medication Instructions Recorded Confirmed lamoTRIgine [LaMICtal] 200 mg PO QPM 01/15/13 10/31/23 carvediloL [Coreg] 12.5 mg PO BIDWM 06/30/20 10/31/23 Amlodipine Besylate [Norvasc] 10 mg PO QPM 05/24/23 10/31/23 Ipratropium/Albuterol [Duoneb] 3 ml INH DAILY 05/24/23 10/31/23 Fluticasone [Flonase] 2 spray HAKAN DAILY 10/11/23 10/31/23 LORazepam [Ativan] 2 mg PO QPM PRN 10/11/23 10/31/23 Levothyroxine Sodium [Synthroid] 150 mcg PO QDAC 10/11/23 10/31/23 carBAMazepine [Carbamazepine ER] 200 mg PO BID 10/11/23 10/31/23 Cyanocobalamin [Vitamin B-12] 500 mcg PO DAILY #30 tab 10/12/23 10/31/23 Folic Acid 1 mg PO DAILY #30 tab 10/12/23 10/31/23 Loratadine [Claritin] 10 mg PO QOD PRN #30 tab 10/12/23 10/31/23 Aspirin EC [Ecotrin] 81 mg PO DAILY #30 tab 10/20/23 10/31/23 Atorvastatin [Lipitor] 40 mg PO QPM #30 tab 10/20/23 10/31/23 Clopidogrel [Plavix] 75 mg PO DAILY #21 tab 10/20/23 10/31/23 Bisacodyl Supp [Dulcolax Supp] 10 mg NE DAILY PRN 10/31/23 10/31/23 Cholecalciferol [Vitamin D3] 25 mcg PO DAILY 10/31/23 10/31/23 Mineral Oil [Mineral Oil Enema] 1 unit [place] DAILY PRN 10/31/23 10/31/23 Saccharomyces Boulardii [Florastor] 250 mg PO BID 10/31/23 10/31/23 polyethylene glycoL 3350 17 g PO DAILY PRN 10/31/23 10/31/23 [Polyethylene Glycol 3350] Fidaxomicin [Dificid] 200 mg PO BID #36 tab 11/05/23 - Allergies Allergies/Adverse Reactions: Allergies Allergy/AdvReac Type Severity Reaction Status Date / Time codeine [Codeine] Allergy Emesis Verified 10/30/23 12:38 olanzapine [From Zyprexa] AdvReac weight gain Verified 10/30/23 12:38 sulfamethoxazole AdvReac Emesis Verified 10/30/23 12:38 [From Septra] trimethoprim [From Septra] AdvReac Emesis Verified 10/30/23 12:38 ziprasidone HCl * AdvReac dementia Verified 10/30/23 12:38 [From Geodon] ziprasidone mesylate * AdvReac dementia Verified 10/30/23 12:38 [From Geodon] Review of Systems - All Other Systems All Other Systems: reports: Other (Unable to obtain d/t patient's clinical condition) Exam - Vital Signs Reviewed Vital Signs: Yes Vital Signs: Vital Signs x48h Temp Pulse Resp BP Pulse Ox 11/29/23 19:30 79 18 152/84 H 100 11/29/23 19:05 76 14 145/86 H 99 11/29/23 18:35 77 11 L 150/85 H 100 11/29/23 18:30 77 10 L 144/71 H 95 11/29/23 18:05 77 11 L 147/76 H 100 11/29/23 18:00 36.1 C L 75 12 146/76 H 94 - Physical Exam General Appearance: positive: No acute distress, Other (Drowsy, restless) Eyes Bilateral: positive: No scleral icterus ENT: positive: Dry mucous membranes Respiratory: positive: Other (Access cart stethoscope not working; per ER Provider: CTA B/L) Cardiovascular: positive: Other (Access cart stethoscope not working; per ER Provider: RRR, no murmurs) Abdomen: positive: Other (per ER Provider: non-distended, NT, Soft) Skin: positive: Other (+2 cm wound with sutures L forehead) Extremities: positive: Other (per ER Provider: moves all extrem, no edema) Neurologic/Psychiatric: positive: Disoriented to place, Disoriented to time (Drowsy, restless, Ox1(person), per ER Provider: NFD, GCS 14), Other Conclusion/Plan - Problem List (1) Altered mental status Conclusion/Plan: AMS GLF Head injury Concussion Uremia Weakness -Head CT: L forehead scalp hematoma, +mastoid air cell fluid, no intracranial abnormality -CSpine CT: DJD, NAD -EKG: NSR at 76, no STTw changes -no focal deficit per exam in ER -Pt was given IVF in the ER. -admit to Obs/Med tele -neuro checks -bedside swallow -NPO until bedside swallow done/passed -IVF -PT/OT/Speech/CM consulted -hold home medications: Ativan Acute Renal Failure on CKD stage 5 -BUN 83, CR 5.5; baseline BUN 50, CR 5 -Pt was given IVF in the ER. -continue IVF -avoid nephrotoxins L Forehead laceration -ER Provider sutured with 5 stitches -Last Td 2020/UTD -wound care Mastoid air cell fluid on CT JENNIFER -Head CT: L forehead scalp hematoma, +mastoid air cell fluid, no intracranial abnormality -continue home medications: Claritin/Flonase -consider Mastoiditis if AMS not improving UTI -U/A: WBC Nitrites LE, UC pending -s/p recent 2 admissions for CDiff after tx with LVQ for UTI -will hold A/Bs until UC back, since pt is at high risk for CDiff Anemia, macrocytic -Hgb 9.5, MCH 31.1 -continue home medications: B12, Folate -check B12/Folate levels HTN -continue home medications: Amlodipine Hypothyroidism -continue home medications: Levothyroxine -check TSH Bipolar D/o Insomnia -continue home medications: Carbamazepine, Lamictal -hold home medications: Ativan d/t AMS Asthma -continue home medications: Duonebs H/o CVA -continue home medications: ASA/Plavix, statin VTE Prophylaxis: Heparin SQ Code Status: pt unable to understand discussion currently; per paperwork from SNF, pt is Full Code ~Ivet Hancock MD Hospitalist Qualifiers: Altered mental status type: unspecified Qualified Code(s): R41.82 - Altered mental status, unspecified - Lab Results Lab results reviewed: Yes Fish Bones: 11/29/23 18:49 11/29/23 18:49
[2023-11-29] MEDS ORDERED: LORATADINE 10 MG TABLET PO PRN (20:55)
[2023-11-29] MEDS ORDERED: polyethylene glycoL 3350 17 GM PACKET PO PRN (20:55)
[2023-11-29] MEDS ORDERED: ONDANSETRON ODT 4 MG TABLET TL PRN (21:05)
[2023-11-29] MEDS ORDERED: SODIUM CHLORIDE FLUSH 0.9% 10 ML SYRINGE IVP PRN (21:05)
[2023-11-29] MEDS ORDERED: ONDANSETRON 4 MG/2 ML VIAL IVP PRN (21:05)
[2023-11-29] MEDS ORDERED: ACETAMINOPHEN 325 MG TABLET PO PRN (21:05)
[2023-11-29] MEDS: ATORVASTATIN 40 MG TABLET PO SCH (23:00)
[2023-11-29] MEDS: carBAMazepine ER 200 MG TABLET PO SCH (23:00)
[2023-11-29] MEDS: lamoTRIgine 100 MG TABLET PO SCH (23:01)
[2023-11-29] MEDS: SACCHAROMYCES BOULARDII 250 MG CAPSULE PO SCH (23:01)
--- NOTE | 2023-11-29 23:34 | PROVIDER PROGRESS NOTE ---
Subjective - Prog Note Date Prog Note Date: 11/29/23 Prog Note Time: 23:33 - Subjective Subjective: RN reports that pt's mental status has declined, now GCS 7. Will order a repeat stat CT head. Will order MRI head, as well. Objective - Vital Signs/Intake & Output Vital Signs: Vital Signs x48h Temp Pulse Pulse Resp BP BP Pulse Ox 11/29/23 22:27 98 11/29/23 22:15 36.1 C L 85 24 151/80 H 88 L 11/29/23 21:00 73 12 148/61 H 94 11/29/23 20:30 71 14 153/62 H 91 L 11/29/23 20:00 71 16 145/87 H 97 11/29/23 19:30 79 18 152/84 H 100 11/29/23 19:05 76 14 145/86 H 99 11/29/23 18:35 77 11 L 150/85 H 100 11/29/23 18:30 77 10 L 144/71 H 95 11/29/23 18:05 77 11 L 147/76 H 100 11/29/23 18:00 36.1 C L 75 12 146/76 H 94 O2 Flow Rate 11/29/23 22:27 4 11/29/23 22:15 11/29/23 21:00 11/29/23 20:30 11/29/23 20:00 11/29/23 19:30 11/29/23 19:05 11/29/23 18:35 11/29/23 18:30 11/29/23 18:05 11/29/23 18:00 Intake & Output: Intake & Output 11/26/23 11/27/23 11/28/23 11/29/23 23:59 23:59 23:59 23:59 Intake Total 1000 Balance 1000 - Lab Results Fish Bones: 11/29/23 18:49 11/29/23 18:49 Other Labs: Lab Results x24hrs 11/29/23 11/29/23 11/29/23 Range/Units 19:13 19:13 18:49 WBC (4.8-10.8) x10^3/uL RBC (4.20-5.40) 10^6/uL Hgb (12.0-16.0) g/dL Hct (37.0-47.0) % MCV (81.0-99.0) fL MCH (27.0-31.0) pg MCHC (32.0-36.0) g/dL RDW (12.0-15.0) % Plt Count (130-450) 10^3/uL MPV (7.9-10.8) fL Neut # (Auto) (1.5-6.6) 10^3/uL Lymph # (Auto) (1.5-3.5) 10^3/uL [place] # (Auto) (0.0-1.0) 10^3/uL Eos # (Auto) (0.0-0.7) 10^3/uL Baso # (Auto) (0.0-0.1) 10^3/uL Absolute Nucleated RBC x10^3/uL Nucleated RBC % /100WBC PT (9.9-12.6) secs INR (0.8-1.2) APTT (24.9-33.3) secs Sodium 136 (135-145) mmol/L Potassium 3.8 (3.5-4.5) mmol/L Chloride 108 (101-111) mmol/L Carbon Dioxide 17 L (21-32) mmol/L Anion Gap 11.0 (6-13) BUN 83 H* (6-20) mg/dL Creatinine 5.5 H (0.6-1.3) mg/dL Estimated GFR (MDRD) 8 L (>89) Glucose 131 H (74-104) mg/dL Calcium 8.9 (8.5-10.3) mg/dL Total Bilirubin 0.3 (0.2-1.0) mg/dL AST 13 (10-42) IU/L ALT 19 (10-60) IU/L Alkaline Phosphatase 144 H (42-121) IU/L Total Protein 6.5 (6.4-8.9) g/dL Albumin 3.7 (3.2-5.5) g/dL Globulin 2.8 (2.1-4.2) g/dL Albumin/Globulin Ratio 1.3 (1.0-2.2) Lipase 51 (11-82) U/L Urine Color YELLOW Urine Clarity CLOUDY (CLEAR) Urine pH 6.0 (5.0-7.5) PH Ur Specific [place] 1.010 (1.002-1.030) Urine Protein NEGATIVE (NEGATIVE) mg/dL Urine Glucose (UA) NEGATIVE (NEGATIVE) mg/dL Urine Ketones NEGATIVE (NEGATIVE) mg/dL Urine Occult Blood TRACE-LYSE (NEGATIVE) Urine Nitrite POSITIVE H (NEGATIVE) Urine Bilirubin NEGATIVE (NEGATIVE) Urine Urobilinogen 0.2 (NORMAL) (NORMAL) E.U./dL Ur Leukocyte Esterase MODERATE H (NEGATIVE) Urine RBC 0-5 (0-5) /HPF Urine WBC 11-25 H (0-5) /HPF Ur Squamous Epith Cells FEW Squamous (<= Few) Urine Bacteria Many H (None Seen) /HPF Ur Microscopic Review INDICATED Urine Culture Comments INDICATED Salicylates < 1.5 mg/dL Urine Opiates Screen NEGATIVE (NEGATIVE) Ur Buprenorphine Scrn NEGATIVE (NEGATIVE) Ur Oxycodone Screen NEGATIVE (NEGATIVE) Urine Methadone Screen NEGATIVE (NEGATIVE) Acetaminophen 0.8 ug/mL Ur Barbiturates Screen NEGATIVE (NEGATIVE) Ur Tricyclics Screen NEGATIVE (NEGATIVE) Ur Phencyclidine Scrn NEGATIVE (NEGATIVE) Ur Amphetamine Screen NEGATIVE (NEGATIVE) U Methamphetamines Scrn NEGATIVE (NEGATIVE) U Benzodiazepines Scrn POSITIVE H (NEGATIVE) Urine Cocaine Screen NEGATIVE (NEGATIVE) U Cannabinoids Screen NEGATIVE (NEGATIVE) Ur Drug Screen Comment CUTOFF CONC BELOW: Ethyl Alcohol < 10.0 mg/dL 11/29/23 11/29/23 Range/Units 18:49 18:16 WBC 8.0 (4.8-10.8) x10^3/uL RBC 3.05 L (4.20-5.40) 10^6/uL Hgb 9.5 L (12.0-16.0) g/dL Hct 30.2 L (37.0-47.0) % MCV 99.0 (81.0-99.0) fL MCH 31.1 H (27.0-31.0) pg MCHC 31.5 L (32.0-36.0) g/dL RDW 14.8 (12.0-15.0) % Plt Count 213 (130-450) 10^3/uL MPV 10.4 (7.9-10.8) fL Neut # (Auto) 3.3 (1.5-6.6) 10^3/uL Lymph # (Auto) 3.2 (1.5-3.5) 10^3/uL [place] # (Auto) 1.2 H (0.0-1.0) 10^3/uL Eos # (Auto) 0.2 (0.0-0.7) 10^3/uL Baso # (Auto) 0.0 (0.0-0.1) 10^3/uL Absolute Nucleated RBC 0.00 x10^3/uL Nucleated RBC % 0.0 /100WBC PT 11.9 (9.9-12.6) secs INR 1.1 (0.8-1.2) APTT 24.3 L (24.9-33.3) secs Sodium (135-145) mmol/L Potassium (3.5-4.5) mmol/L Chloride (101-111) mmol/L Carbon Dioxide (21-32) mmol/L Anion Gap (6-13) BUN (6-20) mg/dL Creatinine (0.6-1.3) mg/dL Estimated GFR (MDRD) (>89) Glucose (74-104) mg/dL Calcium (8.5-10.3) mg/dL Total Bilirubin (0.2-1.0) mg/dL AST (10-42) IU/L ALT (10-60) IU/L Alkaline Phosphatase (42-121) IU/L Total Protein (6.4-8.9) g/dL Albumin (3.2-5.5) g/dL Globulin (2.1-4.2) g/dL Albumin/Globulin Ratio (1.0-2.2) Lipase (11-82) U/L Urine Color Urine Clarity (CLEAR) Urine pH (5.0-7.5) PH Ur Specific [place] (1.002-1.030) Urine Protein (NEGATIVE) mg/dL Urine Glucose (UA) (NEGATIVE) mg/dL Urine Ketones (NEGATIVE) mg/dL Urine Occult Blood (NEGATIVE) Urine Nitrite (NEGATIVE) Urine Bilirubin (NEGATIVE) Urine Urobilinogen (NORMAL) E.U./dL Ur Leukocyte Esterase (NEGATIVE) Urine RBC (0-5) /HPF Urine WBC (0-5) /HPF Ur Squamous Epith Cells (<= Few) Urine Bacteria (None Seen) /HPF Ur Microscopic Review Urine Culture Comments Salicylates mg/dL Urine Opiates Screen (NEGATIVE) Ur Buprenorphine Scrn (NEGATIVE) Ur Oxycodone Screen (NEGATIVE) Urine Methadone Screen (NEGATIVE) Acetaminophen ug/mL Ur Barbiturates Screen (NEGATIVE) Ur Tricyclics Screen (NEGATIVE) Ur Phencyclidine Scrn (NEGATIVE) Ur Amphetamine Screen (NEGATIVE) U Methamphetamines Scrn (NEGATIVE) U Benzodiazepines Scrn (NEGATIVE) Urine Cocaine Screen (NEGATIVE) U Cannabinoids Screen (NEGATIVE) Ur Drug Screen Comment Ethyl Alcohol mg/dL Assessment/Plan - Problem List (1) Altered mental status Qualifiers: Altered mental status type: unspecified Qualified Code(s): R41.82 - Altered mental status, unspecified
[2023-11-29] MEDS ORDERED: hydrALAZINE INJ 20 MG/ML VIAL IVP PRN (23:42)
--- NOTE | 2023-11-30 00:25 | CT Report ---
PROCEDURE: Head WO INDICATIONS: Worsening mental status TECHNIQUE: Noncontrast 4.5 mm thick angled axial sections acquired from the foramen magnum to the vertex. For r adiation dose reduction, the following was used: automated exposure control, adjustment of mA and/or kV according to patient size. COMPARISON: Head CT earlier today, 10/17/2023. FINDINGS: Image quality: Excellent. CSF spaces: Basal cisterns are patent. No extra-axial fluid collections. Ventricles are normal in size and shape. Brain: No midline shift. No intracranial masses or hemorrhage. No area of hypodensity in a vascula r distribution to suggest acute infarction. There is periventricular hypodensity consistent with sand digger pati microvascular ischemic disease. Age-related parenchymal loss. Skull and face: Small scalp hematoma the left forehead. Calvarium and visualized facial bones are in tact, without suspicious lesions. Sinuses: Opacification of the mastoid air cells. Paranasal sinuses are clear. IMPRESSION: No acute intracranial hemorrhage. Small left forehead scalp hematoma is similar. Chronic microvascular ischemic disease. Reviewed by: Negrito Quintero MD on 11/30/2023 12:23 AM PDT Approved by: Negrito Quintero MD on 11/30/2023 12:23 AM PDT Station ID: [id number]
[2023-11-30] MEDS: SODIUM CHLORIDE FLUSH 0.9% 10 ML SYRINGE IVP SCH (01:13)
[2023-11-30] MEDS: SODIUM CHLORIDE 0.9% 1,000 ML IV SCH (01:13)
[2023-11-30 06:03] LABS: BASOPHILS % (AUTO) 0.4 %; EOSINOPHILS # (AUTO) 0.1 10^3/uL (0.0-0.7); HCT - HEMATOCRIT 33.7 % (37.0-47.0); LYMPHOCYTES # (AUTO) 2.9 10^3/uL (1.5-3.5); MEAN CORPUSCULAR HEMOGLOBIN 30.7 pg (27.0-31.0); MEAN CORPUSCULAR HGB CONC 29.7 g/dL (32.0-36.0); MEAN CORPUSCULAR VOLUME 103.4 fL (81.0-99.0); MEAN PLATELET VOLUME 10.6 fL (7.9-10.8); MONOCYTES # (AUTO) 1.1 10^3/uL (0.0-1.0); MONOCYTES % (AUTO) 15.4 %; NEUTROPHILS # (AUTO) 2.9 10^3/uL (1.5-6.6); NEUTROPHILS % (AUTO) 40.5 %; PLT - PLATELET COUNT 206 10^3/uL (130-450); RED BLOOD COUNT 3.26 10^6/uL (4.20-5.40); RED CELL DISTRIBUTION WIDTH 15.2 % (12.0-15.0); WHITE BLOOD COUNT 7.1 x10^3/uL (4.8-10.8)
[2023-11-30 06:22] LABS: MAGNESIUM 2.2 mg/dL (1.7-2.3)
[2023-11-30 06:34] LABS: CALCIUM 8.8 mg/dL (8.5-10.3); CREATININE 5.1 mg/dL (0.6-1.3); POTASSIUM 3.9 mmol/L (3.5-4.5)
[2023-11-30 06:35] LABS: THYROID STIMULATING HORMONE 0.37 uIU/mL (0.34-5.60)
[2023-11-30] MEDS: LEVOTHYROXINE 100 MCG TABLET PO SCH (06:35)
[2023-11-30 08:13] LABS: ESTIMATED AVERAGE GLUCOSE 103 mg/dL (70-100); HEMOGLOBIN A1c% 5.2 % (4.27-6.07)
[2023-11-30 08:33] VITALS: BP 140/89; O2SAT 97
[2023-11-30] MEDS ORDERED: FOLIC ACID 1 MG TABLET PO SCH (09:00)
[2023-11-30] MEDS ORDERED: HEPARIN 5,000 UNIT/ML VIAL SUBQ SCH (09:00)
[2023-11-30] MEDS ORDERED: FLUTICASONE NASAL SPRAY NAS SCH (09:00)
[2023-11-30] MEDS ORDERED: CYANOCOBALAMIN 500 MCG TABLET PO SCH (09:00)
[2023-11-30] MEDS ORDERED: CLOPIDOGREL 75 MG TABLET PO SCH (09:00)
[2023-11-30] MEDS ORDERED: IPRATROPIUM/ALBUTEROL 3 ML NEB INH SCH (09:00)
[2023-11-30] MEDS ORDERED: CHOLECALCIFEROL 25 MCG TABLET PO SCH (09:00)
[2023-11-30] MEDS ORDERED: ASPIRIN EC 81 MG TABLET PO SCH (09:00)
[2023-11-30] MEDS ORDERED: LORazepam 2 MG/ML VIAL IVP PRN (09:01)
[2023-11-30] MEDS: GLYCOPYRROLATE 1 MG/5 ML VIAL IVP SCH (09:48)
[2023-11-30] MEDS: SCOPOLAMINE PATCH TOP SCH (10:31)
[2023-11-30] MEDS: carvediloL 12.5 MG TABLET PO SCH (11:40)
--- NOTE | 2023-11-30 11:40 | PHARMACY PROGRESS NOTE ---
- Best Possible Medication History Admit Date and Time: 11/29/232104 Processed by: Pharmacy Medications reviewed in ED?: No Medication History completed: No Patient Interview: Pt unable to participate (comfort cares, will not trouble family with med list) As the person ultimately responsible for medication therapy, providers are able to order a medication from an existing home medication list in [facility] via the "Reconcile Routine" prior to Confirmation of that medication by administrative support associate. Such practice is discouraged except when the physician, in their clinical judgment, deems that a medical need exists for a medication without regard to previous use.
[2023-11-30] MEDS: MORPHINE 2 MG/ML CARPUJECT IVP PRN (14:35)
--- NOTE | 2023-11-30 16:08 | PROVIDER PROGRESS NOTE ---
Subjective - Prog Note Date Prog Note Date: 11/30/23 Prog Note Time: 16:06 - Subjective Pt reports feeling: Worse Subjective: Since admission the patient has continued to have decline in her mental status. This morning she is having audible gurgling respirations and she is minimally responsive essentially barely coughing even with deep oral suctioning. She is not withdrawing to noxious stimuli and is unable to provide any supporting review of systems or history. Objective - Vital Signs/Intake & Output Vital Signs: Vital Signs x48h Temp Pulse Resp BP Pulse Ox O2 Flow Rate 11/30/23 08:24 36.6 C 98 12 140/89 H 97 2 Intake & Output: Intake & Output 11/27/23 11/28/23 11/29/23 11/30/23 23:59 23:59 23:59 23:59 Intake Total 1000 828.33 Output Total 1225 Balance 1000 -396.67 - Objective General Appearance: positive: Other (Appears acutely ill. Unrespsonsive to noxious or verbal stimuli. Gurgling respirations are noted. Laceration over left eye.) Eyes Bilateral: positive: Other (Pupils 2 mm bilaterally and minimally responsi ve) ENT: positive: ENT inspection nml, Pharynx nml Neck: positive: Nml inspection, Thyroid nml, No JVD Respiratory: positive: Other (Using accessory muscles of respiration. Gurling respirations noted. Lung sounds are coarse throughout with rhonchi. No wheezing.) Cardiovascular: positive: Regular rate & rhythm, No murmur, No gallop Abdomen: positive: Non-tender, No organomegaly, Nml bowel sounds, No distention Skin: positive: Color nml, No rash, Warm, Dry Extremities: positive: Non-tender, Full ROM, Nml appearance, No pedal edema Neurologic/Psychiatric: positive: Other (Obtunded, unresponsive to noxious or verbal stimuli. No withdrawal in extremities to painful stimulus. No response to babinski testing bilaterally. Reflexes 0-1 bilaterally. Face is symmetric. Pupils 2 mm bilaterally and minimally reactive. Cannot test CN further. No nystagmus.) - Lab Results Fish Bones: 11/30/23 05:28 11/30/23 05:21 Other Labs: Lab Results x24hrs 11/30/23 11/30/23 11/30/23 Range/Units 05:40 05:28 05:21 WBC 7.1 (4.8-10.8) x10^3/uL RBC 3.26 L (4.20-5.40) 10^6/uL Hgb 10.0 L (12.0-16.0) g/dL Hct 33.7 L (37.0-47.0) % MCV 103.4 H (81.0-99.0) fL MCH 30.7 (27.0-31.0) pg MCHC 29.7 L (32.0-36.0) g/dL RDW 15.2 H (12.0-15.0) % Plt Count 206 (130-450) 10^3/uL MPV 10.6 (7.9-10.8) fL Neut # (Auto) 2.9 (1.5-6.6) 10^3/uL Lymph # (Auto) 2.9 (1.5-3.5) 10^3/uL [place] # (Auto) 1.1 H (0.0-1.0) 10^3/uL Eos # (Auto) 0.1 (0.0-0.7) 10^3/uL Baso # (Auto) 0.0 (0.0-0.1) 10^3/uL Absolute Nucleated RBC 0.00 x10^3/uL Nucleated RBC % 0.0 /100WBC PT (9.9-12.6) secs INR (0.8-1.2) APTT (24.9-33.3) secs Sodium 137 (135-145) mmol/L Potassium 3.9 (3.5-4.5) mmol/L Chloride 110 (101-111) mmol/L Carbon Dioxide 15 L (21-32) mmol/L Anion Gap 12.0 (6-13) BUN 80 H* (6-20) mg/dL Creatinine 5.1 H (0.6-1.3) mg/dL Estimated GFR (MDRD) 8 L (>89) Glucose 97 (74-104) mg/dL Estimat Average Glucose 103 H (70-100) mg/dL Hemoglobin A1c % 5.2 (4.27-6.07) % Calcium 8.8 (8.5-10.3) mg/dL Magnesium 2.2 (1.7-2.3) mg/dL Total Bilirubin (0.2-1.0) mg/dL AST (10-42) IU/L ALT (10-60) IU/L Alkaline Phosphatase (42-121) IU/L Total Protein (6.4-8.9) g/dL Albumin (3.2-5.5) g/dL Globulin (2.1-4.2) g/dL Albumin/Globulin Ratio (1.0-2.2) Lipase (11-82) U/L Vitamin B12 1488 H (180-914) pg/mL TSH 0.37 (0.34-5.60) uIU/mL Urine Color Urine Clarity (CLEAR) Urine pH (5.0-7.5) PH Ur Specific [place] (1.002-1.030) Urine Protein (NEGATIVE) mg/dL Urine Glucose (UA) (NEGATIVE) mg/dL Urine Ketones (NEGATIVE) mg/dL Urine Occult Blood (NEGATIVE) Urine Nitrite (NEGATIVE) Urine Bilirubin (NEGATIVE) Urine Urobilinogen (NORMAL) E.U./dL Ur Leukocyte Esterase (NEGATIVE) Urine RBC (0-5) /HPF Urine WBC (0-5) /HPF Ur Squamous Epith Cells (<= Few) Urine Bacteria (None Seen) /HPF Ur Microscopic Review Urine Culture Comments Salicylates mg/dL Urine Opiates Screen (NEGATIVE) Ur Buprenorphine Scrn (NEGATIVE) Ur Oxycodone Screen (NEGATIVE) Urine Methadone Screen (NEGATIVE) Acetaminophen ug/mL Ur Barbiturates Screen (NEGATIVE) Ur Tricyclics Screen (NEGATIVE) Ur Phencyclidine Scrn (NEGATIVE) Ur Amphetamine Screen (NEGATIVE) U Methamphetamines Scrn (NEGATIVE) U Benzodiazepines Scrn (NEGATIVE) Urine Cocaine Screen (NEGATIVE) U Cannabinoids Screen (NEGATIVE) Ur Drug Screen Comment Ethyl Alcohol mg/dL 11/29/23 11/29/23 11/29/23 Range/Units 19:13 19:13 18:49 WBC (4.8-10.8) x10^3/uL RBC (4.20-5.40) 10^6/uL Hgb (12.0-16.0) g/dL Hct (37.0-47.0) % MCV (81.0-99.0) fL MCH (27.0-31.0) pg MCHC (32.0-36.0) g/dL RDW (12.0-15.0) % Plt Count (130-450) 10^3/uL MPV (7.9-10.8) fL Neut # (Auto) (1.5-6.6) 10^3/uL Lymph # (Auto) (1.5-3.5) 10^3/uL [place] # (Auto) (0.0-1.0) 10^3/uL Eos # (Auto) (0.0-0.7) 10^3/uL Baso # (Auto) (0.0-0.1) 10^3/uL Absolute Nucleated RBC x10^3/uL Nucleated RBC % /100WBC PT (9.9-12.6) secs INR (0.8-1.2) APTT (24.9-33.3) secs Sodium 136 (135-145) mmol/L Potassium 3.8 (3.5-4.5) mmol/L Chloride 108 (101-111) mmol/L Carbon Dioxide 17 L (21-32) mmol/L Anion Gap 11.0 (6-13) BUN 83 H* (6-20) mg/dL Creatinine 5.5 H (0.6-1.3) mg/dL Estimated GFR (MDRD) 8 L (>89) Glucose 131 H (74-104) mg/dL Estimat Average Glucose (70-100) mg/dL Hemoglobin A1c % (4.27-6.07) % Calcium 8.9 (8.5-10.3) mg/dL Magnesium (1.7-2.3) mg/dL Total Bilirubin 0.3 (0.2-1.0) mg/dL AST 13 (10-42) IU/L ALT 19 (10-60) IU/L Alkaline Phosphatase 144 H (42-121) IU/L Total Protein 6.5 (6.4-8.9) g/dL Albumin 3.7 (3.2-5.5) g/dL Globulin 2.8 (2.1-4.2) g/dL Albumin/Globulin Ratio 1.3 (1.0-2.2) Lipase 51 (11-82) U/L Vitamin B12 (180-914) pg/mL TSH (0.34-5.60) uIU/mL Urine Color YELLOW Urine Clarity CLOUDY (CLEAR) Urine pH 6.0 (5.0-7.5) PH Ur Specific [place] 1.010 (1.002-1.030) Urine Protein NEGATIVE (NEGATIVE) mg/dL Urine Glucose (UA) NEGATIVE (NEGATIVE) mg/dL Urine Ketones NEGATIVE (NEGATIVE) mg/dL Urine Occult Blood TRACE-LYSE (NEGATIVE) Urine Nitrite POSITIVE H (NEGATIVE) Urine Bilirubin NEGATIVE (NEGATIVE) Urine Urobilinogen 0.2 (NORMAL) (NORMAL) E.U./dL Ur Leukocyte Esterase MODERATE H (NEGATIVE) Urine RBC 0-5 (0-5) /HPF Urine WBC 11-25 H (0-5) /HPF Ur Squamous Epith Cells FEW Squamous (<= Few) Urine Bacteria Many H (None Seen) /HPF Ur Microscopic Review INDICATED Urine Culture Comments INDICATED Salicylates < 1.5 mg/dL Urine Opiates Screen NEGATIVE (NEGATIVE) Ur Buprenorphine Scrn NEGATIVE (NEGATIVE) Ur Oxycodone Screen NEGATIVE (NEGATIVE) Urine Methadone Screen NEGATIVE (NEGATIVE) Acetaminophen 0.8 ug/mL Ur Barbiturates Screen NEGATIVE (NEGATIVE) Ur Tricyclics Screen NEGATIVE (NEGATIVE) Ur Phencyclidine Scrn NEGATIVE (NEGATIVE) Ur Amphetamine Screen NEGATIVE (NEGATIVE) U Methamphetamines Scrn NEGATIVE (NEGATIVE) U Benzodiazepines Scrn POSITIVE H (NEGATIVE) Urine Cocaine Screen NEGATIVE (NEGATIVE) U Cannabinoids Screen NEGATIVE (NEGATIVE) Ur Drug Screen Comment CUTOFF CONC BELOW: Ethyl Alcohol < 10.0 mg/dL 11/29/23 11/29/23 Range/Units 18:49 18:16 WBC 8.0 (4.8-10.8) x10^3/uL RBC 3.05 L (4.20-5.40) 10^6/uL Hgb 9.5 L (12.0-16.0) g/dL Hct 30.2 L (37.0-47.0) % MCV 99.0 (81.0-99.0) fL MCH 31.1 H (27.0-31.0) pg MCHC 31.5 L (32.0-36.0) g/dL RDW 14.8 (12.0-15.0) % Plt Count 213 (130-450) 10^3/uL MPV 10.4 (7.9-10.8) fL Neut # (Auto) 3.3 (1.5-6.6) 10^3/uL Lymph # (Auto) 3.2 (1.5-3.5) 10^3/uL [place] # (Auto) 1.2 H (0.0-1.0) 10^3/uL Eos # (Auto) 0.2 (0.0-0.7) 10^3/uL Baso # (Auto) 0.0 (0.0-0.1) 10^3/uL Absolute Nucleated RBC 0.00 x10^3/uL Nucleated RBC % 0.0 /100WBC PT 11.9 (9.9-12.6) secs INR 1.1 (0.8-1.2) APTT 24.3 L (24.9-33.3) secs Sodium (135-145) mmol/L Potassium (3.5-4.5) mmol/L Chloride (101-111) mmol/L Carbon Dioxide (21-32) mmol/L Anion Gap (6-13) BUN (6-20) mg/dL Creatinine (0.6-1.3) mg/dL Estimated GFR (MDRD) (>89) Glucose (74-104) mg/dL Estimat Average Glucose (70-100) mg/dL Hemoglobin A1c % (4.27-6.07) % Calcium (8.5-10.3) mg/dL Magnesium (1.7-2.3) mg/dL Total Bilirubin (0.2-1.0) mg/dL AST (10-42) IU/L ALT (10-60) IU/L Alkaline Phosphatase (42-121) IU/L Total Protein (6.4-8.9) g/dL Albumin (3.2-5.5) g/dL Globulin (2.1-4.2) g/dL Albumin/Globulin Ratio (1.0-2.2) Lipase (11-82) U/L Vitamin B12 (180-914) pg/mL TSH (0.34-5.60) uIU/mL Urine Color Urine Clarity (CLEAR) Urine pH (5.0-7.5) PH Ur Specific [place] (1.002-1.030) Urine Protein (NEGATIVE) mg/dL Urine Glucose (UA) (NEGATIVE) mg/dL Urine Ketones (NEGATIVE) mg/dL Urine Occult Blood (NEGATIVE) Urine Nitrite (NEGATIVE) Urine Bilirubin (NEGATIVE) Urine Urobilinogen (NORMAL) E.U./dL Ur Leukocyte Esterase (NEGATIVE) Urine RBC (0-5) /HPF Urine WBC (0-5) /HPF Ur Squamous Epith Cells (<= Few) Urine Bacteria (None Seen) /HPF Ur Microscopic Review Urine Culture Comments Salicylates mg/dL Urine Opiates Screen (NEGATIVE) Ur Buprenorphine Scrn (NEGATIVE) Ur Oxycodone Screen (NEGATIVE) Urine Methadone Screen (NEGATIVE) Acetaminophen ug/mL Ur Barbiturates Screen (NEGATIVE) Ur Tricyclics Screen (NEGATIVE) Ur Phencyclidine Scrn (NEGATIVE) Ur Amphetamine Screen (NEGATIVE) U Methamphetamines Scrn (NEGATIVE) U Benzodiazepines Scrn (NEGATIVE) Urine Cocaine Screen (NEGATIVE) U Cannabinoids Screen (NEGATIVE) Ur Drug Screen Comment Ethyl Alcohol mg/dL Sepsis Event Note (H) - Evaluation Current Stage of Sepsis: Ruled out Assessment/Plan - Problem List (1) Altered mental status Impression: Her current level of mentation is significantly impaired from her baseline which is typically alert and oriented with no focal deficits at baseline. Her altered mental status is likely multifactorial, with a probable concussion along with UTI and uremia contributing. Unclear if she is having any hypercapnia as well, though she is not on any narcotics or has any other obvious reason to become hypercapnic. -Ultimately given her significant progression it does appear that she is reaching a critical juncture in her health. -Discussions with her HPOA, who is a retired nurse, indicates that the patient would not want dialysis for renal function and would not want intubated or have compressions performed. -Further discussions indicate that the patient has indicated she would not want significant ongoing care if her health worsened. Given this the [facility] feels that transitioning to comfort care only at this time is not appropriate measurement which I agree. -Will change her CODE STATUS to DNR/DNI and remove ongoing IV medications. Discontinue further imaging and investigative studies. Will place on as needed IV morphine, Ativan and give a dose of IV glycopyrrolate for secretions. Will place a scopolamine patch as well. -Consult hospice however given her trajectory she may pass in the hospital in the next 1 to 2 days. Qualifiers: Altered mental status type: unspecified Qualified Code(s): R41.82 - Altered mental status, unspecified (2) Acute kidney injury superimposed on stage 5 chronic kidney disease, not on chronic dialysis Impression: She has baseline CKD stage V and is indicated she would not want dialysis going forward. Her acute worsening is likely secondary to prerenal from her UTI as well as mental status issues. -Will discontinue further management as noted above as we are transitioning to comfort care measures. (3) UTI (urinary tract infection) Impression: She has had multiple UTIs in the past couple months along with recurrent episodes of C. difficile. -Discontinue IV antibiotics at this time as we are no longer treating acute issues given her comfort care only status.
[2023-11-30] MEDS: GLYCOPYRROLATE 1 MG/5 ML VIAL IVP PRN (20:48)
[2023-11-30] MEDS ORDERED: amLODIPine 5 MG TABLET PO SCH (21:00)
--- NOTE | 2023-12-01 09:20 | DISCHARGE SUMMARY ---
"Discharge Summary Admit Date: 11/29/23 Discharge Date: 12/01/23 Discharging Provider: Dr. Rodriguez Manzano MD Primary Care Provider: Dr. Danyell Mayes MD Code Status: Do Not Attempt Resuscitation Discharge Disposition: 20 - DIAGNOSES Admission Diagnoses: Acute Metabolic Encephalopathy - HPI History of Present Illness: 72 yo F with PMH of CKD stage 5, HTN, Hypothyroidism, Bipolar D/o, Insomnia, Asthma, CVA, recent 2 admissions for CDiff after tx with antibiotics for UTI presented from SNF to the ER s/p GLF today. Pt was hospitalized last from 10/30/23-11/05/23 for recurrent CDiff and was discharged to SNF. At baseline, she is A+Ox3 and can ambulate independently; notes say that she does use a walker. SNF staff last checked on pt at 2PM and she was fine. They later checked on her at 5P and found lying her on the floor after an unwitnessed fall. Not known if she had LOC. Since fall, she has been confused, drowsy, not answering questions or following commands, not oriented. No other known complaints. In the ED, she was noted to have a left forehead laceration requiring [address] Head showed no acute intracranial pathology. Her labs showed acute on chronic CKD with a creatinine of 5.5 and BUN of 83. Her urinalysis was positive for another UTI and her urine drug screen was positive for benzodiazepines. A CT C-spine was negative for acute pathology as well. She was given IV fluids and admitted for further care. - CONSULTS | PROCEDURES Consultations: None - HOSPITAL COURSE Hospital Course: At the time of admission her altered mental status was felt to be secondary to a closed head injury with concussion in the setting of worsening uremia and recurrent urinary tract infection. After admission her mentation continued to decline and she became essentially unarousable. Repeat CT of her head showed no delayed bleed or other new acute intracranial pathology. Her DPOA, who is a family friend, was contacted and came to the hospital to discuss ongoing care. The patient's prognosis appears poor as she was unable to protect her airway and was unarousable to deep stimulation. Ongoing medical care was discussed with the DPOA, which would include aggressive measures including likely intubation and further workup of her ongoing confusion and acute illness. The DPOA indicated that the patient had advised her in the past that she did not want dialysis or aggressive measures and did not want to be on life support. Given that she has had poor quality of life recently with multiple admissions and has had an overall general decline, with this acute drastic change in her condition, the DPOA indicated that the patient would wish to proceed into comfort measures in the sort of his situation. Her CODE STATUS was changed to DNR/DNI and ongoing medical management was discontinued. She was taken off of oxygen, IV fluids and antibiotics. She was given as needed morphine, Ativan and glycopyrrolate for comfort and transitioned to comfort measures only in the hospital. She peacefully in the hospital at 06:35 on 12/01/23. Cause of was acute metabolic encephalopathy secondary to uremia due to acute on chronic renal failure. - ALLERGIES Allergies/Adverse Reactions: Allergies Allergy/AdvReac Type Severity Reaction Status Date / Time codeine [Codeine] Allergy Emesis Verified 10/30/23 12:38 olanzapine [From Zyprexa] AdvReac weight gain Verified 10/30/23 12:38 sulfamethoxazole AdvReac Emesis Verified 10/30/23 12:38 [From Septra] trimethoprim [From Septra] AdvReac Emesis Verified 10/30/23 12:38 ziprasidone HCl * AdvReac dementia Verified 10/30/23 12:38 [From Geodon] ziprasidone mesylate * AdvReac dementia Verified 10/30/23 12:38 [From Geodon] - MEDICATIONS Home Medications: Ambulatory Orders Medication Instructions Recorded Confirmed lamoTRIgine [LaMICtal] 200 mg PO QPM 01/15/13 10/31/23 carvediloL [Coreg] 12.5 mg PO BIDWM 06/30/20 10/31/23 Amlodipine Besylate [Norvasc] 10 mg PO QPM 05/24/23 10/31/23 Ipratropium/Albuterol [Duoneb] 3 ml INH DAILY 05/24/23 10/31/23 Fluticasone [Flonase] 2 spray HAKAN DAILY 10/11/23 10/31/23 LORazepam [Ativan] 2 mg PO QPM PRN 10/11/23 10/31/23 Levothyroxine Sodium [Synthroid] 150 mcg PO QDAC 10/11/23 10/31/23 carBAMazepine [Carbamazepine ER] 200 mg PO BID 10/11/23 10/31/23 Cyanocobalamin [Vitamin B-12] 500 mcg PO DAILY #30 tab 10/12/23 10/31/23 Folic Acid 1 mg PO DAILY #30 tab 10/12/23 10/31/23 Loratadine [Claritin] 10 mg PO QOD PRN #30 tab 10/12/23 10/31/23 Aspirin EC [Ecotrin] 81 mg PO DAILY #30 tab 10/20/23 10/31/23 Atorvastatin [Lipitor] 40 mg PO QPM #30 tab 10/20/23 10/31/23 Clopidogrel [Plavix] 75 mg PO DAILY #21 tab 10/20/23 10/31/23 Bisacodyl Supp [Dulcolax Supp] 10 mg ND DAILY PRN 10/31/23 10/31/23 Cholecalciferol [Vitamin D3] 25 mcg PO DAILY 10/31/23 10/31/23 Mineral Oil [Mineral Oil Enema] 1 unit ND DAILY PRN 10/31/23 10/31/23 Saccharomyces Boulardii [Florastor] 250 mg PO BID 10/31/23 10/31/23 polyethylene glycoL 3350 17 g PO DAILY PRN 10/31/23 10/31/23 [Polyethylene Glycol 3350] Fidaxomicin [Dificid] 200 mg PO BID #36 tab 11/05/23 - LABS Result Diagrams: 11/30/23 05:28 11/30/23 05:21 - DIAGNOSTIC IMAGING Diagnostic Imaging Results: Final report reviewed Diagnostic Imaging Results Comments: CT Head (15:03 11/29/23): 1. Left forehead scalp hematoma, without an associated fracture seen. 2. No intracranial hemorrhage is seen. 3. No significant intracranial abnormality is seen. 4. Mastoid air cell fluid noted, which is new compared to the prior. CT Head (00:23 11/30/23): 1. No acute intracranial hemorrhage. Small left forehead scalp hematoma the similar. 2. Chronic microvascular ischemic disease. Cervical Spine CT: 1. Motion limited study, yet without acute fracture seen. 2. Multiple levels of the cervical spine degenerative change can be seen, which are worse inferiorly. - SEPSIS Current Stage of Sepsis: Ruled out"
[2023-12-02 14:09] LABS: FOLATE HEMOLYSATE 511.6 ng/mL (Not Estab.); FOLATE RBC 1640 ng/mL (>498); HEMATOCRIT 31.2 % (34.0-46.6); HEMATOLOGY COMMENTS Note: (.)
== END 2023-12-01 06:35 | disposition expired ==
LOC: EDUNIT# → ED 17:39 → MS2 21:05
PROVIDERS: ADMIT Internal Medicine; ATTEND Hospitalist
DX: G93.41 Metabolic encephalopathy (principal); I12.0 Hypertensive chronic kidney disease with stage 5 chronic kidney disease or end stage renal disease; N18.5 Chronic kidney disease, stage 5; E03.9 Hypothyroidism, unspecified; F31.9 Bipolar disorder, unspecified; G47.00 Insomnia, unspecified; J45.909 Unspecified asthma, uncomplicated; S01.81XA Laceration without foreign body of other part of head, initial encounter; W19.XXXA Unspecified fall, initial encounter; N39.0 Urinary tract infection, site not specified; N17.9 Acute kidney failure, unspecified; D53.9 Nutritional anemia, unspecified; Z51.5 Encounter for palliative care; Z66 Do not resuscitate; Z79.02 Long term (current) use of antithrombotics/antiplatelets; Z79.82 Long term (current) use of aspirin; Z79.890 Hormone replacement therapy; Z79.899 Other long term (current) drug therapy; Z86.19 Personal history of other infectious and parasitic diseases; Z86.73 Personal history of transient ischemic attack (TIA), and cerebral infarction without residual deficits
CPT/HCPCS: 12011; 36415; 51702; 70450; 72125; 80048; 80053; 80143; 80306; 81001; 82607; 82747; 83036; 83690; 83735; 84443; 85014; 85025; 85610; 85730; 87077; 87086; 87181; 96361; 96374; 96375; 96376; 99285; G0378; G0480; J3490; P9612; 51701; 80179; 81003; 82077